=== PATIENT | female | born 1935 | race Caucasian/White ===

== ENCOUNTER 2020-05-24 19:16 | Emergency (ER) | payer MEDICARE, OTHER ==
[~2020-05-24] VITALS: Ht 160 cm; Wt 63.5 kg
--- OUTSIDE RECORDS SUMMARY | ~2020-05-24 | XMS | Encounter Summary ---
Demographics + + + | Address | [address] | | | [place] [address] | + + + | Home Phone | | + + + | Preferred Language | Unknown | + + + | Marital Status | | + + + | Mormonism Affiliation | 1041 | + + + | Race | White | + + + | Ethnic Group | Not or | + + + Author + + + | Author | [facility] | | | and [place] | + + + | Organization | [facility] | | | and [place] | + + + | Address | Unknown | + + + | Phone | Unavailable | + + + Support + + +---------+ + | Name | Relationship | Address | Phone | + + +---------+ + | Marisel Orellana | ECON | Unknown | | + + +---------+ + | Faviola Lara | ECON | Unknown | | + + +---------+ + Care Team Providers + +------+ + | Care Working Foreman Name | Role | Phone | + +------+ + | Terrence Aquino DO | PCP | | + +------+ + Encounter Details +--------+ + + + + | Date | Type | Department | Care Team | Description | +--------+ + + + + | 04/27/ | Orders Only | [facility] [place] | VishabsylvainMariyavish, | Aortic valve | | 2016 | | CARDIOLOGY [address] | [address] | stenosis, critical | | | | [place], | [place], | (Primary Dx); | | | | [place] [address] | [place] [address] | Nonrheumatic aortic | | | | [phone] | [phone] | valve stenosis; PAD | | | | | | (peripheral artery | | | | | | disease) (HCC); | | | | | | Coronary artery | | | | | | disease involving | | | | | | picayune coronary | | | | | | artery of picayune | | | | | | heart without angina | | | | | | pectoris; S/P TAVR | | | | | | (transcatheter | | | | | | aortic valve | | | | | | replacement); Post | | | | | | PTCA | +--------+ + + + + Social History + +-------+ +--------+------+ | Tobacco Use | Types | Packs/Day | Years | Date | | | | | Used | | + +-------+ +--------+------+ | Never Smoker | | | | | + +-------+ +--------+------+ + +---+---+---+ | Smokeless Tobacco: | | | | | Never Used | | | | + +---+---+---+ + + +---------+ + | Alcohol Use | Drinks/Week | oz/Week | Comments | + + +---------+ + | Yes | | | Rarely | + + +---------+ + + + + | Sex Assigned at | Date Recorded | | | | + + + | Not on file | | + + + documented as of this encounter Plan of Treatment +--------+ + + + + | Date | Type | Specialty | Care Team | Description | +--------+ + + + + | 06/18/ | Appointment | Cardiology | Rasheeda Patel, | | | 2019 | | | [place] [address] | | | | | | [place] | | | | | | [address] | | | | | | | | +--------+ + + + + | 06/18/ | Office | Cardiology | Sandra Lua | | | 2019 | Visit | | JOHNN[place] Bernal [address] | | | | | | [place] | | | | | | [place] [address] | | | | | | [phone] | | | | | | | | +--------+ + + + + documented as of this encounter Visit Diagnoses + + | Diagnosis | + + | Aortic valve stenosis, critical - Primary Aortic valve disorders | + + | Nonrheumatic aortic valve stenosis Aortic valve disorders | + + | PAD (peripheral artery disease) (HCC) Unspecified disorders of arteries and | | arterioles | + + | 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
--- OUTSIDE RECORDS SUMMARY | ~2020-05-24 | XMS | Encounter Summary ---
Demographics + + + | Address | [address] | | | [place] [address] | + + + | Home Phone | | + + + | Preferred Language | Unknown | + + + | Marital Status | | + + + | Methodist Affiliation | 1041 | + + + | Race | White | + + + | Ethnic Group | Not or | + + + Author + + + | Author | [facility] | | | and [place] | + + + | Organization | [facility] | | | and [...] Team Providers + +------+ + | Care Chin Strap Sewer Name | Role | Phone | + +------+ + | Terrence Aquino DO | PCP | | + +------+ + Encounter Details +--------+ + + + + | Date | Type | Department | Care Team | Description | +--------+ + + + + | 03/21/ | Hospital | [facility] | Martina Hoskins, | Palpitations | | 2017 | Encounter | MED CTR NUCLEAR | MD [address] | | | | | MEDICINE [address], | | | | | [place], | [place] [address] | | | | | [place] [address] | [phone] | | | | | [phone] | | | +--------+ + + + + Social [...] + + documented as of this encounter Medications at Time of Discharge + + + +---------+ + + | Medication | Sig | Dispensed | Refills | Start | End Date | | | | | | Date | | + + + +---------+ + + | acetaminophen | Take 500 mg by mouth | | 0 | | | | (TYLENOL) 500 mg | Daily. 3-4 tablets | | | | | | tablet | daily | | | | | + + + +---------+ + + | ascorbic acid | Take 500 mg by mouth | | 0 | | | | (VITAMIN C) 500 mg | Daily. | | | | | | tablet | | | | | | + + + +---------+ + + | B Complex Vitamins | Take 1 tablet by | | 0 | | | | (VITAMIN-B COMPLEX) | mouth Daily. | | | | | | TABS | | | | | | + + + +---------+ + + | irbesartan | Take 300 mg by mouth | | 0 | | | | (AVAPRO) 300 mg | Daily. | | | | | | tablet | | | | | | + + + +---------+ + + | Multiple | Take by mouth 2 | | 0 | | | | Vitamins-Minerals | times daily. | | | | | | (PRESERVISION AREDS | | | | | | | 2) CAPS | | | | | | + + + +---------+ + + | cholecalciferol | Take 1,000 Units by | | 0 | | | | (VITAMIN D-3) 1,000 | mouth Daily. | | | | 7 | | units capsule | | | | | | + + + +---------+ + + | | Take by mouth 2 | | 0 | | | | Glucosamine-Chondroi | times daily. | | | | 9 | | t-Vit C-Mn | | | | | | | (GLUCOSAMINE-CHONDRO | | | | | | | ITIN) TABS | | | | | | + + + +---------+ + + | metoprolol | Take 50 mg by mouth | | 0 | | | | succinate | Daily. | | | | 7 | | (TOPROL-XL) 50 mg 24 | | | | | | | hr tablet | | | | | | + + + +---------+ + + | potassium chloride | Take 20 mEq by mouth | | 0 | 12/19/19 | | | (K-DUR) 20 mEq ER | Daily. 1 capsule | | | 16 | 9 | | tablet | mon-mon-mon orally | | | | | | | once a day | | | | | + + + +---------+ + + | traMADol (ULTRAM) | take 1 tablet by | | 0 | 02/09/20 | | | 50 mg tablet | mouth once daily if | | | 16 | 7 | | | needed | | | | | + + + +---------+ + + documented as of this encounter Procedure Notes Martina Hoskins MD - 04/04/2017 12:53 PM PDTAssociated Order(s): EVENT MONITOR 2 WEEKEve nt monitor from 03/21 until 04/03/2017. Baseline EKG shows sinus rhythm with first-degree AV block. There were multiple patient activation without symptoms. EKG shows sinus rhythm with first degree AV block and a single PVCs. There is no other significant arrhythmias seen.Carlie kelly signed by Martina Hoskins MD at 04/04/2017 12:55 PM PDTdocumented in this encounter Plan of Treatment +--------+ + + + + | Date | Type | Specialty | Care Team | Description | +--------+ + + + + | 06/18/ | Appointment | Cardiology | Rasheeda Patel, | | | 2019 | | | [place] [address] | | | | | | [place] | | | | | | [address] | | | | | | | | +--------+ + + + + | 06/18/ | Office | Cardiology | Sandra Lua | | 2019 | Visit | | [address] | | | | | | [place] | | | | | | [place] [address] | | | | | | [phone] | | | | | | | | +--------+ + + + + documented as of this encounter Procedures + +--------+ + + + | Procedure Name | Priori | Date/Time | Associated Diagnosis | Comments | | | ty | | | | + +--------+ + + + | EVENT MONITOR 2 WEEK | Routin | 04/04/2017 | Palpitations | Results for this | | | e | 12:55 PM | | procedure are in the | | | | PDT | | results section. | + +--------+ + + + documented in this encounter Results Event monitor - 2 week (04/04/2017 12:55 PM PDT) + + + | Narrative | Performed At | + + + | Martina Hoskins MD 04/04/2017 12:55 Event monitor from 03/21 | [facility] | | until 04/03/2017. Baseline EKG shows sinus rhythm with first-degree AV | | | block. There were multiple patient activation without symptoms. | | | EKG shows sinus rhythm with first degree AV block and a single | | | PVCs. There is no other significant arrhythmias seen. | | + + + + +---------+ + + | Performing | Address | City/State/Zipcode | Phone Number | | Organization | | | | + +---------+ + + | [place] | | | | + +---------+ + + documented in this encounter Visit Diagnoses + + | Diagnosis | + + | Palpitations | + + documented in this encounter"
--- OUTSIDE RECORDS SUMMARY | ~2020-05-24 | XMS | Encounter Summary ---
Demographics + + + | Address | [address] | | | [place] [address] | + + + | Home Phone | | + + + | Preferred Language | Unknown | + + + | Marital Status | | + + + | Adventist Affiliation | 1041 | + + + | Race | White | + + + | Ethnic Group | Not or | + + + Author + + + | Author | [facility] | | | and [place] | + + + | Organization | [facility] | | | [...] Team Providers + +------+ + | Care Calibration Checker Name | Role | Phone | + +------+ + | Terrence Aquino DO | PCP | | + +------+ + Encounter Details +--------+ + + + + | Date | Type | Department | Care Team | Description | +--------+ + + + + | 03/18/ | Orders Only | [facility] | Provider, | | | 2018 | | SYSTEM GENERIC OP | [address] | | | | | [address]VERSION [address] | [address] | | | | | [address] [place], [place] | [place] [address] | | | | | [address] | | | | | | [phone] | | | +--------+ + + + [...] +---------+ + | Yes | | | Alcoholic | | | | | Drinks/day: day | + + +---------+ + + + [...] | | 2019 | | | [place] [address] | | | | | | [place] | | | | | | [id number] | | | | | | | | +--------+ + + + + | 06/18/ | Office | Cardiology | Sandra Lua | | | 2020 | Visit | | [place] Bernal [address] | | | | | | [place] [address] | | | | | | [place] [address] | | | | | | [phone] | | | | | | | | +--------+ + + + + documented as of this encounter Visit Diagnoses Not on filedocumented in this encounter"
--- OUTSIDE RECORDS SUMMARY | ~2020-05-24 | XMS | Encounter Summary ---
Demographics + + + | Address | [address] | | | [place] [address] | + + + | Home Phone | | + + + | Preferred Language | Unknown | + + + | Marital Status | | + + + | Uatsdin Affiliation | 1041 | + + + | Race | White | + + + | Ethnic Group | Not or | + + + Author + + + | Author | [facility] | | | and [place] | + + + | Organization | [facility] | | | and [...] Team Providers + +------+ + | Care Palliative Senior Np Name | Role | Phone | + +------+ + | Terrence Aquino DO | PCP | | + +------+ + Encounter Details +--------+ + + + + | Date | Type | Department | Care Team | Description | +--------+ + + + + | 02/16/ | Abstract | [facility] [place] | Martina Hoskins, | Essential | | 2016 | | CARDIOLOGY [address] | [address] | hypertension, | | | | [address] [place], | [place], | hypertension with | | | | [place] [address] | [place] [address] | unspecified goal | | | | [phone] | [phone] | (Primary Dx); | | | | | | Hypokalemia; Aortic | | | | | | valve stenosis, | | | | | | unspecified | | | | | | etiology; | | | | | | Hypertensive | | | | | | arteriosclerotic | | | | | | cardiovascular | | | | | | disease; | | | | | | Nonrheumatic aortic | | | | | | valve stenosis; | | | | | | Arthritis | +--------+ + + + + Social History + +-------+ +--------+------+ | Tobacco Use | Types | Packs/Day | Years | Date | | | | | Used | | + +-------+ +--------+------+ | Never Smoker | | | | | + +-------+ +--------+------+ + + +---------+ + | Alcohol Use | Drinks/Week | oz/Week | Comments | + + +---------+ + | Yes | 3 Glasses of wine | 3.0 | | + + +---------+ + + + [...] 2019 | | | [place] [address] | | | | | | [place] | | | | | | [address] | | | | | | | | +--------+ + + + + | 06/18/ | Office | Cardiology | LuaSandra raymond | | | 2019 | Visit | | [place]NN[place] Bernal [address] | | | | | | [address] | | | | | | [place] [address] | | | | | | [phone] | | | | | | | | +--------+ + + + + documented as of this encounter Visit Diagnoses + + | Diagnosis | + + | Essential hypertension, hypertension with unspecified goal - Primary | + + | Hypokalemia Hypopotassemia | + + | Aortic valve stenosis, unspecified etiology | + + | Hypertensive arteriosclerotic cardiovascular disease | + + | Nonrheumatic aortic valve stenosis Aortic valve disorders | + + | Arthritis Arthropathy, unspecified, site unspecified | + + documented in this encounter"
--- OUTSIDE RECORDS SUMMARY | ~2020-05-24 | XMS | Encounter Summary ---
Demographics + + + | Address | [address] | | | [place] [address] | + + + | Home Phone | | + + + | Preferred Language | Unknown | + + + | Marital Status | | + + + | Moravian Affiliation | 1041 | + + + | Race | White | + + + | Ethnic Group | Not or | + + + Author + + + | Author | [facility] | | | and [place] | + + + | Organization | [facility] | | | and [place] | + + + | Address | Unknown | + + + | Phone | Unavailable | + + + Support + + +---------+ + | Name | Relationship | Address | Phone | + + +---------+ + | Marisel Orellana | ECON | Unknown | | + + +---------+ + | Faviola aLra | ECON | Unknown | | + + +---------+ + Care Team Providers + +------+ + | Care Bottle Tester Name | Role | Phone | + +------+ + PCP | Unavailable | + +------+ + Encounter Details +--------+ + + + + | Date | Type | Department | Care Team | Description | +--------+ + + + + | 07/24/ | Hospital | [facility] | Conversion | | | 2011 | Encounter | [facility] | Transaction, | | | | | [address] | Provider Unknown | | | | | [place], [place] | | | | | | [address] | (Fax) | | | | | [phone] | | | +--------+ + + + + Social History + +-------+ +--------+------+ | Tobacco Use | Types | Packs/Day | Years | Date | | | | | Used | | + +-------+ +--------+------+ | Never Assessed | | | | | + +-------+ +--------+------+ + + + | Sex Assigned at [...] | | | | | [place] [address] | | | | | | [phone] | | | | | | | | +--------+ + + + + documented as of this encounter Visit Diagnoses Not on filedocumented in this encounter"
--- OUTSIDE RECORDS SUMMARY | ~2020-05-24 | XMS | Encounter Summary ---
Demographics + + + | Address | [address] | | | [place] [address] | + + + | Home Phone | | + + + | Preferred Language | Unknown | + + + | Marital Status | | + + + | Church Affiliation | 1041 | + + + | Race | White | + + + | Ethnic Group | Not or | + + + Author + + + | Author | [facility] | | | and [place] | + + + | Organization | [facility] | | | [...] Team Providers + +------+ + | Care Fuel Pilot Engineer Name | Role | Phone | + +------+ + PCP | Unavailable | + +------+ + Encounter Details +--------+ + + + + | Date | Type | Department | Care Team | Description | +--------+ + + + + | 05/23/ | Hospital | [facility] | Steve Moore MD | | | 2007 | Encounter | MED CTR GENERIC OP | [address], [address] | | | | | CONV DEPT [address] | [address] [place], [place] | | | | | [place], | [address] | | | | | [place] [address] | | | | | | [phone] | | | +--------+ + + + [...] [address] | | | | | | [place] [...] | | | | | [place] [address] | | | | | | [phone] | | | | | | | | +--------+ + + + + documented as of this encounter Visit Diagnoses Not on filedocumented in this encounter"
--- OUTSIDE RECORDS SUMMARY | ~2020-05-24 | XMS | Encounter Summary ---
Demographics + + + | Address | [address] | | | [place] [address] | + + + | Home Phone | | + + + | Preferred Language | Unknown | + + + | Marital Status | | + + + | Quaker Affiliation | 1041 | + + + | Race | White | + + + | Ethnic Group | Not or | + + + Author + + + | Author | [facility] | | | and [place] | + + + | Organization | [facility] | | | [...] Team Providers + +------+ + | Care Wax Cutter Name | Role | Phone | + +------+ + | Terrence Aquino DO | PCP | | + +------+ + Reason for Visit +--------+--------+ + | Reason | Onset | Comments | | | Date | | +--------+--------+ + | Other | 11/14/ | | | | 2018 | | +--------+--------+ + Encounter Details +--------+ + + + + | Date | Type | Department | Care Team | Description | +--------+ + + + + | 11/14/ | Telephone | [facility] | Rasheeda Patel, | [place] | | 2017 | | CARDIOLOGY [address] | UPPER AND BOTTOM LACER HAND [address] | | | | | [place], | [place], [place] | | | | | [place] [address] | [address] | | | | | [phone] | | | +--------+ + + + [...] + + documented as of this encounter Miscellaneous Notes Telephone Encounter - Bonny Gordon RN - 11/14/2017 3:18 PM PDTPatient called, she stopped pravastatin on 10/17/17, she is feeling much better with her arthritis. She would lik Chris GANT to know this information, she was told by Rasheeda that she would change he r dose and take every other day if her arthritis improved .................................. .........Bonny Gordon RN on 11/14/17 at 16:14 Per Rasheeda GANT, patient was notified to take 5 mg every other day, if pain returns to stop medication and call the office ...........................................Bonny Gordon RN on 11/14/17 at 16:17 documented in thi s encounter Plan of Treatment +--------+ + + + + | Date | Type | Specialty | Care Team | Description | +--------+ + + + + | 06/18/ | Appointment | Cardiology | Rasheeda Patel, | | | 2019 | | | [place] | | | | | | [place], [place] | | | | | | [address] | | | | | | | | +--------+ + + + + | 06/18/ | Office | Cardiology | Sandra Lua | | | 2020 | Visit | | JOHNN[place] Bernal [address] | | | | | | [place] [address] | | | | | | [place] [address] | | | | | | [phone] | | | | | | | | +--------+ + + + + documented as of this encounter Visit Diagnoses Not on filedocumented in this encounter"
--- OUTSIDE RECORDS SUMMARY | ~2020-05-24 | XMS | Encounter Summary ---
Demographics + + + | Address | [address] | | | [place] [address] | + + + | Home Phone | | + + + | Preferred Language | Unknown | + + + | Marital Status | | + + + | Presybeterian Affiliation | 1041 | + + + | Race | White | + + + | Ethnic Group | Not or | + + + Author + + + | Author | [facility] | | | and [place] | + + + | Organization | [facility] | | | and [place] | + + + | Address | Unknown | + + + | Phone | Unavailable | + + + Support + + +---------+ + | Name | Relationship | Address | Phone | + + +---------+ + | Mariselnicole Orellana | ECON | Unknown | | + + +---------+ + | Faviola Lara | ECON | Unknown | | + + +---------+ + Care Team Providers + +------+ + | Care Hub Cutter Name | Role | Phone | + +------+ + | Terrence Aquino DO | PCP | | + +------+ + Reason for Referral Diagnostic/Screening (Routine) +--------+--------+ + + + + | Status | Reason | Specialty | Diagnoses / | Referred By | Referred To | | | | | Procedures | Contact | Contact | +--------+--------+ + + + + | Closed | | Radiology | Diagnoses | [place], | [facility] | | | | | | Rasheeda, PORTABLE TRACK CREW CHIEF | [address] | | | | | Nonrheumatic | [address] | [place], | | | | | aortic | [place] | [place] | | | | | valve | [place] | [address] | | | | | stenosis | [address] | Phone: | | | | | Essential | Phone: | [phone] | | | | | hypertension | [phone] | Fax: | | | | | | Fax: | [phone] | | | | | Palpitations | [phone] | | | | | | S/P TAVR | | | | | | | (transcathet | | | | | | | er aortic | | | | | | | valve | | | | | | | replacement) | | | | | | | Coronary | | | | | | | artery | | | | | | | disease | | | | | | | involving | | | | | | | solomon | | | | | | | coronary | | | | | | | artery of | | | | | | | solomon heart | | | | | | | without | | | | | | | angina | | | | | | | pectoris | | | | | | | PAD | | | | | | | (peripheral | | | | | | | artery | | | | | | | disease) | | | | | | | (HCC) | | | | | | | Tachycardia | | | | | | | Procedures | | | | | | | ECHO | | | | | | | Complete MS | | | | | | | ECHO HEART | | | | | | | XTHORACIC,CO | | | | | | | MPLETE W | | | | | | | DOPPLER MS | | | | | | | ECHO HEART | | | | | | | XTHORACIC,CO | | | | | | | MPLETE, W/O | | | | | | | DOPPLER | | | +--------+--------+ + + + + Reason for Visit Diagnostic/Screening (Routine) +--------+--------+ + + + + | Status | Reason | Specialty | Diagnoses / | Referred By | Referred To | | | | | Procedures | Contact | Contact | +--------+--------+ + + + + | Closed | | Radiology | Diagnoses | [place], | [facility] | | | | | | ALFREDA Mccormack | [address] | | | | | Nonrheumatic | [address] | [place], | | | | | aortic | [place] | [place] | | | | | valve | [place], [place] | [address] | | | | | stenosis | [address] | Phone: | | | | | Essential | Phone: | [phone] | | | | | hypertension | [phone] | Fax: | | | | | | Fax: | [phone] | | | | | Palpitations | [phone] | | | | | | S/P TAVR | | | | | | | (transcathet | | | | | | | er aortic | | | | | | | valve | | | | | | | replacement) | | | | | | | Coronary | | | | | | | artery | | | | | | | disease | | | | | | | involving | | | | | | | solomon | | | | | | | coronary | | | | | | | artery of | | | | | | | solomon heart | | | | | | | without | | | | | | | angina | | | | | | | pectoris | | | | | | | PAD | | | | | | | (peripheral | | | | | | | artery | | | | | | | disease) | | | | | | | (HCC) | | | | | | | Tachycardia | | | | | | | Procedures | | | | | | | ECHO | | | | | | | Complete MS | | | | | | | ECHO HEART | | | | | | | XTHORACIC,CO | | | | | | | MPLETE W | | | | | | | DOPPLER MS | | | | | | | ECHO HEART | | | | | | | XTHORACIC,CO | | | | | | | MPLETE, W/O | | | | | | | DOPPLER | | | +--------+--------+ + + + + Encounter Details +--------+ + + + + | Date | Type | Department | Care Team | Description | +--------+ + + + + | 06/08/ | Hospital | [facility] | Rasheeda Patel, | Nonrheumatic aortic | | 2017 | Encounter | [facility] [address] | PORTABLE TRACK CREW CHIEF [address] | valve stenosis; | | | | [address] [place] | [place], [place] | Essential | | | | [place] [address] | [address] | hypertension; | | | | [phone] | | Palpitations; S/P | | | | | Lissy Clarke | TAVR (transcatheter | | | | | M, Technologist | aortic valve | | | | | | replacement); | | | | | | Coronary artery | | | | | | disease involving | | | | | | solomon coronary | | | | | | artery of solomon | | | | | | heart without angina | | | | | | pectoris; PAD | | | | | | (peripheral artery | | | | | | disease) ([facility]); | | | | | | Tachycardia | +--------+ + + + + Social [...] + + + +---------+ + + | clopidogrel | Take 1 tablet by | 30 | 5 | 04/27/20 | | | (PLAVIX) 75 mg | mouth Daily. | tablet | | 17 | 8 | | tablet | | | | [...] +---------+ + + | metoprolol | Take 1 tablet by | 90 | 3 | 04/27/20 | | | succinate | mouth Daily. | tablet | | 17 | 8 | | (TOPROL-XL) 50 mg 24 | | | | | | | hr tablet | | | | | | + + + +---------+ + + | potassium chloride | Take 20 mEq by mouth | | 0 | 12/19/19 | | | (K-DUR) 20 mEq ER | Daily. 1 capsule | | | 16 | 9 | | tablet | -mon orally | | | | | | [...] 2019 | | | ALFREDA [address] | | | | | | [place] | | | | | | [address] | | | | | | | | +--------+ + + + + | 06/18/ | Office | Cardiology | Sandra Lua | | | 2019 | Visit | | [place] Bernal [address] | | | | | | [address] [place] | | | | | | [place] [address] | | | | | | [phone] | | | | | | | | +--------+ + + + + documented as of this encounter Procedures + +--------+ + + + | Procedure Name | Priori | Date/Time | Associated Diagnosis | Comments | | | ty | | | | + +--------+ + + + | ECHO COMPLETE | Routin | 06/08/2017 | Nonrheumatic | Results for this | | | e | 12:00 PM | aortic valve | procedure are in the | | | | PDT | stenosis Essential | results section. | | | | | hypertension | | | | | | Palpitations S/P | | | | | | TAVR (transcatheter | | | | | | aortic valve | | | | | | replacement) | | | | | | Coronary artery | | | | | | disease involving | | | | | | solomon coronary | | | | | | artery of solomon | | | | | | heart without angina | | | | | | pectoris PAD | | | | | | (peripheral artery | | | | | | disease) (HCC) | | | | | | Tachycardia | | + +--------+ + + + documented in this encounter Results ECHO Complete (06/08/2017 12:00 PM PDT) + +-------+ + + + | Component | Value | Ref Range | Performed | Pathologist | | | | | At | Signature | + +-------+ + + + | LVEF-TTE | 74 | | [facility] | | | TRANSTHORAC | | | | | | IC ECHO | | | | | + +-------+ + + + + + | Specimen | + + | | + + + +------ ---------+ | Narrative | Perfo rmed At | + +------ ---------+ | Transthoracic | [facility] | | Echocardiography Report (TTE) Demographics Patient Name RENEE | | | MARYCHUY Room Number [place] Patient Number | | | [id number] Date of Study 06/08/2017 Visit | | | Number [id number] | | | Referring Physician ADELIA MCCORMACK Number Date of | | | 1935 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 | | | Procedure dateDate: 06/08/2017Start: 11:09 AM Technical Quality: | | | Adequate visualizationStudy Location: Echo LabIndications: Aortic | | | Stenosis 424.1/I35.0.Patient Status: RoutineHeight: 62 inchesWeight: | | | 143 poundsBSA: 1.66 m^2BMI: 26.16 kg/m^2Rhythm: Normal Sinus Rhythm | | | ConclusionsSummary1. Normal left ventricular size, wall thickness and | | | motion. Preserved leftventricular systolic function. LVEF is 70-75%.2. | | | Grade 1 left ventricular diastolic dysfunction.3. Evidence of a TAVR | | | #23mm Larios Sung with slight increase of thepressure gradient | | | across the valve. There is a mild transvalvular aorticvalve | | | insufficiency.4. Mildly thickened and calcified mitral valve with a | | | mild mitral valveregurgitant.5. Mild mitral annular calcification.6. | | | Normal right-sided pressure.7. Normal IVC with normal respiratory | | | collapse.8. When compared to echocardiography on 02/22/17, aortic valve | | | replacement gómez new finding. | | | Signature | | | | | | PM | | | -------- FindingsMitral ValveThickening and calcification of the | | | mitral valve leaflets.Mild mitral annular calcification is | | | present.Aortic ValveEvidence of a TAVR #23mm Larios Sung with | | | slight increase of the pressuregradient across the valve. There is a | | | mild transvalvular aortic valveinsufficiency.Tricuspid | | | ValveStructurally normal tricuspid valve with mild | | | regurgitation.Pulmonic ValveStructurally normal pulmonic valve without | | | significant stenosis orregurgitation.Left AtriumNormal size left | | | atrium.Left VentricleLeft ventricle is normal in size and function. | | | Ejection fraction isestimated at 70-75 %.Impaired relaxation | | | compatible with diastolic dysfunction (reversed E/Aratio).Right | | | AtriumNormal right atrial size.Right VentricleNormal right ventricular | | | size.Right ventricle global systolic function is normal.TAPSE = 2.2 | | | cm.Pericardial EffusionNo evidence of pericardial effusion. | | | MiscellaneousNormal aortic root.The IVC appears normal.IVC respiratory | | | change in dimension > 50%. Valves Mitral Valve Tissue Doppler | | | Septal e' Velocity: 0.09 m/s Aortic Valve Peak Velocity: 2.8 m/s | | | Peak Gradient: 31.36 mmHg Tricuspid Valve TR Velocity: 2.2 m/s LVOT | | | Peak Velocity: 2 m/s LVOT Diameter: 1.8 cm Structures Left Atrium | | | LA A/P Dimension: 3.3 cm LA | | | Volume: 37 ml LA Vol/BSA Index: 22 mL/m^2 | | | EF Zdydcefbo61% Left Ventricle Diastolic Dimension: 4 cm | | | Septum Diastolic: 0.8 cm PW Diastolic: 0.9 cm Miscellaneous Aorta | | | Aortic Root: 3.7 cm | | |Signature | | | | | | Electronically signed by JURGEN BARRAGAN MD(Interpreting physician) on | | | 06/08/2017 04:48 PM | | | | | | | | |Findings | | |Mitral Valve | | |Thickening and calcification of the mitral valve leaflets. | | |Mild mitral annular calcification is present. | | |Aortic Valve | | |Evidence of a TAVR #23mm Larios Sung with slight increase of the pressure | | |gradient across the valve. There is a mild transvalvular aortic valve | | |insufficiency. | | |Tricuspid Valve | | |Structurally normal tricuspid valve with mild regurgitation. | | |Pulmonic Valve | | |Structurally normal pulmonic valve without significant stenosis or | | |regurgitation. | | |Left Atrium | | |Normal size left atrium. | | |Left Ventricle | | |Left ventricle is normal in size and function. Ejection fraction is | | |estimated at 70-75 %. | | |Impaired relaxation compatible with diastolic dysfunction (reversed E/A | | |ratio). | | |Right Atrium | | |Normal right atrial size. | | |Right Ventricle | | |Normal right ventricular size. | | |Right ventricle global systolic function is normal. | | |TAPSE = 2.2 cm. | | |Pericardial Effusion | | |No evidence of pericardial effusion. | | | | | |Miscellaneous | | |Normal aortic root. | | |The IVC appears normal. | | |IVC respiratory change in dimension > 50%. | | | | | |Valves | | | | | | Mitral Valve | | | | | | Tissue Doppler | | | | | | Septal e' Velocity: 0.09 m/s | | | | | | Aortic Valve | | | | | | Peak Velocity: 2.8 m/s | | | Peak Gradient: 31.36 mmHg | | | | | | Tricuspid Valve | | | | | | TR Velocity: 2.2 m/s | | | | | | LVOT | | | | | | Peak Velocity: 2 m/s | | | LVOT Diameter: 1.8 cm | | | | | |Structures | | | | | | Left Atrium | | | | | | LA A/P Dimension: 3.3 cm LA Volume: 37 ml | | | LA Vol/BSA Index: 22 mL/m^2 EF Qtwunhhqd13% | | | | | | Left Ventricle | | | | | | Diastolic Dimension: 4 cm | | | Septum Diastolic: 0.8 cm | | | PW Diastolic: 0.9 cm | | | | | | Miscellaneous | | | | | | Aorta | | | | | | Aortic Root: 3.7 cm | | | | | + +------ ---------+ + + | Procedure Note | + + | Yamil Oliveros Results In - 06/08/2017 4:48 PM PDT Transthoracic Echocardiography Report | | (TTE) Demographics Patient Name RENEE LEACH Room Number [place] | | Patient Number [id number] Date of Study 06/08/2017 Visit Number | | [id number] Referring Physician ADELIA MCCORMACK Number | | Date of 1935 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 Normal left ventricular size, wall thickness and | | motion. Preserved leftventricular systolic function. LVEF is 70-75%.2. Grade 1 left | | ventricular diastolic dysfunction.3. Evidence of a TAVR #23mm Larios Sung with slight | | increase of thepressure gradient across the valve. There is a mild transvalvular | | aorticvalve insufficiency.4. Mildly thickened and calcified mitral valve with a mild | | mitral valveregurgitant.5. Mild mitral annular calcification.6. Normal right-sided | | pressure.7. Normal IVC with normal respiratory collapse.8. When compared to | | echocardiography on 02/22/17, aortic valve replacement gómez new | | finding.Signature | | ----- Electronically signed by JURGEN BARRAGAN MD(Interpreting physician) on | | 06/08/2017 04:48 | | PM FindingsMi | | tral ValveThickening and calcification of the mitral valve leaflets.Mild mitral annular | | calcification is present.Aortic ValveEvidence of a TAVR #23mm Larios Sung with slight | | increase of the pressuregradient across the valve. There is a mild transvalvular aortic | | valveinsufficiency.Tricuspid ValveStructurally normal tricuspid valve with mild | | regurgitation.Pulmonic ValveStructurally normal pulmonic valve without significant | | stenosis orregurgitation.Left AtriumNormal size left atrium.Left VentricleLeft ventricle | | is normal in size and function. Ejection fraction isestimated at 70-75 %.Impaired | | relaxation compatible with diastolic dysfunction (reversed E/Aratio).Right AtriumNormal | | right atrial size.Right VentricleNormal right ventricular size.Right ventricle global | | systolic function is normal.TAPSE = 2.2 cm.Pericardial EffusionNo evidence of | | pericardial effusion.MiscellaneousNormal aortic root.The IVC appears normal.IVC | | respiratory change in dimension > 50%.Valves Mitral Valve Tissue Doppler Septal e' | | Velocity: 0.09 m/s Aortic Valve Peak Velocity: 2.8 m/s Peak Gradient: 31.36 mmHg | | Tricuspid Valve TR Velocity: 2.2 m/s LVOT Peak Velocity: 2 m/s LVOT Diameter: 1.8 | | cmStructures Left Atrium LA A/P Dimension: 3.3 cm LA Volume: | | 37 ml LA Vol/BSA Index: 22 mL/m^2 EF Giakvcgdi36% Left Ventricle | | Diastolic Dimension: 4 cm Septum Diastolic: 0.8 cm PW Diastolic: 0.9 cm Miscellaneous | | Aorta Aortic Root: 3.7 cm | |ventricular systolic function. LVEF is 70-75%. | |2. Grade 1 left ventricular diastolic dysfunction. | |3. Evidence of a TAVR #23mm Larios Sung with slight increase of the | |pressure gradient across the valve. There is a mild transvalvular aortic | |valve insufficiency. | |4. Mildly thickened and calcified mitral valve with a mild mitral valve | |regurgitant. | |5. Mild mitral annular calcification. | |6. Normal right-sided pressure. | |7. Normal IVC with normal respiratory collapse. | |8. When compared to echocardiography on 02/22/17, aortic valve replacement is | |a new finding. | | | |Signature | | | | Electronically signed by JURGEN BARRAGAN MD(Interpreting physician) on | | 06/08/2017 04:48 PM | | | | | |Findings | |Mitral Valve | |Thickening and calcification of the mitral valve leaflets. | |Mild mitral annular calcification is present. | |Aortic Valve | |Evidence of a TAVR #23mm Larios Sung with slight increase of the pressure | |gradient across the valve. There is a mild transvalvular aortic valve | |insufficiency. | |Tricuspid Valve | |Structurally normal tricuspid valve with mild regurgitation. | |Pulmonic Valve | |Structurally normal pulmonic valve without significant stenosis or | |regurgitation. | |Left Atrium | |Normal size left atrium. | |Left Ventricle | |Left ventricle is normal in size and function. Ejection fraction is | |estimated at 70-75 %. | |Impaired relaxation compatible with diastolic dysfunction (reversed E/A | |ratio). | |Right Atrium | |Normal right atrial size. | |Right Ventricle | |Normal right ventricular size. | |Right ventricle global systolic function is normal. | |TAPSE = 2.2 cm. | |Pericardial Effusion | |No evidence of pericardial effusion. | | | |Miscellaneous | |Normal aortic root. | |The IVC appears normal. | |IVC respiratory change in dimension > 50%. | | | |Valves | | | | Mitral Valve | | | | Tissue Doppler | | | | Septal e' Velocity: 0.09 m/s | | | | Aortic Valve | | | | Peak Velocity: 2.8 m/s | | Peak Gradient: 31.36 mmHg | | | | Tricuspid Valve | | | | TR Velocity: 2.2 m/s | | | | LVOT | | | | Peak Velocity: 2 m/s | | LVOT Diameter: 1.8 cm | | | |Structures | | | | Left Atrium | | | | LA A/P Dimension: 3.3 cm LA Volume: 37 ml | | LA Vol/BSA Index: 22 mL/m^2 EF Uinriosxp28% | | | | Left Ventricle | | | | Diastolic Dimension: 4 cm | | Septum Diastolic: 0.8 cm | | PW Diastolic: 0.9 cm | | | | Miscellaneous | | | | Aorta | | | | Aortic Root: 3.7 cm | + + + +---------+ + + | Performing | Address | City/State/Zipcode | Phone Number | | Organization | | | | + +---------+ + + | [facility] | | | | + +---------+ + + documented in this encounter Visit Diagnoses + + | Diagnosis | + + | Nonrheumatic aortic valve stenosis Aortic valve disorders | + + | Essential hypertension Unspecified essential hypertension | + + | Palpitations | + + | S/P TAVR (transcatheter aortic valve replacement) | + + | 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
--- OUTSIDE RECORDS SUMMARY | ~2020-05-24 | XMS | Encounter Summary ---
Demographics + + + | Address | [address] | | | [place] [address] | + + + | Home Phone | | + + + | Preferred Language | Unknown | + + + | Marital Status | | + + + | Zoroastrianism Affiliation | [id number] | + + + | Race | White | + + + | Ethnic Group | Not or | + + + Author + + + | Author | [facility] | | | and [place] | + + + | Organization | [facility] | | | and [...] Team Providers + +------+ + | Care Almond Blancher Name | Role | Phone | + +------+ + | Terrence Aquino DO | PCP | | + +------+ + Encounter Details +--------+ + + + + | Date | Type | Department | Care Team | Description | +--------+ + + + + | 03/06/ | Hospital | [facility] | Martina Hoskins, | Aortic valve | | 2017 | Encounter | MED CTR CV IN[facility] OP | MD [address] | stenosis, | | | | [address] | [place], | unspecified etiology | | | | [place], [place] | [place] [address] | | | | | [address] | [phone] | | | | | [phone] | | | +--------+ + + + [...] + + documented as of this encounter Last Filed Vital Signs + + + + + | Vital Sign | Reading | Time Taken | Comments | + + + + + | Blood Pressure | 149/58 | 03/06/2017 11:15 AM | | | | | PDT | | + + + + + | Pulse | 51 | 03/06/2017 11:15 AM | | | | | PDT | | + + + + + | Temperature | 36.3 C (97.3 F) | 03/06/2017 7:44 AM | | | | | PDT | | + + + + + | Respiratory Rate | 20 | 03/06/2017 11:15 AM | | | | | PDT | | + + + + + | Oxygen Saturation | 97% | 03/06/2017 11:15 AM | | | | | PDT | | + + + + + | Inhaled Oxygen | - | - | | | Concentration | | | | + + + + + | Weight | 65.3 kg (144 lb) | 03/06/2017 7:44 AM | | | | | PDT | | + + + + + | Height | 157.5 cm (5' 2") | 03/06/2017 7:44 AM | | | | | PDT | | + + + + + | Body Mass Index | 26.34 | 03/06/2017 7:44 AM | | | | | PDT | | + + + + + documented in this encounter Discharge Instructions Jeana Sherwood RN - 03/06/2017Formatting of this note might be different f rom the original. Cardiac Catheterization You may have had angina, dizziness, or other symptoms of heart trouble. To help diagnose yo ur problem, your doctor may suggest having a cardiac catheterization. This common procedure is sometimes also used to treat a heart problem. The catheter may be placed in the arm or the groin. Before the procedure Tell your doctor what medicines you take and about any allergies you have. Don t eat or drink anything after midnight, the night before the procedure. You may be admitted to the hospital on the day of the procedure. Know that any hair on the skin where the catheter will be inserted may be removed. You m ay be given medication to relax before the procedure. During the procedure You will receive a local anesthetic to prevent pain at the insertion site. The doctor inserts an introducing sheath into a blood vessel in your groin or arm. Through the sheath, a long, thin tube called a catheter is placed inside the artery and guided toward your heart. To perform different tests or check other parts of the heart, the doctor inserts a new c atheter or moves the catheter or X-ray machine. For some tests, a contrast dye is injected through the catheter. After the procedure Your doctor or nurse will tell you how long to lie down and keep the insertion site stil l. If the insertion site was in your groin, you may need to lie down with your leg still fo r several hours. A nurse will check your blood pressure and the insertion site. You may be asked to drink fluid to help flush the contrast liquid out of your system. Have someone drive you home from the hospital. It s normal to find a small bruise or lump at the insertion site. These common side ef fects should disappear within a few weeks. When to call your healthcare provider Call your healthcare provider right away if you have any of the following: Angina (chest pain). Pain, swelling, redness, bleeding, or drainage at the insertion site. Severe pain, coldness, or a bluish color in the leg or arm that held the catheter. Blood in your urine, black or tarry stools, or any other kind of bleeding. Fever of 100.4F (38C) or higher, or as directed by your healthcare provider Date Last Reviewed: 10/16/201319999870-7418 [employer] [address] [place] [address], [place] [address]. All righ ts reserved. This information is not intended as a substitute for professional medical care. Always follow your healthcare professional's instructions. Procedural Sedation (Adult) You have been given medicine by vein to make you sleep during your surgery. This may have i ncluded both a pain medicine and sleeping medicine. Most of the effects have worn off. But y ou may still have some drowsiness for the next 6 to 8 hours. Home care Follow these guidelines when you get home: For the next 8 hours, you should be watched by a responsible adult. This person should m mouna sure your condition is not getting worse. Don't take any medicine by mouth for pain or for sleep during the next 4 hours. These mi ght react with the medicines you were given in the hospital. This could cause a much stronge r response than usual. Don't drink any alcoholfor the next [address], operate dangerous machinery, or make important business or personal decisio nsduring the next 24 hours. Follow-up care Follow up with your healthcare provider if you are not alert and back to your usual level o f activity within 12 hours. When to seek medical advice Call your healthcare provider right away if any of these occur: Drowsiness gets worse Weakness or dizziness gets worse Repeated vomiting You cannot be awakened Date Last Reviewed: 06/07/201619993195-8345 [employer] [address] [place] [address]. All righ ts reserved. This information is not intended as a substitute for professional medical care. Always follow your healthcare professional's instructions. documented in this encounter Medications at Time of Discharge [...] + + documented as of this encounter H&P Notes Martina Hoskins MD - 03/06/2017 8:51 AM RadhaMarily Leonardo's chart was reviewed in detail, a nd no changes have occurred since the recent note. Also, she was examined by me today and t here are no changes in the heart and lung exam. Ms. Patterson is still appropriate candidate f or left heart catheterization and we will proceed with that today. An explanation of the pr ocedure, including the risks, benifits and alternatives to the procedure were discussed with the patient and consent has been obtained. The risks, benefits and alternatives to moderate anesthesia were explained to the patient Mallampati 1 ASA 2 Typical airway Martina Méndez MD - 02/24/2017 10:30 AM PDT PATIENT NAME: Marychuy Patterson : 1935: AGE: 81 y.o. PRIMARY CARE: Terrence Aquino DO OUTPATIENT FOLLOW UP VISIT Date of Service: 02/24/2017 HISTORY OF PRESENT ILLNESS: Marychuy Patterson is a 81 y.o. female with a history of moderate to severe calcific aorti c valve stenosis, hypertension, arthritis and chronic back pain. She is being seen today fo r follow up aortic valve stenosis. She was last seen 02/24/2016 at which time patient was doing well from cardiac standpoint and was to continue with current medical regimen. Since that time, patient complains of shortne ss of breath going up the stairs. She also reports in the past few days some teeny episodes of dizziness. Patient is physically inactive due to back and hip pain. She enjoys Klooff[place] ng 60 to 70 hours a month. There is no chest pain or chest discomfort both at rest and on ex ertion. She denies any palpitations. There is no ankle or leg swelling. Patient can sleep on one pillow at night without difficulty breathing. MEDICAL, SURGICAL, AND PERSONAL HISTORY Past Medical, Surgical, Family, and Social History are reviewed in EPIC. CURRENT PROBLEMS Patient Active Problem List Diagnosis Essential hypertension Hypokalemia Aortic stenosis Hypertensive arteriosclerotic cardiovascular disease Nonrheumatic aortic valve stenosis Arthritis CURRENT MEDICATIONS Current Outpatient Prescriptions Medication Sig Dispense Refill acetaminophen (TYLENOL) 500 mg tablet Take 500 mg by mouth Daily. 3-4 tablets daily ascorbic acid (VITAMIN C) 500 mg tablet Take 500 mg by mouth Daily. B Complex Vitamins (VITAMIN-B COMPLEX) TABS Take 1 tablet by mouth Daily. cholecalciferol (VITAMIN D-3) 1,000 units capsule Take 1,000 Units by mouth Daily. Jdjwxwbgimn-Kndoemygh-Faj C-Mn (GLUCOSAMINE-CHONDROITIN) TABS Take by mouth 2 times da lewis. irbesartan (AVAPRO) 300 mg tablet Take 300 mg by mouth Daily. metoprolol succinate (TOPROL-XL) 50 mg 24 hr tablet Take 50 mg by mouth Daily. Multiple Vitamins-Minerals (PRESERVISION AREDS 2) CAPS Take by mouth 2 times daily. potassium chloride (K-DUR) 20 mEq ER tablet Take 20 mEq by mouth Daily. 1 capsule mon- ed-fri orally once a day 0 traMADol (ULTRAM) 50 mg tablet take 1 tablet by mouth once daily if needed 0 No current facility-administered medications for this visit. ALLERGIES Allergies Allergen Reactions Amoxicillin Diarrhea Atorvastatin Other (See Comments) Fatigue, arthralgia Ferrous Gluconate Other (See Comments) GI upset Sulfa Antibiotics Itching ROS Review of Systems Constitutional: Negative for chills, diaphoresis, fever, malaise/fatigue and weight loss. HENT: Negative for congestion, hearing loss, nosebleeds and tinnitus. Dental Problems = No Eyes: Negative for blurred vision and double vision. Respiratory: Negative for shortness of breath. Cardiovascular: Negative for chest pain, palpitations and leg swelling. Gastrointestinal: Positive for diarrhea. Negative for blood in stool, constipation, nausea and vomiting. Genitourinary: Negative for dysuria, frequency, hematuria and urgency. Musculoskeletal: Positive for back pain and joint pain. Negative for falls, myalgias and ne ck pain. Gait Problems = No Skin: Negative for itching and rash. Neurological: Negative for dizziness, tingling, tremors, speech change, seizures, loss of c onsciousness and weakness. Lightheaded = No Endo/Heme/Allergies: Does not bruise/bleed easily. Psychiatric/Behavioral: Negative for memory loss. The patient is not nervous/anxious and do es not have insomnia. OBJECTIVE: PHYSICAL EXAM BP 138/68 | Pulse 67 | Resp 16 | Ht 1.626 m (5' 4") | Wt 66.3 kg (146 lb 1.6 oz) | BMI 25.08 kg/m Physical Exam Constitutional: She appears well-developed and well-nourished. No distress. Elderly female individual arrives alone, without acute distress. Neck: Normal carotid pulses, no hepatojugular reflux and no JVD present. Carotid bruit is n ot present. Cardiovascular: Normal rate, regular rhythm, S1 normal, S2 normal, intact distal pulses and normal pulses. PMI is not displaced. Exam reveals no gallop, no S3, no S4 and no friction rub. Murmur (grade 3/6 systolic ejection murmur along left sternal border ) heard. Pulses: Carotid pulses are 2+ on the right side, and 2+ on the left side. Dorsalis pedis pulses are 2+ on the right side, and 2+ on the left side. Pulmonary/Chest: Effort normal and breath sounds normal. No accessory muscle usage. No resp iratory distress. She has no wheezes. She has no rhonchi. She has no rales. Abdominal: Normal appearance, normal aorta and bowel sounds are normal. She exhibits no abd ominal bruit. There is no hepatosplenomegaly. There is no tenderness. Musculoskeletal: She exhibits no edema. Neurological: She is alert. Gait normal. Skin: Skin is warm and dry. Psychiatric: She has a normal mood and affect. Her mood appears not anxious. She does not e xhibit a depressed mood. ECG: Sinus rhythm with 1st degree AV block. LAB RESULTS reviewed during visit today primarily from [facility]: LIPID No results found for: CHOL, TRIG, HDL, LDL, CHOLHDL, LDLEX, HDLEX, TRIGEX, CHOLEX CHEMISTRY Lab Results Component Value Date GLUEX 90 12/14/2016 NAEX 139 12/14/2016 KEX 3.8 12/14/2016 CLEX 102 12/14/2016 CO2EX 27 12/14/2016 ASTEX 18 12/14/2016 ALTEX 16 12/14/2016 EGFREX 98 12/14/2016 CREEX 0.59 (A) 12/14/2016 HEMATOLOGY Lab Results Component Value Date WBCEX 4.8 12/14/2016 HGBEX 12.7 12/14/2016 HCTEX 38.4 12/14/2016 PLTEX 179 12/14/2016 I reviewed records from Terrence Aquino DO for office visit on 12/20/2016. Above data and testing is reviewed this visit; testing below is historical data unless othe rwise specified. ASSESSMENT: 1. Moderate to severe calcific aortic valve stenosis A. Echocardiogram from 11/2011 shows moderate aortic valve stenosis. LVEF 60-65%. Mild ao rtic valve insufficiency. B. Echocardiogram from 08/12/15 shows normal left ventricular size, wall thickness and mot ion. LVEF 60%. Trileaflet aortic valve with thickening and calcification. Peak velocity a cross aortic valve is 3.6 m/s with the peak gradient of 51 mmHg. Aortic valvular area is 0. 6 cm. There is a trace aortic valve insufficiency. There is a mild mitral annular calcif ication. Mild mitral valve regurgitation. No change from previous prior echocardiogram. C. Echocardiogram 02/20/2017 shows normal left ventricular size, wall thickness and motion, preserved left ventricular systolic function. LVEF is 65%, grade 1 left ventricular diastoli c dysfunction, moderately thickened and calcified trileaflet aortic valve with severe to cri tical calcific aortic valve stenosis, peak velocity across aortic valve is 4.4 m/s, peak gra dient of 76 mmHg, aortic valvular area of 0.7 cm^2, there is also a mild aortic valve insuff iciency, mildly thickening calcified mitral valve with a mild mitral valve regurgitation, mi ld mitral annular calcification, normal right-sided pressure, normal IVC with normal respira tory collapse, no previous echocardiography for comparison. D. Today, patient presented with a change of her clinical status. She has been out of glenn ath more than usual especially when she climbs a hill. She also has been feeling dizzy and lightheaded. There is no signs and symptoms of overt congestive heart failure. She is in a class II of [place] [employer] functional class. There is no fluid retention on physical examina tion. Due to her age and comorbidities, patient is candidate for transcatheter aortic valve repl acement. 2. Hypertension A. Today's blood pressure is controlled. 3. Chronic back pain A. She is seeing a back specialist and planned to have a back surgery done as well. 4. Severe osteoarthritis 5. Iron deficiency anemia 6. Migraine 7. Peptic ulcer disease 8. History of Crohn disease A. Post right hip replacement in the past. B. She wants to have the left hip surgery done in the next 3-6 months. PLAN: 1. I spend time at length talking about natural course, treatment and prognosis of symptom atic critical calcific aortic valve stenosis. 2. Patient is candidate for left heart catheterization via right radial. The risks and dixon efits of the procedure including alternative treatment were discussed with the patient in [facility]. The patient decides to proceed with the procedure. 3. Refer patient to [facility] for TAVR. 4. I recommend a therapeutic lifestyle change including walking 30 minutes a day and choosi ng healthy choices of diet. 5. Follow-up in 6 weeks. I Cherie Gabriel am acting as a scribe on behalf of, and in the presence of Martina narayan MD. I have reviewed and edited this note. Cherie Gabriel, Manager [employer]ap 02/24/2017 I, Martina Hoskins MD, personally performed the services described in this documentation, as scribed in my presence and it is both accurate and complete. Cherie Gabriel, Med Ass t 02/24/2017 11:20 Electronically signed by: Martina Hoskins MD [facility] 02/24/2017 Portions of this chart may have been created with [employer] voice recognition software. Occasi onal wrong-word or sound-alike substitutions may have occurred due to the inherent shay itations of voice recognition software. Please read the chart carefully and recognize, using context, where these substitutions have occurred documented in this encounter Procedure Notes Martina Hoskins MD - 03/06/2017 9:42 AM PDTAssociated Order(s): CV CARDIAC PROCEDUREFor matting of this note might be different from the original. CARDIAC CATHETERIZATION and CORONARY ANGIOGRAPHY PATIENT NAME/: Marychuy aPtterson, (1935) DATE OF PROCEDURE: 03/06/2017 GAS BRAZER: Martina Hoskins MD PROCEDURES PERFORMED: Coronary Angiography Left Heart Catheterization Left Ventriculography Indications: Pre-valve surgery DESCRIPTION OF PROCEDURE: Informed consent was obtained from the patient, and a time-out was performed to verify the patient's identification and planned procedure. The patient's right wrist was then prepped and draped in the usual sterile fashion, and anesthetized with 1 mL of buffered 1% lidocaine . For arterial access modified Seldinger technique was used to place a 6 Fr. sheath in the right radial artery (a normal Mustapha's test was performed prior to the procedure). Right hea rt catheterization was not performed on this patient. Selective coronary angiogram was th en performed in several sagittal and oblique projections. Multipurpose diagnostic catheters were used for this procedure. The patient received a total of 3.5 mg of Versed and 100 mcg of fentanyl intravenously for conscious sedation during the procedure. A total of 80 mL Omn ipaque 350 contrast was utilized. During procedure a total of 400 mcg nitroglycerin, and 0 mcg nicardipine were given via the radial sheath, and 4000 units heparin was given intraveno usly. The procedure had no immediate complications. At the conclusion of the procedure, the sheath was removed and hemostasis obtained with a T R hemostatic band. FINDINGS: Hemodynamics: Ao - 146/60 mm Hg with a mean of 93 mm Hg Left ventriculography: Left ventriculography was not performed in this case. Left main artery: The left main artery is a large caliber vessel that bifurcates into the left anterior descending artery and left circumflex artery. Left main artery has mild diffu se disease. Left anterior descending artery: The left anterior descending artery is a medium caliber v essel that wraps around the apex and gives rise to 2 diagonal branches. The vessel has mild diffuse disease. It gives rise to 2 diagonal branches. Left circumflex artery: The left circumflex artery is a medium caliber vessel that is non dominant. The vessel has mild diffuse disease. It gives rise to 1 OM branches. Right coronary artery: The right coronary artery is a large caliber vessel that is dominan t. The vessel has 90% stenosis at the midportion of the vessel. It gives rise to a PDA an d Posterolateral branches. CONCLUSIONS: 1. Severe single-vessel coronary artery disease; 90% stenosis to the midportion of the RCA. 2. There is a right dominate circulation. 3. Normal LV systolic function with an EF of 65% by echocardiogram. 4. Systemic blood pressure is normal. 5. Severe calcific aortic valve stenosis. 6. There was successful hemostasis with a TR hemostatic band. PLAN: 1. Consider staged PCI of the mid RCA along with transcatheter aortic valve replacement.. 2. Case was discussed with Dr. Flynn, interventionalists at [place], [place]. ARY CARE PROVIDER: Terrence Aquino DO documented in this encounter Plan of Treatment +--------+ [...] 2019 | Visit | | JOHNNY Bernal | | | | | | [place] | | | | | | [place] [address] | | | | | | [phone] | | | | | | | | +--------+ + + + + documented as of this encounter Procedures + +--------+ + + + | Procedure Name | Priori | Date/Time | Associated Diagnosis | Comments | | | ty | | | | + +--------+ + + + | CV LHC | Routin | 03/06/2017 | | Results for this | | | e | 9:45 AM | | procedure are in the | | | | PDT | | results section. | + +--------+ + + + documented in this encounter Results CV CARDIAC PROCEDURE (03/06/2017 9:45 AM PDT) + + | Specimen | + + | | + + + + + | Narrative | Performed At | + + + | [facility] | | | MD [place] 03/06/2017 9:53 CARDIAC CATHETERIZATION and | | | CORONARY ANGIOGRAPHY PATIENT NAME/: Marychuy Patterson, | | | (1935) OF PROCEDURE: | | | 03/06/2017 GAS BRAZER: Martina Hoskins MD PROCEDURES | | | PERFORMED:Coronary AngiographyLeft Heart CatheterizationLeft | | | Ventriculography Indications: Pre-valve surgery DESCRIPTION OF | | | PROCEDURE: Informed consent was obtained from the patient, and a | | | time-out was performed to verify the patient's identification and | | | planned procedure. The patient's right wrist was then prepped and | | | draped in the usual sterile fashion, and anesthetized with 1 mL of | | | buffered 1% lidocaine. For arterial access modified Seldinger | | | technique was used to place a 6 Fr. sheath in the right radial artery | | | (a normal Mustapha's test was performed prior to the procedure). Right | | | heart catheterization was not performed on this patient. | | | Selective coronary angiogram was then performed in several sagittal | | | and oblique projections. Multipurpose diagnostic catheters were used | | | for this procedure. The patient received a total of 3.5 mg of Versed | | | and 100 mcg of fentanyl intravenously for conscious sedation during | | | the procedure. A total of 80 mL Omnipaque 350 contrast was utilized. | | | During procedure a total of 400 mcg nitroglycerin, and 0 mcg | | | nicardipine were given via the radial sheath, and 4000 units heparin | | | was given intravenously. The procedure had no immediate | | | complications. At the conclusion of the procedure, the sheath was | | | removed and hemostasis obtained with a TR hemostatic band. FINDINGS: | | | Hemodynamics: Ao - 146/60 mm Hg with a mean of 93 mm Hg Left | | | ventriculography: Left ventriculography was not performed in this | | | case. Left main artery: The left main artery is a large caliber | | | vessel that bifurcates into the left anterior descending artery and | | | left circumflex artery. Left main artery has mild diffuse disease. | | | Left anterior descending artery: The left anterior descending artery | | | is a medium caliber vessel that wraps around the apex and gives rise | | | to 2 diagonal branches. The vessel has mild diffuse disease. It | | | gives rise to 2 diagonal branches. Left circumflex artery: The left | | | circumflex artery is a medium caliber vessel that is non dominant. | | | The vessel has mild diffuse disease. It gives rise to 1 OM | | | branches. Right coronary artery: The right coronary artery is a | | | large caliber vessel that is dominant. The vessel has 90% stenosis | | | at the midportion of the vessel. It gives rise to a PDA and | | | Posterolateral branches. CONCLUSIONS:1. Severe single-vessel | | | coronary artery disease; 90% stenosis to the midportion of the RCA.2. | | | There is a right dominate circulation.3. Normal LV systolic function | | | with an EF of 65% by echocardiogram.4. Systemic blood pressure is | | | normal.5. Severe calcific aortic valve stenosis.6. There was | | | successful hemostasis with a TR hemostatic band. PLAN:1. Consider | | | staged PCI of the mid RCA along with transcatheter aortic valve | | | replacement..2. Case was discussed with Dr. Flnyn, | | | interventionalists at [place], [place]. | | | | | | PRIMARY CARE PROVIDER:Terrence Aquino DO | | | | | |FINDINGS: | | | | | |Hemodynamics: | | | | | |Ao - 146/60 mm Hg with a mean of 93 mm Hg | | | | | | | | |Left ventriculography: Left ventriculography was not performed | | |in this case. | | | | | |Left main artery: The left main artery is a large caliber vessel | | |that bifurcates into the left anterior descending artery and left | | |circumflex artery. Left main artery has mild diffuse disease. | | | | | |Left anterior descending artery: The left anterior descending | | |artery is a medium caliber vessel that wraps around the apex and | | |gives rise to 2 diagonal branches. The vessel has mild diffuse | | |disease. It gives rise to 2 diagonal branches. | | | | | |Left circumflex artery: The left circumflex artery is a medium | | |caliber vessel that is non dominant. The vessel has mild | | |diffuse disease. It gives rise to 1 OM branches. | | | | | | | | |Right coronary artery: The right coronary artery is a large | | |caliber vessel that is dominant. The vessel has 90% stenosis at | | |the midportion of the vessel. It gives rise to a PDA and | | |Posterolateral branches. | | | | | | | | | | | | | | |CONCLUSIONS: | | |1. Severe single-vessel coronary artery disease; 90% stenosis to | | |the midportion of the RCA. | | |2. There is a right dominate circulation. | | |3. Normal LV systolic function with an EF of 65% by | | |echocardiogram. | | |4. Systemic blood pressure is normal. | | |5. Severe calcific aortic valve stenosis. | | |6. There was successful hemostasis with a TR hemostatic band. | | | | | |PLAN: | | |1. Consider staged PCI of the mid RCA along with transcatheter | | |aortic valve replacement.. | | |2. Case was discussed with Dr. Flynn, interventionalists at | | |[place], [place]. | | | | | | | | | | | | | | | | | | | | | | | |PRIMARY CARE PROVIDER: | | |Terrence Aquino DO | | | | | + + + documented in this encounter Visit Diagnoses + + | Diagnosis | + + | Aortic valve stenosis, unspecified etiology | + + documented in this encounter Administered Medications + +--------+ +--------+------+------+ | Medication Order | MAR | Action | Dose | Rate | Site | | | Action | Date | | | | + +--------+ +--------+------+------+ | acetaminophen (TYLENOL) tablet | Given | 03/06/20 | 650 mg | | | | 650 mg 650 mg, Oral, EVERY 4 | | 17 10:40 | | | | | HOURS PRN, Pain, arthritis, | | AM PDT | | | | | Starting 03/06/17 at 0951 | | | | | | + +--------+ +--------+------+------+ + +---+ | | | + +---+ | lidocaine 1%-EPINEPHrine | | | 1:100,000 injection 5 mL 5 mL, | | | Infiltration, ONCE PRN, for | | | oozing at cardiac cath site, | | | Starting Mon03/06/17 at 1013, For | | | 1 dose, For continued oozing | | | after sheath removal despite | | | pressure dressing and manual | | | pressure. Inject to affected area | | | x 1 followed by 10 minutes of | | | manual compression., | | | Post-op/Phase II | | + +---+ | | | + +---+ | nitroglycerin (NITROSTAT) SL | | | tablet 0.4 mg 0.4 mg, | | | Sublingual, EVERY 5 MIN PRN, | | | Chest pain, Starting Mon03/06/17 | | | at 1013, May give up to 3 doses. | | | Notify physician after 2nd dose | | | given. Hold for SBP<100, | | | Post-op/Phase II | | + +---+ | | | + +---+ | ondansetron (ZOFRAN) injection | | | 4-8 mg 4-8 mg, Intravenous, | | | EVERY 6 HOURS PRN, Nausea, | | | Vomiting, Starting Mon03/06/17 at | | | 1013, Post-op/Phase II | | + +---+ | | | + +---+ | sodium chloride 0.9% (NS) | | | infusion at 125 mL/hr, | | | Intravenous, CONTINUOUS, Starting | | | Mon03/06/17 at 0815, For | | | procedure only, not to exceed 1 | | | liter., Pre-op | | + +---+ | | | + +---+ documented in this encounter
--- OUTSIDE RECORDS SUMMARY | ~2020-05-24 | XMS | Encounter Summary ---
Demographics + + + | Address | [address] | | | [place] [address] | + + + | Home Phone | | + + + | Preferred Language | Unknown | + + + | Marital Status | | + + + | Anabaptist Affiliation | 1041 | + + + | Race | White | + + + | Ethnic Group | Not or | + + + Author + + + | Author | [facility] | | | and [place] | + + + | Organization | [facility] | | [...] Team Providers + +------+ + | Care Steel Post Installer Name | Role | Phone | + +------+ + | Terrence Aquino DO | PCP | | + +------+ + Reason for Visit + +--------+ + | Reason | Onset | Comments | | | Date | | + +--------+ + | Blood Pressure Check | 05/23/ | | | (Screening) | 2016 | | + +--------+ + Encounter Details +--------+ + + + + | Date | Type | Department | Care Team | Description | +--------+ + + + + | 05/23/ | Telephone | [facility] | Rasheeda Patel, | Blood Pressure Check | | 2017 | | CARDIOLOGY [address] | PSYCHIATRIC SOCIAL WORKER [address] | (Screening) | | | | [place], | [place], [place] | | | | | [place] [address] | [address] | | | | | [phone] | | | +--------+ + + + [...] this encounter Miscellaneous Notes Telephone Encounter - Lyssa Arora RN - 05/24/2017 3:40 PM PDTPatient notified ... ........................................LYSSA ARORA RN on 05/24/17 at 15:40 elephone Encount er - Rasheeda Patel ARNP - 05/24/2017 2:03 PM PDTZunilda, can you call patient and let her know that her blood pressure log shows a couple higher readings, but overall looks good, an d to continue as is, no further changes needed at this time. Thanks! ....................... ....................ALFREDA Christianson on 05/24/17 at 14:03 elephone Encounter - Zunilda Chavez [facility] - 05/23/2017 9:29 AM PDT Next Visit: 06/16/17 [facility] Blood pressure log received from patient as follows: Medication Change: Restart Metoprolol Date BP AM Pulse AM BP PM Pulse PM 04/30/17 141/80 65 146/81 70 05/01/17 137/75 67 124/69 73 05/02/17 157/81 65 05/03/17 120/66 69 141/73 65 05/04/17 157/87 70 132/67 68 05/05/17 156/83 59 05/06/17 125/64 65 108/58 66 05/07/17 132/80 66 136/78 72 05/08/17 148/79 69 121/64 66 05/09/17 146/75 56 130/69 65 05/10/17 139/68 59 05/12/17 157/76 62 05/13/17 151/74 65 130/81 75 Additional Comments: 05/12/17 to 05/14/17 Extreme pain Have had to delay cardiac rehab due to exteme back/leg pain documented in this encounter Plan of Treatment [...] | | | | | [place] [address] | | | | | | [phone] | | | | | | | | +--------+ + + + + documented as of this encounter Visit Diagnoses Not on filedocumented in this encounter"
--- OUTSIDE RECORDS SUMMARY | ~2020-05-24 | XMS | Encounter Summary ---
Demographics + + + | Address | [address] | | | [place] [address] | + + + | Home Phone | | + + + | Preferred Language | Unknown | + + + | Marital Status | | + + + | Buddhism Affiliation | 1041 | + + + | Race | White | + + + | Ethnic Group | Not or | + + + Author + + + | Author | [facility] | | | and [place] | + + + | Organization | [facility] | | [...] Team Providers + +------+ + | Care Straightener Hand Name | Role | Phone | + +------+ + PCP | Unavailable | + +------+ + Encounter Details +--------+ + + + + | Date | Type | Department | Care Team | Description | +--------+ + + + + | 07/24/ | Hospital | [facility] | Conversion | | | 2011 | Encounter | [facility] | Transaction, | | | | | CLINIC [address] | Provider Unknown | | | | | [place], [place] | | | | | | [address] | (Fax) | | | | | [phone] | | | +--------+ + + + [...] documented as of this encounter Procedure Notes Conversion Transaction, Provider Unknown - 07/25/2012 5:26 PM PSTFormatting of this note m ight be different from the original. Pre-Procedure Instructions by Cristina Dean RN at 07/25/12 1726 Author: Cristina Dean RN Service: Anesthesiology Author Type: Registered Nurse Filed: 07/25/12 1732 Date of Service: 07/25/121725 Status: Signed Burn Nurse: Cristina Dean RN (Registered Nurse) Dr. Rai and Dr. Guevara discussed this case and have agreed to proceed with surgery. Pat ient has been and remains asymptomatic regarding aortic stenosis. onver judi Transaction, Provider Unknown - 07/25/2012 4:29 PM PST Pre-Procedure Instructions by Cristina Dean RN at 07/25/12 1629 Author: Cristina Dean RN Service: Anesthesiology Author Type: Registered Nurse Filed: 07/25/12 1631 Date of Service: 07/25/12 1629 Status: Signed Burn Nurse: Cristina Dean RN (Registered Nurse) Dr. Delarosa's office reports that Dr Delarosa will not clear the patient for surgery because she h as not been seen in the office. This was reported to Prasanth at Dr. Wray's office. onver judi Transaction, Provider Unknown - 07/24/2012 5:27 PM PST Pre-Procedure Instructions by Cristina Dean RN at 07/24/12 1727 Author: Cristina Dean RN Service: Anesthesiology Author Type: Registered Nurse Filed: 07/25/12 1646 Date of Service: 07/24/127 Status: Addendum Burn Nurse: Cristina Dean RN (Registered Nurse) Related Notes: Original Note by Cristina Dean RN (Registered Nurse) filed at 07/24/12 [address] Guevara requested that she get cardiac clearance from Dr. Delarosa. I requested this from Zaki at Dr Delarosa's office. Cardiac notes from 02/09/12 visit are on chart . Patient denies any CP/SOB, and she meets METS >4. Sohail fisher in this encounter Plan of Treatment +--------+ + + + + | Date | Type | Specialty | Care Team | Description | +--------+ + + + + | 06/18/ | Appointment | Cardiology | Rasheeda Patel, | | 2019 | | | [place] [address]la | | | | | | [place] | | | | | | [address] | | | | | | | | +--------+ + + + + | 06/18/ | Office | Cardiology | Sandra Lua | | 2019 | Visit | | [address] | | | | | | [address] [facility] | | | | | | [place] [address] | | | | | | [phone] | | | | | | | | +--------+ + + + + documented as of this encounter Procedures + +--------+ + + + | Procedure Name | Priori | Date/Time | Associated Diagnosis | Comments | | | ty | | | | + +--------+ + + + | XR CHEST 2 VIEWS | Routin | 07/24/2012 | | Results for this | | | e | 2:37 PM | | procedure are in the | | | | PST | | results section. | + +--------+ + + + | MRSA NAAT | Timed | 07/24/2012 | | Results for this | | | | 2:02 PM | | procedure are in the | | | | PST | | results section. | + +--------+ + + + documented in this encounter Results XR Chest 2 Vws (07/24/2012 2:37 PM PST) + + | Specimen | + + | | + + + + + | Narrative | Performed At | + + + | [facility] 1935 77 years Female XR CHEST 2 VIEW FRONTAL | | | AND LATERAL 07/24/2012 2:34 PM INDICATION: Preoperative | | | assessment COMPARISON: None. TECHNIQUE: Two view chest, PA and | | | lateral views FINDINGS: There is borderline cardiac enlargement. | | | The thoracic aorta is densely calcified. There is no widening of | | | the mediastinum or mediastinal shift present. There is no | | | pneumothorax. The pulmonary vasculature is normal in caliber. | | | There is mild degenerative disk disease of the thoracic spine. | | | IMPRESSION: 1. No acute cardiopulmonary process. | | | | | + + + + + | Procedure Note | + + | Yamil Oliveros Conversion - 04/13/2019 6:06 AM PDT [id number] [facility] | | FemaleXR CHEST 2 VIEW FRONTAL AND GOXQXFM32/4/2012 2:34 PM INDICATION: Preoperative | | assessment COMPARISON: None. TECHNIQUE: Two view chest, PA and lateral views FINDINGS: | | There is borderline cardiac enlargement. The thoracic aorta is densely calcified. | | There is no widening of the mediastinum or mediastinal shift present. There is no | | pneumothorax. The pulmonary vasculature is normal in caliber. There is mild | | degenerative disk disease of the thoracic spine. IMPRESSION:1. No acute cardiopulmonary | | process. | |COMPARISON: None. | | | |TECHNIQUE: Two view chest, PA and lateral views | | | |FINDINGS: There is borderline cardiac enlargement. The thoracic aorta is densely calcified . There is no widening of the mediastinum or mediastinal shift present. There is no pneumo thorax. The pulmonary vasculature is | |normal in caliber. There is mild | | degenerative disk disease of the thoracic spine. | | | |IMPRESSION: | |1. No acute cardiopulmonary process. | | | | | + + MRSA NAAT (07/24/2012 2:02 PM PST) + + | Specimen | + + | | + + + + + | Narrative | Performed At | + + + | [facility] | EXTERNAL LAB | | Testing performed at [address];[place] [address] MRSA PCR | | | NEGATIVE Testing performed at | | | [address];[place] [address] | | + + + + +---------+ + + | Performing | Address | City/State/Zipcode | Phone Number | | Organization | | | | + +---------+ + + | EXTERNAL LAB | | | | + +---------+ + + documented in this encounter Visit Diagnoses Not on filedocumented in this encounter"
--- OUTSIDE RECORDS SUMMARY | ~2020-05-24 | XMS | Encounter Summary ---
Demographics + + + | Address | [address] | | | [place] [address] | + + + | Home Phone | | + + + | Preferred Language | Unknown | + + + | Marital Status | | + + + | Orthodoxy Affiliation | 1041 | + + + | Race | White | + + + | Ethnic Group | Not or | + + + Author + + + | Author | [facility] | | | and [place] | + + + | Organization | [facility] | | | [...] Team Providers + +------+ + | Care Landfill Gas Technician Name | Role | Phone | + +------+ + | Terrence Aquino DO | PCP | | + +------+ + Reason for Visit +--------+--------+ + | Reason | Onset | Comments | | | Date | | +--------+--------+ + | Other | 01/04/ | | | | 2018 | | +--------+--------+ + Encounter Details +--------+ + + + + | Date | Type | Department | Care Team | Description | +--------+ + + + + | 01/04/ | Telephone | [facility] | Rasheeda Patel, | [place] | | 2017 | | CARDIOLOGY [address] | FOOT AND ANKLE SURGEON [address] | | | | | [place], | [place], [place] | | | | | [place] [address] | [address] | | | | | [phone] | | | +--------+ + + + [...] Telephone Encounter - Bonny Gordon RN - 01/05/2018 2:17 PM PDTPatient notified, pr escription ordered ...........................................Bonny Gordon RN on 12/19 04/07 at 14:25 elephone Encount er - Rasheeda Patel ARNP - 01/04/2018 2:19 PM PDTPlease let her know that, yes, she should take antibiotic before dental cleaning, and the macrobid unfortunately won't work for that. She is allergic to amoxicillin, which is the medication we normally use, so she should inst ead take cephalexin 2 gm by mouth once about 30 to 60 minutes prior to dental procedure/franco madrigal. You can send that in to her pharmacy for her. Thanks! ................................ ...........ALFREDA Christianson on 01/04/18 at 14:23 elephone Encounter - Bonny Gordon RN - 8 8:51 AM PDTPatient called, she is having a dental teeth cleaning on 01/09/18. Her urologis t has her taking Microbid 100 plus daily for 3 months. She had a aortic valve replacement in 03/2017. Does she need a pre-med for her dental cleaning? I informed her that I would consul t with Rasheeda GANT and return her call ...........................................Marcella Gordon RN on 01/04/18 at 8:54 documented in thi s encounter Plan of [...] | | | | | [place] [address] | | | | | | [phone] | | | | | | | | +--------+ + + + + documented as of this encounter Visit Diagnoses Not on filedocumented in this encounter"
--- OUTSIDE RECORDS SUMMARY | ~2020-05-24 | XMS ---
Demographics + + + | Address | [address] | | | [address] | | | [place] [address] | + + + | Preferred Language | Unknown | + + + | Marital Status | Unknown | + + + | Christianity Affiliation | Unknown | + + + | Race | Unknown | + + + | Ethnic Group | Unknown | + + + Author + + + | Author | [facility] | + + + | Organization | [facility] | + + + | Address | [address] | | | [place] [address] | + + + | Phone | | + + + Care Team Providers + + + + | Care Customer Training Specialist Name | Role | Phone | + + + + Unavailable | Unavailable | + + + + PROBLEMS +---------+ + + +--------+ + + | Type | Condition | ICD9-CM | XSN43-MT | Onset | Condition | SNOMED | | | | Code | Code | Dates | Status | Code | +---------+ + + +--------+ + + | Problem | Elevated | R03.0 | | | Active | [id number] | | | blood | | | | | | | | pressure | | | | | | | | reading | | | | | | +---------+ + + +--------+ + + | 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 | | | Active | [id number] | | | hageal | | | | | | | | reflux | | | | | | | | disease | | | | | | | | without | | | | | | | | esophagiti | | | | | | | | s | | | | | | +---------+ + + +--------+ + + | Problem | Aortic | I35.0 | | | Active | [id number] | | | stenosis | | | | | | +---------+ + + +--------+ + + | Problem | Hypertensi | I11.9 | | | Active | [id number] | | | ve | | | | | | | | arterioscl | | | | | | | | erotic | | | | | | | | cardiovasc | | | | | | | | ular | | | | | | | | disease | | | | | | +---------+ + + +--------+ + + | Problem | 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 | | Active | [id number] | | | a | | | | | | +---------+ + + +--------+ + + ALLERGIES + + + + +--------+ | Substance | Reaction | Event Type | Date | Status | + + + + +--------+ | Sulfa | itching | Drug Allergy | Apr, | Active | + + + + +--------+ | Ferrous | GI upset | Drug Allergy | Apr, | Active | | Gluconate | | | | | + + + + +--------+ | Atorvastatin | fatigue, | Drug Allergy | Apr, | Active | | Calcium | arthralgia | | | | + + + + +--------+ SOCIAL HISTORY Never Assessed PLAN OF CARE + +---------+ | Activity | Details | + +---------+ +---+ | | +---+ + + + | Follow Up | as scheduled with PCP Reason:null | + + + VITAL SIGNS + + + + | Height | 64 in | 2017-04-29 | + + + + | Weight | 145.3 lbs | 2017-04-29 | + + + + | BMI | 24.94 kg/m2 | 2017-04-29 | + + + + | Temperature | 98 degrees Fahrenheit | 2017-04-29 | + + + + | Heart Rate | 79 /min | 2017-04-29 | + + + + | Blood pressure systolic | 158 mm Hg | 2017-04-29 | + + + + | Blood pressure diastolic | 83 mm Hg | 2017-04-29 | + + + + MEDICATIONS + + + + + + + +--------+ | Medicati | Instruct | Dosage | Frequenc | Start | End Date | Duration | Status | | on | ions | | y | Date | | | | + + + + + + + +--------+ | Turmeric | | | | | | | Active | | | | | | | | | | | Curcumin | | | | | | | | + + + + + + + +--------+ | Probioti | Orally | | | | | | Active | | c | monday | | | | | | | | | | | | | | | | | | and | | | | | | | | | monday | | | | | | | + + + + + + + +--------+ | Vitamin | Orally | 1 tablet | 24h | | | 30 | Active | | C 500 MG | Once a | | | | | day(s) | | | | day | | | | | | | + + + + + + + +--------+ | Potassiu | Orally | 1 | 24h | | 2 December, | | Active | | m | once a | capsule | | | 2018 | | | | Chloride | day | - | | | | | | | CR 20 | | fri | | | | | | | MEQ | | | | | | | | + + + + + + + +--------+ | Acetamin | Orally | 3-4 | 24h | | | | Active | | ophen | Daily | tablets | | | | | | | 500 MG | | | | | | | | + + + + + + + +--------+ | Vitamin | Orally | 1 tablet | 24h | | | | Active | | B | Once a | | | | | | | | Complex | day | | | | | | | + + + + + + + +--------+ | Macrobid | Orally | 1 | 12h | 09 Sep, | 14 Sep, | 5 day(s) | Active | | 100 mg | every 12 | capsule | | 2016 | 2016 | | | | | hrs | with | | | | | | | | | food | | | | | | + + + + + + + +--------+ | Glucosam | | | | | | | Active | | ine | | | | | | | | + + + + + + + +--------+ | PreserVi | Orally | | 12h | | | | Active | | judi | Twice a | | | | | | | | AREDS 2 | day | | | | | | | + + + + + + + +--------+ | Metoprol | Orally | 1 tablet | 24h | 02 December, | | 90 days | Active | | ol | Once a | | | 2016 | | | | | Succinat | day | | | | | | | | e ER 50 | | | | | | | | | MG | | | | | | | | + + + + + + + +--------+ | Irbesart | Orally | 1 tablet | 24h | | | 90 days | Active | | an 300 | Once a | | | | | | | | MG | day | | | | | | | + + + + + + + +--------+ RESULTS No Results PROCEDURES No Known procedures IMMUNIZATIONS No Known Immunizations MEDICAL (GENERAL) HISTORY + + + + | Type | Description | Date | + + + + | Medical History | Hypertension | | + + + + | Medical History | Osteoarthritis | | + + + + | Medical History | Hyperlipidemia | | + + + + | Medical History | Hypothyroid | | + + + + | Medical History | ASHD s/p coronary stent | | | | 04/19/17 | | + + + + | Medical History | PVD s/p stent LE 04/19/17 | | + + + + | Medical History | Moderate Aortic | | | | Stenosis-echo 10/2010, | | | | Severe -echo 11/2011, | | | | moderate -echo 11/27/12. | | | | s/p AVR plus stent L LE and | | | | coronary artery 04/19/17 | | + + + + | Medical History | Crohn's dx 04/2012 - 2 | | | | months rx: pentasa & 6wks | | | | titrating coarse of | | | | prednisone starting with | | | | 40mg daily. | | + + + + | Medical History | hx/o Iron deficiency anemia | | + + + + | Medical History | hx/o Migraine | | + + + + | Medical History | hx/o C-diff colitis 2013 | | + + + + | Medical History | Myelodysplastic syndrome dx | | | | 01/2009 | | + + + + | Medical History | hx/o GI bleed 2003 | | + + + + | Medical History | ABIM Survey for patients | | | | with high blood pressure | | | | provided. 01/15/13 | | + + + + | Medical History | Estimated dietary calcium | | | | intake 1100mg/day 01/15/13 | | + + + + | Medical History | Patient education packet on | | | | fall prevention and home | | | | safety questionnaire | | | | provided. 01/15/13 | | + + + + | Medical History | FRAX calculation performed | | | | assessing 10 year | | | | probability of fracture. | | | | 14% risk of major | | | | osteporotic fx, 1.6% risk | | | | of hip fx. | | + + + + | Medical History | shorter Left Leg - has a | | | | shoe insert 05/2016 | | + + + + | Medical History | POLST filled out pt is DNR | | | | 12/23/14 | | + + + + | Surgical History | Rn Endocrinology Dr Mack | 02/24/16 | | | Kylah Hoskins | | + + + + | Surgical History | Coronary angiogram, normal | 1992 | + + + + | Surgical History | Colonoscopy | 2000 2006 | + + + + | Surgical History | EGD | 2003 2206 | + + + + | Surgical History | EGD, Colonoscopy, Dr Dean, | 03/29/12 | | | [place] | | + + + + | Surgical History | Appendectomy | 9yrs old | + + + + | Surgical History | Small Bowl Obstruction, | 08/2010 | | | thickened seg of small bowl | | | | suggestive of Crohn's | | + + + + | Surgical History | Mammogram | 08/29/16 | + + + + | Surgical History | papsmear | 10/2010 | + + + + | Surgical History | DEXA -Tscore: femoral | 2001, 2006 | | | -.6,lumbar 3.5,forearm -.7 | | + + + + | Surgical History | ECHO-nl LV EF 60-65% | 10/29/2010 | | | moderate Aortic Stenosis | | | | mild aortic insufficiency | | + + + + | Surgical History | repair of incarcerated | 2004 | | | umbilical hernia with | | | | implantation of prolene | | | | mesh | | + + + + | Surgical History | laproscopic evaluation of | 02/12/2009 | | | abdomen with lysis of | | | | adhesions | | + + + + | Surgical History | Cholecystectomy Dr Wynne | 11/29/11 | + + + + | Surgical History | 2D ECHO - severe aortic | 11/25/11 | | | stenosis | | + + + + | Surgical History | Cardiology consult, [facility] | 02/09/12 | | | cardiology Dr Delarosa: | | | | asymptomatic , no further | | | | work up for now. | | + + + + | Surgical History | Esophagus dilated, Dr Dean | 03/29/12 | + + + + | Surgical History | Orthopedic Consult Dr Grullon | 03/07/12 | | | ale PAEZ R THR | | + + + + | Surgical History | Venofer IV 200mg 04/05/12, | | | | 05/07/12, 05/21/12, 06/27/12, | | | | 07/11/12 | | + + + + | Surgical History | Capsule endoscopy - | 04/10/12 | | | retained capsule 09/03/12 | | + + + + | Surgical History | R THR Krishna Cox | 07/30/12 | | | [place] | | + + + + | Surgical History | 2D Echo - borderline L vent | 08/27/13 | | | hypertrophy, preserved L | | | | vent fxn, grade 1 diastolic | | | | dysfxn, moderate . no | | | | change since prior study | | | | 11/27/12 | | + + + + | Surgical History | Basal cell resected from | 08/2014 | | | Dr Kyrie holloway | | + + + + | Surgical History | AVR plus stent L LE and | 04/19/17 | | | coronary artery | | + + + + | Hospitalization History | Small Bowl Obstruction | 08/2010 | + + + + | Hospitalization History | [facility] | 11/13/12 | + + + + | Hospitalization History | planning basal cell | 07/04 | | | carcinoma surgery | | + + + + | Hospitalization History | De[facility] -[facility] | 02/2015 | + + + + | Hospitalization History | [facility] re: small bowel | 11/29-12/04/15 | | | obstruction | | + + + +"
--- OUTSIDE RECORDS SUMMARY | ~2020-05-24 | XMS | Encounter Summary ---
Demographics + + + | Address | [address] | | | [place] [address] | + + + | Home Phone | | + + + | Preferred Language | Unknown | + + + | Marital Status | | + + + | Jain Affiliation | 1041 | + + + | Race | White | + + + | Ethnic Group | Not or | + + + Author + + + | Author | [facility] | | | and [place] | + + + | Organization | [facility] | | | [...] Team Providers + +------+ + | Care Hearing Impaired Itinerant Teacher Name | Role | Phone | + +------+ + | Terrence Aquino DO | PCP | | + +------+ + Reason for Visit +--------+--------+ + | Reason | Onset | Comments | | | Date | | +--------+--------+ + | Other | | would like to speak with provider about protocol | | | 2016 | | +--------+--------+ + Encounter Details +--------+ + + + + | Date | Type | Department | Care Team | Description | +--------+ + + + + | Telephone | [facility] | Rasheeda Patel, | Other (would like to | | 2016 | | CARDIOLOGY [address] | TEXTILE SUPERVISOR [address] | speak with provider | | | | [place], | [place] | about protocol) | | | | [place] [address] | [id number] | | | | | [phone] | | | +--------+ + + + [...] this encounter Miscellaneous Notes Telephone Encounter - Tierney Rodriguez RN - 05/02/2017 1:27 PM PDTSpoke with Mae, she w ill have to run things through the team and then will email me with details once they have i t together. ...........................................Tierney Rodriguez RN on 05/02/17 at 13 :29 elephone Encounter - Tierney Rodriguez RN - 05/02/2017 10:40 AM PDTSpoke with Christiane, she will pass the messag e to Mae, she will talk with Mae and have her call me back. ............................ ...............Tierney Rodriguez RN on 05/02/17 at 10:43 elephone Encounter - Rasheeda Patel ARNP - 05/02/2017 7:24 AM PDTDiannallan, It would be better if they just fax ed us their protocols so we have something to refer to. [facility] does not require the patients to travel out of town for the follow up when it is difficu for them to travel like that, so we have assumed it was the same with [facility]'s. My schedule is booked, and I doubt they are open to talking when I am available, [facility] is between 0700 and 0730. We are not opposed to the patient's travelling for their follo w up, but in this patient's case she has to ask a neighbor to take time off of work and find s it very difficult to travel that far and asked why we couldn't just do the echocardiogram and follow up here, and since we normally do that for patient's who have difficulty [facility] for their TAVR follow up, I didn't see that it would be an issue. In fact, gisel is patient does not reach her 30 day briseida until the end of April, and they were not able to schedule her at [facility] until 06/20, so she hasn't actually missed her appointment. For future patients, if their TAVR follow up differs from other facilities and does not all ow for flexibility for elderly patients who can't drive, then we just need some information so that we can provide the rationale for this to these patients. And it would be best if gisel ey faxed it, since I am not the only provider who does this, and you and the other nurses ar e the ones who do the vast majority of the phone counseling and would need to reference this as well. Thanks! ...........................................ALFREDA Christianson on 05/02 at 7:31 Tierney Palumbo RN - 05/01/2017 1:52 PM Fracisco with [facility] in [place] called and they have some concerns about follow up on TAVR. She states that t hey have to have follow up with the patients in [place] at the 30 day and 1 year briseida. She would like to discuss details with ALFREDA Nur since the patient did not come back t o them at the 30 day briseida. She would like to educate out office on the protocols that they r equire. She is advised that Rasheeda is out today and that I would ask her to please try to chelsi l tomorrow. ...........................................Tierney Rodriguez RN on 05/01/17 at 1 3:55 documented in this encounter Plan of Treatment +--------+ + + + + | Date | Type | Specialty | Care Team | Description | +--------+ + + + + | 06/18/ | Appointment | Cardiology | Rasheeda Patel, | | | 2019 | | | ALFREDA [address] | | | | | | [place] | | | | | | [phone] | | | | | | | | +--------+ + + + + | 06/18/ | Office | Cardiology | Sandra Lua | | | 2019 | Visit | | JOHNNY Bernal [address] | | | | | | [address] | | | | | | [place] [address] | | | | | | [phone] | | | | | | | | +--------+ + + + + documented as of this encounter Visit Diagnoses Not on filedocumented in this encounter"
--- OUTSIDE RECORDS SUMMARY | ~2020-05-24 | XMS | Encounter Summary ---
Demographics + + + | Address | [address] | | | [place] [address] | + + + | Home Phone | | + + + | Preferred Language | Unknown | + + + | Marital Status | | + + + | Jew Affiliation | 1041 | + + + | Race | White | + + + | Ethnic Group | Not or | + + + Author + + + | Author | [facility] | | | and [place] | + + + | Organization | [facility] | | | [...] Team Providers + +------+ + | Care Gaming Associate Name | Role | Phone | + +------+ + PCP | Unavailable | + +------+ + Encounter Details +--------+ + + + + | Date | Type | Department | Care Team | Description | +--------+ + + + + | 04/04/ | Hospital | [facility] | Tanja Hodge MD | ABDOMINAL PAIN | | 2005 | Encounter | [address] | [address]IGASTRIC | | | | [address] | [place] [address] | | | | | [place], [place] | [phone] | | | | | [address] | | | | | | [phone] | | | +--------+ + + + [...] | | | | | [place] [address] | | | | | | [phone] | | | | | | | | +--------+ + + + + documented as of this encounter Visit Diagnoses + + | Diagnosis | + + | Abdominal pain, epigastric | + + documented in this encounter"
--- OUTSIDE RECORDS SUMMARY | ~2020-05-24 | XMS | Encounter Summary ---
Demographics + + + | Address | [address] | | | [place] [address] | + + + | Home Phone | | + + + | Preferred Language | Unknown | + + + | Marital Status | | + + + | Congregational Affiliation | 1041 | + + + | Race | White | + + + | Ethnic Group | Not or | + + + Author + + + | Author | [facility] | | | and [place] | + + + | Organization | [facility] | | | [...] Team Providers + +------+ + | Care Embossing Press Operator Molded Goods Name | Role | Phone | + +------+ + | Terrence Aquino DO | PCP | | + +------+ + Encounter Details +--------+ + + + + | Date | Type | Department | Care Team | Description | +--------+ + + + + | 04/27/ | Hospital | [facility] | Marisel Morataya PA | Aortic valve | | 2017 | Encounter | MED CTR XRAY [address] | stenosis, | | | | [place] | [address], | unspecified | | | | [place] [address] | [place] [address] | etiology; S/P TAVR | | | | [phone] | [phone] | (transcatheter | | | | | | aortic valve | | | | | | replacement) | +--------+ + + + + Social [...] 16 | 9 | | tablet | orally | | | | | | [...] 2019 | | | ALFREDA [address] | | | | | | [address] [place] | | | | | | [address] | | | | | | | | +--------+ + + + + | 06/18/ | Office | Cardiology | Sandra Lua | | | 2019 | Visit | | JOHNNY Bernal [address] | | | | | | [address] [place] | | | | | | [place] [address] | | | | | | [phone] | | | | | | | | +--------+ + + + + documented as of this encounter Procedures + +--------+ + + + | Procedure Name | Priori | Date/Time | Associated Diagnosis | Comments | | | ty | | | | + +--------+ + + + | XR CHEST PA AND | Routin | 04/27/2017 | Aortic valve | Results for this | | LATERAL | e | 9:58 AM | stenosis, | procedure are in the | | | | PDT | unspecified etiology | results section. | | | | | S/P TAVR | | | | | | (transcatheter | | | | | | aortic valve | | | | | | replacement) | | + +--------+ + + + documented in this encounter Results XR Chest PA and Lateral (04/27/2017 9:58 AM PDT) + + | Specimen | + + | | + + + + + | Narrative | Performed At | + + + | PA AND LATERAL CHEST 04/27/2017 9:58 AM CLINICAL HISTORY: aortic | [facility] | | valve stenosis, s/p TAVR COMPARISON: None available FINDINGS: | | | An endovascular graft is visible at the level of the aortic valve. | | | The cardiac silhouette is mildly enlarged and there is calcification | | | and tortuosity of the aorta. The mediastinum and pulmonary | | | vasculature are otherwise unremarkable. The lungs are clear without | | | pneumothorax or pleural effusion. There is multilevel spondylosis. | | | Cholecystectomy clips are suggested. IMPRESSION - 1. | | | AORTIC VALVE PROSTHESIS WITH MILD ENLARGEMENT OF THE CARDIAC | | | SILHOUETTE. Dictated and Signed by: Mg Vivar MD | | | Electronically signed: 04/27/2017 11:27 AM | | + + + + + | Procedure Note | + + | Domo, Rad Results In - 04/27/2017 11:30 AM PDT PA AND LATERAL CHEST 04/27/2017 9:58 AM | | | | CLINICAL HISTORY: aortic valve stenosis, s/p TAVR | | | | COMPARISON: None available | | | | FINDINGS: An endovascular graft is visible at the level of the aortic valve. | | The cardiac silhouette is mildly enlarged and there is calcification and | | tortuosity of the aorta. The mediastinum and pulmonary vasculature are | | otherwise unremarkable. The lungs are clear without pneumothorax or pleural | | effusion. There is multilevel spondylosis. Cholecystectomy clips are | | suggested. | | | | IMPRESSION - | | | | 1. AORTIC VALVE PROSTHESIS WITH MILD ENLARGEMENT OF THE CARDIAC SILHOUETTE. | | | | Dictated and Signed by: Mg Vivar MD | | Electronically signed: 04/27/2017 11:27 AM | + + + +---------+ + + | Performing | Address | City/State/Zipcode | Phone Number | | Organization | | | | + +---------+ + + | [facility] | | | | + +---------+ + + documented in this encounter Visit Diagnoses + + | Diagnosis | + + | Aortic valve stenosis, unspecified etiology | + + | S/P TAVR (transcatheter aortic valve replacement) | + + documented in this encounter"
--- OUTSIDE RECORDS SUMMARY | ~2020-05-24 | XMS | Encounter Summary ---
Demographics + + + | Address | [address] | | | [place] [address] | + + + | Home Phone | | + + + | Preferred Language | Unknown | + + + | Marital Status | | + + + | Catholic Affiliation | 1041 | + + + | Race | White | + + + | Ethnic Group | Not or | + + + Author + + + | Author | [facility] | | | and [place] | + + + | Organization | [facility] | | [...] Team Providers + +------+ + | Care Direct Casting Operator Name | Role | Phone | + +------+ + PCP | Unavailable | + +------+ + Encounter Details +--------+ + + + + | Date | Type | Department | Care Team | Description | +--------+ + + + + | 07/30/ | Hospital | [facility] | Sierra Rios, | Arthritis of hip | | 2011 - | Encounter | [facility] [address] | [address] | | | | | [address] | [place], [place] | | | 08/02/ | | [place], [place] | [address] | | | 2011 | | [address] | | | | | | [phone] | | | +--------+ + + + [...] + + documented as of this encounter Discharge Summaries Sierra Rios MD - 08/02/2012 11:53 AM PSTFormatting of this note might be different fr om the original. Discharge Summaries by Sierra Rios MD at 08/02/12 8003 Author: Sierra Rios MD Service: Orthopedic Surgery Author Type: Physician Filed: 08/03/12 1526 Date of Service: 08/02/12 1336 Status: Signed Ballistic Expert: Sierra Rios MD (Physician) Related Notes: Original Note by Sierra Rios MD (Physician) filed at 08/02/12 2409 DISCHARGE DIAGNOSIS Arthritis, right hip. PROCEDURE Right total hip replacement. REASON FOR ADMISSION Right hip replacement for severe arthritis. 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 It has not responded to conservative measures and she was admitted for a right total hip replacement. Prior to the replacement she underwent iron infusion therapy to correct her iron deficiency anemia. HOSPITAL COURSE On the day of admission the patient was taken to the operating room and under a general anesthetic a right total hip performed through a posterior approach. Postoperatively she was treated with prophylactic antibiotics for 24 hours. DVT prophylaxis with Coumadin, foot pumps, and LIA hose. She was quite nauseated the first postoperative day and the this resolved, and then she was comfortable on oral pain medicines. It was felt that she would benefit from extended stay as she lives alone. She had arranged with [facility] in [place] for post discharge plans. This was confirmed with the case preparer and liner. She made good progress and did not require a transfusion although her hemoglobin on the third postoperative day was 8.2 but she was tolerating this well. It was recommended that she continue with her iron therapy which most likely will need to be infusion therapy periodically to deal with her iron deficiency anemia. At the time of discharge her incision was clean and dry. Telfa and Tegaderm were applied so she can shower. DISCHARGE MEDICATIONS She will resume her previous medications and then for pain will have tramadol 50 mg 1 q.6h. p.r.n. pain. Surfak as a stool softener. Coumadin 2 mg daily. DISCHARGE INSTRUCTIONS I will monitor her pro time and INR with a weekly lab test that she will obtain in [place] and will be faxed to my office. She is to follow up with me in the office in 10 to 12 days and she has that appointment. documented in this encounter Progress Notes Conversion Transaction, Provider Unknown - 08/02/2012 10:58 AM PSTFormatting of this note m ight be different from the original. Progress Notes by Juana Acuna RN at 08/02/12 105 Author: Juana Acuna RN Service: (none) Author Type: Registered Nurse Filed: 08/02/121099 Date of Service: 08/02/121057 Status: Signed Ballistic Expert: Juana Acuna RN (Registered Nurse) Discharge teaching done, instructions given. Pt states understanding. Medications discussed , no questions or concerns. [facility] to administer all medications. Pt instructed to wear LIA hose until cleared by MD and follow instructions and diet for anti-coag therapy. Dr. Juan José garcia to follow for anticoagulation. Pt instructed to contact MD with any concerns or if sign s/symptoms re-occur that were associated with this hospitalization. JUANA ACUNA RN 08/02/2012 10:58 AM onver judi Transaction, Provider Unknown - 08/02/2012 9:51 AM PST Progress Notes by Mary Chapman RPH at 08/02/12 09 Author: Mary Chapman RPH Service: (none) Author Type: Pharmacist Filed: 08/02/12950 Date of Service: 08/02/12950 Status: Signed Ballistic Expert: Mary Chapman RPH (Pharmacist) No labs no renal adjustment changes CrCl 56.8 ml/min Mary Chapman RP onver judi Transaction, Provider Unknown - 08/02/2012 8:47 AM PST Progress Notes by NICOLA Mirza at 08/02/12 0847 Author: NICOLA Mirza Service: (none) Author Type: Shaft Sinker Filed: 08/02/1248 Date of Service: 08/02/12846 Status: Signed Ballistic Expert: NICOLA Mirza (Shaft Sinker) CM faxed MD's discharge orders to [facility] and arranged for family to transport pt in the ir car. CM notified pt & family of the discharge time. Pt had no other resource concerns. Odilon BANKS onver judi Transaction, Provider Unknown - 07/31/2012 5:17 PM PST Progress Notes by Erica Escalera LPN at 07/31/121716 Author: Erica Escalera LPN Service: (none) Author Type: Registered Nurse Filed: 07/31/121718 Date of Service: 07/31/121716 Status: Signed Ballistic Expert: Erica Escalera LPN (Registered Nurse) Visited with pt this afternoon regarding warfarin education and post hospital monitoring. P t states she will be transferred to [facility] in [place]. Noted that Dr. Rios will be monitoring warfarin therapy post hospital. Indications for warfarin reviewed. Medi cation interactions and warfarin compliance discussed. Vitamin K education completed. Warfar in education booklet given to pt at this time. Pt has no further questions at this time. onver judi Transaction, Provider Unknown - 07/31/2012 1:10 PM PST Progress Notes by NICOLA Mirza at 07/31/12 1310 Author: NICOLA Mirza Service: (none) Author Type: Shaft Sinker Filed: 07/31/121311 Date of Service: 07/31/121309 Status: Signed Ballistic Expert: NICOLA Mirza (Shaft Sinker) CM received a phone call from Uriel at [facility] stating they can accept pt when read y. CM notified pt & daughter and will arrange transportation upon discharge. Odilon Gonzalez DARREN NStSierra wakefield MD - 07/31/2012 12:36 PM PST Progress Notes by Sierra Rios MD at 07/31/12 1236 Author: Sierra Rios MD Service: Orthopedic Surgery Author Type: Physician Filed: 07/31/12 1237 Date of Service: 07/31/12 1236 Status: Signed Ballistic Expert: Sierra Rios MD (Physician) [facility] Service: Orthopedic Surgery Progress Note Hospital Day: LOS: 1 day Post-Op Day: 1 Day Post-Op SUBJECTIVE Patient Summary: Day 1 post-op total joint. Vitals stable Labs ok dressing intact ne uro intact Good progress with PT Pain controlled Events Overnight: nausea Scheduled Medications acetaminophen 1,000 mg Oral Q8H PHI ascorbic acid 500 mg Oral Daily atenolol 25 mg Oral Daily bupivacaine bupivacaine-EPINEPHrine PF calcium carbonate 500 mg Oral BID ceFAZolin 1 g Intravenous Q8H cholecalciferol 2,000 Units Oral Daily docusate sodium 100 mg Oral BID fentaNYL gabapentin 300 mg Oral BID heparin (porcine) hydrochlorothiazide 12.5 mg Oral Daily ketamine ketorolac midazolam morphine multivitamin with minerals 1 tablet Oral Daily olmesartan 40 mg Oral Daily omeprazole 20 mg Oral Daily oxyCODONE 10 mg Oral Q12H PHI potassium chloride 10 mEq Oral TID WC scopolamine 1 patch Transdermal Q72H vitamin B complex-C capsule 1 capsule Oral Daily warfarin 3 mg Oral Daily Continuous Infusions sodium chloride 75 mL/hr at 07/31/12 0447 PRN Medications acetaminophen, acetaminophen, diazepam, morphine, morphine, morphine, ondansetron, ondanset haseeb, polyethylene glycol, promethazine, tapentadol, zolpidem, DISCONTD: ondansetron, DISCONT D: ondansetron OBJECTIVE Vital Signs: BP 101/52 | Pulse 77 | Temp(Src) 99.2 F (37.3 C) (Oral) | Resp 16 | Ht 1.626 m (5' 4") | Wt 64.6 kg (142 lb 6.7 oz) | BMI 24.45 kg/m2 | SpO2 96% {EXTENDEDVITALS:79170 Physical Exam Ortho Exam DATA CBC: Lab Results Component Value Date WBC 7.7 07/31/2012 RBC 3.08* 07/31/2012 HGB 9.3* 07/31/2012 HCT 27.5* 07/31/2012 MCV 89.3 07/31/2012 MCH 30.2 07/31/2012 MCHC 33.9 07/31/2012 RDW 50.8 07/31/2012 PLT 160 07/31/2012 MPV 8.1 07/31/2012 DIFFTYPE AUTOMATED 07/31/2012 CMP: Lab Results Component Value Date NA 138 07/31/2012 K 3.5 07/31/2012 CL 103 07/31/2012 CO2 27 07/31/2012 ANIONGAP 11 07/31/2012 GLUF 145* 07/31/2012 BUN 20 07/31/2012 CREATININE 0.80 07/31/2012 BCR 25 07/31/2012 CA 7.7* 07/31/2012 PROT 7.2 07/24/2012 ALB 3.6 07/24/2012 GLOB 3.6 07/24/2012 BILITOT 0.4 07/24/2012 ALP 68 07/24/2012 AST 23 07/24/2012 ALT 32 07/24/2012 EGFR >60 07/31/2012 PT/INR: Lab Results Component Value Date INR 1.2 07/31/2012 PROBLEM LIST Principal Problem: *Arthritis of hip ASSESSMENT & PLAN Disposition: To [facility] in [place] Code Status: Full Code SIERRA RIOS MD 07/31/2012 onversion Transact ion, Provider Unknown - 07/31/2012 12:00 PM PSTFormatting of this note might be different fr om the original. Progress Notes by NICOLA Mirza at 07/31/12 1200 Author: NICOLA Mirza Service: (none) Author Type: Shaft Sinker Filed: 07/31/12 1201 Date of Service: 07/31/12 1200 Status: Signed Ballistic Expert: NICOLA Mirza (Shaft Sinker) CM met pt & daughter for discharge planning. CM educated her regarding SNF placement for re hab. Pt agreed to SNF placement and requested [facility] in [place]. CM faxed pt's info to [facility] and spoke with their review scheduling coordinator Uriel who will look over pt's info and call CM back. Odilon Gonzalez TRANSMITTER TESTER onver judi Transaction, Provider Unknown - 07/31/2012 10:58 AM PST Progress Notes by Mary Chapman RPH at 07/31/12 105 Author: Mary Chapman RPH Service: (none) Author Type: Pharmacist Filed: 07/31/121057 Date of Service: 07/31/121057 Status: Signed Ballistic Expert: Mary Chapman RPH (Pharmacist) ~CrCl 51.7 ml/min SCr 0.80 No renal adjustments needed Mary Davalos onver judi Transaction, Provider Unknown - 07/30/2012 12:04 PM PST Progress Notes by Johnny Helms RPH at 07/30/12 120 Author: Johnny Helms RPH Service: (none) Author Type: Pharmacist Filed: 07/30/121203 Date of Service: 07/30/121203 Status: Signed Ballistic Expert: Johnny Helms RPH (Pharmacist) Clinical Pharmacy Note: Renal Monitoring Oscar Duran 77 y.o. female Ht Readings from Last 1 Encounters: 07/30/12 1.626 m (5' 4") Wt Readings from Last 1 Encounters: 07/30/12 64.6 kg (142 lb 6.7 oz) CREATININE Date Value Range Status 07/24/2012 0.77 0.50 - 1.00 mg/dL Final Testing performed at [facility];[address] [place] [address];[place] [address] Creatinine clearance cannot be calculated - Pharmacy dosing for renal function per PAC Perala. Currently, there are no medications needing to be adjusted. Pharmacy will continue to monit or for changes in medication orders and in renal function and adjust accordingly. Johnny Helms RPh 07/30/2012 12:03 PM docume nted in this encounter H&P Notes Diane Benitez - 07/28/2012 9:23 AM PST H&P by Diane Benitez PA-C at 07/28/12922 Author: Diane Benitez PA-C Service: Orthopedic Surgery Author Type: Physician Christie whitehead - Certified Filed: 07/28/12 1323 Date of Service: 07/28/12922 Status: Signed Ballistic Expert: Diane Benitez PA-C (Physician Hand Worker - Certified) Related Notes: Cosigned by Sierra Rios MD (Physician) filed at 07/30/12 0742 [facility] Service: Orthopedic Surgery Admission History & Physical Date of Admission: (Not on file)07-30-12 Requesting Physician: Dr. Sierra Rios , Orthopedic Surgery Reason for Admission: Arthritis of hip, right, plan replacement History Obtained From: patient CHIEF COMPLAINT: right Hip Pain HISTORY OF PRESENT ILLNESS The patient is a 77 y.o. female with significant past medical history of right hip arthriti s who presents with increasing pain and discomfort. Dr. Rios and the patient have decide d to proceed with right hip replacement. The planned procedure, post op recovery, complicat ions, contraindications, and alternatives have been discussed, an informed consent was tato d. The patient has failed at least 3 months of conservative treatment for their condition, jimi t consisting of and not limited too: NSAID medication, Analgesic treatments, flexibility and muscle strengthening exercises, and physical therapy. Their ADL's have diminished due to th eir arthritic pain and decreased range of motion. They now require assistance for ambulation thus causing restrictions to their normal daily activities. A weight reduction program and education have been discussed along with smoking cessation as needed. There is radiographic and or MRI evidence of anyone of the following: subchondral cysts/scl erosis, periarticular osteophytes, joint subluxation, joint space narrowing, and possibly av ascular necrosis. REVIEW OF SYSTEMS The patient denies a history of hepatitis, bleeding problems or bleeding disorders. No curr ent bowel or bladder problems. Review of systems is negative except for that mentioned above . Past Medical History Diagnosis Date Hemorrhage of gastrointestinal tract, unspecified 2003 Crohn disease Other chronic pain back Hyperlipidemia Hypertension Joint pain Shingles 2002 Claustrophobia Small bowel obstruction Anemia Spinal stenosis Past Surgical History Procedure Date Appendectomy Cervical cone biopsy Cholecystectomy Hernia repair Colonoscopy Immunizations: Infleuenza: Up-to-date Pneumoccocal: Refused Allergies Allergen Reactions Sulfa Antibiotics Itching Prior to Admission medications Medication Sig Start Date End Date Taking? Authorizing Provider acetaminophen (TYLENOL) 500 MG tablet Take 750 mg by mouth every 6 (six) hours as needed. Historical Provider Ascorbic Acid (VITAMIN C) 500 MG tablet Take 500 mg by mouth daily. Historical Provide r atenolol (TENORMIN) 25 MG tablet Take 25 mg by mouth daily. Historical Provider b complex vitamins tablet Take 1 tablet by mouth daily. Historical Provider Calcium Carbonate-Vitamin D (CALCIUM + D PO) Take by mouth 2 (two) times daily. Histo rical Provider cholecalciferol (VITAMIN D-3) 1000 UNIT tablet Take 1,000 Units by mouth 2 (two) times elias y. Historical Provider hydrochlorothiazide (HYDRODIURIL) 25 MG tablet Take 12.5 mg by mouth daily. Historical Provider olmesartan (BENICAR) 40 MG tablet Take 40 mg by mouth daily. Historical Provider potassium chloride SA (K-DUR,KLOR-CON) 20 MEQ tablet Take 20 mEq by mouth 2 (two) times nani ly. Historical Provider No family history on file. History Smoking status Never Smoker Smokeless tobacco Not on file History Alcohol Use 0.6 oz/week 1 Glasses of wine per week day PHYSICAL EXAMINATION: 5'4" 140 bmi 24 150/80 68 afebrile HEENT: PERRL. NECK: Neck is supple. Nontender. No bruit. No lymphadenopathy. LUNGS: Clear to auscultation bilaterally. HEART: Regular rate and rhythm. No murmur. ABDOMEN: Soft and nontender. EXTREMITIES: Upper extremity examination is intact without abnormality. Lower extremity exa mination reveals decreased range of motion right hip, positive Stinchfield sign, antalgic ga it, pain at end range of motion. Neurovascular sensory testing is intact. Reflexes and perip heral pulses are present. Skin is clear bilaterally. NEUROLOGIC: Cranial nerve II through XII are grossly intact. DATA CBC: Lab Results Component Value Date WBC 5.8 07/24/2012 RBC 3.89 07/24/2012 HGB 11.6 07/24/2012 HCT 34.7 07/24/2012 MCV 89.0 07/24/2012 MCH 29.7 07/24/2012 MCHC 33.4 07/24/2012 RDW 56.0* 07/24/2012 PLT 218 07/24/2012 MPV 7.5 07/24/2012 DIFFTYPE AUTOMATED 07/24/2012 CMP: Lab Results Component Value Date NA 140 07/24/2012 K 3.6 07/24/2012 CL 101 07/24/2012 CO2 28 07/24/2012 ANIONGAP 14 07/24/2012 GLUF 122* 07/24/2012 BUN 31* 07/24/2012 CREATININE 0.77 07/24/2012 BCR 40 07/24/2012 CA 9.1 07/24/2012 PROT 7.2 07/24/2012 ALB 3.6 07/24/2012 GLOB 3.6 07/24/2012 BILITOT 0.4 07/24/2012 ALP 68 07/24/2012 AST 23 07/24/2012 ALT 32 07/24/2012 EGFR >60 07/24/2012 AP and lateral right hip shows degenerative osteoarthritis. PROBLEM LIST Principal Problem: *Arthritis of hip ASSESSMENT & PLAN Arthritis of hip, right, plan replacement Code Status: No Order Primary Care Physician: MD DIANE DA SILVA PA-C 07/28/2012 9:25 AM ierra Rios M D - 07/28/2012 9:23 AM PST H&P by Sierra Rios MD at 07/28/12 0923 Author: Sierra Rios MD Service: Orthopedic Surgery Author Type: Physician Filed: 07/30/12 0739 Date of Service: 07/28/12922 Status: Signed Ballistic Expert: Sierra Rios MD (Physician) Related Notes: Related Note by Diane Benitez PA-C (Physician Hand Worker - Certified) f iled at 07/28/12 1323 Reviewed and agree with above H&P SIERRA RIOS MD 07/30/2012 7:39 AM documented in this encounter Miscellaneous Notes Plan of Care - Conversion Transaction, Provider Unknown - 08/02/2012 9:21 AM PST Plan of Care by Juana Acuna RN at 08/02/12920 Author: Juana Acuna RN Service: (none) Author Type: Registered Nurse Filed: 08/02/12921 Date of Service: 08/02/12920 Status: Signed Ballistic Expert: Juana Acuna RN (Registered Nurse) Patient status report called to MIR Belcher at [facility] in [place], [place] . An ticipate discharge today to [facility] at 1030 via private vehicle. JUANA ACUNA RN 08/02/2012 9:22 AM p Not allan - Sierra Rios MD - 07/30/2012 9:31 AM PST Op Note signed by Sierra Rios MD at 07/30/121720 Author: Sierra Rios MD Service: (none) Author Type: Physician Filed: 07/30/121720 Date of Service: 07/30/12930 Status: Signed Ballistic Expert: Sierra Rios MD (Physician) OSCAR DURAN Date of : 1935 PREOPERATIVE DIAGNOSIS Arthritis, right hip. POSTOPERATIVE DIAGNOSIS Arthritis, right hip. PROCEDURE Right total hip replacement. IMPLANTS Huyen 50 PSL cup with neutral 36 liner, #3 Accolade stem 127-degree angle with a -2.5 Biolox head [id number]-zv-[id number] articulation. SURGEON Sierra Rios MD ADDICTION SPECIALIST Diane Benitez PA-C ANESTHESIOLOGIST Ovidio Parry MD ANESTHESIA Spinal. ESTIMATED BLOOD LOSS 100 mL. FLUIDS 2000 mL Plasma-Lyte. URINE OUTPUT 225 mL. DESCRIPTION OF PROCEDURE The patient was brought to the operating room. A spinal anesthetic was administered. A Collins catheter was placed. The patient was placed in the left lateral decubitus position and the right hip was prepped and draped in the usual fashion. A timeout was performed identifying the operative site and the surgical check list. We then approached the hip through a posterior incision. Dissection was carried sharply through the skin. We split the gluteus fibers in line with the incision and slightly distal to the trochanter into the fascia. The capsule and external rotators were identified. The piriformis had a fairly high insertion, and we released the capsule and external rotators beneath the piriformis keeping it intact and then released the capsule down to the upper border of the quadratus. This was tagged and retracted. Then we dislocated the hip posteriorly. There was eburnated bone and large anterior osteophytes. The femoral neck was somewhat retroverted. The neck was cut first at a provisional level and then at the templated level. We exposed the acetabulum. This was reamed sequentially beginning at 45 mm and reamed until 50 mm. The 49 mm and 50 mm reamers were tight. We impacted a 50 mm cup. This had good abduction and anteversion and had good fixation although I used 2 screws for additional fixation, one of 10 mm length and one of 30 mm length. The neutral liner was placed. At this point we injected the capsule and the soft tissues with 30 mL of 0.5% Marcaine that included 30 mg of Toradol, 30 mg of ketamine, and 10 mg of Duramorph. The femur was then exposed. We opened the canal and then this was broached for a 2.5. I did a trial reduction and selected the +0 head. When I removed the broach after the trial reduction, I felt that we could get a #3 stem in. This added 5 mm to the templated size, but we put the #3 in and had good security and improved our anteversion. This improved our stability where we has stability in flexion of 90 degrees and internal rotation of 75 degrees. I felt our leg length and soft tissue tension were excellent. It was stable in extension and external rotation. We then placed the real stem and again did a trial reduction with a -5 and a -2.5, and selected the -2.5. The real head was placed. We irrigated, reduced the hip, and closed the capsule with #2 Ti-Cron and #1 Vicryl reattaching the capsule and external rotators to the trochanter through drill holes. We placed 5 mL of FloSeal into the inferior capsule of the hip. The gluteus was closed with interrupted #1 Vicryl, the subcutaneous with 0 and 2-0 Vicryl, and michaelle on the skin. A sterile dressing was applied. The patient was taken to recovery room in stable condition. A/ P/pc/[id number] SIERRA RIOS MD p Note - Sierra Rios MD - 07/30/2012 9:28 AM PSTFormatting of this note might be different from the grace juli. Brief Op Note by Sierra Rios MD at 07/30/12927 Author: Sierra Rios MD Service: Orthopedic Surgery Author Type: Physician Filed: 07/30/12929 Date of Service: 07/30/12927 Status: Signed Ballistic Expert: Sierra Rios MD (Physician) [facility] Service: Orthopedic Surgery Brief Op Note Pre-operative Diagnosis: Arthritis r hip Post-operative Diagnosis: Same Procedure(s): r JIIM Surgeon: SIERRA RIOS MD Hand Worker(s): edinson chicas Anesthesia: Spinal anesthesia Estimated Blood Loss: 100 Other: IV Fluids: 2000 ml Urine Output: 225 ml Implants: Huyen 50 mm PSL cup 36 liner. # 3 127 -2.5 head Indications: See pre-operative history and physical. Findings: DJD Complications: Condition: Stable See dictated operative report for full details. SIERRA RIOS MD 07/30/2012 documented in this encounter Plan of Treatment +--------+ + + + + | Date | Type | Specialty | Care Team | Description | +--------+ + + + + | 06/18/ | Appointment | Cardiology | Rasheeda Patel, | | | 2019 | | | [facility] [address] | | | | | | [address] [place] | | | | | | [address] | | | | | | | | +--------+ + + + + | 06/18/ | Office | Cardiology | Sandra Lua | | | 2019 | Visit | | [address] | | | | | | [address] [place] | | | | | | [place] [address] | | | | | | [phone] | | | | | | | | +--------+ + + + + documented as of this encounter Procedures + +--------+ + + + | Procedure Name | Priori | Date/Time | Associated Diagnosis | Comments | | | ty | | | | + +--------+ + + + | XR HIP RIGHT 1 VW | Routin | 07/30/2012 | | Results for this | | | e | 9:48 AM | | procedure are in the | | | | PST | | results section. | + +--------+ + + + documented in this encounter Results XR Hip Right 1 Vw (07/30/2012 9:48 AM PST) + + | Specimen | + + | | + + + + + | Narrative | Performed At | + + + | HISTORY: 77-year-old female, post total hip arthroplasty | | | TECHNIQUE: 1. AP supine view of the right hip Prior study for | | | review : None similar FINDINGS: Post total hip arthroplasty | | | without evidence of adversity. Anatomic alignment without evidence of | | | shannon-hardware fracture on the image presented. Expected | | | postprocedural changes to include some gas in the operative bed and | | | superficial clips and some swelling Degenerative changes of the | | | pelvis, SI joint and artifact or metal density about the pelvic | | | midline IMPRESSION: 1. Post total hip arthroplasty without | | | evidence of malalignment or shannon-hardware fracture. There is | | | significant soft tissue swelling, but body habitus may be contributory | | | -- would correlate | | + + + + -------+ | Procedure Note | + -------+ | Domo, Rad Conversion - 04/13/2019 6:06 AM PDT HISTORY: 77-year-old female, post total | | hip arthroplasty TECHNIQUE: 1. AP supine view of the right hipPrior study for review : | | None similar FINDINGS: Post total hip arthroplasty without evidence of adversity. | | Anatomic alignment without evidence of shannon-hardware fracture on the image presented. | | Expected postprocedural changes to include some gas in the operative bed and superficial | | clips and some swelling Degenerative changes of the pelvis, SI joint and artifact or | | metal density about the pelvic midline IMPRESSION: 1. Post total hip arthroplasty | | without evidence of malalignment or shannon-hardware fracture. There is significant soft | | tissue swelling, but body habitus may be contributory -- would correlate | | | | | |Expected postprocedural changes to include some gas in the operative bed and superficial cl ips and some swelling | | | |Degenerative changes of the pelvis, SI joint and artifact or metal density about the pelvic midline | | | |IMPRESSION: | | | |1. Post total hip arthroplasty without evidence of malalignment or shannon-hardware fracture. There is significant soft tissue swelling, but body habitus may be contributory -- would cor relate | | | | | | | | | + -------+ documented in this encounter Visit Diagnoses + + | Diagnosis | + + | Arthritis of hip Unspecified arthropathy, pelvic region and thigh | + + documented in this encounter
--- OUTSIDE RECORDS SUMMARY | ~2020-05-24 | XMS | Encounter Summary ---
Demographics + + + | Address | [address] | | | [place] [address] | + + + | Home Phone | | + + + | Preferred Language | Unknown | + + + | Marital Status | | + + + | Temple Affiliation | 1041 | + + + [...] Team Providers + +------+ + | Care Back Shoe Cutter Name | Role | Phone | + +------+ + | Terrence Aquino DO | PCP | | + +------+ + Encounter Details +--------+---------+ + + + | Date | Type | Department | Care Team | Description | +--------+---------+ + + + | 03/06/ | Surgery | [facility] | Martina Hoskins, | CV LHC | | 2017 | | MED CTR CV INTRA OP | MD [address] | | | | | [address] | [address] [place], | | | | | [place] | [place] [address] | | | | | [address] | [phone] | | | | | [phone] | | | +--------+---------+ + + + Social History + +-------+ [...] + + + | Blood Pressure | 148/56 | 03/06/2017 10:30 AM | | | | | PDT | | + + + + + | Pulse | 51 | 03/06/2017 10:30 AM | | | | | PDT | | + + + + + | Temperature | 36.3 C (97.3 F) | 03/06/2017 7:44 AM | | | | | PDT | | + + + + + | Respiratory Rate | 20 | 03/06/2017 10:30 AM | | | | | PDT | | + + + + + | Oxygen Saturation | 96% | 03/06/2017 10:30 AM | | | | | PDT [...] + documented in this encounter Discharge Instructions Instructions Jeana Su RN - 03/06/2017Formatting of this note might [...] by your healthcare provider Date Last Reviewed: 10/16/201319991465-7497 [employer]. [address] [place] [address], [place] [address]. All righ ts reserved. This information is [...] You cannot be awakened Date Last Reviewed: 06/07/201619993046-7924 [employer]. [address] [place] [address]. All righ ts reserved. This information is [...] Martina Hoskins MD - 03/06/2017 8:51 AM PDTMs. Patterson's chart was reviewed in detail, a nd [...] : 1935: AGE: 81 y.o. PRIMARY CARE: Terrecne Aquino DO OUTPATIENT FOLLOW UP VISIT Date [...] to back and hip pain. She enjoys [employer] 60 to 70 hours a month. There [...] capsule Take 1,000 Units by mouth Daily. Pnumcqrcljc-Opxxkfcwr-Pch C-Mn (GLUCOSAMINE-CHONDROITIN) TABS Take by mouth 2 times da lewis. irbesartan (AVAPRO) 300 mg tablet Take 300 mg by mouth Daily. metoprolol succinate (TOPROL-XL) 50 mg 24 hr tablet Take 50 mg by mouth Daily. Multiple Vitamins-Minerals (PRESERVISION AREDS 2) CAPS Take by mouth 2 times daily. potassium chloride (K-DUR) 20 mEq ER tablet Take 20 mEq by mouth Daily. 1 capsule mon- ed-mon orally once a day 0 traMADol (ULTRAM) [...] RESULTS reviewed during visit today primarily from [facility]: LIPID No results found for: CHOL, TRIG, [...] She is in a class II of [place] [employer] functional class. There is no [...] treatment were discussed with the patient in [facility]. The patient decides to proceed with the procedure. 3. Refer patient to [facility] for TAVR. 4. I recommend a therapeutic lifestyle change including walking 30 minutes a day and choosi ng healthy choices of diet. 5. Follow-up in 6 weeks. I Cherie Gabriel am acting as a scribe on behalf of, and in the presence of Martina narayan MD. I have reviewed and edited this note. Cherie Gabriel, Operational Trainer 02/24/2017 I, Martina Hoskins MD, personally performed the services described in this documentation, as scribed in my presence and it is both accurate and complete. Cherie Gabriel, Med Ass t 02/24/2017 11:20 Electronically signed by: Martina Hoskins MD [facility] 02/24/2017 Portions of this chart may have been created with [employer] voice recognition software. Occasi onal wrong-word or [...] CATHETERIZATION and CORONARY ANGIOGRAPHY PATIENT NAME/: Marychuy Patterson, (1935) DATE OF PROCEDURE: 03/06/2017 SURGICAL GARMENT FITTER: Martina Hoskins MD PROCEDURES PERFORMED: Coronary Angiography [...] was discussed with Dr. Flynn, interventionalists at [place], [place]. ARY CARE PROVIDER: Terrence Aquino DO [...] | | | | | | [place] [address] | | | | | | [phone] | | | | | | | [...] At | + + + | Martina | | | MD [place]ato 03/06/2017 9:53 CARDIAC CATHETERIZATION and | | | CORONARY ANGIOGRAPHY PATIENT NAME/: Marychuy Patterson, | | | (1935) OF PROCEDURE: | | | 03/06/2017 SURGICAL GARMENT FITTER: Martina Hoskins MD PROCEDURES | | | [...] | replacement..2. Case was discussed with Dr. Flynn, | | | interventionalists at [place], [place]. | | | | | | [...] with Dr. Flynn, interventionalists at | | |[place], [place]. | | | | | | | | | | | | | | | | | | | | | | | |PRIMARY CARE PROVIDER: | | |Terrence Aquino DO | | | | | + + + documented in this encounter Visit Diagnoses Not on filedocumented in this encounter Administered Medications + +--------+ [...] PDT | | | | | Starting Mon03/06/17 at 0951 | | | | | | + +--------+ +--------+------+------+ +---+---+ | | | +---+---+ + +-------+ +--------+---+---+ | fentaNYL (PF) injection ONCE | Given | 03/06/20 | 25 mcg | | | | PRN, Starting Mon03/06/17 at | | 17 9:08 | | | | | 0853, Intra-op | | AM PDT | | | | + +-------+ +--------+---+---+ +-------+ +--------+---+---+ | Given | 03/06/20 | 25 mcg | | | | | 17 8:59 | | | | | | AM PDT | | | | +-------+ +--------+---+---+ | Given | 03/06/20 | 50 mcg | | | | | 17 8:53 | | | | | | AM PDT | | | | +-------+ +--------+---+---+ +---+---+ | | | +---+---+ + +-------+ +--------+---+---+ | heparin 1,000 units/mL | Given | 03/06/20 | 4,000 | | | | injection ONCE PRN, Starting Mon | | 17 9:20 | Units | | | | 03/06/17 at 0920, Intra-op | | AM PDT | | | | + +-------+ +--------+---+---+ +---+---+ | | | +---+---+ + +-------+ +--------+---+---+ | iohexol (OMNIPAQUE 350) 350 | Given | 03/06/20 | 80 mLs | | | | mg/mL injection ONCE PRN, | | 17 9:30 | | | | | Starting Mon03/06/17 at 0930, | | AM PDT | | | | | Intra-op | | | | | | + +-------+ +--------+---+---+ + +---+ | | | + +---+ [...] + +---+ | | | + +---+ + +-------+ +---------+---+---+ | lidocaine buffered 1% injection | Given | 03/06/20 | 1.5 mLs | | | | ONCE PRN, Starting 03/06/17 | | 17 9:15 | | | | | at 0915, Intra-op | | AM PDT | | | | + +-------+ +---------+---+---+ +---+---+ | | | +---+---+ + +-------+ +--------+---+---+ | midazolam (VERSED) 1 mg/mL | Given | 03/06/20 | 0.5 mg | | | | injection ONCE PRN, Starting Mon | | 9:20 | | | | | 03/06/17 at 0853, Intra-op | | AM PDT | | | | + +-------+ +--------+---+---+ +-------+ +--------+---+---+ | Given | 03/06/20 | 0.5 mg | | | | | 17 9:14 | | | | | | AM PDT | | | | +-------+ +--------+---+---+ | Given | 03/06/20 | 0.5 mg | | | | | 17 9:08 | | | | | | AM PDT | | | | +-------+ +--------+---+---+ + +---+ | | | + +---+ | nitroglycerin (NITROSTAT) SL | | | tablet 0.4 mg 0.4 mg, | | | Sublingual, EVERY 5 MIN PRN, | | | Chest pain, Starting 03/06/17 | | | at 1013, May give up to 3 doses. | | | Notify physician after 2nd dose | | | given. Hold for SBP<100, | | | Post-op/Phase II | | + +---+ | | | + +---+ + +-------+ +---------+---+---+ | nitroglycerin 100 mcg/mL | Given | 03/06/20 | 400 mcg | | | | syringe ONCE PRN, Starting Mon | | 17 9:16 | | | | | 03/06/17 at 0916, Intra-op | | AM PDT | | | | + +-------+ +---------+---+---+ + +---+ | | | + +---+ | ondansetron (ZOFRAN) injection | | | 4-8 mg 4-8 mg, Intravenous, | | | EVERY 6 HOURS PRN, Nausea, | | | Vomiting, Starting 03/06/17 at | | | 1013, Post-op/Phase II [...]
--- OUTSIDE RECORDS SUMMARY | ~2020-05-24 | XMS | Encounter Summary ---
Demographics + + + | Address | [address] | | | [place] [address] | + + + | Home Phone | | + + + | Preferred Language | Unknown | + + + | Marital Status | | + + + | Mandaeism Affiliation | 1041 | + + + | Race | White | + + + | Ethnic Group | Not or | + + + Author + + + | Author | [facility] | | | and [place] | + + + | Organization | [facility] | | | [...] Team Providers + +------+ + | Care Toll Gate Tender Name | Role | Phone | + +------+ + | Terrence Aquino DO | PCP | | + +------+ + Encounter Details +--------+ + + + + | Date | Type | Department | Care Team | Description | +--------+ + + + + | 12/16/ | Hospital | [facility] | Conversion | Pain | | 2018 | Encounter | CONVERSION [address] | Transaction, | | | | | [address] | Provider Unknown | | | | | [place], [place] | [phone] | | | | | [address] | | | | | | [phone] | | | +--------+ + + + [...] + + + +---------+ + + | aspirin 81 mg EC | Take 81 mg by mouth | | 0 | | | | tablet | Daily. | | | | 9 | + + + +---------+ + + | gabapentin | Take 1 capsule by | | 0 | 12/16/19 | | | (NEURONTIN) 300 mg | mouth 3 (three) | | | 18 | 9 | | capsule | times daily. | | | | | + + [...] + + + +---------+ + + | pravastatin | Take 0.5 tablets by | | 0 | 11/15/19 | | | (PRAVACHOL) 10 mg | mouth nightly. | | | 18 | 8 | | tablet | | [...] | 2019 | | | [facility] [address] | | | | | | [...] | | | | | [place] [address] | | | | | | [phone] | | | | | | | | +--------+ + + + + documented as of this encounter Procedures + +--------+ + + + | Procedure Name | Priori | Date/Time | Associated Diagnosis | Comments | | | ty | | | | + +--------+ + + + | CT LUMBAR SPINE WO | Routin | 11/29/2017 | | Results for this | | CONTRAST | e | 2:49 AM | | procedure are in the | | | | PDT | | results section. | + +--------+ + + + documented in this encounter Results CT Lumbar Spine wo Contrast (11/29/2017 2:49 AM PDT) + + | Specimen | + + | | + + + + + | Narrative | Performed At | + + + | This is a non-reportable procedure without a radiologist report and | | | is used for image storage only | | + + + + + | Procedure Note | + + | Yamil Oliveros - 04/03/2019 4:56 AM PDT This is a non-reportable procedure | | without a radiologist report and isused for image storage only | + + documented in this encounter Visit Diagnoses + + | Diagnosis | + + | Pain Generalized pain | + + documented in this encounter"
--- OUTSIDE RECORDS SUMMARY | ~2020-05-24 | XMS ---
Demographics + + + | Address | [address] | | | [address] | | | [place] [address] | + + + | Preferred Language | Unknown | + + + | Marital Status | Unknown | + + + | Worship Affiliation | Unknown | + + + | Race | Unknown | + + + | Ethnic Group | Unknown | + + + Author + + + | Author | [facility] | + + + | Organization | [facility] | + + + | Address | [address] | | | [place] [address] | + + + | Phone | | + + + Care Team Providers + + + + | Care Film Painter Name | Role | Phone | + + + + Unavailable | Unavailable | + + + + PROBLEMS +---------+ + + +--------+ + + | Type | Condition | ICD9-CM | GFK03-QC | Onset | Condition | SNOMED | | | | Code | Code | Dates | Status | Code | +---------+ + + +--------+ + + | Problem | Elevated | R03.0 | | | Active | [id number] | | | blood | | | | | | | | pressure | | | | | | | | reading | | | | | | +---------+ + + +--------+ + + | 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
--- OUTSIDE RECORDS SUMMARY | ~2020-05-24 | XMS | Encounter Summary ---
Demographics + + + | Address | [address] | | | [place] [address] | + + + | Home Phone | | + + + | Preferred Language | Unknown | + + + | Marital Status | | + + + | Taoism Affiliation | 1041 | + + + | Race | White | + + + | Ethnic Group | Not or | + + + Author + + + | Author | [facility] | | | and [place] | + + + | Organization | [facility] | | | and [...] Team Providers + +------+ + | Care Pure Pak Machine Operator Name | Role | Phone | + +------+ + | Terrence Aquino DO | PCP | | + +------+ + Reason for Visit + +--------+ + | Reason | Onset | Comments | | | Date | | + +--------+ + | Follow-up | 05/09/ | 05/09 running late | | | 2019 | | + +--------+ + Encounter Details +--------+ + + + + | Date | Type | Department | Care Team | Description | +--------+ + + + + | 05/09/ | Telephone | [facility] | Paramjit Gandhi, | Follow-up (05/09 | | 2019 | | [facility] | POWER CHECKER [address] | running late) | | | | [address] | | | | | [address] | [place] [address] | | | | | [place], [place] | [phone] | | | | | [address] | | | | | | [phone] | | | +--------+ + + + [...] this encounter Miscellaneous Notes Telephone Encounter - Sandra Murphy, Oil Burner Technician - 05/09/2019 11:55 AM PDTNoted. I informed provider. Electronically signed by Sandra Murphy Oil Burner Technician at 11:55 AM PDTTelephone Encounter - Aria Barrios - 05/09/2019 11:27 AM PDTKayella, is ca lling regarding Follow-up (05/09 running late) and would like a call back. Additional Call Details: Patient is running a little late, is aware of the 10 minute late policy. If this is a symptom based call, was patient offered triage? Not Applicable If this is a symptom based call and you were unable to immediately transfer the call to a p martín bottoming machine operator was caller made aware that if at any time she feels it is an emergency they sh ould call 911 or go to the nearest emergency room? not applicable documented in this encounter Plan of Treatment +--------+ + + + + | Date | Type | Specialty | Care Team | Description | +--------+ + + + + | 06/18/ | Appointment | Cardiology | [facility], | | | 2019 | | | [facility] [address] | | | | | | [address] [place] | | | | | | [phone] | | | | | | | | +--------+ + + + + | 06/18/ | Office | Cardiology | Sandra Lua | | 2019 | Visit | | [address] | | | | | | [address] | | | | | | [place] [address] | | | | | | [phone] | | | | | | | | +--------+ + + + + documented as of this encounter Visit Diagnoses Not on filedocumented in this encounter"
--- OUTSIDE RECORDS SUMMARY | ~2020-05-24 | XMS | Encounter Summary ---
Demographics + + + | Address | [address] | | | [place] [address] | + + + | Home Phone | | + + + | Preferred Language | Unknown | + + + | Marital Status | | + + + | Mormon Affiliation | 1041 | + + + | Race | White | + + + | Ethnic Group | Not or | + + + Author + + + | Author | [facility] | | | and [place] | + + + | Organization | [facility] | | | and [...] Team Providers + +------+ + | Care Crate Icer Name | Role | Phone | + +------+ + | Terrence Aquino DO | PCP | | + +------+ + Reason for Visit + + + | Reason | Comments | + + + | Aortic Stenosis | | + + + | Annual Visit | | + + + Encounter Details +--------+---------+ + + + | Date | Type | Department | Care Team | Description | +--------+---------+ + + + | 02/24/ | Office | [facility] | Jurgen Hoskins, | Aortic valve | | 2017 | Visit | CARDIOLOGY [address] [place] | stenosis, | | | | [place], | [place], | unspecified etiology | | | | [place] [address] | [place] [address] | (Primary Dx) | | | | [phone] | [phone] | | | | | | | | +--------+---------+ + + + [...] + + + | Blood Pressure | 138/68 | 02/24/2017 10:42 AM | | | | | PDT | | + + + + + | Pulse | 67 | 02/24/2017 10:42 AM | | | | | PDT | | + + + + + | Temperature | - | - | | + + + + + | Respiratory Rate | 16 | 02/24/2017 10:42 AM | | | | | PDT | | + + + + + | Oxygen Saturation | - | - | | + + + + + | Inhaled Oxygen | - | - | | | Concentration | | | | + + + + + | Weight | 66.3 kg (146 lb 1.6 | 02/24/2017 10:42 AM | | | | oz) | PDT | | + + + + + | Height | 162.6 cm (5' 4") | 02/24/2017 10:42 AM | | | | | PDT | | + + + + + | Body Mass Index | 25.08 | 02/24/2017 10:42 AM | | | | | PDT | | + + + + + documented in this encounter Patient Instructions Patient Instructions Rosa Dias RN - 02/24/2017 10:30 AM PDTINSTRUCTIONS Marychuy Patterson 1935 Procedure: Left heart catheterization Day: Date: Check-in time: 1. [facility] You may be asked to check in up to 4 hours prior to your procedure to get extra IV fluids to help protect your kidneys . 2. Do not eat or drink anything after midnight prior to the procedure. 3. Take all of your regular medications with a sip of water the morning of the procedure 4. The procedure lasts approximately one hour, and you will have conscious sedation for the procedure which will help decrease pain and will make you groggy. 5. After the procedure you will remain either in recovery or same day surgery center for at least 2 hours, part of this time you may have to lie flat depending on the procedure. 6. Make sure you have a industrial truck driver to take you home. Your industrial truck driver will also need to sign you ou t, to take responsibility for you, so it can not be a taxi or transportation system, unless there is a caregiver with transportation. 7. Please call us with any questions or concerns at . If you need to cancel the procedure at the last minute, such as due to illness, and you are calling after regular office hours, call the main hospital line at and ask for nursing supervisor decorating t o let them know you are cancelling . Follow up appointment in Cardiology: 6 weeks Provider: Jurgen Hoskins MD Date: Check-in time: documented in this encounter Progress Notes Jurgen Hoskins MD - 02/24/2017 10:30 AM PDTFormatting of this note might be different f rom the original. PATIENT NAME: Marychuy Patterson : 1935: AGE: [...] to back and hip pain. 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 [...] capsule Take 1,000 Units by mouth Daily. Fhashhvxnai-Typqciwye-Lln C-Mn (GLUCOSAMINE-CHONDROITIN) TABS Take by mouth 2 times da lewis. irbesartan (AVAPRO) 300 mg tablet Take 300 mg by mouth Daily. metoprolol succinate (TOPROL-XL) 50 mg 24 hr tablet Take 50 mg by mouth Daily. Multiple Vitamins-Minerals (PRESERVISION AREDS 2) CAPS Take by mouth 2 times daily. potassium chloride (K-DUR) 20 mEq ER tablet Take 20 mEq by mouth Daily. 1 capsule mon-w ed-fri orally once a day 0 traMADol [...] RESULTS reviewed during visit today primarily from [facility]: LIPID No results found for: CHOL, TRIG, [...] She is in a class II of [place] [employer] functional class. There is no [...] treatment were discussed with the patient in ballad health. The patient decides to proceed with the procedure. 3. Refer patient to [facility] for TAVR. 4. I recommend a therapeutic lifestyle change including walking 30 minutes a day and choosi ng healthy choices of diet. 5. Follow-up in 6 weeks. I Cherie Gabriel am acting as a scribe on behalf of, and in the presence of Jurgen narayan MD. I have reviewed and edited this note. Cherie Gabriel, Surveillance Manager 02/24/2017 I, Jurgen Hoskins MD, personally performed the services described in this documentation, as scribed in my presence and it is both accurate and complete. Cherie Gabriel, Med Ass t 02/24/2017 11:20 Electronically signed by: Jurgen Hoskins MD [facility] 02/24/2017 Portions of this chart may have been created with [employer] voice recognition software. Occasi onal wrong-word or sound-alike substitutions may have occurred due to the inherent shay itations of voice recognition software. Please read the chart carefully and recognize, using context, where these substitutions have occurred documented in this encounter Plan of Treatment +--------+ + + + + | Date | Type | Specialty | Care Team | Description | +--------+ + + + + | 06/18/ | Appointment | Cardiology | Rasheeda Patel, | | | 2019 | | | [facility]FRED[facility] [address] [place] | | | | | | [address] [place] | | | | | | [address] | | | | | | | | +--------+ + + + + | 06/18/ | Office | Cardiology | LuaSandra | | | 2019 | Visit | | JOHNNY Bernal [address] | | | | | | [place] | | | | | | [place] [address] | | | | | | [phone] | | | | | | | | +--------+ + + + + documented as of this encounter Procedures + +--------+ + + + | Procedure Name | Priori | Date/Time | Associated Diagnosis | Comments | | | ty | | | | + +--------+ + + + | ECG 12 LEAD | Routin | 02/24/2017 | Aortic valve | Results for this | | | e | 10:39 AM | stenosis, | procedure are in the | | | | PDT | unspecified etiology | results section. | + +--------+ + + + | LABS - EXTERNAL SCAN | | 12/14/2016 | | Results for this | | | | 12:00 AM | | procedure are in the | | | | PDT | | results section. | + +--------+ + + + documented in this encounter Results Basic Metabolic Panel (02/24/2017 11:54 AM PDT) + + + + + + | Component | Value | Ref Range | Performed | Pathologist | | | | | At | Signature | + + + + + + | Na | 138 | 136 - 149 | [facility] | | | | | mmol/L | [facility] | | | | | | [facility] | | | | | [facility] - | | | | | | LABORATORY | | + + + + + + | K | 3.6 | 3.5 - 5.1 | [facility] | | | | | mmol/L | [facility] | | | | | | [facility] | | | | | | [facility] - | | | | | | LABORATORY | | + + + + + + | Cl | 102 | 98 - 109 mmol/L | [facility] | | | | | | [facility] | | | | | | [facility] | | | | | | [facility] - | | | | | | LABORATORY | | + + + + + + | CO2 | 28 | 24 - 31 mmol/L | [facility] | | | | | | [facility] | | | | | | [facility] | | | | | | [facility] - | | | | | | LABORATORY | | + + + + + + | Anion Gap | 8 | 3 - 16 mmol/L | [facility] | | | | | | [facility] | | | | | | [facility] | | | | | | [facility] - | | | | | | LABORATORY | | + + + + + + | Glucose | 120 (H) | 70 - 109 mg/dL | [facility] | | | | | | [facility] | | | | | | [facility] | | | | | | [facility] - | | | | | | LABORATORY | | + + + + + + | BUN | 28 (H) | 7 - 18 mg/dL | [facility] | | | | | | [facility] | | | | | | [facility] | | | | | | [facility] - | | | | | | LABORATORY | | + + + + + + | Creatinine | 0.63 | 0.60 - 1.30 | [facility] | | | | | mg/dL | [facility] | | | | | | MEDICAL | | | | | | CENTER - | | | | | | LABORATORY | | + + + + + + | eGFR, | >60Comment: GLOMERULAR | >=60 | [facility] | | | non- | FILTRATION | mL/min/1.73m2 | [facility] | | | [place] | RATE,ESTIMATED | | MEDICAL | | | | mL/min/1.94j4Pysm than | | CENTER - | | | | 60 Chronic kidney | | LABORATORY | | | | disease,if found over a | | | | | | 3-month period.Less than | | | | | | 15 Kidney failureFor | | | | | | | | | | | | Americans,multiply the | | | | | | calculated GFR by 1.21. | | | | | | | | | | + + + + + + | Calcium | 8.7 | 8.3 - 10.5 | [facility] | | | | | mg/dL | [facility] | | | | | | MEDICAL | | | | | | CENTER - | | | | | | LABORATORY | | + + + + + + | BUN/Creatin | 44.4 | | [facility] | | | ine Ratio | | | [facility] | | | | | | MEDICAL | | | | | | CENTER - | | | | | | LABORATORY | | + + + + + + + + | Specimen | + + | Blood | + + + + + + + | Performing | Address | City/State/Zipcode | Phone Number | | Organization | | | | + + + + + | [facility] | [address] | [place] | [phone] | | [facility] | | [address] | | | - LABORATORY | | | | + + + + + ECG 12 lead (02/24/2017 10:39 AM PDT) + + + + + + | Component | Value | Ref Range | Performed | Pathologist | | | | | At | Signature | + + + + + + | VENTRICULAR | 67 | BPM | [facility] | | | RATE EKG | | | | | + + + + + + | ATRIAL RATE | 67 | BPM | [facility] | | + + + + + + | P-R | 216 | ms | [facility] | | | INTERVAL | | | | | + + + + + + | QRS | 90 | ms | [facility] | | | DURATION | | | | | + + + + + + | Q-T | 396 | ms | [facility] | | | INTERVAL | | | | | + + + + + + | Q-T | 418 | ms | [facility] | | | INTERVAL | | | | | | (CORRECTED) | | | | | + + + + + + | P WAVE AXIS | 46 | degrees | [facility] | | + + + + + + | QRS AXIS | 28 | degrees | [facility] | | + + + + + + | T AXIS | 57 | degrees | [facility] | | + + + + + + | INTERPRETAT | Sinus rhythm with 1st | | [facility] | | | ION TEXT | degree AV blockOtherwise | | | | | | normal ECGWhen compared | | | | | | with ECG of 24-FEB-2016 | | | | | | 11:15,No significant | | | | | | change was | | | | | | foundConfirmed by | | | | | | JURGEN HOSKINS MD | | | | | | ([id number]) on 02/27/2017 | | | | | | 6:09:29 AM | | | | + + + + + + + + | Specimen | + + | | + + + + + | Narrative | Performed At | + + + | | | + + + + +---------+ + + | Performing | Address | City/State/Zipcode | Phone Number | | Organization | | | | + +---------+ + + | [facility] | | | | + +---------+ + + LABS - EXTERNAL SCAN (12/14/2016 12:00 AM PDT) + + + | Narrative | Performed At | + + + | Ordered by an | | | unspecified provider. | | + + + documented in this encounter Visit Diagnoses + + | Diagnosis | + + | Aortic valve stenosis, unspecified etiology - Primary | + + documented in this encounter
--- OUTSIDE RECORDS SUMMARY | ~2020-05-24 | XMS | Encounter Summary ---
Demographics + + + | Address | [address] | | | [place] [address] | + + + | Home Phone | | + + + | Preferred Language | Unknown | + + + | Marital Status | | + + + | Episcopalian Affiliation | 1041 | + + + | Race | White | + + + | Ethnic Group | Not or | + + + Author + + + | Author | [facility] | | | and [place] | + + + | Organization | [facility] | | | and [place] | + + + | Address | Unknown | + + + | Phone | Unavailable | + + + Support + + +---------+ + | Name | Relationship | Address | Phone | + + +---------+ + | Marisel Orellana | ECON | Unknown | | + + +---------+ + | Favioal Lara | ECON | Unknown | | + + +---------+ + Care Team Providers + +------+ + | Care Control System Computer Scientist Name | Role | Phone | + +------+ + | Terrence Aquino DO | PCP | | + +------+ + Reason for Visit + + + | Reason | Comments | + + + | Follow-up | | + + + | Aortic Stenosis | | + + + | Coronary Artery | | | Disease | | + + + Encounter Details +--------+---------+ + + + | Date | Type | Department | Care Team | Description | +--------+---------+ + + + | 06/16/ | Office | [facility] | Rasheeda Patel, | Hyperlipidemia, | | 2017 | Visit | CARDIOLOGY [address] | [address] [facility]ER [address] | mixed (Primary Dx); | | | | [place], | [address] [place], [place] | Coronary artery | | | | [place] [address] | [address] | disease involving | | | | [phone] | | [place] coronary | | | | | | artery of [place] | | | | | | heart without angina | | | | | | pectoris | +--------+---------+ + + + Social History [...] + + + | Blood Pressure | 140/70 | 06/16/2017 10:39 AM | | | | | PDT | | + + + + + | Pulse | 72 | 06/16/2017 10:39 AM | regular | | | | PDT | | + + + + + | Temperature | - | - | | + + + + + | Respiratory Rate | 14 | 06/16/2017 10:39 AM | | | | | PDT | | + + + + + | Oxygen Saturation | - | - | | + + + + + | Inhaled Oxygen | - | - | | | Concentration | | | | + + + + + | Weight | 66.1 kg (145 lb 11.6 | 06/16/2017 10:39 AM | | | | oz) | PDT | | + + + + + | Height | 157.5 cm (5' 2") | 06/16/2017 10:39 AM | | | | | PDT | | + + + + + | Body Mass Index | 26.65 | 06/16/2017 10:39 AM | | | | | PDT | | + + + + + documented in this encounter Patient Instructions Patient Instructions Rasheeda Patel ARNP - 06/16/2017 10:30 AM PDT1. Start taking pravasta tin 10 mg nightly (you can take it with the metoprolol in the evening). 2. Otherwise keep up the good work, and maybe cut out one cookie a day. 3. Return in 4 months, or sooner with concerns. Repeat your fasting labs a few days before the appointment. documented in this encounter Progress Notes Rasheeda Patel ARNP - 06/16/2017 10:30 AM PDTFormatting of this note might be different fr om the original. PATIENT NAME: Marychuy Patterson : 1935: AGE: 81 y.o. PRIMARY CARE: Terrence Aquino DO CC: OUTPATIENT FOLLOW UP VISIT Date of Service: 06/16/2017 HISTORY OF PRESENT ILLNESS: Marychuy Patterson is a 81 y.o. 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 She is b eing seen today for follow up coronary artery disease, aortic valve. She was last seen 04/27/17 at which time she was restarted on her metoprolol succinate 50 m g daily. Since that time, she notes that she chronically has spinal stenosis that can contr ibute to back pain. She developed a sudden severe pain going down her left leg that affecte d her for about 3 weeks. She had to defer cardiac rehab until she has this evaluated. She is scheduled for consult that the spine clinic in [facility] in July. She has had a goo d energy level. She tries to stay active and continues to do all of her own housework and s hopping, etc. She enjoys volunteers at [employer] in her spare time. She has not had any ch est pain or discomfort at rest or with exertion. She has not noticed shortness of breath. She has not had any lightheadedness or dizziness. She has not noticed palpitations. She h as not had leg swelling. She sleeps on 1 pillow at night without any shortness of breath. MEDICAL, SURGICAL, AND PERSONAL HISTORY Past Medical, Surgical, Family, and Social History are reviewed in EPIC. CURRENT PROBLEMS Patient Active Problem List Diagnosis Essential hypertension Hypokalemia Aortic valve stenosis, critical Hypertensive arteriosclerotic cardiovascular disease Nonrheumatic aortic valve stenosis Arthritis Arthritis of hip Palpitations Coronary artery disease involving [place] coronary artery of [place] heart without angina pectoris PAD (peripheral artery disease) S/P TAVR (transcatheter aortic valve replacement) CURRENT MEDICATIONS Current Outpatient Prescriptions Medication Sig Dispense Refill acetaminophen (TYLENOL) 500 mg tablet Take 500 mg by mouth Daily. 3-4 tablets daily ascorbic acid (VITAMIN C) 500 mg tablet Take 500 mg by mouth Daily. B Complex Vitamins (VITAMIN-B COMPLEX) TABS Take 1 tablet by mouth Daily. clopidogrel (PLAVIX) 75 mg tablet Take 1 tablet by mouth Daily. 30 tablet 5 Fzejtukixmw-Uoccdging-Bxh C-Mn (GLUCOSAMINE-CHONDROITIN) TABS Take by mouth 2 times da lewis. irbesartan (AVAPRO) 300 mg tablet Take 300 mg by mouth Daily. metoprolol succinate (TOPROL-XL) 50 mg 24 hr tablet Take 1 tablet by mouth Daily. 90 ta blet 3 Multiple Vitamins-Minerals (PRESERVISION AREDS 2) CAPS Take by mouth 2 times daily. potassium chloride (K-DUR) 20 mEq ER tablet Take 20 mEq by mouth Daily. 1 capsule mon-w ed-fri orally once a day 0 No current facility-administered medications for this visit. ALLERGIES Allergies Allergen Reactions Diatrizoate Meglumine & Sodium Diarrhea Amoxicillin Diarrhea Atorvastatin Other (See Comments) Fatigue, arthralgia Ferrous Gluconate Other (See Comments) GI upset Sulfa Antibiotics Itching ROS Review of Systems Constitutional: Negative for malaise/fatigue. Respiratory: Negative for cough and shortness of breath. Cardiovascular: Negative for chest pain, palpitations and leg swelling. Musculoskeletal: Positive for joint pain and myalgias. Neurological: Negative for dizziness. OBJECTIVE: PHYSICAL EXAM BP 140/70 | Pulse 72 Comment: regular | Resp 14 | Ht 1.575 m (5' 2") | Wt 66.1 kg (145 l b 11.6 oz) | BMI 26.65 kg/m Physical Exam Constitutional: She is oriented to person, place, and time. She appears well-developed and well-nourished. Elderly female in no acute distress Neck: Normal carotid pulses and no JVD present. Carotid bruit is not present. Cardiovascular: Normal rate, regular rhythm, S1 normal, S2 normal and intact distal pulses. PMI is not displaced. Exam reveals no gallop and no friction rub. Murmur heard. Holosystolic murmur is present with a grade of 2/6 at the upper right sternal border Pulses: Carotid pulses are 2+ on the right side, and 2+ on the left side. Posterior tibial pulses are 2+ on the right side, and 2+ on the left side. Pulmonary/Chest: Effort normal and breath sounds normal. No accessory muscle usage. No resp iratory distress. She has no wheezes. She has no rhonchi. She has no rales. Abdominal: Soft. Normal appearance and normal aorta. She exhibits no abdominal bruit. There is no hepatosplenomegaly. There is no tenderness. Musculoskeletal: She exhibits no edema. Neurological: She is alert and oriented to person, place, and time. Gait normal. Skin: Skin is warm and dry. No cyanosis. Nails show no clubbing. Psychiatric: She has a normal mood and affect. Her mood appears not anxious. She does not e xhibit a depressed mood. ECG: I personally independently reviewed ECG tracing during this visit (interpreted and kirstin led by another provider): Results for orders placed or performed in visit on 04/27/17 ECG 12 lead Result Value Ref Range INTERPRETATION TEXT Sinus rhythm with 1st degree AV block Left axis deviation Left bundle branch block Left atrial enlargement Abnormal ECG When compared with ECG of 24-FEB-2017 10:39, Left bundle branch block is now present Confirmed by SIERRA FORBES MD ([id number]) on 04/28/2017 3:04:03 PM LAB RESULTS reviewed during visit today primarily from [facility] d[facility]: LIPID Lab Results Component Value Date LDLEX 118 (A) 06/14/2017 HDLEX 48.9 (A) 06/14/2017 TRIGEX 167 (A) 06/14/2017 CHOLEX 200 06/14/2017 CHEMISTRY Lab Results Component Value Date GLU 120 (H) 02/24/2017 GLUEX 83 06/14/2017 NA 138 02/24/2017 NAEX 140 (A) 06/14/2017 K 3.6 02/24/2017 KEX 3.8 12/14/2016 CL 102 02/24/2017 CLEX 104 06/14/2017 CO2 28 02/24/2017 CO2EX 25 06/14/2017 CALCIUM 8.7 02/24/2017 ASTEX 20 06/14/2017 ALTEX 15 06/14/2017 CREA 0.63 02/24/2017 BUN 28 (H) 02/24/2017 EGFREX 77 (A) 06/14/2017 CREEX 0.73 06/14/2017 HEMATOLOGY Lab Results Component Value Date WBCEX 4.8 12/14/2016 HGBEX 12.7 12/14/2016 HCTEX 38.4 12/14/2016 PLTEX 179 12/14/2016 IMAGING- I reviewed reports from [facility]: Echocardiogram 06/08/17 Normal left ventricular size, wall thickness and motion. Preserved left ventricular systolic function. LVEF is 70-75%. Grade 1 left ventricular diastolic dysfu nction. Evidence of a TAVR #23mm Larios Sung with slight increase of the pressure gradien t across the valve. There is a mild transvalvular aortic valve insufficiency. Mildly thicke rhys and calcified mitral valve with a mild mitral valve regurgitant, mild mitral annular chelsi cification, normal right-sided pressure, normal IVC with normal respiratory collapse. When c ompared to echocardiography on 02/22/17, aortic valve replacement is a new finding. Above data and testing is reviewed this visit; testing below is historical data unless othe rwise specified. ASSESSMENT: 1. Critical calcific aortic valve stenosis, status post TAVR 04/19/17: A. Echocardiogram from 11/2011 shows moderate aortic [...] collapse, no previous echocardiography for comparison. D. Status post Transcatheter aortic valve replacement per femoral route with a 23 mm Edw ards Sung [address] Sanchez on 04/19/17 without significant paravalvular leak or centr al AI, EF remains preserved. E. Echocardiogram 06/08/17 Normal left ventricular size, wall thickness and motion. Prese rved left ventricular systolic function. LVEF is 70-75%. Grade 1 left ventricular diastolic dysfunction. Evidence of a TAVR #23mm Larios Sung with slight increase of the pressure gr adient across the valve. There is a mild transvalvular aortic valve insufficiency. Mildly t hickened and calcified mitral valve with a mild mitral valve regurgitant, mild mitral annula r calcification, normal right-sided pressure, normal IVC with normal respiratory collapse. W hen compared to echocardiography on 02/22/17, aortic valve replacement is a new finding. F. Today, she is doing very well. There is no signs and symptoms of overt congestive hea rt failure. She is in a class II of [place] functional class. There is no fluid retention on physical examination. She is deferring cardiac rehab until she has improvement in her back and leg pain with her spinal stenosis. She continues to be active around the home. 2. Coronary artery disease: A. Cardiac cath per Dr. Sanchez on 04/19/17 with treatment of mid RCA stenosis with a 3.5 x 15 mm Xience Alpine FALGUNI. B. She is intended to stay on clopidogrel for 6 months post PCI. She otherwise denies an y chest pain. She was intolerant of atorvastatin due to myalgias many years ago, but she not es she doesn't think she tried any other statins. She is willing to try low dose pravastati n to see if she can tolerate this. 3. Peripheral arterial disease: A. LE angiography per Dr. Jacobs. 04/19/17. MANAGER CATEGORY and stenting of left common femoral artery into the SFA with a 6.5 Supera x 40 mm stent. B. Today, she denies any claudication. 4. Hypertension, essential: A. Today's blood pressure is controlled. 5. Hyperlipidemia, mixed: A. Today her labs are reviewed with her. She would benefit from better blood pressure lo wering. 6. Chronic back pain. Not otherwise addressed today. A. She is seeing a back specialist and planned to have a back surgery done as well. 7. Severe osteoarthritis: Not otherwise addressed today. A. Post right hip replacement in the past. 8. Iron deficiency anemia. Not otherwise addressed today. 9. Migraine. Not otherwise addressed today. 10. Peptic ulcer disease. Not otherwise addressed today. 11. History of Crohn disease. Not otherwise addressed today. PLAN: 1. She is started on pravastatin 10 mg nightly. 2. She will follow up in 4 months for office visit, or sooner with concerns. She will have fasting labs prior to visit for lipid profile and CMP. She is given lab slips in office to day to take to [facility] for that. May discontinue clopidogrel at that visit as it will hav e been 6 months post PCI and that was interventionalist recommendation. Portions of this chart may have been created with [employer] voice recognition software. Occasi onal wrong-word or sound-alike substitutions may have occurred due to the inherent shay itations of voice recognition software. Please read the chart carefully and recognize, using context, where these substitutions have occurred. documented in this encounter Plan of Treatment +--------+ + + + + | Date | Type | Specialty | Care Team | Description | +--------+ + + + + | 06/18/ | Appointment | Cardiology | Rasheeda Patel, | | | 2019 | | | ALFREDA Varela | | | | | | [place] | | | | | | [id number] | | | | | | | | +--------+ + + + + | 06/18/ | Office | Cardiology | Sandra Lua | | | 2019 | Visit | | [place] | | | | | | [address] | | | | | | [place] [address] | | | | | | [phone] | | | | | | | | +--------+ + + + + documented as of this encounter Visit Diagnoses + + | Diagnosis | + + | Hyperlipidemia, mixed - Primary Mixed hyperlipidemia | + + | Coronary artery disease involving [place] coronary artery of [place] heart without | | angina pectoris | + + documented in this encounter
--- OUTSIDE RECORDS SUMMARY | ~2020-05-24 | XMS | Encounter Summary ---
Demographics + + + | Address | [address] | | | [place] [address] | + + + | Home Phone | | + + + | Preferred Language | Unknown | + + + | Marital Status | | + + + | Lutheran Affiliation | 1041 | + + + [...] Team Providers + +------+ + | Care Hardware Trainer Name | Role | Phone | + +------+ + PCP | Unavailable | + +------+ + Encounter Details +--------+ + + + + | Date | Type | Department | Care Team | Description | +--------+ + + + + | 11/16/ | Hospital | [facility] | Brijesh, | | | 2006 | Encounter | MED CTR XRAY [address] | Wes White MD [address] | | | | | [place] | [address] | | | | | [place] [address] | [address], [place] | | | | | [phone] | [address] | | | | | | | [...] | | | | | [place] [address] | | | | | | [phone] | | | | | | | | +--------+ + + + + documented as of this encounter Visit Diagnoses Not on filedocumented in this encounter"
--- OUTSIDE RECORDS SUMMARY | ~2020-05-24 | XMS | Encounter Summary ---
Demographics + + + | Address | [address] | | | [place] [address] | + + + | Home Phone [...] + + + | Author | [facility] | | | and [place] | + + + | Organization | [facility] | | | [...] Team Providers + +------+ + | Care Jet Ski Mechanic Name | Role | Phone | + +------+ + PCP | Unavailable | + +------+ + Encounter Details +--------+ + + + + | Date | Type | Department | Care Team | Description | +--------+ + + + + | 04/21/ | Hospital | [facility] | tSeve Moore MD | | | 2007 | Encounter | MED CTR GENERIC OP | [address], [place] | | | | | CONV DEPT [address] | [address] [place], [place] | | | | | [place], | [address] | | | | | [place] [address] | | | | | | [phone] | | | +--------+ + + + [...] | | | | | [place] [address] | | | | | | [phone] | | | | | | | | +--------+ + + + + documented as of this encounter Visit Diagnoses Not on filedocumented in this encounter"
--- OUTSIDE RECORDS SUMMARY | ~2020-05-24 | XMS | Encounter Summary ---
Demographics + + + | Address | [address] | | | [place] [address] | + + + | Home Phone [...] + + + | Author | [facility] | | | and [place] | + + + | Organization | [facility] | | | [...] Team Providers + +------+ + | Care Men'S Designer Name | Role | Phone | + +------+ + PCP | Unavailable | + +------+ + Encounter Details +--------+ + + + + | Date | Type | Department | Care Team | Description | +--------+ + + + + | 06/25/ | Hospital | [facility] | Brijesh, | | | 2007 - | Encounter | MED CTR CANCER | Wes White MD [address] | | | | | [place] [address] | [address] | | | 02/17/ | | [place], [place] | [address], [place] | | | 2007 | | [address] | [address] | | | | | [phone] | | | +--------+ + + + [...] | | | | | [place] [address] | | | | | | [phone] | | | | | | | | +--------+ + + + + documented as of this encounter Visit Diagnoses Not on filedocumented in this encounter"
--- OUTSIDE RECORDS SUMMARY | ~2020-05-24 | XMS | Encounter Summary ---
Demographics + + + | Address | [address] | | | [place] [address] | + + + | Home Phone | | + + + | Preferred Language | Unknown | + + + | Marital Status | | + + + | Gnosticism Affiliation | 1041 | + + + | Race | White | + + + | Ethnic Group | Not or | + + + Author + + + | Author | [facility] | | | and [place] | + + + | Organization | [facility] | | | and [...] Team Providers + +------+ + | Care Boiler Control Technician Name | Role | Phone | + +------+ + | Terrence Aquino DO | PCP | | + +------+ + Reason for Visit + +--------+ + | Reason | Onset | Comments | | | Date | | + +--------+ + | Appointment | 02/08/ | | | | 2016 | | + +--------+ + Encounter Details +--------+ + + + + | Date | Type | Department | Care Team | Description | +--------+ + + + + | 02/08/ | Telephone | [facility] | Terrence Aquino DO | Appointment | | 2015 | | CARDIOLOGY [address] | [address] [facility] | | | | | [place], | [address] [place], | | | | | [place] [address] | [place] [address] | | | | | [phone] | [phone] | | | | | | | [...] this encounter Miscellaneous Notes Telephone Encounter - Ana Lilia Dudley - 02/09/2016 2:56 PM PDTPatient called back and zahra eduled an appointment with Dr. Dean on 02-24-16 at 11:30. elephone Encounter - Ana Lilia Dudley - 02/09/2016 12:50 PM P DTNew Patient cardiology appointment ready to be scheduled with Dr. Dean. Called patientphil eft M with request for patient to call back to schedule an appointment.Electronically sign ed by Ana Lilia Dudley at 02/09/2016 12:51 PM PDTdocumented in this encounter Plan of [...] [place] | | | | | | [address] | | | | | | | | +--------+ + + + + | 06/18/ | Office | Cardiology | Sandra Lua | | 2019 | Visit | | [place] [address] [address] | | | | | | [place] | | | | | | [place] [address] | | | | | | [phone] | | | | | | | | +--------+ + + + + documented as of this encounter Visit Diagnoses Not on filedocumented in this encounter"
--- OUTSIDE RECORDS SUMMARY | ~2020-05-24 | XMS | Encounter Summary ---
Demographics + + + | Address | [address] | | | [place] [address] | + + + | Home Phone | | + + + | Preferred Language | Unknown | + + + | Marital Status | | + + + | Religion Affiliation | 1041 | + + + | Race | White | + + + | Ethnic Group | Not or | + + + Author + + + | Author | [facility] | | | and [place] | + + + | Organization | [facility] | | | [...] Team Providers + +------+ + | Care Conductor Road Freight Name | Role | Phone | + +------+ + | Terrence Aquino DO | PCP | | + +------+ + Reason for Visit +--------+--------+ + | Reason | Onset | Comments | | | Date | | +--------+--------+ + | Other | 02/04/ | | | | 2020 | | +--------+--------+ + Encounter Details +--------+ + + + + | Date | Type | Department | Care Team | Description | +--------+ + + + + | 02/04/ | Telephone | [facility] | Rasheeda Patel, | Other | | 2020 | | CARDIOLOGY [address] | FORENSIC SOCIAL WORKER [address] | | | | | [place], | [place], [place] | | | | | [place] [address] | [address] | | | | | [phone] | | | +--------+ + + + [...] Telephone Encounter - Tierney Rodriguez RN - 02/06/2020 8:18 AM David is notified ... ........................................Tierney Rodriguez RN, on 02/06/20 at 8:19 AM PDT elephone Encounter - Irene Sanders RN - 02/05/2020 3:50 PM PDTMessage left for patient to call back. E lectronically signed by Irene Sanders RN at 02/05/2020 3:50 PM PDTTelephone Encounter - Rasheeda Patel ARNP - 02/05/2020 3:46 PM PDTYes, she should still take the cephalexin 5 00 mg 4 tablets 30 to 60 minutes before each of those 2 dental procedures. Sorry about yaa pascual to take it twice, but the medication is only effective up to 12 hours. Thanks! ........... ................................ALFREDA Christianson on 02/05/20 at 3:47 PM PDT Consuelo david signed by ALFREDA Nur at 02/05/2020 3:47 PM PDTTelephone Encounter - Bonny Gordon RN - 02/05/2020 10:51 AM PDTSpoke with patient, she is having 2 dental appointm ents for crown replacement, she needs a refill of the pre-med. She would like to know if she has an appointment two days in a row does she still need a pre-med each day or what is the time frame that she needs to take another pre-med? ......................................... .Bonny Gordon RN on 02/05/20 at 11:07 AM PDT elephone Encount er - Bonny Gordon RN - 02/05/2020 10:09 AM PDTReceived voicemail from patient regard ing dental appointment, left message on voicemail to return call ........................... ...............Bonny Gordon RN on 02/05/20 at 10:10 AM PDT documented in thi s encounter Plan of [...] | | | | | [place] [address] | | | | | | [phone] | | | | | | | | +--------+ + + + + documented as of this encounter Visit Diagnoses Not on filedocumented in this encounter"
--- OUTSIDE RECORDS SUMMARY | ~2020-05-24 | XMS | Encounter Summary ---
Demographics + + + | Address | [address] | | | [place] [address] | + + + | Home Phone | | + + + | Preferred Language | Unknown | + + + | Marital Status | | + + + | Orthodoxy Affiliation | 1041 | + + + | Race | White | + + + | Ethnic Group | Not or | + + + Author + + + | Author | [facility] | | | and [place] | + + + | Organization | [facility] | | | and [...] Team Providers + +------+ + | Care Tissue Coordinator Name | Role | Phone | + +------+ + | Terrence Aquino DO | PCP | | + +------+ + Encounter Details +--------+ + + + + | Date | Type | Department | Care Team | Description | +--------+ + + + + | 02/24/ | Abstract | [facility] | Martina Hoskins, | | | 2016 | | CARDIOLOGY [address] | MD [address] [place] | | | | | [place], | [place], | | | | | [place] [address] | [place] [id number] | | | | | [phone] | [phone] | | | | | | | [...] | 06/18/ | Appointment | Cardiology | Hellberg, Rasheeda, | | | 2019 | | | KNOCK OUT HAND [address] | | | | | | [place] | | | | | | [address] | | | | | | | | +--------+ + + + + | 06/18/ | Office | Cardiology | Stoney Sandra | | | 2019 | Visit | | JOHNNY Bernal [address] | | | | | | [address] [place] | | | | | | [place] [address] | | | | | | [phone] | | | | | | | | +--------+ + + + + documented as of this encounter Procedures + +--------+ + + + | Procedure Name | Priori | Date/Time | Associated Diagnosis | Comments | | | ty | | | | + +--------+ + + + | EXTERNAL LAB: BUN | Routin | 12/14/2016 | | Results for this | | | e | | | procedure are in the | | | | | | results section. | + +--------+ + + + | EXTERNAL LAB: | Routin | 12/14/2016 | | Results for this | | GLUCOSE | e | | | procedure are in the | | | | | | results section. | + +--------+ + + + | EXTERNAL LAB: TONYA | Routin | 12/14/2016 | | Results for this | | | e | | | procedure are in the | | | | | | results section. | + +--------+ + + + | EXTERNAL LAB: PEPPER | Routin | 12/14/2016 | | Results for this | | | e | | | procedure are in the | | | | | | results section. | + +--------+ + + + | EXTERNAL LAB: | Routin | 12/14/2016 | | Results for this | | ALKALINE PHOSPHATASE | e | | | procedure are in the | | | | | | results section. | + +--------+ + + + | EXTERNAL LAB: | Routin | 12/14/2016 | | Results for this | | BILIRUBIN, TOTAL | e | | | procedure are in the | | | | | | results section. | + +--------+ + + + | EXTERNAL LAB: | Routin | 12/14/2016 | | Results for this | | ALBUMIN | e | | | procedure are in the | | | | | | results section. | + +--------+ + + + | EXTERNAL LAB: | Routin | 12/14/2016 | | Results for this | | PROTEIN, TOTAL | e | | | procedure are in the | | | | | | results section. | + +--------+ + + + | EXTERNAL LAB: | Routin | 12/14/2016 | | Results for this | | CALCIUM | e | | | procedure are in the | | | | | | results section. | + +--------+ + + + | EXTERNAL LAB: CARBON | Routin | 12/14/2016 | | Results for this | | DIOXIDE | e | | | procedure are in the | | | | | | results section. | + +--------+ + + + | EXTERNAL LAB: | Routin | 12/14/2016 | | Results for this | | CHLORIDE | e | | | procedure are in the | | | | | | results section. | + +--------+ + + + | EXTERNAL LAB: | Routin | 12/14/2016 | | Results for this | | POTASSIUM | e | | | procedure are in the | | | | | | results section. | + +--------+ + + + | EXTERNAL LAB: SODIUM | Routin | 12/14/2016 | | Results for this | | | e | | | procedure are in the | | | | | | results section. | + +--------+ + + + | EXTERNAL LAB: CBC | Routin | 12/14/2016 | | Results for this | | | e | | | procedure are in the | | | | | | results section. | + +--------+ + + + | EXTERNAL LAB: EGFR | Routin | 12/14/2016 | | Results for this | | | e | | | procedure are in the | | | | | | results section. | + +--------+ + + + | EXTERNAL LAB: | Routin | 12/14/2016 | | Results for this | | CREATININE | e | | | procedure are in the | | | | | | results section. | + +--------+ + + + | CBC WITH | Routin | 12/14/2016 | | Results for this | | DIFFERENTIAL | e | | | procedure are in the | | | | | | results section. | + +--------+ + + + | COMPREHENSIVE | Routin | 12/14/2016 | | Results for this | | METABOLIC PANEL | e | | | procedure are in the | | | | | | results section. | + +--------+ + + + documented in this encounter Results CBC with Differential (12/14/2016) + +-------+ + + + | Component | Value | Ref Range | Performed | Pathologist | | | | | At | Signature | + +-------+ + + + | MCH | 30.0 | 26.0 - 33.0 pg | | | + +-------+ + + + | MCHC | 33.0 | 30.0 - 36.0 % | | | + +-------+ + + + | % Basophils | 0.7 | 1.0 % | | | + +-------+ + + + + + | Specimen | + + | Blood | + + Comprehensive Metabolic Panel (12/14/2016) + + + + + + | Component | Value | Ref Range | Performed | Pathologist | | | | | At | Signature | + + + + + + | Anion Gap | 14 | 7 - 21 mmol/L | | | + + + + + + | Bun/Creatin | 45.8 (A) | 6 - 28.6 | | | | ine | | | | | + + + + + + | Globulin | 2.7 | 1.8 - 3.5 | | | + + + + + + + + | Specimen | + + | Blood | + + External Lab: BUN (12/14/2016) + +--------+ + + + | Component | Value | Ref Range | Performed | Pathologist | | | | | At | Signature | + +--------+ + + + | BUN, | 27 (A) | 6 - 23 | EXTERNAL | | | External | | | LAB | | + +--------+ + + + + + | Resulting Agency Comment | + + | [facility] | + + + +---------+ + + | Performing | Address | City/State/Zipcode | Phone Number | | Organization | | | | + +---------+ + + | EXTERNAL LAB | | | | + +---------+ + + External Lab: Glucose (12/14/2016) + +-------+ + + + | Component | Value | Ref Range | Performed | Pathologist | | | | | At | Signature | + +-------+ + + + | Glucose, | 90 | 70 - 100 | EXTERNAL | | | External | | | LAB | | + +-------+ + + + + + | Resulting Agency Comment | + + | [facility] | + + + +---------+ + + | Performing | Address | City/State/Zipcode | Phone Number | | Organization | | | | + +---------+ + + | EXTERNAL LAB | | | | + +---------+ + + External Lab: ALT (12/14/2016) + +-------+ + + + | Component | Value | Ref Range | Performed | Pathologist | | | | | At | Signature | + +-------+ + + + | ALT, | 16 | 7 - 52 | EXTERNAL | | | External | | | LAB | | + +-------+ + + + + + | Resulting Agency Comment | + + | [facility] | + + + +---------+ + + | Performing | Address | City/State/Zipcode | Phone Number | | Organization | | | | + +---------+ + + | EXTERNAL LAB | | | | + +---------+ + + External Lab: AST (12/14/2016) + +-------+ + + + | Component | Value | Ref Range | Performed | Pathologist | | | | | At | Signature | + +-------+ + + + | AST, | 18 | 13 - 39 | EXTERNAL | | | External | | | LAB | | + +-------+ + + + + + | Resulting Agency Comment | + + | [facility] | + + + +---------+ + + | Performing | Address | City/State/Zipcode | Phone Number | | Organization | | | | + +---------+ + + | EXTERNAL LAB | | | | + +---------+ + + External Lab: Alkaline Phosphatase (12/14/2016) + +-------+ + + + | Component | Value | Ref Range | Performed | Pathologist | | | | | At | Signature | + +-------+ + + + | ALP, | 69 | 31 - 130 | EXTERNAL | | | External | | | LAB | | + +-------+ + + + + + | Resulting Agency Comment | + + | [facility] | + + + +---------+ + + | Performing | Address | City/State/Zipcode | Phone Number | | Organization | | | | + +---------+ + + | EXTERNAL LAB | | | | + +---------+ + + External Lab: Bilirubin, Total (12/14/2016) + +-------+ + + + | Component | Value | Ref Range | Performed | Pathologist | | | | | At | Signature | + +-------+ + + + | Bilirubin, | 0.7 | 0 - 1.2 | EXTERNAL | | | Total, | | | LAB | | | External | | | | | + +-------+ + + + + + | Resulting Agency Comment | + + | [facility] | + + + +---------+ + + | Performing | Address | City/State/Zipcode | Phone Number | | Organization | | | | + +---------+ + + | EXTERNAL LAB | | | | + +---------+ + + External Lab: Albumin (12/14/2016) + +-------+ + + + | Component | Value | Ref Range | Performed | Pathologist | | | | | At | Signature | + +-------+ + + + | Albumin, | 3.8 | 3.5 - 5 | EXTERNAL | | | External | | | LAB | | + +-------+ + + + + + | Resulting Agency Comment | + + | [facility] | + + + +---------+ + + | Performing | Address | City/State/Zipcode | Phone Number | | Organization | | | | + +---------+ + + | EXTERNAL LAB | | | | + +---------+ + + External Lab: Protein, Total (12/14/2016) + +-------+ + + + | Component | Value | Ref Range | Performed | Pathologist | | | | | At | Signature | + +-------+ + + + | Protein, | 6.5 | 6 - 8 | EXTERNAL | | | Total, | | | LAB | | | External | | | | | + +-------+ + + + + + | Resulting Agency Comment | + + | [facility] | + + + +---------+ + + | Performing | Address | City/State/Zipcode | Phone Number | | Organization | | | | + +---------+ + + | EXTERNAL LAB | | | | + +---------+ + + External Lab: Calcium (12/14/2016) + +-------+ + + + | Component | Value | Ref Range | Performed | Pathologist | | | | | At | Signature | + +-------+ + + + | Calcium, | 9.3 | 8.4 - 10.2 | EXTERNAL | | | External | | | LAB | | + +-------+ + + + + + | Resulting Agency Comment | + + | [facility] | + + + +---------+ + + | Performing | Address | City/State/Zipcode | Phone Number | | Organization | | | | + +---------+ + + | EXTERNAL LAB | | | | + +---------+ + + External Lab: Carbon Dioxide (12/14/2016) + +-------+ + + + | Component | Value | Ref Range | Performed | Pathologist | | | | | At | Signature | + +-------+ + + + | Carbon | 27 | 19 - 31 | EXTERNAL | | | Dioxide, | | | LAB | | | External | | | | | + +-------+ + + + + + | Resulting Agency Comment | + + | [facility] | + + + +---------+ + + | Performing | Address | City/State/Zipcode | Phone Number | | Organization | | | | + +---------+ + + | EXTERNAL LAB | | | | + +---------+ + + External Lab: Chloride (12/14/2016) + +-------+ + + + | Component | Value | Ref Range | Performed | Pathologist | | | | | At | Signature | + +-------+ + + + | Chloride, | 102 | 95 - 112 | EXTERNAL | | | External | | | LAB | | + +-------+ + + + + + | Resulting Agency Comment | + + | [facility] | + + + +---------+ + + | Performing | Address | City/State/Zipcode | Phone Number | | Organization | | | | + +---------+ + + | EXTERNAL LAB | | | | + +---------+ + + External Lab: Potassium (12/14/2016) + +-------+ + + + | Component | Value | Ref Range | Performed | Pathologist | | | | | At | Signature | + +-------+ + + + | Potassium, | 3.8 | 3.6 - 5.1 | EXTERNAL | | | External | | | LAB | | + +-------+ + + + + + | Resulting Agency Comment | + + | [facility] | + + + +---------+ + + | Performing | Address | City/State/Zipcode | Phone Number | | Organization | | | | + +---------+ + + | EXTERNAL LAB | | | | + +---------+ + + External Lab: Sodium (12/14/2016) + +-------+ + + + | Component | Value | Ref Range | Performed | Pathologist | | | | | At | Signature | + +-------+ + + + | Sodium, | 139 | 132 - 143 | EXTERNAL | | | External | | | LAB | | + +-------+ + + + + + | Resulting Agency Comment | + + | [facility] | + + + +---------+ + + | Performing | Address | City/State/Zipcode | Phone Number | | Organization | | | | + +---------+ + + | EXTERNAL LAB | | | | + +---------+ + + External Lab: CBC (12/14/2016) + +-------+ + + + | Component | Value | Ref Range | Performed | Pathologist | | | | | At | Signature | + +-------+ + + + | WBC, | 4.8 | 4.5 - 11 | EXTERNAL | | | External | | | LAB | | + +-------+ + + + | HGB, | 12.7 | 12 - 16 | EXTERNAL | | | External | | | LAB | | + +-------+ + + + | HCT, | 38.4 | 35 - 45 | EXTERNAL | | | External | | | LAB | | + +-------+ + + + | PLT, | 179 | 140 - 440 | EXTERNAL | | | External | | | LAB | | + +-------+ + + + | Neutrophils | 52.9 | 39 - 80 | EXTERNAL | | | %, | | | LAB | | | External | | | | | + +-------+ + + + | Lymphocytes | 29.2 | 24 - 44 | EXTERNAL | | | %, | | | LAB | | | External | | | | | + +-------+ + + + | Monocytes | 11.3 | 0 - 12 | EXTERNAL | | | %, External | | | LAB | | + +-------+ + + + | Eosinophils | 5.9 | 0 - 6 | EXTERNAL | | | %, | | | LAB | | | External | | | | | + +-------+ + + + | RBC, | 4.28 | 3.8 - 5.1 | EXTERNAL | | | External | | | LAB | | + +-------+ + + + | MCV, | 90 | 81 - 99 | EXTERNAL | | | External | | | LAB | | + +-------+ + + + | RDW, | 14.1 | 10 - 15 | EXTERNAL | | | External | | | LAB | | + +-------+ + + + + + | Resulting Agency Comment | + + | [facility] | + + + +---------+ + + | Performing | Address | City/State/Zipcode | Phone Number | | Organization | | | | + +---------+ + + | EXTERNAL LAB | | | | + +---------+ + + External Lab: eGFR (12/14/2016) + +-------+ + + + | Component | Value | Ref Range | Performed | Pathologist | | | | | At | Signature | + +-------+ + + + | eGFR, | 98 | | EXTERNAL | | | External | | | LAB | | + +-------+ + + + + + | Specimen | + + | Blood | + + + + | Resulting Agency Comment | + + | [facility] | + + + +---------+ + + | Performing | Address | City/State/Zipcode | Phone Number | | Organization | | | | + +---------+ + + | EXTERNAL LAB | | | | + +---------+ + + External Lab: Creatinine (12/14/2016) + + + + + + | Component | Value | Ref Range | Performed | Pathologist | | | | | At | Signature | + + + + + + | Creatinine, | 0.59 (A) | 0.7 - 1.11 | EXTERNAL | | | External | | | LAB | | + + + + + + + + | Specimen | + + | Blood | + + + + | Resulting Agency Comment | + + | [facility] | + + + +---------+ + + | Performing | Address | City/State/Zipcode | Phone Number | | Organization | | | | + +---------+ + + | EXTERNAL LAB | | | | + +---------+ + + documented in this encounter Visit Diagnoses Not on filedocumented in this encounter"
--- OUTSIDE RECORDS SUMMARY | ~2020-05-24 | XMS | Encounter Summary ---
Demographics + + + | Address | [address] | | | [place] [address] | + + + | Home Phone [...] Team Providers + +------+ + | Care Cashier Clerk Name | Role | Phone | + +------+ + | Terrence Aquino DO | PCP | | + +------+ + Encounter Details +--------+ + + + + | Date | Type | Department | Care Team | Description | +--------+ + + + + | 10/16/ | Abstract | [facility] | Rasheeda Patel, | | | 2017 | | CARDIOLOGY [address] | ACOUSTIC ENGINEER [address] | | | | | [place], | [place], [place] | | | | | [place] [address] | [address] | | | | | [phone] | | | +--------+ + + + [...] Cardiology | Rasheeda Patel, | | | 2020 | | | ACOUSTIC ENGINEER [address] | | | | | | St [place] | | | | | | [address] | | | | | | | | +--------+ + + + + | 06/18/ | Office | Cardiology | Sandra Lua | | | 2020 | Visit | | JOHNNY Bernal [address] | | | | | | [address] [place] | | | | | | [place] [address] | | | | | | [phone] | | | | | | | | +--------+ + + + + documented as of this encounter Procedures + +--------+ + + + | Procedure Name | Priori | Date/Time | Associated Diagnosis | Comments | | | ty | | | | + +--------+ + + + | EXTERNAL LAB: SHAYLEE | Routin | 10/12/2017 | | Results for this | | | e | | | procedure are in the | | | | | | results section. | + +--------+ + + + | EXTERNAL LAB: | Routin | 10/12/2017 | | Results for this | | GLUCOSE | e | | | procedure are in the | | | | | | results section. | + +--------+ + + + | EXTERNAL LAB: ALT | Routin | 10/12/2017 | | Results for this | | | e | | | procedure are in the | | | | | | results section. | + +--------+ + + + | EXTERNAL LAB: AST | Routin | 10/12/2017 | | Results for this | | | e | | | procedure are in the | | | | | | results section. | + +--------+ + + + | EXTERNAL LAB: | Routin | 10/12/2017 | | Results for this | | ALKALINE PHOSPHATASE | e | | | procedure are in the | | | | | | results section. | + +--------+ + + + | EXTERNAL LAB: | Routin | 10/12/2017 | | Results for this | | BILIRUBIN, TOTAL | e | | | procedure are in the | | | | | | results section. | + +--------+ + + + | EXTERNAL LAB: | Routin | 10/12/2017 | | Results for this | | ALBUMIN | e | | | procedure are in the | | | | | | results section. | + +--------+ + + + | EXTERNAL LAB: | Routin | 10/12/2017 | | Results for this | | PROTEIN, TOTAL | e | | | procedure are in the | | | | | | results section. | + +--------+ + + + | EXTERNAL LAB: | Routin | 10/12/2017 | | Results for this | | CALCIUM | e | | | procedure are in the | | | | | | results section. | + +--------+ + + + | EXTERNAL LAB: CARBON | Routin | 10/12/2017 | | Results for this | | DIOXIDE | e | | | procedure are in the | | | | | | results section. | + +--------+ + + + | EXTERNAL LAB: | Routin | 10/12/2017 | | Results for this | | CHLORIDE | e | | | procedure are in the | | | | | | results section. | + +--------+ + + + | EXTERNAL LAB: | Routin | 10/12/2017 | | Results for this | | POTASSIUM | e | | | procedure are in the | | | | | | results section. | + +--------+ + + + | EXTERNAL LAB: SODIUM | Routin | 10/12/2017 | | Results for this | | | e | | | procedure are in the | | | | | | results section. | + +--------+ + + + | EXTERNAL LAB: | Routin | 10/12/2017 | | Results for this | | TRIGLYCERIDES | e | | | procedure are in the | | | | | | results section. | + +--------+ + + + | EXTERNAL LAB: | Routin | 10/12/2017 | | Results for this | | CHOLESTEROL, HDL | e | | | procedure are in the | | | | | | results section. | + +--------+ + + + | EXTERNAL LAB: | Routin | 10/12/2017 | | Results for this | | CHOLESTEROL, TOTAL | e | | | procedure are in the | | | | | | results section. | + +--------+ + + + | EXTERNAL LAB: | Routin | 10/12/2017 | | Results for this | | CHOLESTEROL, LDL | e | | | procedure are in the | | | | | | results section. | + +--------+ + + + | EXTERNAL LAB: EGFR | Routin | 10/12/2017 | | Results for this | | | e | | | procedure are in the | | | | | | results section. | + +--------+ + + + | EXTERNAL LAB: | Routin | 10/12/2017 | | Results for this | | CREATININE | e | | | procedure are in the | | | | | | results section. | + +--------+ + + + | BASIC METABOLIC | Routin | 10/12/2017 | | Results for this | | PANEL | e | | | procedure are in the | | | | | | results section. | + +--------+ + + + documented in this encounter Results Basic Metabolic Panel (10/12/2017) + +-------+ + + + | Component | Value | Ref Range | Performed | Pathologist | | | | | At | Signature | + +-------+ + + + | VLDL | 19 | | | | | Cholesterol | | | | | | Atif | | | | | + +-------+ + + + | Chol/HDL | 3.5 | | | | | Ratio | | | | | + +-------+ + + + | Anion Gap | 16 | mmol/L | | | + +-------+ + + + | Bun/Creatin | 46.7 | | | | | ine | | | | | + +-------+ + + + | Globulin | 2.3 | | | | + +-------+ + + + | Albumin/Emilee | 1.6 | | | | | bulin Ratio | | | | | + +-------+ + + + + + | Specimen | + + | Blood | + + External Lab: BUN (10/12/2017) + +-------+ + + + | Component | Value | Ref Range | Performed | Pathologist | | | | | At | Signature | + +-------+ + + + | BUN, | 28 | | | | | External | | | | | + +-------+ + + + External Lab: Glucose (10/12/2017) + +-------+ + + + | Component | Value | Ref Range | Performed | Pathologist | | | | | At | Signature | + +-------+ + + + | Glucose, | 88 | | | | | External | | | | | + +-------+ + + + External Lab: ALT (10/12/2017) + +-------+ + + + | Component | Value | Ref Range | Performed | Pathologist | | | | | At | Signature | + +-------+ + + + | ALT, | 17 | | | | | External | | | | | + +-------+ + + + External Lab: AST (10/12/2017) + +-------+ + + + | Component | Value | Ref Range | Performed | Pathologist | | | | | At | Signature | + +-------+ + + + | AST, | 19 | | | | | External | | | | | + +-------+ + + + External Lab: Alkaline Phosphatase (10/12/2017) + +-------+ + + + | Component | Value | Ref Range | Performed | Pathologist | | | | | At | Signature | + +-------+ + + + | ALP, | 77 | | | | | External | | | | | + +-------+ + + + External Lab: Bilirubin, Total (10/12/2017) + +-------+ + + + | Component | Value | Ref Range | Performed | Pathologist | | | | | At | Signature | + +-------+ + + + | Bilirubin, | 0.6 | | | | | Total, | | | | | | External | | | | | + +-------+ + + + External Lab: Albumin (10/12/2017) + +-------+ + + + | Component | Value | Ref Range | Performed | Pathologist | | | | | At | Signature | + +-------+ + + + | Albumin, | 3.6 | | | | | External | | | | | + +-------+ + + + External Lab: Protein, Total (10/12/2017) + +-------+ + + + | Component | Value | Ref Range | Performed | Pathologist | | | | | At | Signature | + +-------+ + + + | Protein, | 5.9 | | | | | Total, | | | | | | External | | | | | + +-------+ + + + External Lab: Calcium (10/12/2017) + +-------+ + + + | Component | Value | Ref Range | Performed | Pathologist | | | | | At | Signature | + +-------+ + + + | Calcium, | 8.6 | | | | | External | | | | | + +-------+ + + + External Lab: Carbon Dioxide (10/12/2017) + +-------+ + + + | Component | Value | Ref Range | Performed | Pathologist | | | | | At | Signature | + +-------+ + + + | Carbon | 25 | | | | | Dioxide, | | | | | | External | | | | | + +-------+ + + + External Lab: Chloride (10/12/2017) + +-------+ + + + | Component | Value | Ref Range | Performed | Pathologist | | | | | At | Signature | + +-------+ + + + | Chloride, | 104 | | | | | External | | | | | + +-------+ + + + External Lab: Potassium (10/12/2017) + +-------+ + + + | Component | Value | Ref Range | Performed | Pathologist | | | | | At | Signature | + +-------+ + + + | Potassium, | 4.2 | | | | | External | | | | | + +-------+ + + + External Lab: Sodium (10/12/2017) + +-------+ + + + | Component | Value | Ref Range | Performed | Pathologist | | | | | At | Signature | + +-------+ + + + | Sodium, | 141 | | | | | External | | | | | + +-------+ + + + External Lab: Triglycerides (10/12/2017) + +-------+ + + + | Component | Value | Ref Range | Performed | Pathologist | | | | | At | Signature | + +-------+ + + + | Triglycerid | 96 | | | | | es, | | | | | | External | | | | | + +-------+ + + + + + | Specimen | + + | Blood | + + External Lab: Cholesterol, HDL (10/12/2017) + +-------+ + + + | Component | Value | Ref Range | Performed | Pathologist | | | | | At | Signature | + +-------+ + + + | HDL | 50.5 | mg/dl | | | | Cholesterol | | | | | | , External | | | | | + +-------+ + + + + + | Specimen | + + | Blood | + + External Lab: Cholesterol, Total (10/12/2017) + +-------+ + + + | Component | Value | Ref Range | Performed | Pathologist | | | | | At | Signature | + +-------+ + + + | Cholesterol | 175 | mg/dl | | | | , Total, | | | | | | External | | | | | + +-------+ + + + + + | Specimen | + + | Blood | + + External Lab: Cholesterol, LDL (10/12/2017) + +-------+ + + + | Component | Value | Ref Range | Performed | Pathologist | | | | | At | Signature | + +-------+ + + + | LDL | 105 | | | | | Cholesterol | | | | | | , Direct, | | | | | | External | | | | | + +-------+ + + + + + | Specimen | + + | Blood | + + External Lab: eGFR (10/12/2017) + +-------+ + + + | Component | Value | Ref Range | Performed | Pathologist | | | | | At | Signature | + +-------+ + + + | eGFR, | 96 | | | | | External | | | | | + +-------+ + + + + + | Specimen | + + | Blood | + + External Lab: Creatinine (10/12/2017) + +-------+ + + + | Component | Value | Ref Range | Performed | Pathologist | | | | | At | Signature | + +-------+ + + + | Creatinine, | 0.60 | | | | | External | | | | | + +-------+ + + + + + | Specimen | + + | Blood | + + documented in this encounter Visit Diagnoses Not on filedocumented in this encounter"
--- OUTSIDE RECORDS SUMMARY | ~2020-05-24 | XMS | Encounter Summary ---
Demographics + + + | Address | [address] | | | [place] [address] | + + + | Home Phone | | + + + | Preferred Language | Unknown | + + + | Marital Status | | + + + | Church Affiliation | 1041 | + + + | Race | White | + + + | Ethnic Group | Not or | + + + Author + + + | Author | [facility] | | | and [place] | + + + | Organization | [facility] | | [...] Team Providers + +------+ + | Care Machine Plug Shaper Name | Role | Phone | + +------+ + | Terrence Aquino DO | PCP | | + +------+ + Encounter Details +--------+ + + + + | Date | Type | Department | Care Team | Description | +--------+ + + + + | // | Orders Only | [facility] | Martina Hoskins, | Aortic valve | | 2017 | | CARDIOLOGY [address] | MD [address] | stenosis, | | | | [place], | [place], | unspecified etiology | | | | [place] [address] | [place] [address] | | | | | [phone] | [phone] | | | | | | | [...] 2019 | | | ALFREDA [address] | | | | | | [place] | | | | | | [address] | | | | | | | | +--------+ + + + + | 06/18/ | Office | Cardiology | [address] | | | 2019 | Visit | | [address] | | | | | | [address] [place] | | | | | | [place] [address] | | | | | | [phone] | | | | | | | | +--------+ + + + + documented as of this encounter Procedures + +--------+ + + + | Procedure Name | Priori | Date/Time | Associated Diagnosis | Comments | | | ty | | | | + +--------+ + + + | BASIC METABOLIC | Routin | 02/24/2017 | Aortic valve | Results for this | | PANEL | e | 11:54 AM | stenosis, | procedure are in [...] | | | | | mg/dL | [facility] | | | | | | [facility] | | | | | | [facility] - | | | | | | LABORATORY | | + + + + + + | eGFR, | >60Comment: GLOMERULAR | >=60 | [facility] | | | non- | FILTRATION | mL/min/1.73m2 | [facility] | | | [place] | RATE,ESTIMATED | | MEDICAL | | | | mL/min/1.52p4Zkij than | | CENTER - | | [...] | | | | | mg/dL | [facility] | | | | | | MEDICAL | | | | | | CENTER - | | | | | | LABORATORY | | + + + + + + | BUN/Creatin | 44.4 | | [facility] | | | ine Ratio | | | [facility] | | | | | | MEDICAL [...] + + + + + | KRISTA CANTU. | [address] | [place] | [phone] | | [facility] | | [address] | | | - LABORATORY | | | | + + + + + documented in this encounter Visit Diagnoses + + | Diagnosis | + + | Aortic valve stenosis, unspecified etiology | + + documented in this encounter"
--- OUTSIDE RECORDS SUMMARY | ~2020-05-24 | XMS | Encounter Summary ---
Demographics + + + | Address | [address] | | | [place] [address] | + + + | Home Phone | | + + + | Preferred Language | Unknown | + + + | Marital Status | | + + + | Evangelical Affiliation | 1041 | + + + [...] Team Providers + +------+ + | Care Painting Instructor Name | Role | Phone | + +------+ + | Terrence Aquino DO | PCP | | + +------+ + Reason for Visit +--------+--------+ + | Reason | Onset | Comments | | | Date | | +--------+--------+ + | Other | 03/20/ | episode on Monday | | | 2016 | | +--------+--------+ + Encounter Details +--------+ + + + + | Date | Type | Department | Care Team | Description | +--------+ + + + + | 03/20/ | Telephone | [facility] | Martina Hoskins, | Other (episode on | | 2016 | | CARDIOLOGY [address] | [address] [place] | Monday) | | | | [place], | [place], | | | | | [place] [address] | [place] [address] | | | | | [phone] | [phone] | | | | | | | [...] Telephone Encounter - Tierney Rodriguez RN - 03/21/2017 10:00 AM David notified , she would like to keep her appointment on 04/05/17. We will have to just have Dr Dean look at wh at ever she has sent in from her monitor at that time if the final report is not complete ye t. She will schedule to have the monitor put on this week................................... .........Tierney Rodriguez RN on 03/21/17 at 10:00 elephone Encounter - Martina Hoskins MD - 03/20/2017 2:15 PM PDTSchedule for 2 weeks event monitor.Electro nically signed by Martina Hoskins MD at 03/20/2017 2:15 PM PDTTelephone Encounter - Tierney Aguilar RN - 03/20/2017 2:03 PM David called to report that she had an episode on Monday, she tried to report to [facility] but they advised her to call us. She states that on Monday she got in the shower and then started having a closed up feeling just below her throat behind her collar bone with a rapid heart beat. It lasted about 30-40 seconds, she got out of the shower as quickly as she could. She states that she has had thi s before but not as pronounced and not as long. She usually has just like a lump in her thr oat or a tightness. Yesterday was more severe. She has had some mild dizziness off and on several times per day. She is not sure what this means and what she should do. She said th gail would need Dr Dean to request if she should be seen sooner. She is currently scheduled or April 05. I will consult Dr Dean and then let her know. ............................. ..............Tierney Rodriguez RN on 03/20/17 at 14:06 documented in this encounter Plan of Treatment [...] | | | | | [place] [address] | | | | | | [phone] | | | | | | | | +--------+ + + + + documented as of this encounter Results Event monitor - 2 [...] | Diagnosis | + + | Palpitations - Primary | + + documented in this encounter"
--- OUTSIDE RECORDS SUMMARY | ~2020-05-24 | XMS | Encounter Summary ---
Demographics + + + | Address | [address] | | | [place] [address] | + + + | Home Phone | | + + + | Preferred Language | Unknown | + + + | Marital Status | | + + + | Pentecostalism Affiliation | 1041 | + + + | Race | White | + + + | Ethnic Group | Not or | + + + Author + + + | Author | [facility] | | | and [place] | + + + | Organization | [facility] | | | [...] Team Providers + +------+ + | Care Paint [place] Name | Role | Phone | + +------+ + | Terrence Aquino DO | PCP | | + +------+ + Encounter Details +--------+ + + + + | Date | Type | Department | Care Team | Description | +--------+ + + + + | 06/15/ | Abstract | [facility] [place] | Zunilda Chavez | | | 2016 | | CARDIOLOGY [address] | [address] | | | | | [place], | | | | | | [place] [address] | | | | | | [phone] | | | +--------+ + + + [...] | | | 2019 | | | 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 [address] | | | | | | [place] | | | | | | [phone] | | | | | | | | +--------+ + + + + | 06/18/ | Office | Cardiology | Sandra Lua | | | 2019 | Visit | | [address] Bernal [address] | | | | | | [place] | | | | | | [place] [address] | | | | | | [phone] | | | | | | | | +--------+ + + + + documented as of this encounter Procedures + +--------+ + + + | Procedure Name | Priori | Date/Time | Associated Diagnosis | Comments | | | ty | | | | + +--------+ + + + | EXTERNAL LAB: SHAYLEE | Routin | 06/14/2017 | | Results for this | | | e | | | procedure are in the | | | | | | results section. | + +--------+ + + + | EXTERNAL LAB: | Routin | 06/14/2017 | | Results for this | | GLUCOSE | e | | | procedure are in the | | | | | | results section. | + +--------+ + + + | EXTERNAL LAB: ALT | Routin | 06/14/2017 | | Results for this | | | e | | | procedure are in the | | | | | | results section. | + +--------+ + + + | EXTERNAL LAB: AST | Routin | 06/14/2017 | | Results for this | | | e | | | procedure are in the | | | | | | results section. | + +--------+ + + + | EXTERNAL LAB: | Routin | 06/14/2017 | | Results for this | | ALKALINE PHOSPHATASE | e | | | procedure are in the | | | | | | results section. | + +--------+ + + + | EXTERNAL LAB: | Routin | 06/14/2017 | | Results for this | | BILIRUBIN, TOTAL | e | | | procedure are in the | | | | | | results section. | + +--------+ + + + | EXTERNAL LAB: | Routin | 06/14/2017 | | Results for this | | ALBUMIN | e | | | procedure are in the | | | | | | results section. | + +--------+ + + + | EXTERNAL LAB: | Routin | 06/14/2017 | | Results for this | | PROTEIN, TOTAL | e | | | procedure are in the | | | | | | results section. | + +--------+ + + + | EXTERNAL LAB: | Routin | 06/14/2017 | | Results for this | | CALCIUM | e | | | procedure are in the | | | | | | results section. | + +--------+ + + + | EXTERNAL LAB: CARBON | Routin | 06/14/2017 | | Results for this | | DIOXIDE | e | | | procedure are in the | | | | | | results section. | + +--------+ + + + | EXTERNAL LAB: | Routin | 06/14/2017 | | Results for this | | CHLORIDE | e | | | procedure are in the | | | | | | results section. | + +--------+ + + + | EXTERNAL LAB: SODIUM | Routin | 06/14/2017 | | Results for this | | | e | | | procedure are in the | | | | | | results section. | + +--------+ + + + | EXTERNAL LAB: | Routin | 06/14/2017 | | Results for this | | TRIGLYCERIDES | e | | | procedure are in the | | | | | | results section. | + +--------+ + + + | EXTERNAL LAB: | Routin | 06/14/2017 | | Results for this | | CHOLESTEROL, HDL | e | | | procedure are in the | | | | | | results section. | + +--------+ + + + | EXTERNAL LAB: | Routin | 06/14/2017 | | Results for this | | CHOLESTEROL, TOTAL | e | | | procedure are in the | | | | | | results section. | + +--------+ + + + | EXTERNAL LAB: | Routin | 06/14/2017 | | Results for this | | CHOLESTEROL, LDL | e | | | procedure are in the | | | | | | results section. | + +--------+ + + + | EXTERNAL LAB: EGFR | Routin | 06/14/2017 | | Results for this | | | e | | | procedure are in the | | | | | | results section. | + +--------+ + + + | EXTERNAL LAB: | Routin | 06/14/2017 | | Results for this | | CREATININE | e | | | procedure are in the | | | | | | results section. | + +--------+ + + + | LIPID PANEL | Routin | 06/14/2017 | | Results for this | | | e | | | procedure are in the | | | | | | results section. | + +--------+ + + + | COMPREHENSIVE | Routin | 06/14/2017 | | Results for this | | METABOLIC PANEL | e | | | procedure are in the | | | | | | results section. | + +--------+ + + + documented in this encounter Results Comprehensive Metabolic Panel (06/14/2017) + + + + + + | Component | Value | Ref Range | Performed | Pathologist | | | | | At | Signature | + + + + + + | Bun/Creatin | 42.5 (A) | 6.0 - 28.8 | | | | ine | | | | | + + + + + + | Albumin/Emilee | 1.6 | 1.1 - 2.4 | | | | bulin Ratio | | | | | + + + + + + + + | Specimen | + + | Blood | + + Lipid Panel (06/14/2017) + +---------+ + + + | Component | Value | Ref Range | Performed | Pathologist | | | | | At | Signature | + +---------+ + + + | VLDL | 33 | 4 - 40 | | | | Cholesterol | | | | | | Atif | | | | | + +---------+ + + + | Non HDL | 151 (A) | 130 | | | | Chol. | | | | | | (LDL+VLDL) | | | | | + +---------+ + + + + + | Specimen | + + | Blood | + + External Lab: BUN (06/14/2017) + +--------+ + + + | Component | Value | Ref Range | Performed | Pathologist | | | | | At | Signature | + +--------+ + + + | BUN, | 31 (A) | 6 - 23 | EXTERNAL | | | External | | | LAB | | + +--------+ + + + + +---------+ + + | Performing | Address | City/State/Zipcode | Phone Number | | Organization | | | | + +---------+ + + | EXTERNAL LAB | | | | + +---------+ + + External Lab: Glucose (06/14/2017) + +-------+ + + + | Component | Value | Ref Range | Performed | Pathologist | | | | | At | Signature | + +-------+ + + + | Glucose, | 83 | 70 - 100 | EXTERNAL | | | External | | | LAB | | + +-------+ + + + + +---------+ + + | Performing | Address | City/State/Zipcode | Phone Number | | Organization | | | | + +---------+ + + | EXTERNAL LAB | | | | + +---------+ + + External Lab: ALT (06/14/2017) + +-------+ + + + | Component | Value | Ref Range | Performed | Pathologist | | | | | At | Signature | + +-------+ + + + | ALT, | 15 | 7 - 52 | EXTERNAL | | | External | | | LAB | | + +-------+ + + + + +---------+ + + | Performing | Address | City/State/Zipcode | Phone Number | | Organization | | | | + +---------+ + + | EXTERNAL LAB | | | | + +---------+ + + External Lab: AST (06/14/2017) + +-------+ + + + | Component | Value | Ref Range | Performed | Pathologist | | | | | At | Signature | + +-------+ + + + | AST, | 20 | 13 - 39 | EXTERNAL | | | External | | | LAB | | + +-------+ + + + + +---------+ + + | Performing | Address | City/State/Zipcode | Phone Number | | Organization | | | | + +---------+ + + | EXTERNAL LAB | | | | + +---------+ + + External Lab: Alkaline Phosphatase (06/14/2017) + +-------+ + + + | Component | Value | Ref Range | Performed | Pathologist | | | | | At | Signature | + +-------+ + + + | ALP, | 77 | 31 - 130 | EXTERNAL | | | External | | | LAB | | + +-------+ + + + + +---------+ + + | Performing | Address | City/State/Zipcode | Phone Number | | Organization | | | | + +---------+ + + | EXTERNAL LAB | | | | + +---------+ + + External Lab: Bilirubin, Total (06/14/2017) + +-------+ + + + | Component | Value | Ref Range | Performed | Pathologist | | | | | At | Signature | + +-------+ + + + | Bilirubin, | 0.6 | 0 - 1.2 | EXTERNAL | | | Total, | | | LAB | | | External | | | | | + +-------+ + + + + +---------+ + + | Performing | Address | City/State/Zipcode | Phone Number | | Organization | | | | + +---------+ + + | EXTERNAL LAB | | | | + +---------+ + + External Lab: Albumin (06/14/2017) + +-------+ + + + | Component | Value | Ref Range | Performed | Pathologist | | | | | At | Signature | + +-------+ + + + | Albumin, | 3.9 | 3.5 - 5 | EXTERNAL | | | External | | | LAB | | + +-------+ + + + + +---------+ + + | Performing | Address | City/State/Zipcode | Phone Number | | Organization | | | | + +---------+ + + | EXTERNAL LAB | | | | + +---------+ + + External Lab: Protein, Total (06/14/2017) + +-------+ + + + | Component | Value | Ref Range | Performed | Pathologist | | | | | At | Signature | + +-------+ + + + | Protein, | 6.3 | 6 - 8 | EXTERNAL | | | Total, | | | LAB | | | External | | | | | + +-------+ + + + + +---------+ + + | Performing | Address | City/State/Zipcode | Phone Number | | Organization | | | | + +---------+ + + | EXTERNAL LAB | | | | + +---------+ + + External Lab: Calcium (06/14/2017) + +-------+ + + + | Component | Value | Ref Range | Performed | Pathologist | | | | | At | Signature | + +-------+ + + + | Calcium, | 8.9 | 8.4 - 10.2 | EXTERNAL | | | External | | | LAB | | + +-------+ + + + + +---------+ + + | Performing | Address | City/State/Zipcode | Phone Number | | Organization | | | | + +---------+ + + | EXTERNAL LAB | | | | + +---------+ + + External Lab: Carbon Dioxide (06/14/2017) + +-------+ + + + | Component | Value | Ref Range | Performed | Pathologist | | | | | At | Signature | + +-------+ + + + | Carbon | 25 | 19 - 31 | EXTERNAL | | | Dioxide, | | | LAB | | | External | | | | | + +-------+ + + + + +---------+ + + | Performing | Address | City/State/Zipcode | Phone Number | | Organization | | | | + +---------+ + + | EXTERNAL LAB | | | | + +---------+ + + External Lab: Chloride (06/14/2017) + +-------+ + + + | Component | Value | Ref Range | Performed | Pathologist | | | | | At | Signature | + +-------+ + + + | Chloride, | 104 | 95 - 112 | EXTERNAL | | | External | | | LAB | | + +-------+ + + + + +---------+ + + | Performing | Address | City/State/Zipcode | Phone Number | | Organization | | | | + +---------+ + + | EXTERNAL LAB | | | | + +---------+ + + External Lab: Sodium (06/14/2017) + +---------+ + + + | Component | Value | Ref Range | Performed | Pathologist | | | | | At | Signature | + +---------+ + + + | Sodium, | 140 (A) | 3.6 - 5.1 | EXTERNAL | | | External | | | LAB | | + +---------+ + + + + +---------+ + + | Performing | Address | City/State/Zipcode | Phone Number | | Organization | | | | + +---------+ + + | EXTERNAL LAB | | | | + +---------+ + + External Lab: Triglycerides (06/14/2017) + +---------+ + + + | Component | Value | Ref Range | Performed | Pathologist | | | | | At | Signature | + +---------+ + + + | Triglycerid | 167 (A) | 30 - 150 | EXTERNAL | | | es, | | | LAB | | | External | | | | | + +---------+ + + + + + | Specimen | + + | Blood | + + + +---------+ + + | Performing | Address | City/State/Zipcode | Phone Number | | Organization | | | | + +---------+ + + | EXTERNAL LAB | | | | + +---------+ + + External Lab: Cholesterol, HDL (06/14/2017) + + + + + + | Component | Value | Ref Range | Performed | Pathologist | | | | | At | Signature | + + + + + + | HDL | 48.9 (A) | 40 mg/dl | EXTERNAL | | | Cholesterol | | | LAB | | | , External | | | | | + + + + + + + + | Specimen | + + | Blood | + + + +---------+ + + | Performing | Address | City/State/Zipcode | Phone Number | | Organization | | | | + +---------+ + + | EXTERNAL LAB | | | | + +---------+ + + External Lab: Cholesterol, Total (06/14/2017) + +-------+ + + + | Component | Value | Ref Range | Performed | Pathologist | | | | | At | Signature | + +-------+ + + + | Cholesterol | 200 | 200 mg/dl | EXTERNAL | | | , Total, | | | LAB | | | External | | | | | + +-------+ + + + + + | Specimen | + + | Blood | + + + +---------+ + + | Performing | Address | City/State/Zipcode | Phone Number | | Organization | | | | + +---------+ + + | EXTERNAL LAB | | | | + +---------+ + + External Lab: Cholesterol, LDL (06/14/2017) + +---------+ + + + | Component | Value | Ref Range | Performed | Pathologist | | | | | At | Signature | + +---------+ + + + | LDL | 118 (A) | 100 | EXTERNAL | | | Cholesterol | | | LAB | | | , Direct, | | | | | | External | | | | | + +---------+ + + + + + | Specimen | + + | Blood | + + + +---------+ + + | Performing | Address | City/State/Zipcode | Phone Number | | Organization | | | | + +---------+ + + | EXTERNAL LAB | | | | + +---------+ + + External Lab: eGFR (06/14/2017) + +--------+ + + + | Component | Value | Ref Range | Performed | Pathologist | | | | | At | Signature | + +--------+ + + + | eGFR, | 77 (A) | 60 | EXTERNAL | | | External | | | LAB | | + +--------+ + + + + + | Specimen | + + | Blood | + + + +---------+ + + | Performing | Address | City/State/Zipcode | Phone Number | | Organization | | | | + +---------+ + + | EXTERNAL LAB | | | | + +---------+ + + External Lab: Creatinine (06/14/2017) + +-------+ + + + | Component | Value | Ref Range | Performed | Pathologist | | | | | At | Signature | + +-------+ + + + | Creatinine, | 0.73 | 0.7 - 1.11 | EXTERNAL | | | External | | | LAB | | + +-------+ + + + + + | Specimen | + + | Blood | + + + +---------+ + + | Performing | Address | City/State/Zipcode | Phone Number | | Organization | | | | + +---------+ + + | EXTERNAL LAB | | | | + +---------+ + + documented in this encounter Visit Diagnoses Not on filedocumented in this encounter"
--- OUTSIDE RECORDS SUMMARY | ~2020-05-24 | XMS | Encounter Summary ---
Demographics + + + | Address | [address] | | | [place] [address] | + + + | Home Phone | | + + + | Preferred Language | Unknown | + + + | Marital Status | | + + + | Confucianism Affiliation | 1041 | + + + | Race | White | + + + | Ethnic Group | Not or | + + + Author + + + | Author | [facility] | | | and [place] | + + + | Organization | [facility] | | | [...] Team Providers + +------+ + | Care Fireman Helper Name | Role | Phone | + +------+ + | Terrence Aquino DO | PCP | | + +------+ + Reason for Visit Auth/Cert +--------+--------+ + + + + | Status | Reason | Specialty | Diagnoses / | Referred By | Referred To | | | | | Procedures | Contact | Contact | +--------+--------+ + + + + | | | | | | | +--------+--------+ + + + + Encounter Details +--------+ + + + + | Date | Type | Department | Care Team | Description | +--------+ + + + + | 05/16/ | Hospital | [facility] | Rasheeda Patel, | Aortic valve | | 2018 | Encounter | MED [facility] | 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 | | | | 8 | | (PRESERVISION AREDS | | | | | | | 2) CAPS | | | | | | + + + +---------+ + + | nitrofurantoin | Take 100 mg by | | 0 | | | | (MACRODANTIN) 100 MG | mouth. Indications: | | | | 8 | | capsuleIndications: | Simple Infection of | | | | | | Uncomplicated | the Urinary Tract | | | | | | Urinary Tract | | | | | | | Infection | | | | | | + [...] +---------+ + + | traMADol (ULTRAM) | Takes very seldom | | 0 | | | | 50 mg tablet | | | | | 8 | + + + +---------+ + + documented as of this encounter Procedure Notes Martina Hoskins MD - 07/16/2018 4:14 PM PSTAssociated Order(s): MOBILE CARDIAC TELEMETR Y (MCT)Mobile cardiac telemetry from 05/16 until 06/15/2018. Baseline EKG shows sinus rhythm with heart rate ranging from 45-119 beats minute. PACs, atrial couplet was noted PVCs was also noted. Tdocumented in this encounter Plan of Treatment +--------+ + + + + | Date | Type | Specialty | Care Team | Description | +--------+ + + + + | 06/18/ | Appointment | Cardiology | Rasheeda Patel, | | | 2019 | | | ALFRED[place] [address] | | | | | | [place] | | | | | | [address] | | | | | | | | +--------+ + + + + | 06/18/ | Office | Cardiology | Sandra Lua | | | 2019 | Visit | | [address] | | | | | | [address] [place] | | | | | | [place] [address] | | | | | | [phone] | | | | | | | | +--------+ + + + + documented as of this encounter Procedures + +--------+ + + + | Procedure Name | Priori | Date/Time | Associated Diagnosis | Comments | | | ty | | | | + +--------+ + + + | MOBILE CARDIAC | Routin | 07/16/2018 | Aortic valve | Results for this | | TELEMETRY ([facility]) | e | 4:14 PM | stenosis, critical | procedure are in the | | | | PST | Coronary artery | results section. | | | | | disease involving | | | | | | cheesh-na coronary | | | | | | artery of cheesh-na | | | | | | heart without angina | | | | | | pectoris Essential | | | | | | hypertension S/P | | | | | | TAVR (transcatheter | | | | | | aortic valve | | | | | | replacement) Near | | | | | | syncope | | + +--------+ + + + documented in this encounter Results Mobile Cardiac Telemetry (07/16/2018 4:14 PM PST) + + + | Narrative | Performed At | + + + | Martina Hoskins MD 07/16/2018 16:15 Mobile cardiac | [facility] | | telemetry from 05/16 until 06/15/2018. Baseline EKG shows sinus rhythm | | | with heart rate ranging from 45-119 beats minute. PACs, atrial | | | couplet was noted PVCs was also noted. 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
--- OUTSIDE RECORDS SUMMARY | ~2020-05-24 | XMS ---
Demographics + + + | Address | [address] | | | [address] | | | [place] [address] | + + + | Preferred Language | Unknown | + + + | Marital Status | Unknown | + + + | Restorationism Affiliation | Unknown | + + + | Race | Unknown | + + + | Ethnic Group | Unknown | + + + Author + + + | Author | [facility] | + + + | Organization | [facility] | + + + | Address | [address] | | | [place] [address] | + + + | Phone | | + + + Care Team Providers + + + + | Care Cover Maker Name | Role | Phone | + + + + Unavailable | Unavailable | + + + + PROBLEMS +---------+ + + +--------+ + + | Type | Condition | ICD9-CM | [id number] | Onset | Condition | SNOMED | | | | Code | Code | Dates | Status | Code | +---------+ + + +--------+ + + | Problem | Elevated | R03.0 | | | Active | [id number] | | | blood | | | | | | | | pressure | | | | | | | | reading | | | | | | +---------+ + + +--------+ + + | 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 | | | Active | [id number] | | | hageal | | | [...] | I35.0 | | | Active | [id number] | | | stenosis | | | | | | +---------+ + + +--------+ + + | Problem | Hypertensi | I11.9 | | | Active | [id number] | | | ve | | | [...] | | E87.6 | | Active | [id number] | | | a | | | [...] + + + | Follow Up | 1 Week Reason:null | + + + VITAL SIGNS + + + + | Height | 64 in | 2017-05-16 | + + + + | Weight | 141.9 lbs | 2017-05-16 | + + + + | BMI | 24.35 kg/m2 | 2017-05-16 | + + + + | Heart Rate | 75 /min | 2017-05-16 | + + + + | Blood pressure systolic | 166 mm Hg | 2017-05-16 | + + + + | Blood pressure diastolic | 65 mm Hg | 2017-05-16 | + + + + MEDICATIONS + + + + + + + +--------+ | Medicati | Instruct | Dosage | Frequenc | Start | End Date | Duration | Status | | on | ions | | y | Date | | | | + + + + + + + +--------+ | Aspir-81 | Orally | 1 tablet | 24h | | | | Active | | 81 MG | Once a | | | | | | | | | day | | | | | | | + + + + + + + +--------+ | Nitrofur | Orally | 1 | 24h | | | | Active | | antoin | Once a | capsule | | | | | | | Macrocry | day | with | | | | | | | stal 100 | | food or | | | | | | | MG | | milk | | | | | | + + + + + + + +--------+ | Clopidog | Orally | 1 tablet | 24h | | | | Active | | rel | Once a | | | | | | | | Bisulfat | day | | | | | | | | e 75 MG | | | | | | [...] + + + + + +--------+ | Cranberr | Orally | 2 tab | 24h | | | | Active | | y | daily | | | | | | | | Extract | | | | | | | | | 500 mg | | | | | | | [...] + + + + + +--------+ | Tylenol | Orally | 3-6 | 6h | | | | Active | | Extra | every 6 | tablets | | | | | | | Strength | hrs | as | | | | | | | 500 mg | | needed | | | | | | + + + + + + + +--------+ | Glucosam | | | | | | | Active | | ine | | | | | | | | + + + + + + + +--------+ | Metoprol | Orally | 1 tablet | 24h | 20 December, | | 90 days | Active | | ol | Once a | | | 2016 | | | | | Succinat | day | | | | | | | | e ER 50 | | | | | | | | | MG | | | | | | | | + + + + + + + +--------+ | Medrol | Orally | Take 6 | 24h | Sep, | 2 Oct, | 6 days | Active | | (Tyler) 4 | Daily | po | | 2017 | 2017 | | | | MG | | qstat, | | | | | | | | | then | | | | | | | | | reduce | | | | | | | | | by 1 | | | | | | | | | tablet | | | | | | | | | daily | | | | | | | | | until | | | | | | | | | stop | | | | | | + [...] + + +--------+ RESULTS No Results PROCEDURES + + +--------+ + | Procedure | Date Ordered | Result | Body Site | + + +--------+ + | INJ KETOROLAC | May 16, 2017 | | | | TROMETHAMINE 15 MG | | | | + + +--------+ + | INJECTION | May 16, 2017 | | | | ADMINISTRATION | | | | + + +--------+ + IMMUNIZATIONS + + + + + | Vaccine | Route | Administration Date | Status | + + + + + | Ketorolac 60mg/2ml | IM Intramuscular | May 16, 2017 | Administered | + + + + + MEDICAL (GENERAL) HISTORY + + + + [...] + + + | Surgical History | Enrollment Manager Dr Mack | 02/24/16 | | | Gato yKlah Montero | | + + + + | Surgical History | Coronary angiogram, normal | 1992 | + + + + | Surgical History | Colonoscopy | 2000 2006 | + + + + | Surgical History | EGD | 2003 2206 | + + + + | Surgical History | EGD, Colonoscopy, Dr Dean, | 03/29/12 | | | Kylah Montero | | + + + + | [...] + | Surgical History | Cardiology consult, [place] | 02/09/12 | | | cardiology Dr Delarosa: | | | | asymptomatic , no further | | | | work up for now. | | + + + + | Surgical History | Esophagus dilated, Dr Dean | 03/29/12 | + + + + | Surgical History | Orthopedic Consult Dr Grullon | 03/07/12 | | | ale PAEZ | | + + + + | [...] resected from | 08/2014 | | | her Dr Kyrie paulnio | | + + + + | [...]
--- OUTSIDE RECORDS SUMMARY | ~2020-05-24 | XMS | Encounter Summary ---
Demographics + + + | Address | [address] | | | [place] [address] | + + + | Home Phone | | + + + | Preferred Language | Unknown | + + + | Marital Status | | + + + | Worship Affiliation | [id number] | + + + | Race | White | + + + | Ethnic Group | Not or | + + + Author + + + | Author | [facility] | | | and [place] | + + + | Organization | [facility] | | | [...] Team Providers + +------+ + | Care Crew Attendant Name | Role | Phone | + +------+ + | Terrence Aquino DO | PCP | | + +------+ + Encounter Details +--------+ + + + + | Date | Type | Department | Care Team | Description | +--------+ + + + + | 06/05/ | Orders Only | [facility] | Tierney Rodriguez, | | | 2018 | | CARDIOLOGY [address] | RN | | | | | [place], | | | | | | [place] [address] | | | | | | [phone] | | | +--------+ + + + [...] | | | 2020 | | | BOARD OF EDUCATION SECRETARYCyn Dumas [address] | | | | | | [place] | | | | | | [address] | | | | | | | | +--------+ + + + + | 06/18/ | Office | Cardiology | Sandra Lua | | | 2020 | Visit | | JOHNNY Bernal [address] | | | | | | [place] | | | | | | [place] [address] | | | | | | [phone] | | | | | | | | +--------+ + + + + documented as of this encounter Visit Diagnoses Not on filedocumented in this encounter"
--- OUTSIDE RECORDS SUMMARY | ~2020-05-24 | XMS ---
Demographics + + + | Address | [address] | | | [address] | | | [place] [address] | + + + | Preferred Language | Unknown | + + + | Marital Status | Unknown | + + + | Hindu Affiliation | Unknown | + + + | Race | Unknown | + + + | Ethnic Group | Unknown | + + + Author + + + | Author | [facility] | + + + | Organization | [facility] | + + + | Address | [address] | | | [place] [address] | + + + | Phone | | + + + Care Team Providers + + + + | Care Railcar Mechanic Name | Role | Phone | + + + + Unavailable | Unavailable | + + + + PROBLEMS + + + + + + + + | Type | Condition | ICD9-CM | [id number] | Onset | Condition | SNOMED | | | | Code | Code | Dates | Status | Code | + + + + + + + + | Assessment | Acquired | E03.9 | | 20 December, | Active | [id number] | | | hypothyroi | | | 2017 | | | | | dism | | | | | | + + + + + + + + | Assessment | Recurrent | | N39.0 | 20 December, | Active | [id number] | | | UTI | | | 2016 | | | + + + + + + + + | Problem | Elevated | R03.0 | | | Active | [id number] | | | blood | | | | | | | | pressure | | | | | | | | reading | | | | | | + + + + + + + + | 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 | | | Active | [id number] | | | hageal | | | | | | | | reflux | | | | | | | | disease | | | | | | | | without | | | | | | | | esophagiti | | | | | | | | s | | | | | | + + + + + + + + | Problem | Aortic | I35.0 | | | Active | [id number] | | | stenosis | | | | | | + + + + + + + + | Assessment | Hypertensi | I11.9 | | 20 December, | Active | [id number] | | | ve | | | 2016 | | | | | arterioscl | | | | | | | | erotic | | | | | | | | cardiovasc | | | | | | | | ular | | | | | | | | disease | | | | | | + + + + + + + + | Problem | Hypertensi | I11.9 | | | Active | [id number] | | | ve | | | | | | | | arterioscl | | | | | | | | erotic | | | | | | | | cardiovasc | | | | | | | | ular | | | | | | | | disease | | | | | | + + + + + + + + | Problem | 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 | | Active | [id number] | | | a | | | | | | + + + + + + + + ALLERGIES + + + + +--------+ | Substance | Reaction | Event Type | Date | Status | + + + + +--------+ | Sulfa | itching | Drug Allergy | December, | Active | + + + + +--------+ | Ferrous | GI upset | Drug Allergy | December, | Active | | Gluconate | | | | | + + + + +--------+ | Atorvastatin | fatigue, | Drug Allergy | December, | Active | | Calcium | arthralgia | | | | + + + + +--------+ SOCIAL HISTORY No smoking Hx information available PLAN OF CARE VITAL SIGNS + + + + | Height | 64 in | 2016-12-20 | + + + + | Weight | 145.3 lbs | 2016-12-20 | + + + + | BMI | 24.94 kg/m2 | 2016-12-20 | + + + + | Heart Rate | 63 /min | 2016-12-20 | + + + + | Blood pressure systolic | 162 mm Hg | 2016-12-20 | + + + + | Blood pressure diastolic | 66 mm Hg | 2016-12-20 | + + + + MEDICATIONS + + + + + + + +--------+ | Medicati | Instruct | Dosage | Frequenc | Start | End Date | Duration | Status | | on | ions | | y | Date | | | | + + + + + + + +--------+ | Vitamin | Orally | 1 | 24h | | | 30 | Active | | D 1000 | Once a | capsule | | | | day(s) | | | UNIT | day | | | | | [...] + + + + + +--------+ | Tramadol | Orally | 1 tablet | 24h | Sep, | 12 Mar, | 30 days | Active | | HCl 50 | daily | as | | 2016 | 2016 | | | | MG | | needed | | | | [...] Orally | 1 | 24h | | 20 December, | | Active | | m | once a | capsule | | | 2017 | | | | Chloride | day | - | | | | | | | CR 20 | | fri | | | | | | | MEQ | | | | | | | | + + + + + + + +--------+ RESULTS No Results PROCEDURES + + + + + | Procedure | Date Ordered | Related Diagnosis | Body Site | + + + + + | Office Visit, Est | December 20, 2016 | | | | Pt., Level 3 | | | | + + + + + IMMUNIZATIONS No Known Immunizations"
--- OUTSIDE RECORDS SUMMARY | ~2020-05-24 | XMS | Encounter Summary ---
Demographics + + + | Address | [address] | | | [place] [address] | + + + | Home Phone | | + + + | Preferred Language | Unknown | + + + | Marital Status | | + + + | Buddhism Affiliation | 1041 | + + + | Race | White | + + + | Ethnic Group | Not or | + + + Author + + + | Author | [facility] | | | and [place] | + + + | Organization | [facility] | | | and [...] Team Providers + +------+ + | Care Christmas Tree Farm Manager Name | Role | Phone | + +------+ + | Terrence Aquino DO | PCP | | + +------+ + Encounter Details +--------+ + + + + | Date | Type | Department | Care Team | Description | +--------+ + + + + | 02/23/ | Orders Only | [facility] [place] | Jurgen Hoskins, | Nonrheumatic aortic | | 2016 | | CARDIOLOGY [address] | [place] [address] | valve stenosis | | | | [place], | [place], | | | | | [place] [address] | [place] [address] | | | | | [phone] | [phone] | | | | | | | [...] 2019 | | | ALFREDA [address] | | | | | | [place] | | | | | | [address] | | | | | | | | +--------+ + + + + | 06/18/ | Office | Cardiology | LuaSandra raymond | | | 2019 | Visit | | [address] | | | | | | [address] [place] | | | | | | [place] [address] | | | | | | [phone] | | | | | | | | +--------+ + + + + documented as of this encounter Procedures + +--------+ + + + | Procedure Name | Priori | Date/Time | Associated Diagnosis | Comments | | | ty | | | | + +--------+ + + + | ECHO COMPLETE | Routin | 02/20/2017 | Nonrheumatic | Results for this | | | e | 11:34 AM | aortic valve | procedure are in the | | | | PDT | stenosis | results section. | + +--------+ + + + documented in this encounter Results ECHO Complete (02/20/2017 11:34 AM PDT) + +-------+ + + + | Component | Value | Ref Range | Performed | Pathologist | | | | | At | Signature | + +-------+ + + + | LVEF-TTE | 66 | | [facility] | | | TRANSTHORAC | | | [facility] | | | [facility] | | | | | | [facility] - | | | | | | IMAGING | | + +-------+ + + + + + | Specimen | + + | | + + + +-- + | Narrative | P erformed At | + +-- + | Transthoracic | [facility] | | Echocardiography Report (TTE) Demographics Patient Name RENEE | Gloria FRANK | | [facility] Room Number [place] Patient Number | [facility] | | [id number] Date of Study 02/20/2017 Visit | - IMAGING | | Number [id number] | | | Referring Physician LAUREL SEAMAN Number Date of | | | 1935 Dye Machine Tender JAKE COLES | | | | | | RDIRENA Age 81 year(s) | | | Interpreting LAUREL SEAMAN | | | Pigment Presser JURGEN HOSKINS, | | | | | | Gender Female Nurse | | | Stress Seafood Service Team Member | | | Procedure Type of Study TTE procedure: ECHO Complete. Procedure | | | dateDate: 02/20/2017Start: 11:03 AM Technical Quality: Good | | | visualizationStudy Location: Echo LabIndications: Aortic Stenosis | | | 424.1/I35.0.Patient Status: RoutineHeight: 64 inchesWeight: 145.69 | | | poundsBSA: 1.71 m^2BMI: 25.01 kg/m^2Rhythm: Normal Sinus Rhythm | | | ConclusionsSummary1. Normal left ventricular size, wall thickness and | | | motion. Preserved leftventricular systolic function. LVEF is 65%.2. | | | Grade 1 left ventricular diastolic dysfunction.3. Moderately thickened | | | and calcified trileaflet aortic valve with severe tocritical calcific | | | aortic valve stenosis. Peak velocity across aortic valveis 4.4 m/s, | | | peak gradient of 76 mmHg, aortic valvular area of 0.7 cm^2.There is | | | also a mild aortic valve insufficiency.4. Mildly thickening calcified | | | mitral valve with a mild mitral valveregurgitation.5. Mild mitral | | | annular calcification.6. Normal right-sided pressure.7. Normal IVC | | | with normal respiratory collapse.8. No previous echocardiography for | | | comparison. | | | Signature | | | | | | PM | | | -------- FindingsMitral ValveThickening and calcification of the | | | mitral valve leaflets.Mild mitral regurgitation.Mild mitral annular | | | calcification is present.Aortic ValveAortic valve appears | | | trileaflet.Diffuse thickening of the aortic valve cusps with reduced | | | excursion.Mild aortic regurgitation is noted.Tricuspid | | | ValveStructurally normal tricuspid valve with trace | | | regurgitation.Pulmonic ValveStructurally normal pulmonic valve with | | | trace regurgitation.Left AtriumNormal left atrium.Left VentricleLeft | | | ventricle is normal in size and function. Ejection fraction | | | isestimated at 65 %.Impaired relaxation compatible with diastolic | | | dysfunction (reversed E/Aratio).Right AtriumNormal right atrium.Right | | | VentricleNormal right ventricular size.Right ventricle global systolic | | | function is normal.TAPSE = 2.5 cm.Pericardial EffusionNo evidence of | | | pericardial effusion. MiscellaneousNormal aortic root.The IVC appears | | | normal.IVC respiratory change in dimension > 50%. Valves Mitral Valve | | | Peak E-Wave: 0.69 m/s Peak A-Wave: 1.05 m/s Tissue Doppler Septal | | | e' Velocity: 0.05 m/s Septal E/e' Ratio:14.08 Aortic Valve Peak | | | Velocity: 4.37 m/s Area (continuity): 0.71 cm^2 Peak | | | Gradient: 76.39 mmHg Mean Gradient: 51.56 mmHg LVOT | | | Peak Velocity: 1.12 m/s LVOT Diameter: 1.88 cm Structures Left Atrium | | | LA A/P Dimension: 3.07 cm LA Area: | | | 13.88 cm^2 LA Vol/BSA Index: 20 mL/m^2 LA | | | Volume: 34.41 ml | | | EF Ybobjahkw40% Left Ventricle Diastolic | | | Dimension: 5.03 cm Systolic Dimension: 3.13 cm Septum | | | Diastolic: 0.9 cm PW Diastolic: 0.87 cm EF Calculated: 65% | | | Miscellaneous Aorta Aortic Root: 3.83 cm Ascending Aorta: 3.7 cm | | | | | |Findings | | |Mitral Valve | | |Thickening and calcification of the mitral valve leaflets. | | |Mild mitral regurgitation. | | |Mild mitral annular calcification is present. | | |Aortic Valve | | |Aortic valve appears trileaflet. | | |Diffuse thickening of the aortic valve cusps with reduced excursion. | | |Mild aortic regurgitation is noted. | | |Tricuspid Valve | | |Structurally normal tricuspid valve with trace regurgitation. | | |Pulmonic Valve | | |Structurally normal pulmonic valve with trace regurgitation. | | |Left Atrium | | |Normal left atrium. | | |Left Ventricle | | |Left ventricle is normal in size and function. Ejection fraction is | | |estimated at 65 %. | | |Impaired relaxation compatible with diastolic dysfunction (reversed E/A | | |ratio). | | |Right Atrium | | |Normal right atrium. | | |Right Ventricle | | |Normal right ventricular size. | | |Right ventricle global systolic function is normal. | | |TAPSE = 2.5 cm. | | |Pericardial Effusion | | |No evidence of pericardial effusion. | | | | | |Miscellaneous | | |Normal aortic root. | | |The IVC appears normal. | | |IVC respiratory change in dimension > 50%. | | | | | |Valves | | | | | | Mitral Valve | | | | | | Peak E-Wave: 0.69 m/s | | | Peak A-Wave: 1.05 m/s | | | | | | Tissue Doppler | | | | | | Septal e' Velocity: 0.05 m/s | | | Septal E/e' Ratio:14.08 | | | | | | Aortic Valve | | | | | | Peak Velocity: 4.37 m/s Area (continuity): 0.71 cm^2 | | | Peak Gradient: 76.39 mmHg Mean Gradient: 51.56 mmHg | | | | | | LVOT | | | | | | Peak Velocity: 1.12 m/s | | | LVOT Diameter: 1.88 cm | | | | | |Structures | | | | | | Left Atrium | | | | | | LA A/P Dimension: 3.07 cm LA Area: 13.88 cm^2 | | | LA Vol/BSA Index: 20 mL/m^2 LA Volume: 34.41 ml | | | EF Cbimescgw53% | | | | | | Left Ventricle | | | | | | Diastolic Dimension: 5.03 cm Systolic Dimension: 3.13 cm | | | Septum Diastolic: 0.9 cm | | | PW Diastolic: 0.87 cm | | | EF Calculated: 65% | | | | | | Miscellaneous | | | | | | Aorta | | | | | | Aortic Root: 3.83 cm | | | Ascending Aorta: 3.7 cm | | | | | + +-- + + + | Procedure Note | + + | Domo, Rad Results In - 02/22/2017 8:15 PM PDT Transthoracic Echocardiography Report | | (TTE) Demographics Patient Name RENEE LEACH Room Number [place] | | Patient Number [id number] Date of Study 02/20/2017 Visit Number | | [id number] Referring Physician LAUREL SEAMAN | | Number Date of 1935 Dye Machine Tender JAKE COLES | | [facility] Age 81 year(s) | | Interpreting LAUREL SEAMAN Pigment Presser | | JURGEN HOSKINS MD Gender | | Female Nurse Stress | | TechnicianProcedureType of Study TTE procedure: ECHO Complete.Procedure dateDate: | | 02/20/2017Start: 11:03 AMTechnical Quality: Good visualizationStudy Location: Echo | | LabIndications: Aortic Stenosis 424.1/I35.0.Patient Status: RoutineHeight: 64 | | inchesWeight: 145.69 poundsBSA: 1.71 m^2BMI: 25.01 kg/m^2Rhythm: Normal Sinus | | RhythmConclusionsSummary1. Normal left ventricular size, wall thickness and motion. | | Preserved leftventricular systolic function. LVEF is 65%.2. Grade 1 left ventricular | | diastolic dysfunction.3. Moderately thickened and calcified trileaflet aortic valve with | | severe tocritical calcific aortic valve stenosis. Peak velocity across aortic valveis | | 4.4 m/s, peak gradient of 76 mmHg, aortic valvular area of 0.7 cm^2.There is also a mild | | aortic valve insufficiency.4. Mildly thickening calcified mitral valve with a mild | | mitral valveregurgitation.5. Mild mitral annular calcification.6. Normal right-sided | | pressure.7. Normal IVC with normal respiratory collapse.8. No previous echocardiography | | for | | comparison.Signature | | -------- Electronically signed by JURGEN HOSKINS MD(Interpreting physician) on | | 02/22/2017 08:14 | | PM FindingsMi | | tral ValveThickening and calcification of the mitral valve leaflets.Mild mitral | | regurgitation.Mild mitral annular calcification is present.Aortic ValveAortic valve | | appears trileaflet.Diffuse thickening of the aortic valve cusps with reduced | | excursion.Mild aortic regurgitation is noted.Tricuspid ValveStructurally normal | | tricuspid valve with trace regurgitation.Pulmonic ValveStructurally normal pulmonic | | valve with trace regurgitation.Left AtriumNormal left atrium.Left VentricleLeft | | ventricle is normal in size and function. Ejection fraction isestimated at 65 %.Impaired | | relaxation compatible with diastolic dysfunction (reversed E/Aratio).Right AtriumNormal | | right atrium.Right VentricleNormal right ventricular size.Right ventricle global | | systolic function is normal.TAPSE = 2.5 cm.Pericardial EffusionNo evidence of | | pericardial effusion.MiscellaneousNormal aortic root.The IVC appears normal.IVC | | respiratory change in dimension > 50%.Valves Mitral Valve Peak E-Wave: 0.69 m/s Peak | | A-Wave: 1.05 m/s Tissue Doppler Septal e' Velocity: 0.05 m/s Septal E/e' Ratio:14.08 | | Aortic Valve Peak Velocity: 4.37 m/s Area (continuity): 0.71 cm^2 Peak | | Gradient: 76.39 mmHg Mean Gradient: 51.56 mmHg LVOT Peak Velocity: 1.12 m/s | | LVOT Diameter: 1.88 cmStructures Left Atrium LA A/P Dimension: 3.07 cm | | LA Area: 13.88 cm^2 LA Vol/BSA Index: 20 mL/m^2 LA Volume: 34.41 | | ml EF Uscaxycxr71% Left Ventricle | | Diastolic Dimension: 5.03 cm Systolic Dimension: 3.13 cm Septum Diastolic: 0.9 | | cm PW Diastolic: 0.87 cm EF Calculated: 65% Miscellaneous Aorta Aortic Root: 3.83 cm | | Ascending Aorta: 3.7 cm | |is 4.4 m/s, peak gradient of 76 mmHg, aortic valvular area of 0.7 cm^2. | |There is also a mild aortic valve insufficiency. | |4. Mildly thickening calcified mitral valve with a mild mitral valve | |regurgitation. | |5. Mild mitral annular calcification. | |6. Normal right-sided pressure. | |7. Normal IVC with normal respiratory collapse. | |8. No previous echocardiography for comparison. | | | |Signature | | | | Electronically signed by JURGEN HOSKINS MD(Interpreting physician) on | | 02/22/2017 08:14 PM | | | | | |Findings | |Mitral Valve | |Thickening and calcification of the mitral valve leaflets. | |Mild mitral regurgitation. | |Mild mitral annular calcification is present. | |Aortic Valve | |Aortic valve appears trileaflet. | |Diffuse thickening of the aortic valve cusps with reduced excursion. | |Mild aortic regurgitation is noted. | |Tricuspid Valve | |Structurally normal tricuspid valve with trace regurgitation. | |Pulmonic Valve | |Structurally normal pulmonic valve with trace regurgitation. | |Left Atrium | |Normal left atrium. | |Left Ventricle | |Left ventricle is normal in size and function. Ejection fraction is | |estimated at 65 %. | |Impaired relaxation compatible with diastolic dysfunction (reversed E/A | |ratio). | |Right Atrium | |Normal right atrium. | |Right Ventricle | |Normal right ventricular size. | |Right ventricle global systolic function is normal. | |TAPSE = 2.5 cm. | |Pericardial Effusion | |No evidence of pericardial effusion. | | | |Miscellaneous | |Normal aortic root. | |The IVC appears normal. | |IVC respiratory change in dimension > 50%. | | | |Valves | | | | Mitral Valve | | | | Peak E-Wave: 0.69 m/s | | Peak A-Wave: 1.05 m/s | | | | Tissue Doppler | | | | Septal e' Velocity: 0.05 m/s | | Septal E/e' Ratio:14.08 | | | | Aortic Valve | | | | Peak Velocity: 4.37 m/s Area (continuity): 0.71 cm^2 | | Peak Gradient: 76.39 mmHg Mean Gradient: 51.56 mmHg | | | | LVOT | | | | Peak Velocity: 1.12 m/s | | LVOT Diameter: 1.88 cm | | | |Structures | | | | Left Atrium | | | | LA A/P Dimension: 3.07 cm LA Area: 13.88 cm^2 | | LA Vol/BSA Index: 20 mL/m^2 LA Volume: 34.41 ml | | EF Mlklwjjzv20% | | | | Left Ventricle | | | | Diastolic Dimension: 5.03 cm Systolic Dimension: 3.13 cm | | Septum Diastolic: 0.9 cm | | PW Diastolic: 0.87 cm | | EF Calculated: 65% | | | | Miscellaneous | | | | Aorta | | | | Aortic Root: 3.83 cm | | Ascending Aorta: 3.7 cm | + + + + + + + | Performing | Address | City/State/Zipcode | Phone Number | | Organization | | | | + + + + + | [facility] | [address] | [place] | [phone] | | [facility] | | [phone] | | | - IMAGING | | | | + + + + + documented in this encounter Visit Diagnoses + + | Diagnosis | + + | Nonrheumatic aortic valve stenosis Aortic valve disorders | + + documented in this encounter"
--- OUTSIDE RECORDS SUMMARY | ~2020-05-24 | XMS | Encounter Summary ---
Demographics + + + | Address | [address] | | | [place] [address] | + + + | Home Phone | | + + + | Preferred Language | Unknown | + + + | Marital Status | | + + + | Anglican Affiliation | 1041 | + + + [...] Team Providers + +------+ + | Care Sales Service Executive Name | Role | Phone | + +------+ + | Terrence Aquino DO | PCP | | + +------+ + Encounter Details +--------+ + + + + | Date | Type | Department | Care Team | Description | +--------+ + + + + | 05/24/ | Hospital | [facility] | Conversion | Degeneration of | | 2016 | Encounter | [facility] X[facility] | Transaction, | cervicothoracic | | | | [address] | Provider Unknown | intervertebral disc | | | | [address] [place], [place] | | | | | | [address] | | | | | | [phone] | | | +--------+ + + + [...] + + + +---------+ + + | atenolol | Take 25 mg by mouth | | 0 | | | | (TENORMIN) 25 mg | 2 times daily. | | | | 7 | | tablet | | | | | | + + + +---------+ + + | cholecalciferol | Take 1,000 Units by | | 0 | | | | (VITAMIN D-3) 1,000 | mouth Daily. | | | | 7 | | units capsule | | | | | | + + + +---------+ + + | Misc Natural | Take by mouth. | | 0 | | | | Products (TURMERIC | | | | | 7 | | CURCUMIN) CAPS | | | | | | + + + +---------+ + + | omeprazole | Take 20 mg by mouth | | 0 | | | | (PRILOSEC) 20 mg | every morning | | | | 7 | | capsule | (before breakfast). | | | | | + + [...] + + + +---------+ + + | Probiotic CAPS | Take by mouth. | | 0 | | | | | Orally Monday, | | | | 7 | | | and Monday | | | | | + + [...] | | | | | [place] | | | | | | [address] | | | | | | | | +--------+ + + + + | 06/18/ | Office | Cardiology | Sandra Lua | | | 2019 | Visit | | JOHNNY Bernal [address] | | | | | | [address] | | | | | | [place] [address] | | | | | | [phone] | | | | | | | | +--------+ + + + + documented as of this encounter Procedures + +--------+ + + + | Procedure Name | Priori | Date/Time | Associated Diagnosis | Comments | | | ty | | | | + +--------+ + + + | XR THORACIC SPINE 3 | Routin | 05/24/2016 | | Results for this | | VW | e | 4:29 PM | | procedure are in the | | | | PDT | | results section. | + +--------+ + + + documented in this encounter Results XR Thoracic Spine 3 Vw (05/24/2016 4:29 PM PDT) + + | Specimen | + + | | + + + + + | Impressions | Performed At | + + + | 1. Multilevel degenerative changes but no evidence of fracture or | | | subluxation. 2. Question of narrowing of the foramen at the T12/L1 | | | level. | | | 5:50 PM | | + + + + + + | Narrative | Performed At | + + + | [facility] XR THORACIC SPINE 3 VIEW 05/24/2016 4:29 PM | | | HISTORY: 80 years. Female. Degeneration of the cervicothoracic | | | junction. TECHNIQUE: Three views of the thoracic spine are change | | | including AP, lateral and swimmer's views. COMPARISON: None. | | | FINDINGS: The vertebral body height and alignment is preserved. | | | There is alignment at the cervicothoracic junction. There is no | | | compression fractures or subluxation. No lytic or blastic lesions. | | | There are marginal osteophytes at several levels. The thoracic | | | foramen appear patent. A posterior osteophyte at the inferior T12 | | | level may narrow the T12/S1 foramen. Correlate with neurologic | | | symptoms. | | + + + + + | Procedure Note | + + | Yamil Oliveros - 04/04/2019 12:16 PM PDT [facility] THORACIC SPINE 3 | | VIEW05/24/2016 4:29 PM HISTORY:80 years. Female. Degeneration of the cervicothoracic | | junction. TECHNIQUE:Three views of the thoracic spine are change including AP, lateral | | and swimmer's views. COMPARISON:None. FINDINGS:The vertebral body height and alignment | | is preserved. There is alignment at the cervicothoracic junction. There is no | | compression fractures or subluxation. No lytic or blastic lesions. There are marginal | | osteophytes at several levels. The thoracic foramen appear patent. A posterior | | osteophyte at the inferior T12 level may narrow the T12/S1 foramen. Correlate with | | neurologic symptoms. IMPRESSION: 1. Multilevel degenerative changes but no evidence of | | fracture or subluxation.2. Question of narrowing of the foramen at the T12/L1 level. | | | |None. | | | |FINDINGS: | |The vertebral body height and alignment is preserved. There is alignment at the cervicothor acic junction. There is no compression fractures or subluxation. No lytic or blastic lesions . There are marginal osteophytes at several levels. The thoracic | |foramen appear patent. A posterior osteophyte at the inferior T12 level may narrow the T12/ S1 foramen. Correlate with neurologic symptoms. | | | |IMPRESSION: | |1. Multilevel degenerative changes but no evidence of fracture or subluxation. | |2. Question of narrowing of the foramen at the T12/L1 level. 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
--- OUTSIDE RECORDS SUMMARY | ~2020-05-24 | XMS | Encounter Summary ---
Demographics + + + | Address | [address] | | | [place] [address] | + + + | Home Phone | | + + + | Preferred Language | Unknown | + + + | Marital Status | | + + + | Roman Catholic Affiliation | 1041 | + + + | Race | White | + + + | Ethnic Group | Not or | + + + Author + + + | Author | [facility] | | | and [place] | + + + | Organization | [facility] | | | [...] Team Providers + +------+ + | Care Intake Manager Name | Role | Phone | + +------+ + | Terrence Aquino DO | PCP | | + +------+ + Reason for Visit + + + | Reason | Comments | + + + | Back Pain | | + + + Encounter Details +--------+---------+ + + + | Date | Type | Department | Care Team | Description | +--------+---------+ + + + | 05/09/ | Office | [facility] | Paramjit Gandhi, | Lumbar radiculitis | | 2019 | Visit | [facility] | TASSEL MA[employer]ER [address] | (Primary Dx); DDD | | | | [address] | (degenerative disc | | | | [address] | [place] [address] | disease), lumbar; | | | | [place], [place] | [phone] | Spinal stenosis of | | | | [address] | | lumbar region with | | | | [phone] | | neurogenic | | | | | | claudication | +--------+---------+ + + + Social History [...] + + + | Blood Pressure | - | - | | + + + + + | Pulse | - | - | | + + + + + | Temperature | - | - | | + + + + + | Respiratory Rate | - | - | | + + + + + | Oxygen Saturation | - | - | | + + + + + | Inhaled Oxygen | - | - | | | Concentration | | | | + + + + + | Weight | 65.8 kg (145 lb) | 05/09/2019 11:57 AM | | | | | PDT | | + + + + + | Height | 157.5 cm (5' 2") | 05/09/2019 11:57 AM | | | | | PDT | | + + + + + | Body Mass Index | 26.52 | 05/09/2019 11:57 AM | | | | | PDT | | + + + + + documented in this encounter Patient Instructions Patient Instructions Paramjit Gandhi ARNP - 05/09/2019 11:45 AM PDT- If your symptoms wor sen in the next few weeks call our office at [phone] and we will hold a procedure spot for you. documented in this encounter Progress Notes Paramjit Gandhi ARNP - 05/09/2019 11:45 AM PDT She rates her pain at its worst a 6/10, at its least a 2/10, on average a 4/10 and is cur rently a 4/10. Subjective: Chief Complaint: Back Pain Patient ID: Marychuy Patterson is a 83 y.o. female HPI Marychuy Patterson is a 83 y.o. female who presents today with back pain that radiates to bilateral lower extremities generally following the L5 and S1 dermatomal distributions. He also reports weakness in both legs. She is well-known to the clinic and has undergone multi ple injections with Dr. Garcia. Her most recent was a caudal epidural on 11/23/2018 for whic h she reports good relief of her symptoms. While she is currently having pain, she is not r moshe to undergo another steroid injection. She is here to discuss her treatment plan. She cannot take NSAIDs due to a history of GI bleeding. She gets some relief with Tylenol. She completed 8 visits of physical therapy with minimal relief of symptoms. Review of Systems Constitutional: Negative for fever. HENT: Negative for trouble swallowing. Eyes: Negative for visual disturbance. Respiratory: Negative for shortness of breath. Cardiovascular: Negative for chest pain. Gastrointestinal: Negative for abdominal pain. Genitourinary: Negative for difficulty urinating. Musculoskeletal: Positive for back pain. Negative for joint swelling. Skin: Negative for rash. Neurological: Positive for weakness. Negative for dizziness. Hematological: Does not bruise/bleed easily. Psychiatric/Behavioral: Negative for sleep disturbance. All other systems reviewed and are negative. Objective: Ht 1.575 m (5' 2") | Wt 65.8 kg (145 lb) | BMI 26.52 kg/m Physical Exam Constitutional: She is oriented to person, place, and time. She appears well-developed and well-nourished. No distress. HENT: Head: Normocephalic and atraumatic. Eyes: Conjunctivae are normal. Right eye exhibits no discharge. Left eye exhibits no discha rge. Neck: Normal range of motion. No tracheal deviation present. No thyromegaly present. Cardiovascular: Normal rate and regular rhythm. Exam reveals no friction rub. No murmur heard. Pulmonary/Chest: Effort normal and breath sounds normal. No respiratory distress. Abdominal: Soft. Bowel sounds are normal. There is no tenderness. Neurological: She is alert and oriented to person, place, and time. No cranial nerve defici t. Skin: Skin is warm and dry. No rash noted. She is not diaphoretic. Psychiatric: She has a normal mood and affect. Lumbar: Axial mechanical lumbar pain upon exam. Motor: 5-/5 right DF, 5/5 throughout remaining sensory: Normal to light touch throughout Assessment and Plan: 1. Lumbar radiculitis 2. DDD (degenerative disc disease), lumbar 3. Spinal stenosis of lumbar region with neurogenic claudication No orders of the defined types were placed in this encounter. No orders of the defined types were placed in this encounter. Marychuy Patterson is a 83 y.o. female who presents today with back pain that radiates to bilateral lower extremities generally following the L5 and S1 dermatomal distributions. He also reports weakness in both legs. She is well-known to the clinic and has undergone multi ple injections with Dr. Garcia. Her most recent was a caudal epidural on 11/23/2018 for whic h she reports good relief of her symptoms. While she is currently having pain, she is not r moshe to undergo another steroid injection. She is here to discuss her treatment plan. Lumbar CT shows the level degenerative disc disease with spinal stenosis at L3-L4, L4-L5, a nd L5-S1 a spondylolisthesis of L4 on L5 and L5 on S1 which is consistent with her symptoms. If we were to Move forward with the procedure today would schedule the patient for a caudal with catheter epidural steroid injection targeting bilateral L5 and S1 nerve roots under fluoroscopy. In anticipation of a possible procedure we again discussed the risks the plan, alternatives , risks and potential benefits of the procedure were explained to the patient in great detai l. The patient understands that there is no guarantee they will get pain relief with this p rocedure. They also understand that if they do get pain relief that there is no way to know how long it will last. They also understand there is a risk to the procedure itself which includes but are not limited to infection, abscess, hematoma, nerve damage, paraplegia or qu adriplegia, increased pain, spinal headache, stroke, and side effects from the medications t hemselves. The patient wishes to proceed. I encouraged her to call our office if her symptoms worsen over the next several weeks and we can hold a procedure spot for her. Depending on the timing she may or may not have to re turn to the clinic prior to the procedure. She is having symptoms at this time, just not se randal enough that she feels that she needs an injection. The patient was encouraged to use proper body mechanics to avoid increased pain, continue h eat/cold therapy, home exercises, and medications as prescribed. The patient is in agreemen t with the plan. The following portions of the patient's histories were reviewed and updated as appropriate and is available elsewhere in the chart: Allergies, current medications, past family history , past medical history, past surgical history, past surgical history and problem list. ALFREDA Ontiveros has created this entry using [employer] and [employer] macros. The entry has been reviewed and there may still exist sound alike word errors. P DTdocumented in this encounter Plan of Treatment +--------+ + + + + | Date | Type | Specialty | Care Team | Description | +--------+ + + + + | 06/18/ | Appointment | Cardiology | Rasheeda Patel, | | | 2019 | | | ALFREDA [address] | | | | | | [place], [place] | | | | | | [address] | | | | | | | | +--------+ + + + + | 06/18/ | Office | Cardiology | Sandra Lua | | | 2020 | Visit | | JOHNNY Bernal [address] | | | | | | [address] [facility] | | | | | | [place] [address] | | | | | | [phone] | | | | | | | | +--------+ + + + + documented as of this encounter Visit Diagnoses + + | Diagnosis | + + | Lumbar radiculitis - Primary Thoracic or lumbosacral neuritis or radiculitis, | | unspecified | + + | DDD (degenerative disc disease), lumbar Degeneration of lumbar or lumbosacral | | intervertebral disc | + + | Spinal stenosis of lumbar region with neurogenic claudication Spinal stenosis, lumbar | | region, with neurogenic claudication | + + documented in this encounter
--- OUTSIDE RECORDS SUMMARY | ~2020-05-24 | XMS | Encounter Summary ---
Demographics + + + | Address | [address] | | | [place] [address] | + + + | Home Phone | | + + + | Preferred Language | Unknown | + + + | Marital Status | | + + + | Islam Affiliation | 1041 | + + + | Race | White | + + + | Ethnic Group | Not or | + + + Author + + + | Author | [facility] | | | and [place] | + + + | Organization | [facility] | [...] Team Providers + +------+ + | Care Rn Lpn Lvn Name | Role | Phone | + +------+ + | Terrence Aquino DO | PCP | | + +------+ + Reason for Visit Diagnostic/Screening (Routine) +--------+--------+ + + + + | Status | Reason | Specialty | Diagnoses / | Referred By | Referred To | | | | | Procedures | Contact | Contact | +--------+--------+ + + + + | Closed | | Radiology | Diagnoses | Gato, | [facility] | | | | | | MD Jurgen | [address] | | | | | Nonrheumatic | [address] | [place], | | | | | aortic | [address] | [place] | | | | | valve | [place], | [address] | | | | | stenosis | [place] [address] | Phone: | | | | | Procedures | Phone: | [phone] | | | | | ECHO | [phone] | Fax: | | | | | Complete [place] | Fax: | [phone] | | | | | ECHO HEART | [phone] | | | | | | XTHORACIC,[place] | | | | | | | [address] | | | | | | | [place] | | | | | | | [...] | +--------+ + + + + | 02/20/ | Hospital | [facility] | Jurgen Hoskins, | | | 2017 | Encounter | [facility] [address] | MD [address] | | | | | [address] [place] | [address] [place], | | | | | [place] [address] | [place] [address] | | | | | [phone] | [phone] | | | | | | | | | | | | Jake, Ross Cifuentes, | | | | | | Technologist | | +--------+ + + + + [...] by mouth. 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 [address] | | | | | | St [facility] [place] | | | | | | [address] | | | | | | | | +--------+ + + + + | 06/18/ | Office | Cardiology | Sandra Lua | | | 2019 | Visit | | JOHNNY Bernal [address] | | | | | | [place] | | | | | | [place] [address] | | | | | | [phone] | | | | | | | [...] Name RENEE | Gloria FRANK | | MARYCHUY Room Number [place] Patient Number | [facility] | | [id number] Date of Study 02/20/2017 Visit | - IMAGING | | Number [id number] | | | Referring Physician GATO SEAMAN Number Date of | | | 1935 Social Service Coordinator JAKE COLES | | | | | | [facility] Age 81 year(s) | | | Interpreting GATO SEAMAN | | | Aluminum Boats 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 JURGEN HOSKINS, | | | | | | Gender Female 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 | | | Procedure Type of Study [...] Volume: 34.41 ml | | | EF Gdtuvmrfp69% Left Ventricle Diastolic | | | Dimension: [...] Volume: 34.41 ml | | | EF Mntnfbhdu41% | | | | | | Left [...] + | Yamil Oliveros Results In - 02/22/2017 8:15 PM PDT Transthoracic Echocardiography Report | | (TTE) Demographics Patient Name RENEE LEACH Room Number [place] | | Patient Number [id number] Date of Study 02/20/2017 Visit Number | | [id number] Referring Physician GATO SEAMAN | | Number Date of 1935 Social Service Coordinator JAKE ROSS | | [facility] Age 81 year(s) | | Interpreting GATO SEAMAN Aluminum Boats Assembler | | JURGEN HOSKINS MD Gender | [...] LA Volume: 34.41 | | ml EF Rdnylcjpf27% Left Ventricle | | Diastolic Dimension: 5.03 [...] LA Volume: 34.41 ml | | EF Tgdxgbwkt09% | | | | Left Ventricle | [...] [address] | [place] | [phone] | | [facility] | | [id number] | | | - IMAGING | | | | + + + + + documented in this encounter Visit Diagnoses Not on filedocumented in this encounter"
--- OUTSIDE RECORDS SUMMARY | ~2020-05-24 | XMS | Encounter Summary ---
Demographics + + + | Address | [address] | | | [place] [address] | + + + | Home Phone | | + + + | Preferred Language | Unknown | + + + | Marital Status | | + + + | Synagogue Affiliation | 1041 | + + + | Race | White | + + + | Ethnic Group | Not or | + + + Author + + + | Author | [facility] | | | and [place] | + + + | Organization | [facility] | | [...] Team Providers + +------+ + | Care Rubber Extrusion Machine Operator Name | Role | Phone | + +------+ + | Terrence Aquino DO | PCP | | + +------+ + Encounter Details +--------+ + + + + | Date | Type | Department | Care Team | Description | +--------+ + + + + | 04/17/ | Abstract | [facility] | Provider, | | | 2018 | | CARDIOLOGY [address] | | | | | [place], | [address] | | | | | [place] [address] | [place] [address] | | | | | [phone] | | | +--------+ + + + [...] | | | 2019 | | | CUSTOMER ADVISOR [address] | | | | | | [address] [place] | | | | | | [address] | | | | | | | | +--------+ + + + + | 06/18/ | Office | Cardiology | Sandra Lua | | | 2019 | Visit | | [place] Bernal [address] | | | | | | [address] [place] | | | | | | [place] [address] | | | | | | [phone] | | | | | | | | +--------+ + + + + documented as of this encounter Procedures + +--------+ + + + | Procedure Name | Priori | Date/Time | Associated Diagnosis | Comments | | | ty | | | | + +--------+ + + + | EXTERNAL LAB: SHAYLEE | Routin | 04/11/2018 | | Results for this | | | e | | | procedure are in the | | | | | | results section. | + +--------+ + + + | EXTERNAL LAB: ALT | Routin | 04/11/2018 | | Results for this | | | e | | | procedure are in the | | | | | | results section. | + +--------+ + + + | EXTERNAL LAB: AST | Routin | 04/11/2018 | | Results for this | | | e | | | procedure are in the | | | | | | results section. | + +--------+ + + + | EXTERNAL LAB: | Routin | 04/11/2018 | | Results for this | | ALKALINE PHOSPHATASE | e | | | procedure are in the | | | | | | results section. | + +--------+ + + + | EXTERNAL LAB: | Routin | 04/11/2018 | | Results for this | | BILIRUBIN, TOTAL | e | | | procedure are in the | | | | | | results section. | + +--------+ + + + | EXTERNAL LAB: | Routin | 04/11/2018 | | Results for this | | ALBUMIN | e | | | procedure are in the | | | | | | results section. | + +--------+ + + + | EXTERNAL LAB: | Routin | 04/11/2018 | | Results for this | | PROTEIN, TOTAL | e | | | procedure are in the | | | | | | results section. | + +--------+ + + + | EXTERNAL LAB: | Routin | 04/11/2018 | | Results for this | | CALCIUM | e | | | procedure are in the | | | | | | results section. | + +--------+ + + + | EXTERNAL LAB: CARBON | Routin | 04/11/2018 | | Results for this | | DIOXIDE | e | | | procedure are in the | | | | | | results section. | + +--------+ + + + | EXTERNAL LAB: | Routin | 04/11/2018 | | Results for this | | CHLORIDE | e | | | procedure are in the | | | | | | results section. | + +--------+ + + + | EXTERNAL LAB: | Routin | 04/11/2018 | | Results for this | | POTASSIUM | e | | | procedure are in the | | | | | | results section. | + +--------+ + + + | EXTERNAL LAB: SODIUM | Routin | 04/11/2018 | | Results for this | | | e | | | procedure are in the | | | | | | results section. | + +--------+ + + + | EXTERNAL LAB: CBC | Routin | 04/11/2018 | | Results for this | | | e | | | procedure are in the | | | | | | results section. | + +--------+ + + + | EXTERNAL LAB: | Routin | 04/11/2018 | | Results for this | | TRIGLYCERIDES | e | | | procedure are in the | | | | | | results section. | + +--------+ + + + | EXTERNAL LAB: | Routin | 04/11/2018 | | Results for this | | CHOLESTEROL, HDL | e | | | procedure are in the | | | | | | results section. | + +--------+ + + + | EXTERNAL LAB: | Routin | 04/11/2018 | | Results for this | | CHOLESTEROL, TOTAL | e | | | procedure are in the | | | | | | results section. | + +--------+ + + + | EXTERNAL LAB: | Routin | 04/11/2018 | | Results for this | | CHOLESTEROL, LDL | e | | | procedure are in the | | | | | | results section. | + +--------+ + + + | EXTERNAL LAB: EGFR | Routin | 04/11/2018 | | Results for this | | | e | | | procedure are in the | | | | | | results section. | + +--------+ + + + | EXTERNAL LAB: | Routin | 04/11/2018 | | Results for this | | CREATININE | e | | | procedure are in the | | | | | | results section. | + +--------+ + + + | LIPID PANEL | Routin | 04/11/2018 | | Results for this | | | e | | | procedure are in the | | | | | | results section. | + +--------+ + + + | CBC W/AUTO | Routin | 04/11/2018 | | Results for this | | DIFFERENTIAL | e | | | procedure are in the | | | | | | results section. | + +--------+ + + + | COMPREHENSIVE | Routin | 04/11/2018 | | Results for this | | METABOLIC PANEL | e | | | procedure are in the | | | | | | results section. | + +--------+ + + + documented in this encounter Results CBC w/ Auto Differential (04/11/2018) + +-------+ + + + | Component | Value | Ref Range | Performed | Pathologist | | | | | At | Signature | + +-------+ + + + | MCH | 30.0 | 27.0 - 33.0 pg | | | + +-------+ + + + | MCHC | 33.0 | 30.0 - 36.0 % | | | + +-------+ + + + | % Basophils | 1.1 | 0.0 - 2.0 % | | | + +-------+ + + + + + | Specimen | + + | Blood | + + Comprehensive Metabolic Panel (04/11/2018) + + + + + + | Component | Value | Ref Range | Performed | Pathologist | | | | | At | Signature | + + + + + + | Anion Gap | 17 | 7 - 21 mmol/L | | | + + + + + + | Bun/Creatin | 56.7 (A) | 6.0 - 28.6 | | | | ine | | | | | + + + + + + | Globulin | 2.6 | 1.8 - 3.5 | | | + + + + + + | Albumin/Emilee | 1.5 | 1.1 - 2.4 | | | | bulin Ratio | | | | | + + + + + + + + | Specimen | + + | Blood | + + Lipid Panel (04/11/2018) + +-------+ + + + | Component | Value | Ref Range | Performed | Pathologist | | | | | At | Signature | + +-------+ + + + | VLDL | 34 | 4 - 40 | | | | Cholesterol | | | | | | Atif | | | | | + +-------+ + + + | CHOL/HDL | 4.0 | 4.44 | | | | RISK | | | | | + +-------+ + + + + + | Specimen | + + | Blood | + + External Lab: SHAYLEE (04/11/2018) + +--------+ + + + | Component | Value | Ref Range | Performed | Pathologist | | | | | At | Signature | + +--------+ + + + | BUN, | 34 (A) | 5 - 23 | EXTERNAL | | | External | | | LAB | | + +--------+ + + + + + | Resulting Agency Comment | + + | [facility] | + + + +---------+ + + | Performing | Address | City/State/Zipcode | Phone Number | | Organization | | | | + +---------+ + + | EXTERNAL LAB | | | | + +---------+ + + External Lab: ALT (04/11/2018) + +-------+ + + + | Component | Value | Ref Range | Performed | Pathologist | | | | | At | Signature | + +-------+ + + + | ALT, | 13 | 7 - 52 | EXTERNAL | | | External | | | LAB | | + +-------+ + + + + + | Resulting Agency Comment | + + | [facility] | + + + +---------+ + + | Performing | Address | City/State/Zipcode | Phone Number | | Organization | | | | + +---------+ + + | EXTERNAL LAB | | | | + +---------+ + + External Lab: AST (04/11/2018) + +-------+ + + + | Component | Value | Ref Range | Performed | Pathologist | | | | | At | Signature | + +-------+ + + + | AST, | 17 | 13 - 39 | EXTERNAL | | | External | | | LAB | | + +-------+ + + + + + | Resulting Agency Comment | + + | [facility] | + + + +---------+ + + | Performing | Address | City/State/Zipcode | Phone Number | | Organization | | | | + +---------+ + + | EXTERNAL LAB | | | | + +---------+ + + External Lab: Alkaline Phosphatase (04/11/2018) + +-------+ + + + | Component | Value | Ref Range | Performed | Pathologist | | | | | At | Signature | + +-------+ + + + | ALP, | 79 | 31 - 130 | EXTERNAL | | | External | | | LAB | | + +-------+ + + + + + | Resulting Agency Comment | + + | [facility] | + + + +---------+ + + | Performing | Address | City/State/Zipcode | Phone Number | | Organization | | | | + +---------+ + + | EXTERNAL LAB | | | | + +---------+ + + External Lab: Bilirubin, Total (04/11/2018) + +-------+ + + + | Component [...] Agency Comment | + + | [facility] | + + + +---------+ + + | Performing | Address | City/State/Zipcode | Phone Number | | Organization | | | | + +---------+ + + | EXTERNAL LAB | | | | + +---------+ + + External Lab: Albumin (04/11/2018) + +-------+ + + + | Component [...] Agency Comment | + + | [facility] | + + + +---------+ + + | Performing | Address | City/State/Zipcode | Phone Number | | Organization | | | | + +---------+ + + | EXTERNAL LAB | | | | + +---------+ + + External Lab: Protein, Total (04/11/2018) + +-------+ + + + | Component | Value | Ref Range | Performed | Pathologist | | | | | At | Signature | + +-------+ + + + | Protein, | 6.4 | 6 - 8.3 | EXTERNAL | | | Total, | | | LAB | | | External | | | | | + +-------+ + + + + + | Resulting Agency Comment | + + | [facility] | + + + +---------+ + + | Performing | Address | City/State/Zipcode | Phone Number | | Organization | | | | + +---------+ + + | EXTERNAL LAB | | | | + +---------+ + + External Lab: Calcium (04/11/2018) + +-------+ + + + | Component | Value | Ref Range | Performed | Pathologist | | | | | At | Signature | + +-------+ + + + | Calcium, | 9.1 | 8.5 - 10.3 | EXTERNAL | | | External | | | LAB | | + +-------+ + + + + + | Resulting Agency Comment | + + | [facility] | + + + +---------+ + + | Performing | Address | City/State/Zipcode | Phone Number | | Organization | | | | + +---------+ + + | EXTERNAL LAB | | | | + +---------+ + + External Lab: Carbon Dioxide (04/11/2018) + +-------+ + + + | Component [...] Agency Comment | + + | [facility] | + + + +---------+ + + | Performing | Address | City/State/Zipcode | Phone Number | | Organization | | | | + +---------+ + + | EXTERNAL LAB | | | | + +---------+ + + External Lab: Chloride (04/11/2018) + +-------+ + + + | Component | Value | Ref Range | Performed | Pathologist | | | | | At | Signature | + +-------+ + + + | Chloride, | 101 | 95 - 112 | EXTERNAL | | | External | | | LAB | | + +-------+ + + + + + | Resulting Agency Comment | + + | [facility] | + + + +---------+ + + | Performing | Address | City/State/Zipcode | Phone Number | | Organization | | | | + +---------+ + + | EXTERNAL LAB | | | | + +---------+ + + External Lab: Potassium (04/11/2018) + +-------+ + + + | Component | Value | Ref Range | Performed | Pathologist | | | | | At | Signature | + +-------+ + + + | Potassium, | 4.1 | 3.6 - 5.1 | EXTERNAL | | | External | | | LAB | | + +-------+ + + + + + | Resulting Agency Comment | + + | [facility] | + + + +---------+ + + | Performing | Address | City/State/Zipcode | Phone Number | | Organization | | | | + +---------+ + + | EXTERNAL LAB | | | | + +---------+ + + External Lab: Sodium (04/11/2018) + +-------+ + + + | Component [...] Agency Comment | + + | [facility] | + + + +---------+ + + | Performing | Address | City/State/Zipcode | Phone Number | | Organization | | | | + +---------+ + + | EXTERNAL LAB | | | | + +---------+ + + External Lab: CBC (04/11/2018) + + + + + + | Component | Value | Ref Range | Performed | Pathologist | | | | | At | Signature | + + + + + + | WBC, | 4.3 (A) | 4.5 - 11 | EXTERNAL | | | External | | | LAB | | + + + + + + | HGB, | 12.7 | 12 - 16 | EXTERNAL | | | External | | | LAB | | + + + + + + | HCT, | 38.6 | 35 - 45 | EXTERNAL | | | External | | | LAB | | + + + + + + | PLT, | 143 | 140 - 440 | EXTERNAL | | | External | | | LAB | | + + + + + + | Neutrophils | 61.7 | 39 - 80 | EXTERNAL | | | %, | | | LAB | | | External | | | | | + + + + + + | Lymphocytes | 20.8 (A) | 24 - 44 | EXTERNAL | | | %, | | | LAB | | | External | | | | | + + + + + + | Monocytes | 10.6 | 0 - 12 | EXTERNAL | | | %, External | | | LAB | | + + + + + + | Eosinophils | 5.8 | 0 - 6 | EXTERNAL | | | %, | | | LAB | | | External | | | | | + + + + + + | RBC, | 4.18 | 3.8 - 5.1 | EXTERNAL | | | External | | | LAB | | + + + + + + | MCV, | 92 | 81 - 99 | EXTERNAL | | | External | | | LAB | | + + + + + + | RDW, | 13.6 | 10.5 - 15 | EXTERNAL | | | External | | | LAB | | + + + + + + + + | Resulting Agency Comment | + + | [facility] | + + + +---------+ + + | Performing | Address | City/State/Zipcode | Phone Number | | Organization | | | | + +---------+ + + | EXTERNAL LAB | | | | + +---------+ + + External Lab: Triglycerides (04/11/2018) + +---------+ + + + | Component | Value | Ref Range | Performed | Pathologist | | | | | At | Signature | + +---------+ + + + | Triglycerid | 168 (A) | 30 - 150 | EXTERNAL | | | es, | | | LAB | | | External | | | | | + +---------+ + + + + + | Specimen | + + | Blood | + + + + | Resulting Agency Comment | + + | [facility] | + + + +---------+ + + | Performing | Address | City/State/Zipcode | Phone Number | | Organization | | | | + +---------+ + + | EXTERNAL LAB | | | | + +---------+ + + External Lab: Cholesterol, HDL (04/11/2018) + +-------+ + + + | Component | Value | Ref Range | Performed | Pathologist | | | | | At | Signature | + +-------+ + + + | HDL | 49.9 | 40 mg/dl | EXTERNAL | | | Cholesterol | | | LAB | | | , External | | | | | + +-------+ + + + + + | Specimen | + + | Blood | + + + + | Resulting Agency Comment | + + | [facility] | + + + +---------+ + + | Performing | Address | City/State/Zipcode | Phone Number | | Organization | | | | + +---------+ + + | EXTERNAL LAB | | | | + +---------+ + + External Lab: Cholesterol, Total (04/11/2018) + +---------+ + + + | Component | Value | Ref Range | Performed | Pathologist | | | | | At | Signature | + +---------+ + + + | Cholesterol | 201 (A) | 200 mg/dl | EXTERNAL | | | , Total, | | | LAB | | | External | | | | | + +---------+ + + + + + | Specimen | + + | Blood | + + + + | Resulting Agency Comment | + + | [facility] | + + + +---------+ + + | Performing | Address | City/State/Zipcode | Phone Number | | Organization | | | | + +---------+ + + | EXTERNAL LAB | | | | + +---------+ + + External Lab: Cholesterol, LDL (04/11/2018) + +---------+ + + + | Component [...] Agency Comment | + + | [facility] | + + + +---------+ + + | Performing | Address | City/State/Zipcode | Phone Number | | Organization | | | | + +---------+ + + | EXTERNAL LAB | | | | + +---------+ + + External Lab: eGFR (04/11/2018) + +-------+ + + + | Component | Value | Ref Range | Performed | Pathologist | | | | | At | Signature | + +-------+ + + + | eGFR, | 96 | | EXTERNAL | | | External | | | LAB | | + +-------+ + + + + + | Specimen | + + | Blood | + + + + | Resulting Agency Comment | + + | [facility] | + + + +---------+ + + | Performing | Address | City/State/Zipcode | Phone Number | | Organization | | | | + +---------+ + + | EXTERNAL LAB | | | | + +---------+ + + External Lab: Creatinine (04/11/2018) + + + + + + | Component | Value | Ref Range | Performed | Pathologist | | | | | At | Signature | + + + + + + | Creatinine, | 0.60 (A) | 0.7 - 1.11 | EXTERNAL | | | External | | | LAB | | + + + + + + + + | Specimen | + + | Blood | + + + + | Resulting Agency Comment | + + | [facility] | + + + +---------+ + + | Performing | Address | City/State/Zipcode | Phone Number | | Organization | | | | + +---------+ + + | EXTERNAL LAB | | | | + +---------+ + + documented in this encounter Visit Diagnoses Not on filedocumented in this encounter"
--- OUTSIDE RECORDS SUMMARY | ~2020-05-24 | XMS | Encounter Summary ---
Demographics + + + | Address | [address] | | | [place] [address] | + + + | Home Phone | | + + + | Preferred Language | Unknown | + + + | Marital Status | | + + + | Hindu Affiliation | 1041 | + + + | Race | White | + + + | Ethnic Group | Not or | + + + Author + + + | Author | [facility] | | | and [place] | + + + | Organization | [facility] | | | [...] Team Providers + +------+ + | Care Center Medical Director Name | Role | Phone | + +------+ + | Terrence Aquino DO | PCP | | + +------+ + Encounter Details +--------+ + + + + | Date | Type | Department | Care Team | Description | +--------+ + + + + | 04/20/ | Transcribed | [facility] | Marisel Morataya PA | Aortic valve | | 2017 | Orders | CARDIOLOGY [address] | stenosis, | | | | [place], | [place] [place], | unspecified etiology | | | | [place] [address] | [place] [address] | (Primary Dx); S/P | | | | [phone] | [phone] | TAVR (transcatheter | | | | [...] | | | 2019 | | | [facility] [address] | | | | | | St [place] | | | | | | [phone] | | | | | | | | +--------+ + + + + | 06/18/ | Office | Cardiology | Sandra Lua | | | 2019 | Visit | | [facility] Bernal [address] | | | | | | [address] [place] | | | | | | [place] [address] | | | | | | [phone] | | | | | | | | +--------+ + + + + documented as of this encounter Results XR Chest PA and [...] + | Yamil Oliveros Results In - 04/27/2017 11:30 AM PDT [...] unspecified etiology - Primary | + + | S/P TAVR (transcatheter aortic valve replacement) | + + documented in this encounter"
--- OUTSIDE RECORDS SUMMARY | ~2020-05-24 | XMS | Encounter Summary ---
Demographics + + + | Address | [address] | | | [place] [address] | + + + | Home Phone | | + + + | Preferred Language | Unknown | + + + | Marital Status | | + + + | Worship Affiliation | [id number] | + + + | Race | White | + + + | Ethnic Group | Not or | + + + Author + + + | Author | [facility] | | | and [place] | + + + | Organization | [facility] | | | [...] Team Providers + +------+ + | Care Directory Carrier Name | Role | Phone | + [...] [facility] | | | | | Coronary | Rasheeda, JAVA PERFORMANCE ENGINEER | [address] | | | | | artery | [address] | [place], | | | | | disease | [place] | [place] | | | | | involving | [place] | [address] | | | | | [place] | [address] | Phone: | | | | | coronary | Phone: | [phone] | | | | | artery of | [phone] | Fax: | | | | | [place] heart | Fax: | [phone] | | | | | without | [phone] | | | | | | angina | | | | | | | pectoris | | | | | | | S/P TAVR | | | | | | | (transcathet | | | | | | | er aortic | | | | | | | valve | | | | | | | replacement) | | | | | | | Essential | | | | | | | hypertension | | | | | | | Procedures | | | | | | | ECHO | | | | | | | Complete | | | +--------+--------+ + + + + Reason for Visit + + + | Reason | Comments | + + + | Follow-up | | + + + | Hypertension | | + + + | Coronary Artery | | | Disease | | + + + | Palpitations | | + + + Encounter Details +--------+---------+ + + + | Date | Type | Department | Care Team | Description | +--------+---------+ + + + | 06/26/ | Office | [facility] | Rasheeda Patel, | Coronary artery | | 2018 | Visit | CARDIOLOGY [address] | JAVA PERFORMANCE ENGINEER [address] | disease involving | | | | [address] [place], | [place] | [place] coronary | | | | [place] [address] | [address] | artery of [place] | | | | [phone] | | heart without angina | | | | | | pectoris (Primary | | | | | | Dx); S/P TAVR | | | | | | (transcatheter | | | | | | aortic valve | | | | | | replacement); | | | | | | Essential | | | | | | hypertension | +--------+---------+ + + + Social History [...] + + + | Blood Pressure | 148/60 | 06/26/2018 3:36 PM | | | | | PST | | + + + + + | Pulse | 66 | 06/26/2018 3:36 PM | regular | | | | PST | | + + + + + | Temperature | - | - | | + + + + + | Respiratory Rate | 14 | 06/26/2018 3:36 PM | | | | | PST | | + + + + + | Oxygen Saturation | - | - | | + + + + + | Inhaled Oxygen | - | - | | | Concentration | | | | + + + + + | Weight | 66.4 kg (146 lb 6.2 | 06/26/2018 3:36 PM | | | | oz) | PST | | + + + + + | Height | 157.5 cm (5' 2") | 06/26/2018 3:36 PM | | | | | PST | | + + + + + | Body Mass Index | 26.77 | 06/26/2018 3:36 PM | | | | | PST | | + + + + + documented in this encounter Patient Instructions Patient Instructions Rasheeda Patel ARNP - 06/26/2018 3:45 PM PST 1. You can take cephalexin 2000 mg (4 of the 500 mg capsules) about 30 to 60 minutes prior to dental or GI procedures. 2. Return in 9 months, or sooner with concerns. We will check your echocardiogram (ultrasou nd of your heart) prior to your visit.Electronically signed by ALFREDA Nur at 2017 4:17 PM PST documented in this encounter Progress Notes Rasheeda Patel ARNP - 06/26/2018 3:45 PM PSTFormatting of this note might be different fr om the original. PATIENT NAME: Marychuy Patterson : 1935: AGE: 82 y.o. PRIMARY CARE: Terrence Aquino DO CC: OUTPATIENT FOLLOW UP VISIT Date of Service: 06/26/2018 HISTORY OF PRESENT ILLNESS: Marychuy Patterson is a 82 y.o. female with a history of critical calcific aortic valve st enosis, status post TAVR 04/19/17, coronary artery diseasestatus post stent RCA 04/19/2017, PAD status post SFA stent 04/19/2017, hypertension, arthritis and chronic back pain. She is b eivera seen today for follow up . She was last seen 04/17/2018 at which time She would wear a 30 day mobile cardiac telemetry to evaluate her near syncope. She wants to wait until [facility] [employer] and her next spine injection are completed before wearing this, so it would start at the end of April. She would otherwise continue with her current medical regimen. In the 2 weeks leading up to her follow-up appointment she would check her blood pressure and pulse twice daily and bring e readings with her to her appointment. She will follow up in about a week after the monitor is completed for office visit, or sooner with concerns. Depending on the results, her medic ations would likely be changed to treat her blood pressure as well. Since that time, she had an injection in her back on 05/09/18, and by 10 days she felt substantially better. She did wear her monitor, but had no lightheadedness or near syncope during the monitor. She has had a good energy level. She tries to stay active. She is still doing all of her no rmal activity and volunteering, but now she is able to do them without the back pain that nell allan was having before. She enjoys reading in her spare time. She has not had any chest pain or discomfort at rest or with exertion. She has not noticed shortness of breath. She has not h ad any lightheadedness or dizziness. She has not noticed palpitations. She has not had leg s welling. She sleeps on 2 pillows at night, which is her norm, and does not wake up at night feeling short of breath. She sleeps at least 7 hours at night. MEDICAL, SURGICAL, AND PERSONAL HISTORY Past Medical, Surgical, Family, and Social History are reviewed in EPIC. CURRENT PROBLEMS Patient Active Problem List Diagnosis Essential hypertension Hypokalemia Aortic valve stenosis, critical Hypertensive arteriosclerotic cardiovascular disease Nonrheumatic aortic valve stenosis Arthritis Arthritis of hip Palpitations Coronary artery disease involving [place] coronary artery of [place] heart without angina pectoris PAD (peripheral artery disease) S/P TAVR (transcatheter aortic valve replacement) CURRENT MEDICATIONS Current Outpatient Prescriptions Medication Sig Dispense Refill acetaminophen (TYLENOL) 500 mg tablet Take 500 mg by mouth Daily. 3-4 tablets daily ascorbic acid (VITAMIN C) 500 mg tablet Take 500 mg by mouth Daily. aspirin 81 mg EC tablet Take 81 mg by mouth Daily. B Complex Vitamins (VITAMIN-B COMPLEX) TABS Take 1 tablet by mouth Daily. Ctfhlpcdukt-Vbyfytesv-Eav C-Mn (GLUCOSAMINE-CHONDROITIN) TABS Take by mouth 2 times da lewis. irbesartan (AVAPRO) 300 mg tablet Take 300 mg by mouth Daily. metoprolol succinate (TOPROL-XL) 50 mg 24 hr tablet take 1 tablet by mouth once daily 9 0 tablet 3 Multiple Vitamins-Minerals (PRESERVISION AREDS 2) CAPS Take by mouth 2 times daily. potassium chloride (K-DUR) 20 mEq ER tablet Take 20 mEq by mouth Daily. 1 capsule mon- ed-fri orally once a day 0 No current facility-administered medications for this visit. ALLERGIES Allergies Allergen Reactions Diatrizoate Meglumine & Sodium Diarrhea Amoxicillin Diarrhea Atorvastatin Other (See Comments) Fatigue, arthralgia Ferrous Gluconate Other (See Comments) GI upset Sulfa Antibiotics Itching ROS Review of Systems Constitutional: Negative for malaise/fatigue. Respiratory: Negative for shortness of breath. Cardiovascular: Negative for chest pain, palpitations and leg swelling. Neurological: Negative for dizziness and weakness. Negative / Positive for lightheadedness Endo/Heme/Allergies: Does not bruise/bleed easily. OBJECTIVE: PHYSICAL EXAM BP 148/60 | Pulse 66 Comment: regular | Resp 14 | Ht 1.575 m (5' 2") | Wt 66.4 kg (146 l b 6.2 oz) | BMI 26.77 kg/m Physical Exam Constitutional: She is oriented to person, place, and time. She appears well-developed and well-nourished. Elderly female in no acute distress, arrived alone Neck: Normal carotid pulses and no JVD [...] orders placed or performed in visit on 04/17/18 ECG 12 lead Result Value Ref Range INTERPRETATION TEXT Sinus bradycardia with 1st degree AV block Possible Left atrial enlargement Left ventricular hypertrophy Abnormal ECG When compared with ECG of 27-APR-2017 10:45, Left bundle branch block is no longer present Confirmed by JURGEN BARRAGAN MD ([id number]) on 04/17/2018 4:16:07 PM LAB RESULTS reviewed during visit today primarily from [facility]: LIPID Lab Results Component Value Date CHOLHDL 3.5 10/12/2017 LDLEX 118 (A) 04/11/2018 HDLEX 49.9 04/11/2018 TRIGEX 168 (A) 04/11/2018 CHOLEX 201 (A) 04/11/2018 CHEMISTRY Lab Results Component Value Date GLU 120 (H) 02/24/2017 GLUEX 88 10/12/2017 NA 138 02/24/2017 NAEX 139 04/11/2018 K 3.6 02/24/2017 KEX 4.1 04/11/2018 CL 102 02/24/2017 CLEX 101 04/11/2018 CO2 28 02/24/2017 CO2EX 25 04/11/2018 CALCIUM 8.7 02/24/2017 ASTEX 17 04/11/2018 ALTEX 13 04/11/2018 CREA 0.63 02/24/2017 BUN 28 (H) 02/24/2017 EGFREX 96 04/11/2018 CREEX 0.60 (A) 04/11/2018 HEMATOLOGY Lab Results Component Value Date WBCEX 4.3 (A) 04/11/2018 HGBEX 12.7 04/11/2018 HCTEX 38.6 04/11/2018 PLTEX 143 04/11/2018 No results found for: TSH, TSHEX, BNP, BNPEX, NTPROBNP I reviewed records from PCP for office visit on 06/11/18 regarding multiple medical problem s including Hypertension at which time She was advised to monitor her blood pressure. I reviewed strips and report of 30 day mobile cardiac telemetry from 05/16/18 through from [facility]. Above data and testing is reviewed this visit; testing below is historical data unless othe rwise specified. ASSESSMENT: 1. Near syncope: A. She describes 2 episodes of near syncope in the last few months. She felt the first one while she was sitting at the computer and suddenly felt very lightheaded like she might pas s out, and she tried to make it to her bed to lay down, but didn't quite get there so she sl id to the ground and she believes she did black out. This was around January 2018. 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 She had warning with both of them with feeling lightheaded, but had no other symptoms, no warmth or flushing, no palpitations. B. 30 day mobile cardiac telemetry from 05/16/18 through 06/15/18 shows sinus rhythm with r ates ranging from 45 beats per minute to 119 beats per minute, PACs and atrial couplet was n oted, PVCs infrequently noted. Bradycardia occurred while patient was sleeping. No signific ant tachycardia or bradycardia arrhythmias. C. Today, 06/26/2018, she denies any recurrent lightheadedness or near syncope. 2. Critical calcific aortic valve stenosis, status post TAVR 04/19/17: A. Echocardiogram from 11/2011 shows moderate aortic valve stenosis. LVEF 60-65%. Mild aortic valve insufficiency. B. Echocardiogram from 08/12/15 shows normal left ventricular size, wall thickness and motion. LVEF 60%. Trileaflet aortic valve with thickening and calcif ication. Peak velocity across aortic valve is 3.6 m/s with the peak gradient of 51 mmHg. Aortic valvular area is 0.6 cm. There is a trace aortic valve insufficiency. There is a mild mitral annular calcification. Mild mitral valve regurgitation. No change from pr evious prior echocardiogram. C. Echocardiogram 02/20/2017 shows normal left ventricular size, wall thickness and motion, preserved left ventricular systolic function. LVEF is 65%, grade 1 le ft ventricular diastolic dysfunction, moderately thickened and calcified trileaflet aortic v alve with severe to critical calcific aortic valve stenosis, peak velocity across aortic deepthi ve is 4.4 m/s, peak gradient of 76 mmHg, aortic valvular area of 0.7 cm^2, there is also a m ild aortic valve insufficiency, mildly thickening calcified mitral valve with a mild mitral valve regurgitation, mild mitral annular calcification, normal right-sided pressure, normal IVC with normal respiratory collapse, no previous echocardiography for comparison. D. Status post Transcatheter aortic valve replacement per femor al route with a 23 mm Larios Sung [address] Sanchez on 04/19/17 without significant p aravalvular leak or central AI, EF remains preserved. E. Echocardiogram 06/08/17 Normal left ventricular size, wall thi ckness and motion. Preserved left ventricular systolic function. LVEF is 70-75%. Grade 1 lef t ventricular diastolic dysfunction. Evidence of a TAVR #23 mm Larios Sung with slight in crease of the pressure gradient across the valve. There is a mild transvalvular aortic valve insufficiency. Mildly thickened and calcified mitral valve with a mild mitral valve regur gitant, mild mitral annular calcification, normal right-sided pressure, normal IVC with norm al respiratory collapse. When compared to echocardiography on 02/22/17, aortic valve replaceme nt is a new finding. F. Today, 06/26/2018, she is asymptomatic. There are no signs or s ymptoms of overt congestive heart failure, and her physical exam shows no significant fluid retention. She is in class I of the [place] [employer] functional class. Will reche ck her echocardiogram prior to her follow up appointment. 3. Coronary artery disease: A. Cardiac cath per Dr. Sanchez on 04/19/17 with treatment of mid RC A stenosis with a 3.5 x 15 mm Xience Alpine FALGUNI. B. She was intolerant to atorvastatin due to myalgias. She also stopped pravastatin due to this. Today, 06/26/2018, she denies any chest pain. She remains on aspirin, beta-mariluz and ARB. 4. Peripheral arterial disease: Not otherwise addressed today 06/26/2018. A. LE angiography per Dr. Jacobs. 04/19/17. NEON MOLDER and stenting of le ft common femoral artery into the SFA with a 6.5 Supera x 40 mm stent. 5. Hypertension, essential: A. Today, 06/26/2018, her blood pressure is elevated, but she brings in her home blood pressure log, and most of her systolic blood pressure readings are in 120 s, overall well controlled. 6. Hyperlipidemia, mixed: A.She notes she was also intolerant to even very low dose pravastatin as well as the ata rvastatin she initially tried. At this point she is not willing to retry any statin therapy. B. Today, 06/26/2018, she remains on lifestyle control. 7. Chronic back pain. Not otherwise addressed today 06/26/2018. A. She will have her next injection on 05/09/18. 8. Severe osteoarthritis: Not otherwise addressed today 06/26/2018. A. Post right hip replacement in the past. 9. Iron deficiency anemia. Not otherwise addressed today 06/26/2018. . 10. Migraine. Not otherwise addressed today 06/26/2018. 11. Peptic ulcer disease. Not otherwise addressed today 06/26/2018. 12. History of Crohn disease. Not otherwise addressed today 06/26/2018. PLAN: 1. She will continue with her current medical regimen. 2. She will follow up in 9 months for office visit, or sooner with concerns. She will have an ECG at her follow up visit, She will have echocardiogram done prior to visit to follow u p her TAVR. and She will have fasting labs prior to visit for lipid profile, CMP and CBC, if not done prior by another provider. Kateryna Mcgarry MA-C, am acting as a scribe on behalf of, and in the presence of ALFREDA Mccollum. - MELISSA Salazar 06/26/2018 15:45 Rasheeda Mcgarry ARNP, personally performed the services described in this documentation, as scribed in my presence and it is both accurate and complete. ALFREDA Christianson 2017 16:36 Portions of this chart may have been created with [employer] voice recognition software. Occasi onal wrong-word or sound-alike substitutions may have occurred due to the inherent shay itations of voice recognition software. Please read the chart carefully and recognize, using context, where these substitutions have occurred. documented in this e ncounter Plan of Treatment +--------+ + + + + | Date | Type | Specialty | Care Team | Description | +--------+ + + + + | 06/18/ | Appointment | Cardiology | Rasheeda Patel, | | 2019 | | | ALFREDA [address] | | | | | | [place] | | | | | | [phone] | | | | | | | | +--------+ + + + + | 06/18/ | Office | Cardiology | Sandra Lua | | 2019 | Visit | | [address]NN[address] | | | | | | [facility] | | | | | | [place] [address] | | | | | | [phone] | | | | | | | | +--------+ + + + + documented as of this encounter Results ECHO Complete (05/28/2019 11:59 AM PDT) + +---------+ + + + | Component | Value | Ref Range | Performed | Pathologist | | | | | At | Signature | + +---------+ + + + | Patient | 145 lbs | | [facility] | | | Weight | | | | | | (lbs) | | | | | + +---------+ + + + | Patient | 5'2 | | [facility] | | | Height | | | | | + +---------+ + + + | LVIDd | 3.17 | cm | [facility] | | + +---------+ + + + | FS | 34 | % | [facility] | | + +---------+ + + + | LA volume | 51.78 | mL | [facility] | | + +---------+ + + + | Ascending | 3.48 | cm | [facility] | | | aorta | | | | | + +---------+ + + + | Aortic arch | 2.47 | cm | [facility] | | + +---------+ + + + | AV | 437.6 | msec | [facility] | | | regurgitati | | | | | | on pressure | | | | | | 1/2 time | | | | | + +---------+ + + + | AV mean | 15.4 | mmHg | [facility] | | | gradient | | | | | + +---------+ + + + | IVRT | 162.63 | msec | [facility] | | + +---------+ + + + | LVOT peak | 139.56 | cm/s | [facility] | | | rosalinda | | | | | + +---------+ + + + | LVOT peak | 31.78 | cm | [facility] | | | VTI | | | | | + +---------+ + + + | AV peak rosalinda | 304.08 | cm/s | [facility] | | + +---------+ + + + | AV VTI | 61.91 | cm | [facility] | | + +---------+ + + + | AV peak | 36.99 | mmHg | [facility] | | | gradient | | | | | + +---------+ + + + | LA Volume | 31 | mL/m2 | [facility] | | | Index | | | | | + +---------+ + + + | AV LVOT | 7.79 | mmHg | [facility] | | | Peak | | | | | | Gradient | | | | | + +---------+ + + + | AV LVOT | 3.6 | mmHg | [facility] | | | Mean | | | | | | Gradient | | | | | + +---------+ + + + | TR Peak | 27 | mmHg | [facility] | | | Gradient | | | | | + +---------+ + + + | TR Velocity | 259.88 | cm | [facility] | | + +---------+ + + + | LV | 8.32 | cm | [facility] | | | Diastolic | | | | | | Length 4C | | | | | + +---------+ + + + | LV | 68 | % | [facility] | | | Ruffin's | | | | | | Biplane EF | | | | | + +---------+ + + + | LV ED | 59.06 | ml | [facility] | | | Volume | | | | | | (Ruffin's) | | | | | + +---------+ + + + | LV ED | 35 | ml/m2 | [facility] | | | Volume | | | | | | Index | | | | | + +---------+ + + + | LV ES | 18.78 | ml | [facility] | | | Volume | | | | | + +---------+ + + + | LVOT Mean | 88.3 | cm/s | [facility] | | | Velocity | | | | | + +---------+ + + + | MV E' | 3 | cm/s | [facility] | | | Septal | | | | | | Velocity | | | | | + +---------+ + + + | MV | 201.41 | cm/s2 | [facility] | | | Deceleratio | | | | | | n [place] | | | | | + +---------+ + + + | MV | 359.26 | msec | [facility] | | | Deceleratio | | | | | | n Time | | | | | + +---------+ + + + | MV E/A | 0.72 | | [facility] | | | Ratio | | | | | + +---------+ + + + | MV Peak | 100.94 | cm/s | [facility] | | | A-Wave | | | | | + +---------+ + + + | MV Peak | 72.36 | cm/s | [facility] | | | E-Wave | | | | | + +---------+ + + + | AV | 274.51 | cm/s2 | [facility] | | | Deceleratio | | | | | | n [place] | | | | | + +---------+ + + + | AV | 1,509.1 | msec | [facility] | | | Deceleratio | | | | | | n Time | | | | | + +---------+ + + + | AV Mean | 178.91 | cm/s | [facility] | | | Velocity | | | | | + +---------+ + + + | LA/Aorta | 1.29 | | [facility] | | | Ratio | | | | | + +---------+ + + + | LA Area | 17.98 | cm2 | [facility] | | + +---------+ + + + | MV E/E | 24.12 | | [facility] | | | SEPTAL | | | | | + +---------+ + + + | LA Major | 0.6191 | cm | [facility] | | + +---------+ + + + | LV ES | 11 | ml/m2 | [facility] | | | Volume | | | | | | Index | | | | | + +---------+ + + + | Aortic Root | 2.71 | cm | [facility] | | | Diameter | | | | | + +---------+ + + + | IVS | 1.13 | cm | [facility] | | | Diastolic | | | | | | Thickness | | | | | | MM | | | | | + +---------+ + + + | LVPW | 1.1 | cm | [facility] | | | Diastolic | | | | | | Thickness | | | | | | MM | | | | | + +---------+ + + + | IVS | 1.24 | cm | [facility] | | | Systolic | | | | | | Thickness | | | | | | MM | | | | | + +---------+ + + + | LV Systolic | 2.1 | cm | [facility] | | | Diameter | | | | | | MM | | | | | + +---------+ + + + | LVPW | 1.17 | cm | [facility] | | | Systolic | | | | | | Thickness | | | | | | MM | | | | | + +---------+ + + + | LA Systolic | 3.5 | cm | [facility] | | | Diameter | | | | | | MM | | | | | + +---------+ + + + | TAPSE | 1.8 | cm | [facility] | | + +---------+ + + + | LVEF-TTE | 65 | % | [facility] | | | TRANSTHORAC | | | | | | IC ECHO | | | | | + +---------+ + + + | RA PRESSURE | 3 | mmHg | [facility] | | + +---------+ + + + | RVSP | 30 | mmHg | [facility] | | | Estimated | | | | | + +---------+ + + + + + | Specimen | + + | | + + + + + | Narrative | Performed At | + + + | 1. Normal | [facility] | | left ventricular size, wall thickness and motion. Preserved left | | | ventricular systolic function. LVEF is 65%.2. Grade 1 left | | | ventricular diastolic dysfunction.3. Evidence of # 23 mm Larios | | | sapient TAVR. There is a slight increased velocity across aortic | | | valve of 3 m/s, peak gradient of 37 mmHg. There is also a mild to | | | moderate transvalvular aortic valve insufficiency.4. Mildly | | | thickened and calcified mitral valve suggesting myxomatous change. | | | There is a mild central mitral valve regurgitation.5. Mild mitral | | | annular calcification.6. Mild tricuspid valve regurgitation.7. | | | Normal right-sided pressure.8. Normal IVC with a normal | | | respiratory collapse.9. When compared to echocardiography on | | | 02/20/2017, no significant changes. | | + + + + +---------+ + + | Performing | Address | City/State/Zipcode | Phone Number | | Organization | | | | + +---------+ + + | [facility] | | | | + +---------+ + + documented in this encounter Visit Diagnoses + + | Diagnosis | + + | Coronary artery disease involving [place] coronary artery of [place] heart without | | angina pectoris - Primary | + + | S/P TAVR (transcatheter aortic valve replacement) | + + | Essential hypertension Unspecified essential hypertension | + + documented in this encounter
--- OUTSIDE RECORDS SUMMARY | ~2020-05-24 | XMS | Encounter Summary ---
Demographics + + + | Address | [address] | | | [place] [address] | + + + | Home Phone | | + + + | Preferred Language | Unknown | + + + | Marital Status | | + + + | Holiness Affiliation | 1041 | + + + | Race | White | + + + | Ethnic Group | Not or | + + + Author + + + | Author | [facility] | | | and [place] | + + + | Organization | [facility] | | | [...] Team Providers + +------+ + | Care Band Reamer Machine Operator Name | Role | Phone [...] | | MD Jurgen | [address] | | | | | Nonrheumatic | [address] | [place], | | | | | aortic | [address] | [place] | | | | | valve | [place], | [address] | | | | | stenosis | [place] [address] | Phone: | | | | | Procedures | Phone: | [phone] | | | | | ECHO | [phone] | Fax: | | | | | Complete [place] | Fax: | [phone] | | | | | ECHO HEART | [phone] | | | | | | XTHORACIC,CO | | | | | | | MPLETE W | | | | | | | DOPPLER [place] | | | | | | | ECHO HEART | | | | | | | XTHORACIC,[place] | | | | | | | MPLETE, W/O | | | | | | | DOPPLER | | | +--------+--------+ + + + + Reason for Visit + + + | Reason | Comments | + + + | New Patient | | + + + | Aortic Disease | Aortic Valve Stenosis | + + + Evaluate & Treat (Routine) +--------+--------+ + + + + | Status | Reason | Specialty | Diagnoses / | Referred By | Referred To | | | | | Procedures | Contact | Contact | +--------+--------+ + + + + | Closed | | Cardiology | Diagnoses | Kenia, | Gato, | | | | | | DO Terrence | MD Jurgen | | | | | Nonrheumatic | [address] | [address] | | | | | aortic | [address] | [address] | | | | | (valve) | [address] | [place], | | | | | stenosis | [place], | [place] [address] | | | | | Procedures | [place] | Phone: | | | | | SOLUTION STRATEGIST | [address] | [phone] | | | | | | Phone: | Fax: | | | | | | [phone] | [phone] | | | | | | Fax: | | | | | | | [phone] | | +--------+--------+ + + + + Encounter Details +--------+---------+ + + + | Date | Type | Department | Care Team | Description | +--------+---------+ + + + | 02/23/ | Office | [facility] | Jurgen Hoskins, | Nonrheumatic aortic | | 2016 | Visit | CARDIOLOGY [address] | [address] [facility] | valve stenosis | | | | [address] [place], | [address] [place], | (Primary Dx) | | | | [place] [address] | [place] [address] | | | | | [phone] | [phone] | | | | | | | [...] + + + | Blood Pressure | 136/60 | 02/24/2016 11:14 AM | left arm | | | | PDT | | + + + + + | Pulse | 62 | 02/24/2016 11:14 AM | regular | | | | PDT | | + + + + + | Temperature | - | - | | + + + + + | Respiratory Rate | 16 | 02/24/2016 11:11 AM | | | | | PDT | | + + + + + | Oxygen Saturation | - | - | | + + + + + | Inhaled Oxygen | - | - | | | Concentration | | | | + + + + + | Weight | 65.8 kg (145 lb) | 02/24/2016 11:11 AM | | | | | PDT | | + + + + + | Height | 162.6 cm (5' 4") | 02/24/2016 11:11 AM | | | | | PDT | | + + + + + | Body Mass Index | 24.89 | 02/24/2016 11:11 AM | | | | | PDT | | + + + + + documented in this encounter Progress Notes Jurgen Hoskins MD - 02/24/2016 11:23 AM PDTFormatting of this note might be different f rom the original. PATIENT NAME: Marychuy Patterson : 1935: AGE: 80 y.o. REFERRED BY: Terrence Aquino PRIMARY CARE: Terrence Aquino DO NEW PATIENT OFFICE VISIT Date of Service: 02/24/16 HISTORY OF PRESENT ILLNESS: Marychuy Patterson is a 80 y.o. female with a history of moderate to severe calcific aorti c valve stenosis, hypertension, arthritis and chronic back pain. She is being seen today fo r preop clearance prior to left hip surgery. Patient is in the process to be seen by an orthopedic surgeon to have left hip surgery done . Despite a pains on the left hip and back, she is living independently. [facility] [place], [place]. She does her own housework. There was no yardwork for her to do. She cannot walk far due to the hip pain but is able to climb 12 step stairs multiple times a day without any cardiac symptoms. There is no chest pain or chest discomfor t both at rest and on exertion. Patient denies breathlessness. There is no palpitation diz ziness or lightheadedness. There is no ankle or leg swelling. Patient can sleep on one pil low at night without difficulty breathing. CURRENT PROBLEMS Patient Active Problem List Diagnosis Essential hypertension Hypokalemia Aortic stenosis Hypertensive arteriosclerotic cardiovascular disease Nonrheumatic aortic valve stenosis Arthritis MEDICAL, SURGICAL, AND PERSONAL HISTORY Past Surgical History Procedure Laterality Date Cardiac catherization 1992 normal Colonoscopy 2000, 2006 Egd and colonoscopy 03/29/12 Dr. Dean Upper gastrointestinal endoscopy 2003, 2006 Appendectomy 9 years old Small bowl obstruction 08/2010 Umbilical hernia repair 2005 Cholecystectomy 11/29/11 Esophageal dilatation 03/29/12 Dr. Dean Basal cell resected 08/2014 lora, Dr. Mittal Total hip arthroplasty Right 07/30/12 Dr. Daley [facility] Laparoscopy 02/12/2009 evaluation og abdomen with lysis Family History Problem Relation Age of Onset Coronary artery disease Father Coronary artery disease Mother Family Status Relation Status Age Father 76 CAD Mother 79 CAD History Social History Marital Status: Spouse Name: N/A Number of Children: 2 Years of Education: N/A Social History Main Topics Smoking status: Never Smoker Smokeless tobacco: Never Used Alcohol Use: 1.8 oz/week 3 Glasses of wine per week Drug Use: No Sexual Activity: Not on file Other Topics Concern None Social History Narrative Exercise:None Caffeine: 2 cups of coffee daily Living situation:alone CURRENT MEDICATIONS Current Outpatient Prescriptions Medication Sig Dispense Refill acetaminophen (TYLENOL) 500 mg tablet Take 500 mg by mouth Daily. 3-4 tablets daily ascorbic acid (VITAMIN C) 500 mg tablet Take 500 mg by mouth Daily. atenolol (TENORMIN) 25 mg tablet Take 25 mg by mouth 2 times daily. B Complex Vitamins (VITAMIN-B COMPLEX) TABS Take 1 tablet by mouth Daily. cholecalciferol (VITAMIN D-3) 1,000 units capsule Take 1,000 Units by mouth Daily. irbesartan (AVAPRO) 300 mg tablet Take 300 mg by mouth Daily. Misc Natural Products (TURMERIC CURCUMIN) CAPS Take by mouth. Multiple Vitamins-Minerals (PRESERVISION AREDS 2) CAPS Take by mouth 2 times daily. omeprazole (PRILOSEC) 20 mg capsule Take 20 mg by mouth every morning (before breakfast ). potassium chloride (K-DUR) 20 mEq ER tablet Take 20 mEq by mouth Daily. 1 capsule mon--mon orally once a day 0 Probiotic CAPS Take by mouth. Orally Monday, and Monday traMADol (ULTRAM) 50 mg tablet take 1 tablet by mouth once daily if needed 0 No current facility-administered medications for this visit. ALLERGIES Allergies Allergen Reactions Amoxicillin Diarrhea Atorvastatin Other (See Comments) Fatigue, arthralgia Ferrous Gluconate Other (See Comments) GI upset Sulfa Antibiotics Itching ROS Review of Systems Constitutional: Negative for fever, chills, weight loss, malaise/fatigue and diaphoresis. HENT: Negative for congestion, hearing loss, nosebleeds, sore throat and tinnitus. Eyes: Negative for blurred vision and double vision. Respiratory: Negative for cough, shortness of breath and wheezing. Cardiovascular: Positive for orthopnea. Negative for chest pain, palpitations, claudication , leg swelling and PND. Gastrointestinal: Positive for abdominal pain and constipation. Negative for heartburn, jayde sea, vomiting, diarrhea, blood in stool and melena. Genitourinary: Positive for frequency. Negative for dysuria, urgency, hematuria and flank p ain. Musculoskeletal: Positive for myalgias, back pain, joint pain and neck pain. Negative for f alls. Skin: Negative for itching and rash. Neurological: Negative for dizziness, tingling, tremors, seizures, loss of consciousness, w eakness and headaches. Endo/Heme/Allergies: Negative for environmental allergies and polydipsia. Does not bruise/b leed easily. Psychiatric/Behavioral: Negative for memory loss. The patient has insomnia. The patient is not nervous/anxious. OBJECTIVE: PHYSICAL EXAM BP 136/60 mmHg | Pulse 62 | Resp 16 | Ht 1.626 m (5' 4") | Wt 65.772 kg (145 lb) | BMI 24.8 8 kg/m2 Physical Exam Constitutional: She appears well-developed and well-nourished. No distress. Elderly female individual without acute distress. Neck: Normal carotid pulses, no hepatojugular reflux and no JVD present. Carotid bruit is n ot present. Cardiovascular: Normal rate, regular rhythm, S1 normal, S2 normal, intact distal pulses and normal pulses. PMI is not displaced. Exam reveals no gallop, no S3, no S4 and no friction rub. Murmur (grade 3/6 systolic ejection murmur along left sternal border, radiating to the neck .) heard. Pulses: Carotid pulses are 2+ on [...] e xhibit a depressed mood. ECG: Sinus rhythm, first-degree AV block, left ventricular hypertrophy by voltage. LAB RESULTS: LIPID No results found for: CHOL, TRIG, HDL, LDL, CHOLHDL, LDLEX, HDLEX, TRIGEX, CHOLEX CHEMISTRY No results found for: GLU, GLUEX, NA, NAEX, K, KEX, CL, CLEX, CO2, CO2EX, CALCIUM, ALKPHOS, AST, ASTEX, ALT, ALTEX, BILITOT, CREA, BUN, EGFR, EGFREX, CREEX HEMATOLOGY No results found for: WBC, WBCEX, HGB, HGBEX, HCT, HCTEX, PLT, PLTEX I reviewed records from Terrence Aquino M.D. for office visit on 02/09/16. Referral to cardio logy for preop clearance prior to left hip surgery. ASSESSMENT: 1. Moderate to severe calcific aortic valve stenosis; pre-op clearance prior to the left h ip and back surgery A. Echocardiogram from 11/2011 shows moderate aortic [...] No change from previous prior echocardiogram. C. Today, patient is doing well from cardiac standpoint. He is asymptomatic but physicall y inactive due to severe back and left hip pain. There is no signs and symptoms of overt co ngestive heart failure. She is in a class I of [place] [employer] functional class. There is no fluid retention on physical examination. She is undergoing an elective, non-emergent surgery and would benefit from a cardiac risk assessment. Her Revised Cardiac Risk Index (RCRI) is calculated showing his risks include None, high risk surgery, coronary artery disease, congestive heart failure, cerebrovascular disease, diabetes on insulin and serum creatinine >2mg/dL, which is 0 risks equating to Clas s I, estimated 0.4% risk of MACE. This is considered a low risk. Her Friedman Activity Status Index (DASI) score is calculated and shows she has a functional capacity of 6 METS and does not require any further testing. She is on a beta mariluz, and is not on HMG CoA reductas e inhibitor (statin). She does not require medication adjustment. Prior to proceeding with surgery, the risk and benefit of the procedure need to be discussed between patient and mary milton. 2. Hypertension A. good blood pressure on atenolol and irbesartan. 3. Chronic back pain A. she is seeing a back specialist and planned to have a back surgery done as well. 4. Severe osteoarthritis 5. Iron deficiency anemia 6. Migraine 7. Peptic ulcer disease 8. History of Crohn disease A. post right hip replacement in the past. B. she wants to have the left hip surgery done in the next 3-6 months. PLAN: 1. Today, patient is doing well from cardiac standpoint. I will continue with current medi chelsi regimen. 2. Patient may proceed with either back or left hip surgery without any further cardiac wo rkup. 3. Follow-up in one year with the plan to repeat echocardiogram prior to return. Electronically signed by: Jurgen Hoskins MD [facility] 02/24/2016 Portions of this chart may have been created with [employer] voice recognition software. Occasi onal wrong-word or [...] | +--------+ + + + + | 10/29/ | Appointment | Cardiology | Rasheeda Patel, | | | 2019 | | | PLASTIC PRODUCTION MACHINE SETTER [address] | | | | | | St [place] | | | | | | [address] | | | | | | | | +--------+ + + + + | 06/18/ | Office | Cardiology | Sandra Lua | | | 2019 | Visit | | JOHNNY Bernal [address] | | | | | | [address] [place] | | | | | | [place] [address] | | | | | | [phone] | | | | | | | | +--------+ + + + + documented as of this encounter Procedures + +--------+ + + + | Procedure Name | Priori | Date/Time | Associated Diagnosis | Comments | | | ty | | | | + +--------+ + + + | ECG 12 LEAD | Routin | 02/24/2016 | Nonrheumatic | Results for this | | | e | 11:15 AM | aortic valve | procedure are [...] MARYCHUY Room Number [place] Patient Number | [facility] | | [id number] Date of Study 02/20/2017 Visit | - IMAGING | | Number [id number] | | | Referring Physician GATO SEAMAN Number Date of | | | 1935 Direct Care Professional JAKE COLES | | | | | | RDCS Age 81 year(s) | | | Interpreting GATO SEAMAN | | | Junk Dealer JURGEN HOSKINS, | | | | | | MD Gender Female Nurse | | | Stress Proof Load Mechanic | | | Procedure Type of Study [...] Volume: 34.41 ml | | | EF Ooexivvhj43% Left Ventricle Diastolic | | | Dimension: [...] Volume: 34.41 ml | | | EF Ptdzfmoou30% | | | | | | Left [...] Room Number [place] | | Patient Number [id number] Date of Study 02/20/2017 Visit Number | | [id number] Referring Physician GATO SEAMAN | | Number Date of 1935 Direct Care Professional JAKE SHARYN | | [facility] Age 81 year(s) | | Interpreting GATO SEAMAN Junk Dealer | | JURGEN HOSKINS MD Gender | [...] LA Volume: 34.41 | | ml EF Bwtmluqcu54% Left Ventricle | | Diastolic Dimension: 5.03 [...] LA Volume: 34.41 ml | | EF Geavnwnxg47% | | | | Left Ventricle | [...] | + + + + + | [facility] | [address] | [place] | [phone] | | [facility] | | [address] | | | - IMAGING | | | | + + + + + ECG 12 lead (02/24/2016 11:15 AM PDT) + + + + + + | Component | Value | Ref Range | Performed | Pathologist | | | | | At | Signature | + + + + + + | VENTRICULAR | 60 | BPM | [facility] | | | RATE EKG | | | | | + + + + + + | ATRIAL RATE | 60 | BPM | [facility] | | + + + + + + | P-R | 228 | ms | [facility] | | | INTERVAL | | | | | + + + + + + | QRS | 92 | ms | [facility] | | [...] + + | P WAVE AXIS | 50 | degrees | [facility] | | + + + + + + | QRS AXIS | 54 | degrees | [facility] | | + + + + + + | T AXIS | 63 | degrees | [facility] | | + + + + + + | INTERPRETAT | Sinus rhythm with 1st | | [facility] | | | ION TEXT | degree AV blockPossible | | | | | | Left atrial | | | | | | enlargementLeft | | | | | | ventricular | | | | | | hypertrophyAbnormal | | | | | | ECGNo previous ECGs | | | | | | availableConfirmed by | | | | | | JURGEN HOSKINS MD | | | | | | ([id number]) on 02/26/2016 | | | | | | 10:00:45 AM | | | | + + [...] + + | Nonrheumatic aortic valve stenosis - Primary Aortic valve disorders | + + documented in this encounter
--- OUTSIDE RECORDS SUMMARY | ~2020-05-24 | XMS | Encounter Summary ---
Demographics + + + | Address | [address] | | | [place] [address] | + + + | Home Phone [...] Team Providers + +------+ + | Care Clinical Rehabilitation Liaison Name | Role | Phone | + [...] | | | | Coronary | Rasheeda, CAPACITY ANALYST | [address] | | | | | artery | [address] | [place], | | | | | disease | St [place] | [place] | | | | | involving | [place], [place] | [address] | | | | | [place] | [address] | Phone: | | | | | coronary | Phone: | [phone] | | | | | artery of | [phone] | Fax: | | | | | [place] heart | Fax: | [phone] | | | | | without | [phone] | | | | | | angina [...] | | | | Coronary | Rasheeda, CAPACITY ANALYST | [address] | | | | | artery | [address] | [place], | | | | | disease | St [place] | [place] | | | | | involving | [place], [place] | [address] | | | | | [place] | [address] | Phone: | | | | | coronary | Phone: | [phone] | | | | | artery of | [phone] | Fax: | | | | | [place] heart | Fax: | [phone] | | | | | without | [phone] | | | | | | angina [...] | +--------+ + + + + | 05/28/ | Hospital | [facility] | Rasheeda Patel, | Coronary artery | | 2019 | Encounter | [facility] E[facility] [address] | CAPACITY ANALYST [address] | disease involving | | | | [address] [place] | [address] [place] | [place] coronary | | | | [place] [address] | [address] | artery of [place] | | | | [phone] | | heart without angina | | | | | | pectoris; S/P TAVR | | | | | | (transcatheter | | | | | | aortic valve | | | | | | replacement); | | | | | | Essential | | | | | | hypertension | +--------+ + + + + Social [...] + + + +---------+ + + | alendronate | Take 70 mg by mouth | | 0 | | | | (FOSAMAX) 70 mg | every 7 days. | | | | | | tablet [...] + + + +---------+ + + | Calcium 500-125 | Take by mouth. | | 0 | | | | MG-UNIT TABS | | | | | | + + + +---------+ + + | cholecalciferol | Take 1,000 Units by | | 0 | | | | (CHOLECALCIFEROL) | mouth Daily. | | | | | | 1000 units TABS | | | | | | [...] | nitrofurantoin | Take 100 mg by mouth | | 0 | | | | (MACROBID) 100 mg | 2 times daily. | | | | | | capsuleIndications: | Indications: Simple | | | | | | Uncomplicated | Infection of the | | | | | | Urinary Tract | Urinary Tract | | | | | | Infection | | | | | | + + + +---------+ + + | potassium chloride | Take 20 mEq by mouth | | 0 | | | | 20 mEq CR tablet | Daily. | | | | | + + + +---------+ + + | TURMERIC PO | Take by mouth. | | 0 | | | + + + +---------+ + + | metoprolol | Take 1 tablet by | 90 | 3 | 05/28/20 | | | succinate | mouth Daily. | tablet | | 19 | 0 | | (TOPROL-XL) 50 mg 24 | [...] | | | 2019 | | | CAPACITY ANALYST [address] | | | | | | [place] | | | | | | [address] | | | | | | | | +--------+ + + + + | 06/18/ | Office | Cardiology | LuaSandra | | | 2019 | Visit | | JOHNNY Bernal [address] | | | | | | [address] [place] | | | | | | [place] [address] | | | | | | [phone] | | | | | | | | +--------+ + + + + documented as of this encounter Procedures + +--------+ + + + | Procedure Name | Priori | Date/Time | Associated Diagnosis | Comments | | | ty | | | | + +--------+ + + + | ECHO COMPLETE | Routin | 05/28/2019 | Coronary artery | Results for this | | | e | 11:59 AM | disease involving | procedure are in the | | | | PDT | [place] coronary | results section. | | | | | artery of [place] | | | | | | heart without angina | | | | | | pectoris S/P TAVR | | | | | | (transcatheter | | | | | | aortic valve | | | | | | replacement) | | | | | | Essential | | | | | | hypertension | | + +--------+ + + + documented in this encounter Results ECHO Complete (05/28/2019 11:59 [...] | | | | | | n [place] | | | | | + +---------+ [...] | | | | | | n [place] | | | | | + +---------+ [...] + + | Coronary artery disease involving [place] coronary artery of [place] heart without | | angina pectoris | + + | S/P TAVR (transcatheter aortic valve replacement) | + + | Essential hypertension Unspecified essential hypertension | + + documented in this encounter"
--- OUTSIDE RECORDS SUMMARY | ~2020-05-24 | XMS | Encounter Summary ---
Demographics + + + | Address | [address] | | | [place] [address] | + + + | Home Phone | | + + + | Preferred Language | Unknown | + + + | Marital Status | | + + + | Spiritism Affiliation | 1041 | + + + | Race | White | + + + | Ethnic Group | Not or | + + + Author + + + | Author | [facility] | | | and [place] | + + + | Organization | [facility] | | | [...] Team Providers + +------+ + | Care Lottery Manager Name | Role | Phone | + +------+ + | Terrence Aquino DO | PCP | | + +------+ + Reason for Visit + +--------+ + | Reason | Onset | Comments | | | Date | | + +--------+ + | Medication Related | 01/21/ | | | | 2019 | | + +--------+ + Encounter Details +--------+ + + + + | Date | Type | Department | Care Team | Description | +--------+ + + + + | 01/21/ | Telephone | [facility] [place] | Rasheeda Patel, | Medication Related | | 2019 | | CARDIOLOGY [address] | CAN LINE EXAMINER [address] | | | | | [place], | [address] [place], [place] | | | | | [place] [address] | [address] | | | | | [phone] | | | +--------+ + + + [...] encounter Miscellaneous Notes Telephone Encounter - Bonny Jacques RN - 01/21/2019 5:24 PM PDTReceived aidan ferrer from patient concerning bleeding retina, would like to stop aspirin 81 mg. Spoke with patient after consulting with Gege GANT in Rasheeda Patel's absence. Notified t o stop the aspirin, will discuss it further at next appointment in March with Rasheeda ........ ..................................Bonny Jacques RN on 01/21/19 at 17:28 documented in thi s encounter Plan of Treatment +--------+ + + + + | Date | Type | Specialty | Care Team | Description | +--------+ + + + + | 06/18/ | Appointment | Cardiology | Rasheeda Patel, | | | 2019 | | | [place] [address] | | | | | | [place], [place] | | | | | | [address] | | | | | | | | +--------+ + + + + | 06/18/ | Office | Cardiology | Sandra Lua | | | 2019 | Visit | | JOHNNY Bernal [address] | | | | | | [address] | | | | | | [place] [address] | | | | | | [phone] | | | | | | | | +--------+ + + + + documented as of this encounter Visit Diagnoses Not on filedocumented in this encounter"
--- OUTSIDE RECORDS SUMMARY | ~2020-05-24 | XMS | Encounter Summary ---
Demographics + + + | Address | [address] | | | [place] [address] | + + + | Home Phone [...] Team Providers + +------+ + | Care Adult Basic Education Manager Name | Role | Phone | + +------+ + | Terrence Aquino DO | PCP | | + +------+ + Reason for Visit + + + | Reason | Comments | + + + | Medication Refill | | + + + Encounter Details +--------+--------+ + + + | Date | Type | Department | Care Team | Description | +--------+--------+ + + + | 05/09/ | Refill | [facility] [place] | Rasheeda Patel, | Medication Refill | | 2020 | | CARDIOLOGY [address] | AGRICULTURE INSTRUCTOR [address] | | | | | [place], | [facility] [place] | | | | | [place] [address] | [address] | | | | | [phone] | | | +--------+--------+ + + + Social History + +-------+ [...] | | | | | [place] [address] | | | | | | [phone] | | | | | | | | +--------+ + + + + documented as of this encounter Visit Diagnoses Not on filedocumented in this encounter"
--- OUTSIDE RECORDS SUMMARY | ~2020-05-24 | XMS | Encounter Summary ---
Demographics + + + | Address | [address] | | | [place] [address] | + + + | Home Phone | | + + + | Preferred Language | Unknown | + + + | Marital Status | | + + + | Synagogue Affiliation | [id number] | + + + | Race | White | + + + | Ethnic Group | Not or | + + + Author + + + | Author | [facility] | | | and [place] | + + + | Organization | [facility] | | [...] Team Providers + +------+ + | Care Folder Inspector Name | Role | Phone | + +------+ + | Terrence Aquino DO | PCP | | + +------+ + Reason for Referral Diagnostic/Screening (Routine) + +--------+ + + + + | Status | Reason | Specialty | Diagnoses / | Referred By | Referred To | | | | | Procedures | Contact | Contact | + +--------+ + + + + | Authorized | | Cardiology | Diagnoses | [place], | [facility] | | | | | Coronary | Rasheeda, LIBRARY HISTORIAN | [address] | | | | | artery | [address] | [place], | | | | | disease | [place] | [place] | | | | | involving | [place] | [address] | | | | | [place] | [address] | Phone: | | | | | coronary | Phone: | [phone] | | | | | artery of | [phone] | Fax: | | | | | [place] heart | Fax: | [phone] | | | | | without | [phone] | | | | | | angina | | | | | | | pectoris | | | | | | | Essential | | | | | | | hypertension | | | | | | | | | | | | | | Palpitations | | | | | | | Aortic | | | | | | | valve | | | | | | | stenosis, | | | | | | | etiology of | | | | | | | cardiac | | | | | | | valve | | | | | | | disease | | | | | | | unspecified | | | | | | | Procedures | | | | | | | ECHO | | | | | | | Complete | | | + +--------+ + + + + Reason for Visit + + + | Reason | Comments | + + + | Follow-up | | + + + | Coronary Artery | | | Disease | | + + + | Hypertension | | + + + Encounter Details +--------+---------+ + + + | Date | Type | Department | Care Team | Description | +--------+---------+ + + + | 05/28/ | Office | [facility] | Rasheeda Patel, | Coronary artery | | 2019 | Visit | CARDIOLOGY [address] | LIBRARY HISTORIAN [address] | disease involving | | | | [address] [place], | [place] | [place] coronary | | | | [place] [address] | [address] | artery of [place] | | | | [phone] | | heart without angina | | | | | | pectoris (Primary | | | | | | Dx); Essential | | | | | | hypertension; | | | | | | Palpitations; Aortic | | | | | | valve stenosis, | | | | | | etiology of cardiac | | | | | | valve disease | | | | | | unspecified | +--------+---------+ + + + Social History [...] + + + | Blood Pressure | 140/64 | 05/28/2019 1:16 PM | | | | | PDT | | + + + + + | Pulse | 72 | 05/28/2019 1:16 PM | reg | | | | PDT | | + + + + + | Temperature | - | - | | + + + + + | Respiratory Rate | 18 | 05/28/2019 1:16 PM | | | | | PDT | | + + + + + | Oxygen Saturation | - | - | | + + + + + | Inhaled Oxygen | - | - | | | Concentration | | | | + + + + + | Weight | 65.5 kg (144 lb 6.4 | 05/28/2019 1:16 PM | | | | oz) | PDT | | + + + + + | Height | 157.5 cm (5' 2") | 05/28/2019 1:16 PM | | | | | PDT | | + + + + + | Body Mass Index | 26.41 | 05/28/2019 1:16 PM | | | | | PDT | | + + + + + documented in this encounter Patient Instructions Patient Instructions Kateryna Young Medical Assistant - 05/28/2019 1:30 PM PDT 1. You will have an echocardiogram done before her next office visit for aortic valve steno sis in a year. 2. You will restart taking the aspirin 81 mg for heart attack and stroke risk. 3. You will consider taking a low dose of pravastatin for coronary artery disease. 4. You will follow up in 1 year for office visit, or sooner with concerns. You will have an ECG at your follow up visit and you will have fasting labs prior to visit for lipid profil e, CMP and CBC, if not done prior by another provider. documented in this encounter Progress Notes Rasheeda Patel ARNP - 05/28/2019 1:30 PM PDTFormatting of this note might be different fr om the original. PATIENT NAME: Marychuy Patterson : 1935: AGE: 83 y.o. PRIMARY CARE: Terrence Aquino DO CC: OUTPATIENT FOLLOW UP VISIT Date of Service: 05/28/2019 HISTORY OF PRESENT ILLNESS: Marychuy Patterson is a 83 y.o. 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 She is be ing seen today for follow up coronary artery disease. She was last seen 06/26/18 at which time, she would continue with her current medical regime n. She would follow up in 9 months for office visit, or sooner with concerns. She would have an ECG at her follow up visit, she would have echocardiogram done prior to visit to follow up her TAVR. and she would have fasting labs prior to visit for lipid profile, CMP and CBC, if not done prior by another provider. Since that time, she had a couple of steroids injecti on in her back, she stop the aspirin due to bleeding retina and called the office to let us know she stop the aspirin. She saw her PCP on 03/07/19 for an office visit for DEXA results. She is here for related ed osteoporosis with current pathological fracture. She would continue with Vitamin D, and s tart Alendronate sodium 7- mg, Calcium 500 mg with meals, and the DEXA femoral T score 1.8, 10 year probability of fracture major osteoporotic fracture 26.1%, Hip fracture 8.6%, Risk f actor history of fracture as an adult. Left forearm T score -.38%, spine lumbar region T sco re 2.1. She would follow up in May 2019. She has had a good energy level. She tries to stay active. 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 She enjoys reading, and watch the voice in her spare time. She has not had any chest pain or discomfort at rest or with exertion. She has not noticed short ness of breath. She has not had any lightheadedness or dizziness. She has not noticed palpi tations. She has not had leg swelling. She sleeps on 2 pillows at night, which is her norm, and does not wake up at night feeling short of breath. She was referred to ophthalmologists in [facility] for her bleeding retina. She reported she had a tingle on her left check and she did some self evaluation. MEDICAL, SURGICAL, AND PERSONAL HISTORY Past Medical, Surgical, Family, and Social History are reviewed in EPIC. CURRENT PROBLEMS Patient Active Problem List Diagnosis Essential hypertension Hypokalemia Aortic valve stenosis, critical Hypertensive arteriosclerotic cardiovascular disease Nonrheumatic aortic valve stenosis Arthritis Arthritis of hip Palpitations Coronary artery disease involving [place] coronary artery of [place] heart without angina pectoris PAD (peripheral artery disease) S/P TAVR (transcatheter aortic valve replacement) Lumbar radiculitis DDD (degenerative disc disease), lumbar Spinal stenosis of lumbar region with neurogenic claudication CURRENT MEDICATIONS Current Outpatient Medications Medication Sig Dispense Refill acetaminophen (TYLENOL) 500 mg tablet Take 500 mg by mouth Daily. 3-4 tablets daily alendronate (FOSAMAX) 70 mg tablet Take 70 mg by mouth every 7 days. ascorbic acid (VITAMIN C) 500 mg tablet Take 500 mg by mouth Daily. B Complex Vitamins (VITAMIN-B COMPLEX) TABS Take 1 tablet by mouth Daily. Calcium 500-125 MG-UNIT TABS Take by mouth. cholecalciferol (CHOLECALCIFEROL) 1000 units TABS Take 1,000 Units by mouth Daily. irbesartan (AVAPRO) 300 mg tablet Take 300 mg by mouth Daily. metoprolol succinate (TOPROL-XL) 50 mg 24 hr tablet take 1 tablet by mouth once daily 9 0 tablet 3 Multiple Vitamins-Minerals (PRESERVISION AREDS 2) CAPS Take by mouth 2 times daily. nitrofurantoin (MACROBID) 100 mg capsule Take 100 mg by mouth 2 times daily. Indication s: Simple Infection of the Urinary Tract potassium chloride 20 mEq CR tablet Take 20 mEq by mouth Daily. TURMERIC PO Take by mouth. No current facility-administered medications for this visit. ALLERGIES Allergies Allergen Reactions Gastrografin [Diatrizoate Meglumine & Sodium] Diarrhea Amoxicillin Diarrhea Atorvastatin Other (See Comments) Fatigue, arthralgia Ferrous Gluconate Other (See Comments) GI upset ROS Review of Systems Constitutional: Positive for malaise/fatigue. Negative for chills and fever. HENT: Negative for hearing loss, nosebleeds and tinnitus. Eyes: Negative for blurred vision and double vision. Respiratory: Negative for shortness of breath. Cardiovascular: Negative for chest pain, palpitations and leg swelling. Gastrointestinal: Negative for abdominal pain, blood in stool, constipation, diarrhea, hear tburn, nausea and vomiting. Genitourinary: Positive for frequency and urgency. Negative for hematuria. Musculoskeletal: Positive for back pain, joint pain, myalgias and neck pain. Negative for f alls. Skin: Negative for itching and rash. Neurological: Negative for dizziness, tingling, tremors, seizures, loss of consciousness an d weakness. Lightheadedness -- No Endo/Heme/Allergies: Does not bruise/bleed easily. Psychiatric/Behavioral: Negative for memory loss. The patient is not nervous/anxious and do es not have insomnia. OBJECTIVE: PHYSICAL EXAM BP 140/64 | Pulse 72 Comment: reg | Resp 18 | Ht 1.575 m (5' 2") | Wt 65.5 kg (144 lb 6. 4 oz) | BMI 26.41 kg/m Physical Exam Constitutional: She is oriented [...] of 2/6 at the upper right sternal border. Pulses: Carotid pulses are 2+ on the [...] does not e xhibit a depressed mood. Vitals reviewed. ECG: I personally independently reviewed ECG tracing [...] is no longer present Confirmed by JURGEN HOSKINS MD ([id number]) on 04/17/2018 4:16:07 PM Which is compared to today's ECG 05/28/2019: Sinus rhythm, possible left atrial enlargemen t, left ventricular hypertrophy, rate of 68 beats per minute. LAB RESULTS reviewed during visit today primarily from [facility]: LIPID Lab Results Component Value Date CHOLHDL [...] records from PCP for office visit on 03/07/19 which is summarized in the HPI. RESULTS- I reviewed reports from [facility]: Mobile cardiac telemetry from 05/16 until 06/15/2018. Baseline EKG shows sinus rhythm with h eart rate ranging from 45-119 beats minute. PACs, atrial couplet was noted. PVCs was also no mikayla. Echocardiogram on 05/28/19 shows, normal left ventricular size, wall thickness and motion, p reserved left ventricular systolic function, LVEF is 65%, grade 1 left ventricular diastolic dysfunction, evidence of # 23 mm Larios sapient TAVR, there is a slight increased velocity across aortic valve of 3 m/s, peak gradient of 37 mmHg, there is also a mild to moderate tr ansvalvular aortic valve insufficiency, mildly thickened and calcified mitral valve suggesti ng myxomatous change, there is a mild central mitral valve regurgitation, mild mitral annula r calcification, mild tricuspid valve regurgitation, normal right-sided pressure, normal IVC with a normal respiratory collapse, when compared to echocardiography on 02/20/2017, no signi ficant changes, Jurgen Hoskins MD. Above data and testing is reviewed this visit; testing below is historical data unless othe rwise specified. ASSESSMENT: 1. Critical calcific aortic valve stenosis, status post TAVR 04/19/17: A. Echocardiogram from 11/2011 shows moderate aortic valve stenosis. LVEF 60-65 %. Mild aortic valve insufficiency. B. Echocardiogram from 08/12/15 shows normal left ventricular size, wall thickn ess and motion. LVEF 60%. Trileaflet aortic valve with thickening and calcification. Peak velocity across aortic valve is 3.6 m/s with the peak gradient of 51 mmHg. Aortic valvular area is 0.6 cm. There is a trace aortic valve insufficiency. There is a mild mitral manuel ular calcification. Mild mitral valve regurgitation. No change from previous prior echocar diogram. C. Echocardiogram 02/20/2017 shows normal left ventricular size, wall thickness a nd motion, preserved left ventricular systolic function. LVEF is 65%, grade 1 left ventricul ar diastolic dysfunction, moderately thickened and calcified trileaflet aortic valve with se randal to critical calcific aortic valve stenosis, peak velocity across aortic valve is 4.4 m/ s, peak gradient of 76 mmHg, aortic valvular area of 0.7 cm^2, there is also a mild aortic v alve insufficiency, mildly thickening calcified mitral valve with a mild mitral valve regurg itation, mild mitral annular calcification, normal right-sided pressure, normal IVC with nor mal respiratory collapse, no previous echocardiography for comparison. D. Status post Transcatheter aortic valve replacement per femoral route with a 23 mm Larios Sung [address] Sanchez on 04/19/17 without significant paravalvular le ak or central AI, EF remains preserved. E. Echocardiogram 06/08/17 Normal left ventricular size, wall thickness and mo tion. Preserved left ventricular systolic function. LVEF is 70-75%. Grade 1 left ventricular diastolic dysfunction. Evidence of a TAVR #23 mm Larios Sung with slight increase of the pressure gradient across the valve. There is a mild transvalvular aortic valve insufficienc y. Mildly thickened and calcified mitral valve with a mild mitral valve regurgitant, mild m itral annular calcification, normal right-sided pressure, normal IVC with normal respiratory collapse. When compared to echocardiography on 02/22/17, aortic valve replacement is a new fi nding. F. Echocardiogram on 05/28/19 shows, normal left ventricular size, wall thickne ss and motion, preserved left ventricular systolic function, LVEF is 65%, grade 1 left ventr icular diastolic dysfunction, evidence of # 23 mm Larios sapient TAVR, there is a slight in creased velocity across aortic valve of 3 m/s, peak gradient of 37 mmHg, there is also a mil d to moderate transvalvular aortic valve insufficiency, mildly thickened and calcified anant l valve suggesting myxomatous change, there is a mild central mitral valve regurgitation, mi ld mitral annular calcification, mild tricuspid valve regurgitation, normal right-sided pres sure, normal IVC with a normal respiratory collapse, when compared to echocardiography on 02/20/2017, no significant changes, MD. Helder Peña. Today, 05/28/2019, discussed the echocardiogram results. Her next echocardiogram will in a year to reevaluate. She remains asymptomatic. 2. Coronary artery disease: A. Cardiac cath per Dr. Sanchez on 04/19/17 with treatment of mid RCA stenosis wi th a 3.5 x 15 mm Xience Alpine FALGUNI. B. Today, 05/28/2019, she is asymptomatic, no chest discomfort. She is on a med ical regimen with ARB and beta-mariluz. She will be restarted on her aspirin. There are no signs or symptoms of overt congestive heart failure, and her physical exam sh ows no significant fluid retention. She is in class I- No symptoms; no limitations of activ ities of the [employer] functional class. Heart failure stage A-pre-heart fa ilure. Her ECG looks good. 3. Hypertension, essential: A. Today, 05/28/2019, her blood pressure is borderline elevated. She does monit or her blood pressure at home and ranges usually less than 135/64 mmHg. 4. Hyperlipidemia, mixed: A. She notes she was also intolerant to even very low dose pravastatin as well as the atorvastatin she initially tried. B. Today, 05/28/2019, she is working on lifestyle control. She notes that due to her general body aches and pain she was not entirely sure if she had a reaction to the pr avastatin or not and she has thought about whether or not she would benefit from retrying th e pravastatin. I do think this would be very reasonable as she does benefit from being on a statin therapy for her multiple history of vascular disease. She plans to have her labs re checked with PCP next month and depending on those lab results she will consider retrying th e pravastatin, or other hydrophilic statin such as rosuvastatin. 5. Near syncope: A. She describes 2 episodes of near syncope in the last few months. She felt th e first one while she was sitting at the computer and suddenly felt very lightheaded like sh e might pass out, and she tried to make it to her bed to lay down, but didn't quite get ther e so she slid to the ground and she believes she did black out. This was around January 2018. 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 She had warning with both o f them with feeling lightheaded, but had no other symptoms, no warmth or flushing, no palpit ations. B. 30 day mobile cardiac telemetry from 05/16/18 through 06/15/18 shows sinus rh ythm with rates ranging from 45 beats per minute to 119 beats per minute, PACs and atrial co uplet was noted, PVCs infrequently noted. Bradycardia occurred while patient was sleeping. No significant tachycardia or bradycardia arrhythmias. C. Today, 05/28/2019, she denies syncope episodes. She reports some numbness on her left check and did an evaluation to make sure she was not having a stroke. Went over F. A.S.T. If she has another episodes. Discussed the mobile cardiac telemetry results. 6. Peripheral arterial disease: Not otherwise addressed today 05/28/2019. A. LE angiography per Dr. Jacobs. 04/19/17. 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 7. Chronic back pain. Not otherwise addressed today 05/28/2019. A. She will have her next injection on 05/09/18. 8. Severe osteoarthritis: Not otherwise addressed today 05/28/2019. A. Post right hip replacement in the past. 9. Iron deficiency anemia. Not otherwise addressed today 05/28/2019. 10. Migraine. Not otherwise addressed today 05/28/2019. 11. Peptic ulcer disease. Not otherwise addressed today 05/28/2019. 12. History of Crohn disease. Not otherwise addressed today 05/28/2019. PLAN: 1. She will have an echocardiogram done before her next office visit for aortic valve steno sis in a year. 2. She will restart taking the aspirin 81 mg for her CAD and PAD. 3. She will consider taking a low dose of pravastatin for coronary artery disease. She vladimir l have labs done next month with PCP and will consider it after those labs are resulted. Ro suvastatin would also be reasonable option as, similar to pravastatin, it is more hydrophili c and has a lower side effect profile than some of the other statins. 4. She will follow up in 1 year for office visit, or sooner with concerns. She will have an ECG at her follow up visit and She will have fasting labs prior to visit for lipid profile, CMP and CBC, if not done prior by another provider. Kateryna Mcgarry Medical Assistant am acting as a scribe on behalf of, and in the pres ence of ALFREDA Nur. - Gilberto Dent 05/28/2019 13:26 Rasheeda Mcgarry ARNP, personally performed the services described in this documentation, as scribed in my presence and it is both accurate and complete. ALFREDA Nur 9 Portions of this chart may have been created with [employer] voice recognition software. Occasi onal wrong-word or [...] Esparza | | | | | | [phone] | | | | | | | | +--------+ + + + + | 06/18/ | Office | Cardiology | Sandra Lua | | 2019 | Visit | | JOHNNY Bernal | | | | | | [address] | | | | | | [place] [id number] | | | | | | [phone] | | | | | | | | +--------+ + + + + + + +--------+ + + | Name | Type | Priori | Associated Diagnoses | Order Schedule | | | | ty | | | + + +--------+ + + | ECHO Complete | Echocardiog | Routin | Coronary artery | Expected: 05/28/2020 | | | luly | e | disease involving | (Approximate), | | | | | [place] coronary | Expires: 05/27/2021 | | | | | artery of [place] | | | | | | heart without angina | | | | | | pectoris Essential | | | | | | hypertension | | | | | | Palpitations Aortic | | | | | | valve stenosis, | | | | | | etiology of cardiac | | | | | | valve disease | | | | | | unspecified | | + + +--------+ + + documented as of this encounter Procedures + +--------+ + + + | Procedure Name | Priori | Date/Time | Associated Diagnosis | Comments | | | ty | | | | + +--------+ + + + | ECG 12 LEAD | Routin | 05/28/2019 | Essential | Results for this | | | e | 1:28 PM | hypertension | procedure are in the | | | | PDT | | results section. | + +--------+ + + + documented in this encounter Results ECG 12 lead (05/28/2019 1:28 PM PDT) + + + + + + | Component | Value | Ref Range | Performed | Pathologist | | | | | At | Signature | + + + + + + | VENTRICULAR | 68 | BPM | [facility] | | | RATE EKG | | | | | + + + + + + | ATRIAL RATE | 68 | BPM | [facility] | | + + + + + + | P-R | 236 | ms | [facility] | | | INTERVAL | | | | | + + + + + + | QRS | 92 | ms | [facility] | | | DURATION | | | | | + + + + + + | Q-T | 406 | ms | [facility] | | | INTERVAL | | | | | + + + + + + | Q-T | 431 | ms | [facility] | | | INTERVAL | | | | | | (CORRECTED) | | | | | + + + + + + | P WAVE AXIS | 55 | degrees | [facility] | | + + + + + + | QRS AXIS | 43 | degrees | [facility] | | + + + + + + | T AXIS | 59 | degrees | [facility] | | [...] hypertrophyAbnormal | | | | | | ECGWhen compared with | | | | | | ECG of 17-APR-2018 | | | | | | 13:02,No significant | | | | | | change was | | | | | | foundConfirmed by | | | | | | JURGEN HOSKINS MD | | | | | | ([id number]) on 05/29/2019 | | | | | | 1:30:22 PM | | | | + + + [...] + + | Coronary artery disease involving [place] coronary artery of [place] heart without | | angina pectoris - Primary | + + | Essential hypertension Unspecified essential hypertension | + + | Palpitations | + + | Aortic valve stenosis, etiology of cardiac valve disease unspecified | + + documented in this encounter
--- OUTSIDE RECORDS SUMMARY | ~2020-05-24 | XMS | Encounter Summary ---
Demographics + + + | Address | [address] | | | [place] [address] | + + + | Home Phone | | + + + | Preferred Language | Unknown | + + + | Marital Status | | + + + | Congregation Affiliation | 1041 | + + + | Race | White | + + + | Ethnic Group | Not or | + + + Author + + + | Author | [facility] | | | and [place] | + + + | Organization | [facility] | | | and [...] Team Providers + +------+ + | Care Billing And Accounting Staff Assistant Name | Role | Phone | + +------+ + | Terrence Aquino DO | PCP | | + +------+ + Reason for Visit + + + | Reason | Comments | + + + | Follow-up | | + + + | Hypertension | | + + + | Palpitations | | + + + Encounter Details +--------+---------+ + + + | Date | Type | Department | Care Team | Description | +--------+---------+ + + + | 10/17/ | Office | [facility] | Rasheeda Patel, | Coronary artery | | 2018 | Visit | CARDIOLOGY [address] | DIAGNOSTICS TECH [address] | disease involving | | | | [place], | [address] [place], [place] | lone pine coronary | | | | [place] [address] | [id number] | artery of lone pine | | | | [phone] | | heart without angina | | | | | | pectoris (Primary | | | | | | Dx); Aortic valve | | | | | | stenosis, critical; | | | | | | S/P [...] + + + | Blood Pressure | 124/70 | 10/17/2017 12:29 PM | | | | | PST | | + + + + + | Pulse | 68 | 10/17/2017 12:29 PM | | | | | PST | | + + + + + | Temperature | - | - | | + + + + + | Respiratory Rate | 16 | 10/17/2017 12:29 PM | | | | | PST | | + + + + + | Oxygen Saturation | - | - | | + + + + + | Inhaled Oxygen | - | - | | | Concentration | | | | + + + + + | Weight | 66.4 kg (146 lb 6.2 | 10/17/2017 12:29 PM | | | | oz) | PST | | + + + + + | Height | 157.5 cm (5' 2") | 10/17/2017 12:29 PM | | | | | PST | | + + + + + | Body Mass Index | 26.77 | 10/17/2017 12:29 PM | | | | | PST | | + + + + + documented in this encounter Patient Instructions Patient Instructions Rasheeda Patel ARNP - 10/17/2017 12:45 PM PST 1. Stop taking the pravastatin for 2 weeks. Call us at the end of the 2 weeks to let us kno w how you feel, so we can decide what to do next. A. If the pain is back to your baseline, then it was the pravastatin causing it, and we wi ll usually retry it but at a lower dose, such as 5 mg every other day. B. If the pain is not improved, then it is not the pravastatin and we will have you restar t it at your normal dose. C. If you think there is improvement, but are not sure, we usually have you stay off of it for another couple weeks to see if you can tell one way or another. 2. You can stop the clopidogrel, since it has been 6 months since your stent, and that is h ow long the interventionalist recommended you take it. You will stay on the baby aspirin 81 mg daily. 3. Return in 6 months, or sooner with concerns. documented in this encounter Progress Notes Rasheeda Patel ARNP - 10/17/2017 12:45 PM PSTFormatting of this note might be different fr om the original. PATIENT NAME: Marychuy Patterson : 1935: AGE: 82 y.o. PRIMARY CARE: Terrence Aquino DO CC: OUTPATIENT FOLLOW UP VISIT Date of Service: 10/17/2017 HISTORY OF PRESENT ILLNESS: Marychuy Patterson is a 82 y.o. 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 She is b alex seen today for follow up coronary artery disease, aortic valve. She was last seen 06/16/2017 at which time she was started on pravastatin 10 mg daily. Sin ce that time, she feels like her arthritis is worse. She feels pain in her joints and muscle s, and notes that she has this all of the time, but it is worse than it used to be. She is n ot sure if it's related to the statin or not. She has had a good energy level. She has not been very active due to her arthritis. She does have to go back and forth to her rental abou t a block away up a hill, and that really bothers her hips. She still lives independently an d does her housekeeping and grocery shopping, etc. She is able to do walking for shorter dis tances "back and forth" and she does a lot of that. She enjoys volunteering in her [email or web address]. 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 She has not had any chest pain or discomfort at rest or with exertion. She has not noticed shortness of breath. She has not had any lightheadedness or dizziness. She has not noticed palpitati ons. She has not had leg swelling. She is able to sleep laying down at night without any s ymptoms of shortness of breath. She does prop her head up on pillows due to her kyphotic sp ine, but that is unchanged. MEDICAL, SURGICAL, AND PERSONAL HISTORY Past Medical, Surgical, Family, and Social History are reviewed in EPIC. CURRENT PROBLEMS Patient Active Problem List Diagnosis Essential hypertension Hypokalemia Aortic valve stenosis, critical Hypertensive arteriosclerotic cardiovascular disease Nonrheumatic aortic valve stenosis Arthritis Arthritis of hip Palpitations Coronary artery disease involving lone pine coronary artery of lone pine heart without angina pectoris PAD (peripheral artery [...] tablet by mouth Daily. 30 tablet 5 Toompomrwtx-Jvwkhsysk-Oad C-Mn (GLUCOSAMINE-CHONDROITIN) TABS Take by mouth 2 [...] mon- ed-mon orally once a day 0 pravastatin (PRAVACHOL) 10 mg tablet Take 1 tablet by mouth nightly. 90 tablet 3 No current facility-administered medications for this visit. ALLERGIES Allergies Allergen Reactions Diatrizoate Meglumine & Sodium Diarrhea Amoxicillin Diarrhea Atorvastatin Other (See Comments) Fatigue, arthralgia Ferrous Gluconate Other (See Comments) GI upset Sulfa Antibiotics Itching ROS Review of Systems Constitutional: Negative for malaise/fatigue. Eyes: Negative for blurred vision and double vision. Respiratory: Negative for shortness of breath. Cardiovascular: Negative for chest pain, palpitations and leg swelling. Neurological: Negative for dizziness, weakness and headaches. OBJECTIVE: PHYSICAL EXAM BP 124/70 | Pulse 68 | Resp 16 | Ht 1.575 m (5' 2") | Wt 66.4 kg (146 lb 6.2 oz) | BMI 26.77 kg/m Physical [...] now present Confirmed by SIERRA FORBES MD ([id number]) on 04/28/2017 3:04:03 PM LAB RESULTS reviewed during visit today primarily from [facility]: LIPID Lab Results Component Value Date CHOLHDL 3.5 10/12/2017 LDLEX 105 10/12/2017 HDLEX 50.5 10/12/2017 TRIGEX 96 10/12/2017 CHOLEX 175 10/12/2017 CHEMISTRY Lab Results Component Value Date GLU 120 (H) 02/24/2017 GLUEX 88 10/12/2017 NA 138 02/24/2017 NAEX 141 10/12/2017 K 3.6 02/24/2017 KEX 4.2 10/12/2017 CL 102 02/24/2017 CLEX 104 10/12/2017 CO2 28 02/24/2017 CO2EX 25 10/12/2017 CALCIUM 8.7 02/24/2017 ASTEX 19 10/12/2017 ALTEX 17 10/12/2017 CREA 0.63 02/24/2017 BUN 28 (H) 02/24/2017 EGFREX 96 10/12/2017 CREEX 0.60 10/12/2017 HEMATOLOGY Lab Results Component Value Date WBCEX 4.8 12/14/2016 HGBEX 12.7 12/14/2016 HCTEX 38.4 12/14/2016 PLTEX 179 12/14/2016 No results found for: TSH, TSHEX, BNP, BNPEX I will obtain record from PCPs office. Above data and testing is reviewed this [...] Sung with slight increase of the pressure g radient across the valve. There is a mild transvalvular aortic valve insufficiency. Mildly thickened and calcified mitral valve with a mild mitral valve regurgitant, mild mitral annul ar calcification, normal right-sided pressure, normal IVC with normal respiratory collapse. When compared to echocardiography on 02/22/17, aortic valve replacement is a new finding. F. Today, she is doing very well. There is no signs and symptoms of overt congestive hea rt failure. She is in a class II of [place] [employer] functional class. There is no fluid retention on physical examination. 2. Coronary artery disease: A. Cardiac cath per Dr. Sanchez on 04/19/17 with treatment of mid RCA stenosis with a 3.5 x 15 mm Xience Alpine FALGUNI. B. She is intended to stay on clopidogrel for 6 months post PCI per recommendation of int rivasventionalisdavid, and now she can discontinued it. That will be helpful for her as she is look ing at having spinal injection in near future for her spinal stenosis and radiculopathy. She otherwise denies any chest pain. She was intolerant of atorvastatin due to myalgias. S he is not sure if pravastatin is causing her worsening pain recently, so will do trial off o f it for 2 weeks. 3. Peripheral arterial disease: A. LE angiography per Dr. Jacobs. 04/19/17. 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 B. Today, she denies any claudication. 4. Hypertension, essential: A. Today's blood pressure is controlled. 5. Hyperlipidemia, mixed: A. Today her labs are reviewed with her. She has had improvement in her LDL on pravastati n. 6. Chronic back pain. Not otherwise addressed [...] disease. Not otherwise addressed today. PLAN: 1. Her clopidogrel is discontinued as she has reached the interventionalist recommended 6 m onth briseida post PCI and she is planning to have spinal injection in the near future. 2. She will do a trial off pravastatin for 2 weeks to see if there is improvement in her ch ronic pain that has recently worsened. 3. She will call us after 2 weeks to let us know if her pain is back to baseline or not. If her pain is not back to baseline, we will have her restart her pravastatin at her current d ose. If her pain is back at baseline, will have her retry pravastatin at 5 mg every OTHER da y. If she is not sure, will have her stay off of pravastatin for another couple weeks and ca ll again. 4. She will follow up in 6 months for office visit, or sooner with concerns. She will have an ECG at her follow up visit and She will have fasting labs prior to visit for lipid profi le, CMP and CBC, if not done prior by another provider. She is given printed lab order today in the office so that she can have lab done at [facility]. Portions of this chart may have been created with Roambi voice recognition software. Occasi onal wrong-word or [...] 2019 | | | ALFREDA [address] | | | | | | [place], [place] | | | | | | [address] | | | | | | | | +--------+ + + + + | 06/18/ | Office | Cardiology | Sandra Lua | | | 2020 | Visit | | JOHNNY Bernal [address] | | | | | | [address] [facility] | | | | | | [place] [address] | | | | | | [phone] | | | | | | | | +--------+ + + + + + +------+--------+ + + | Name | Type | Priori | Associated Diagnoses | Order Schedule | | | | ty | | | + +------+--------+ + + | Comprehensive | Lab | Routin | Coronary artery | Expected: 10/17/2017 | | Metabolic Panel | | e | disease involving | (Approximate), | | | | | lone [place] coronary | Expires: 10/17/2018 | | | | | artery of lone pine | | | | | | heart without angina | | | | | | pectoris Aortic | | | | | | valve stenosis, | | | | | | critical S/P TAVR | | | | | | (transcatheter | | | | | | aortic valve | | | | | | replacement) | | | | | | Essential | | | | | | hypertension | | + +------+--------+ + + | Lipid Panel | Lab | Routin | Coronary artery | Expected: 10/17/2017 | | | | e | disease involving | (Approximate), | | | | | lone [place] coronary | Expires: 10/17/2018 | | | | | artery of [place] | | | | | | heart without angina | | | | | | pectoris Aortic | | | | | | valve stenosis, | | | | | | critical S/P TAVR | | | | | | (transcatheter | | | | | | aortic valve | | | | | | replacement) | | | | | | Essential | | | | | | hypertension | | + +------+--------+ + + | CBC no Differential | Lab | Routin | Coronary artery | Expected: 10/17/2017 | | | | e | disease involving | (Approximate), | | | | | lone [place] coronary | Expires: 10/17/2018 | | | | | artery of lone pine | | | | | | heart without angina | | | | | | pectoris Aortic | | | | | | valve stenosis, | | | | | | critical S/P TAVR | | | | | | (transcatheter | | | | | | aortic valve | | | | | | replacement) | | | | | | Essential | | | | | | hypertension | | + +------+--------+ + + documented as of this encounter Visit Diagnoses + + | Diagnosis | + + | Coronary artery disease involving lone [place] coronary artery of lone [place] heart without | | angina pectoris - Primary | + + | Aortic valve stenosis, critical Aortic valve disorders | + + | S/P TAVR (transcatheter aortic valve replacement) | + + | Essential hypertension Unspecified essential hypertension | + + documented in this encounter
--- OUTSIDE RECORDS SUMMARY | ~2020-05-24 | XMS | Encounter Summary ---
Demographics + + + | Address | [address] | | | [place] [address] | + + + | Home Phone | | + + + | Preferred Language | Unknown | + + + | Marital Status | | + + + | Restoration Affiliation | 1041 | + + + [...] Team Providers + +------+ + | Care Internet Project Manager Name | Role | Phone | + +------+ + | Terrence Aquino DO | PCP | | + +------+ + Encounter Details +--------+ + + + + | Date | Type | Department | Care Team | Description | +--------+ + + + + | 05/24/ | Hospital | [facility] | Conversion | Degeneration of | | 2016 | Encounter | [facility] | Transaction, | cervicothoracic | | | | [address] | Provider Unknown | intervertebral disc | | | | [address] [place], [place] | | | | | | [address] | | | | | | [phone] | | | +--------+ + + + [...] [place] | | | | | | [address] | | | | | | | | +--------+ + + + + | 06/18/ | Office | Cardiology | Sandra Lua | | | 2019 | Visit | | JOHNNY Bernal [address] | | | | | | [address] | | | | | | [place] [address] | | | | | | [phone] | | | | | | | | +--------+ + + + + documented as of this encounter Procedures + +--------+ + + + | Procedure Name | Priori | Date/Time | Associated Diagnosis | Comments | | | ty | | | | + +--------+ + + + | XR CERVICAL SPINE 4 | Routin | 05/24/2016 | | Results for this | | OR 5 VWS | e | 4:28 PM | | procedure are in the | | | | PDT | | results section. | + +--------+ + + + documented in this encounter Results XR Cervical Spine 4 or 5 Vws (05/24/2016 4:28 PM PDT) + + | Specimen | + + | | + + + + + | Impressions | Performed At | + + + | 1. Severe multilevel degenerative changes of the cervical spine | | | but no evidence of acute fracture 2. Limited mobility of the | | | cervical spine with little interval change between images labeled | | | flexion and extension 3. 2 mm anterolisthesis at C5-C6 level is | | | unchanged between flexion and extension maneuvers. | | | | | + + + + + + | Narrative | Performed At | + + + | [facility] XR CERVICAL SPINE MIN 4 VIEWS 05/24/2016 4:28 PM | | | HISTORY: 80 years. Female. Cervical thoracic degenerative disc | | | disease. TECHNIQUE: XR CERVICAL SPINE MIN 4 VIEWS. Frontal and | | | lateral view of the cervical spine in neutral, flexion, extension. | | | Total of 4 images presented for interpretation. COMPARISON: | | | None. FINDINGS: There is severe multilevel degenerative changes | | | of the cervical spine is diffuse osteopenia. Marked facet arthropathy | | | at multiple levels. Subtle 2 mm of anterolisthesis at C5-C6 appears | | | stable between images labeled flexion and extension. However there | | | is minimal change in curvature between flexion and extension | | | maneuvers. | | + + + + + | Procedure Note | + + | Domo, Rad Conversion - 04/04/2019 12:16 PM PDT [facility] C[facility] SPINE MIN 4 | | VIEWS05/24/2016 4:28 PM HISTORY:80 years. Female. Cervical thoracic degenerative disc | | disease. TECHNIQUE:XR CERVICAL SPINE MIN 4 VIEWS. Frontal and lateral view of the | | cervical spine in neutral, flexion, extension. Total of 4 images presented for | | interpretation. COMPARISON:None. FINDINGS:There is severe multilevel degenerative | | changes of the cervical spine is diffuse osteopenia. Marked facet arthropathy at | | multiple levels. Subtle 2 mm of anterolisthesis at C5-C6 appears stable between images | | labeled flexion and extension. However there is minimal change in curvature between | | flexion and extension maneuvers.IMPRESSION: 1. Severe multilevel degenerative changes | | of the cervical spine but no evidence of acute fracture2. Limited mobility of the | | cervical spine with little interval change between images labeled flexion and | | extension3. 2 mm anterolisthesis at C5-C6 level is unchanged between flexion and | | extension maneuvers. | | PM | |There is severe multilevel degenerative changes of the cervical spine is diffuse osteopenia . Marked facet arthropathy at multiple levels. Subtle 2 mm of anterolisthesis at C5-C6 appea rs stable between images labeled | |flexion and extension. However there | |is minimal change in curvature between flexion and extension maneuvers. | |IMPRESSION: | |1. Severe multilevel degenerative changes of the cervical spine but no evidence of acute f racture | |2. Limited mobility of the cervical spine with little interval change between images label ed flexion and extension | |3. 2 mm anterolisthesis at C5-C6 level is unchanged between flexion and extension maneuver s. | | | | | | | | | + + documented in this encounter Visit Diagnoses + + | Diagnosis | + + | Degeneration of cervicothoracic intervertebral disc Degeneration of cervical | | intervertebral disc | + + documented in this encounter"
--- OUTSIDE RECORDS SUMMARY | ~2020-05-24 | XMS ---
Demographics + + + | Address | [address] | | | [address] | | | [place] [address] | + + + | Preferred Language | Unknown | + + + | Marital Status | Unknown | + + + | Druze Affiliation | Unknown | + + + | Race | Unknown | + + + | Ethnic Group | Unknown | + + + Author + + + | Author | [facility] | + + + | Organization | [facility] | + + + | Address | [address] | | | [place] [address] | + + + | Phone | | + + + Care Team Providers + + + + | Care Seat Scooper Machine Name | Role | Phone | + + + + Unavailable | Unavailable | + + + + PROBLEMS +---------+ + + +--------+ + + | Type | Condition | ICD9-CM | UFC59-DA | Onset | Condition | SNOMED | | | | Code | Code | Dates | Status | Code | +---------+ + + +--------+ + + | Problem | Elevated | R03.0 | | | Active | [id number] | | | blood | | | | | | | | pressure | | | | | | | | reading | | | | | | +---------+ + + +--------+ + + | 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 | | | Active | [id number] | | | hageal | | | [...] | I35.0 | | | Active | [id number] | | | stenosis | | | | | | +---------+ + + +--------+ + + | Problem | Hypertensi | I11.9 | | | Active | [id number] | | | ve | | | [...] | | E87.6 | | Active | [id number] | | | a | | | | | | +---------+ + + +--------+ + + ALLERGIES + + + + +--------+ | Substance | Reaction | Event Type | Date | Status | + + + + +--------+ | Sulfa | itching | Drug Allergy | May, | Active | + + + + +--------+ | Ferrous | GI upset | Drug Allergy | May, | Active | | Gluconate | | | | | + + + + +--------+ | Atorvastatin | fatigue, | Drug Allergy | May, | Active | | Calcium | arthralgia | | | | + + + + +--------+ SOCIAL HISTORY Never Assessed PLAN OF CARE + +---------+ | Activity | Details | + +---------+ +---+ | | +---+ + + + | Follow Up | prn Reason:null | + + + | Pending Test | X ray : Spine Lumbar Complete AP/L/O | + + + VITAL SIGNS + + + + | Height | 64 in | 2017-05-23 | + + + + | Weight | 142.1 lbs | 2017-05-23 | + + + + | BMI | 24.39 kg/m2 | 2017-05-23 | + + + + | Heart Rate | 71 /min | 2017-05-23 | + + + + | Blood pressure systolic | 145 mm Hg | 2017-05-23 | + + + + | Blood pressure diastolic | 64 mm Hg | 2017-05-23 | + + + + MEDICATIONS + [...] Tramadol | Orally | 1 tablet | 6h | 03 Oct, | 8 Oct, | 5 days | Active | | HCl 50 | every 6 | as | | 2017 | 2017 | | | | MG | hrs | needed | | | | | [...] + + + | Surgical History | Wood Model Builder Dr Mack | 02/24/16 | | | Gato Kylah Montero | | + + + [...] + | Surgical History | Cardiology consult, [place] | 02/09/12 | | | cardiology Dr [...] 08/2014 | | | her Dr Kyrie paulino | | + + + + | [...]
--- OUTSIDE RECORDS SUMMARY | ~2020-05-24 | XMS | Encounter Summary ---
Demographics + + + | Address | [address] | | | [place] [address] | + + + | Home Phone | | + + + | Preferred Language | Unknown | + + + | Marital Status | | + + + | Jew Affiliation | [phone] | + + + | Race | White | + + + | Ethnic Group | Not or | + + + Author + + + | Author | [facility] | | | and [place] | + + + | Organization | [facility] | | | [...] Team Providers + +------+ + | Care Ink Grinder Name | Role | Phone | + [...] Description | +--------+---------+ + + + | 04/17/ | Office | [facility] | Rasheeda Patel, | Coronary artery | | 2018 | Visit | CARDIOLOGY [address] [address] | disease involving | | | | [address], | [address] [place], [place] | [place] coronary | | | | [place] [address] | [phone] | artery of q[place] | | | | [phone] | | heart without angina | | | | | | pectoris (Primary | | | | | | Dx); Aortic valve | | | | | | stenosis, critical; | | | | | | Essential | | | | | | hypertension; S/P | | | | | | TAVR (transcatheter | | | | | | aortic valve | | | | | | replacement); Near | | | | | | syncope | +--------+---------+ + + + Social History [...] + + + | Blood Pressure | 164/64 | 04/17/2018 12:46 PM | | | | | PDT | | + + + + + | Pulse | 60 | 04/17/2018 12:46 PM | regular | | | | PDT | | + + + + + | Temperature | - | - | | + + + + + | Respiratory Rate | 15 | 04/17/2018 12:46 PM | | | | | PDT | | + + + + + | Oxygen Saturation | - | - | | + + + + + | Inhaled Oxygen | - | - | | | Concentration | | | | + + + + + | Weight | 67.6 kg (149 lb 0.5 | 04/17/2018 12:46 PM | | | | oz) | PDT | | + + + + + | Height | 157.5 cm (5' 2") | 04/17/2018 12:46 PM | | | | | PDT | | + + + + + | Body Mass Index | 27.26 | 04/17/2018 12:46 PM | | | | | PDT | | + + + + + documented in this encounter Patient Instructions Patient Instructions Rasheeda Patel ARNP - 04/17/2018 12:45 PM PDT 1. Start wearing the heart monitor (mobile cardiac telemetry) for 30 days, starting the of April. 2. Return to discuss results the first week of June. Check your blood pressure twice da lewis for the week or two leading up to your June appointment. documented in this encounter Progress Notes Rasheeda Patel ARNP - 04/17/2018 12:45 PM PDTFormatting of this note might be different fr om the original. PATIENT NAME: Maryhcuy Patterson : 1935: AGE: 82 y.o. PRIMARY CARE: Terrence Aquino DO CC: OUTPATIENT FOLLOW UP VISIT Date of Service: 04/17/2018 HISTORY OF PRESENT ILLNESS: Marychuy Patterson is a 82 y.o. 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 She is being seen today for follow up coronary artery disease. She was last seen 10/17/17 at which time her Clopidogrel was discontinued as she had reache d the interventionalist recommended 6 month briseida post PCI and she is planning to have spina l injection in the near future. 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 She was asked to call us after 2 weeks to let us know if her pain is back to baseline or not. If her pain is not back to baseline, we will have he r restart her pravastatin at her current dose. If her pain is back at baseline, we would blanco ve her retry pravastatin at 5 mg every OTHER day. If she is not sure, will have her stay off of pravastatin for another couple weeks and call again. Since that time, she noted her shea n was much better off the pravastatin, and so she has remained off of it. She has had a poor energy level, due to chronic pain She has not been very active due to a rthritis, and she is going to have another injection 05/09/18 in her spine. She thinks that a fter she has that injection she might try to restart doing low impact water exercises. She enjoys doing volunteer work, watching football in her spare time. She has not had any chest pain or discomfort at rest or with exertion. She has not noticed shortness of breath. Maki lemus has dizziness with no real reason that she is aware of . She had two spells of "extreme di zziness". She felt the first one while she was sitting at the computer and suddenly felt cinthia y lightheaded like she might pass out, and she tried to make it to her bed to lay down, but didn't quite get there so she slid to the ground and she believes she did black out. This wa s about 2.5 months ago. 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 She has not noticed palpitations. She has not had leg swelling. She sleeps on 1 pillow at [facility] without any shortness of breath. MEDICAL, SURGICAL, AND PERSONAL HISTORY Past Medical, Surgical, Family, and Social History are reviewed in EPIC. CURRENT PROBLEMS Patient Active Problem List Diagnosis Essential hypertension Hypokalemia Aortic valve stenosis, critical Hypertensive arteriosclerotic cardiovascular disease Nonrheumatic aortic valve stenosis Arthritis Arthritis of hip Palpitations Coronary artery disease involving qagan tay[place]ungin coronary artery of [place] heart without angina pectoris PAD (peripheral artery [...] TABS Take 1 tablet by mouth Daily. Yuzitoijreq-Tbumpnxxr-Njk C-Mn (GLUCOSAMINE-CHONDROITIN) TABS Take by mouth 2 times da lewis. irbesartan (AVAPRO) 300 mg tablet Take 300 mg by mouth Daily. metoprolol succinate (TOPROL-XL) 50 mg 24 hr tablet Take 1 tablet by mouth Daily. 90 ta blet 3 Multiple Vitamins-Minerals (PRESERVISION AREDS 2) CAPS Take 1 capsule by mouth Daily. Multiple Vitamins-Minerals (PRESERVISION AREDS 2) CAPS Take by mouth 2 times daily. nitrofurantoin (MACRODANTIN) 100 MG capsule Take 100 mg by mouth. Indications: Simple I nfection of the Urinary Tract potassium chloride (K-DUR) 20 mEq ER tablet Take 20 mEq by mouth Daily. 1 capsule mon- ed-fri orally once a day 0 pravastatin (PRAVACHOL) 10 mg tablet Take 0.5 tablets by mouth nightly. 0 traMADol (ULTRAM) 50 mg tablet Takes very seldom No current facility-administered medications for this visit. ALLERGIES Allergies Allergen Reactions Diatrizoate Meglumine & Sodium Diarrhea Amoxicillin Diarrhea Atorvastatin Other (See Comments) Fatigue, arthralgia Ferrous Gluconate Other (See Comments) GI upset Sulfa Antibiotics Itching ROS Review of Systems Constitutional: Positive for malaise/fatigue (caused by the pain she has). Negative for chi lls, diaphoresis, fever and weight loss. HENT: Positive for hearing loss. Negative for nosebleeds and tinnitus. Eyes: Negative for blurred vision and double vision. Respiratory: Negative for cough and shortness of breath. Cardiovascular: Negative for chest pain, palpitations, orthopnea, claudication and leg swel ling. Gastrointestinal: Negative for abdominal pain, blood in stool, constipation, diarrhea, hear tburn, melena, nausea and vomiting. Genitourinary: Positive for frequency. Negative for hematuria and urgency. Musculoskeletal: Positive for back pain, joint pain, myalgias and neck pain. Negative for f alls. Skin: Negative for rash. Neurological: Positive for dizziness and tingling (numbness in lower extremities (not new)) . Negative for tremors, seizures, loss of consciousness (about 3 months ago, she thinks she may have briefly had syncope), weakness and headaches. Negative for lightheaded Negative for dental problems Positive for gait problems, however does not use a walking aid Psychiatric/Behavioral: Negative for memory loss. The patient is not nervous/anxious and do es not have insomnia. OBJECTIVE: PHYSICAL EXAM BP 164/64 | Pulse 60 Comment: regular | Resp 15 | Ht 1.575 m (5' 2") | Wt 67.6 kg (149 l b 0.5 oz) | BMI 27.26 kg/m Physical Exam Constitutional: She is oriented [...] now present Confirmed by SIERRA FORBES MD ([id number]) on 04/28/2017 3:04:03 PM Which is compared to today's ECG 04/17/2018: Sinus bradycardia with rate of 58 beats per m inute, possible left atrial enlargement, left ventricular hypertrophy, first-degree AV block ,. LAB RESULTS reviewed during visit today primarily from [facility]: LIPID Lab Results Component Value Date CHOLHDL [...] found for: TSH, TSHEX, BNP, BNPEX I reviewed records from PCP for office visit on 12/11/17 regarding multiple medical problems including Hypertension at which time Future labs were ordered for CMP, TSH and CBC due in O ctober, and patient was asked to monitor blood pressure. Above data and testing is reviewed this visit; testing below is historical data unless othe rwise specified. ASSESSMENT: 1. Near syncope: A. Today, 04/17/2018, she describes 2 episodes of near syncope in the last few months. She felt the first one while she was sitting at the computer and suddenly felt very lightheaded like she might pass out, and she tried to make it to her bed to lay down, but didn't quite g et there so she slid to the ground and she believes she did black out. This was about 2.5 mo nths ago. 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 She had warning with both of them with feeling lightheaded, but had no other symptoms, no warmth or flushing , no palpitations. They are suspicious for arrhythmia so evaluation with alarm security or surveillance monitor is warranted. She would like to wait until after she has her next spinal injection in the mid dle of April, also she volunteers a lot for the [employer] and wants to wait unti l after that is completed before wearing a monitor as well. 2. Critical calcific aortic valve stenosis, status post TAVR 04/19/17: A. Echocardiogram from 11/2011 shows moderate aortic valve stenosis. LVEF 60-6 5%. Mild aortic valve insufficiency. B. Echocardiogram from 08/12/15 shows normal left ventricular size, wall thickn ess and motion. LVEF 60%. Trileaflet aortic valve with thickening and calcification. P eak velocity across aortic valve is 3.6 m/s with the peak gradient of 51 mmHg. Aortic valv ular area is 0.6 cm. There is a trace aortic valve insufficiency. There is a mild mitr al annular calcification. Mild mitral valve regurgitation. No [...] replacement is a new fi nding. F. Today, 04/17/2018, she is doing well from this standpoint. There are no signs or symptoms of overt congestive heart failure, and her physical exam sh ows no significant fluid retention. 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 3. Coronary artery disease: A. Cardiac cath per Dr. Sanchez on 04/19/17 with treatment of mid RCA stenosis wi th a 3.5 x 15 mm Xience Alpine FALGUNI. B. Today, 04/17/2018, she denies any chest pain. She remains on aspirin and bet a-mariluz. She was intolerant to atorvastatin due to myalgias. She also stopped pravastatin due to th is. 4. Peripheral arterial disease: A. LE angiography per Dr. Jacobs. 04/19/17. RADIATION ONCOLOGY NURSE and stenting of left common fem oral artery into the SFA with a 6.5 Supera x 40 mm stent. B. Today, 04/17/2018, she denies claudication. 5. Hypertension, essential: A. Today, 04/17/2018, her blood pressure is elevated. She notes her blood pressu re fluctuates due to her pain, and she notes her blood pressure will go up when she is in pa in. However her blood pressure does appear to run a little on the high side all the time. Discussed with her that she would benefit from medication dose adjustment, however at this t pennie given her near-syncope a would be good to evaluate heart rhythm first, considering if sh allan has bradycardia arrhythmia we would want to back off on her metoprolol if she has tachycar abdirahman arrhythmia we would want to increase her metoprolol and this would affect the treatment for her hypertension. 6. Hyperlipidemia, mixed: A. Today, 04/17/2018, she notes she was also intolerant to even very low dose p ravastatin as well as the atorvastatin she initially tried. At this point she is not willing to retry any statin therapy. 7. Chronic back pain. Not otherwise addressed today 04/17/2018. A. She will have her next injection on 05/09/18. 8. Severe osteoarthritis: Not otherwise addressed today 04/17/2018. A. Post right hip replacement in the past. 9. Iron deficiency anemia. Not otherwise addressed today 04/17/2018. 10. Migraine. Not otherwise addressed today 04/17/2018. 11. Peptic ulcer disease. Not otherwise addressed today 04/17/2018. 12. History of Crohn disease. Not otherwise addressed today 04/17/2018. PLAN: 1. She will wear a 30 day mobile cardiac telemetry to evaluate her near syncope. She wants to wait until [facility] and her next spine injection are completed before wearing t his, so it will start at the end of April. 2. She will otherwise continue with her current medical regimen. 3. In the 2 weeks leading up to her follow-up appointment she will check her blood pressure and pulse twice daily and bring the readings with her to her appointment. 4. She will follow up in about a week after the monitor is completed for office visit, or s ooner with concerns. Depending on the results, her medications will likely be changed to tr eat her blood pressure as well. Electronically signed by: ALFREDA Nur Barbara Rennaker, MA-R, am acting as a scribe on behalf of, and in the presence of ALFREDA Nur. - DMITRIY Pastor 04/17/2018 12:49 I, ALFREDA Nur, personally performed the services described in this documentation, as scribed in my presence and it is both accurate and complete. ALFREDA Nur 201 [id number] Portions of this chart may have been created with [employer] voice recognition software. Occasi onal wrong-word or [...] | | | | St [place] | | | | | | [id number] | | | | | | | | +--------+ + + + + | 06/18/ | Office | Cardiology | Sandra Lua | | 2019 | Visit | | [address]NN[address] | | | | | | [facility] | | | | | | [place] [id number] | | | | | | [phone] | | | | | | | | +--------+ + + + + documented as of this encounter Procedures + +--------+ + + + | Procedure Name | Priori | Date/Time | Associated Diagnosis | Comments | | | ty | | | | + +--------+ + + + | ECG 12 LEAD | Routin | 04/17/2018 | Aortic valve | Results for this | | | e | 1:02 PM | stenosis, critical | procedure are in the | | | | PDT | | results section. | + +--------+ + + + documented in this encounter Results Mobile Cardiac Telemetry (07/16/2018 4:14 PM PST) + + + | Narrative | Performed At | + + + | Jurgen Hoskins MD 07/16/2018 16:15 Mobile cardiac | [facility] | | telemetry from 05/16 until [...] | | | + +---------+ + + ECG 12 lead (04/17/2018 1:02 PM PDT) + + + + + + | Component | Value | Ref Range | Performed | Pathologist | | | | | At | Signature | + + + + + + | VENTRICULAR | 58 | BPM | [facility] | | | RATE EKG | | | | | + + + + + + | ATRIAL RATE | 58 | BPM | [facility] | | + + + + + + | P-R | 242 | ms | [facility] | | | INTERVAL | | | | | + + + + + + | QRS | 92 | ms | [facility] | | | DURATION | | | | | + + + + + + | Q-T | 432 | ms | [facility] | | | INTERVAL | | | | | + + + + + + | Q-T | 424 | ms | [facility] | | | INTERVAL | | | | | | (CORRECTED) | | | | | + + + + + + | P WAVE AXIS | 48 | degrees | [facility] | | + + + + + + | QRS AXIS | 25 | degrees | [facility] | | + + + + + + | T AXIS | 54 | degrees | [facility] | | + + + + + + | INTERPRETAT | Sinus bradycardia with | | [facility] | | | ION TEXT | 1st degree AV | | | | | | blockPossible Left | | | | | | atrial enlargementLeft | | | | | | ventricular | | | | | | hypertrophyAbnormal | | | | | | ECGWhen compared with | | | | | | ECG of 27-APR-2017 | | | | | | 10:45,Left bundle branch | | | | | | block is no longer | | | | | | presentConfirmed by | | | | | | JURGEN HOSKINS MD | | | | | | ([id number]) on 04/17/2018 | | | | | | 4:16:07 PM | | | | + + [...] + + | Coronary artery disease involving qagan tayagungin coronary artery of qagan tayagungin heart without | | angina pectoris - Primary | + + | Aortic valve stenosis, critical Aortic valve disorders | + + | Essential hypertension Unspecified essential hypertension | + + | S/P TAVR (transcatheter aortic valve replacement) | + + | Near syncope Syncope and collapse | + + documented in this encounter
--- OUTSIDE RECORDS SUMMARY | ~2020-05-24 | XMS | Clinical Summary ---
Demographics + + + | Address | [address] | | | [place] [address] | + + + | Home Phone | | + + + | Preferred Language | Unknown | + + + | Marital Status | | + + + | Muslim Affiliation | 1041 | + + + | Race | White | + + + | Ethnic Group | Not or | + + + Author + + + | Author | [facility] | | | and [place] | + + + | Organization | [facility] | | | and [...] Team Providers + +------+ + | Care Cdl Service Technician Name | Role | Phone | + +------+ + | Terrence Aquino DO | PCP | | + +------+ + Allergies + + + + + + | Active Allergy | Reactions | Severity | Noted | Comments | | | | | Date | | + + + + + + | Amoxicillin | Diarrhea | Low | 02/24/20 | | | | | | 16 | | + + + + + + | Atorvastatin | Other (See Comments) | Low | 02/17/20 | Fatigue, | | | | | 16 | arthralgia | + + + + + + | Ferrous Gluconate | Other (See Comments) | Low | 02/17/20 | GI upset | | | | | 16 | | + + + + + + | Diatrizoate | Diarrhea | Medium | 04/27/20 | | | Meglumine & Sodium | | | 17 | | + + + + + + Medications + + + +---------+------+------+-------+ | Medication | Sig | Dispensed | Refills | Star | End | Statu | | | | | | t | Date | s | | | | | | Date | | | + + + +---------+------+------+-------+ | Multiple | Take by mouth 2 | | 0 | | | Activ | | Vitamins-Minerals | times daily. | | | | | e | | (PRESERVISION AREDS | | | | | | | | 2) CAPS | | | | | | | + + + +---------+------+------+-------+ | acetaminophen | Take 500 mg by mouth | | 0 | | | Activ | | (TYLENOL) 500 mg | Daily. 3-4 tablets | | | | | e | | tablet | daily | | | | | | + + + +---------+------+------+-------+ | ascorbic acid | Take 500 mg by mouth | | 0 | | | Activ | | (VITAMIN C) 500 mg | Daily. | | | | | e | | tablet | | | | | | | + + + +---------+------+------+-------+ | B Complex Vitamins | Take 1 tablet by | | 0 | | | Activ | | (VITAMIN-B COMPLEX) | mouth Daily. | | | | | e | | TABS | | | | | | | + + + +---------+------+------+-------+ | irbesartan | Take 300 mg by mouth | | 0 | | | Activ | | (AVAPRO) 300 mg | Daily. | | | | | e | | tablet | | | | | | | + + + +---------+------+------+-------+ | cholecalciferol | Take 1,000 Units by | | 0 | | | Activ | | (CHOLECALCIFEROL) | mouth Daily. | | | | | e | | 1000 units TABS | | | | | | | + + + +---------+------+------+-------+ | Calcium 500-125 | Take by mouth. | | 0 | | | Activ | | MG-UNIT TABS | | | | | | e | + + + +---------+------+------+-------+ | potassium chloride | Take 20 mEq by mouth | | 0 | | | Activ | | 20 mEq CR tablet | Daily. | | | | | e | + + + +---------+------+------+-------+ | nitrofurantoin | Take 100 mg by mouth | | 0 | | | Activ | | (MACROBID) 100 mg | 2 times daily. | | | | | e | | capsuleIndications: | Indications: Simple | | | | | | | Uncomplicated | Infection of the | | | | | | | Urinary Tract | Urinary Tract | | | | | | | Infection | | | | | | | + + + +---------+------+------+-------+ | TURMERIC PO | Take by mouth. | | 0 | | | Activ | | | | | | | | e | + + + +---------+------+------+-------+ | alendronate | Take 70 mg by mouth | | 0 | | | Activ | | (FOSAMAX) 70 mg | every 7 days. | | | | | e | | tablet | | | | | | | + + + +---------+------+------+-------+ | cephalexin | Take 4 capsules by | 12 | 3 | 06/ | | Activ | | (KEFLEX) 500 mg | mouth 30-60 minutes | capsule | | 8/20 | | e | | capsule | prior to dental | | | 20 | | | | | procedures due to | | | | | | | | Aortic Valve | | | | | | | | replacement | | | | | | + + + +---------+------+------+-------+ | metoprolol | take 1 tablet by | 90 | 3 | 09/2 | | Activ | | succinate | mouth once daily | tablet | | 1/20 | | e | | (TOPROL-XL) 50 mg 24 | | | | 20 | | | | hr tablet | | | | | | | + + + +---------+------+------+-------+ | metoprolol | Take 1 tablet by | 90 | 3 | 10/0 | 04/22 | Disco | | succinate | mouth Daily. | tablet | | / | 09/09 | ntinu | | (TOPROL-XL) 50 mg 24 | | | | 19 | 20 | ed | | hr tablet | | | | | | | + + + +---------+------+------+-------+ Active Problems + + + | Problem | Noted Date | + + + | Lumbar radiculitis | 05/09/2019 | + + + | DDD (degenerative disc disease), lumbar | 05/09/2019 | + + + | Spinal stenosis of lumbar region with neurogenic claudication | 05/09/2019 | + + + | Palpitations | 04/27/2017 | + + + | Coronary artery disease involving [place] coronary artery of | 04/27/2017 | | [place] heart without angina pectoris | | + + + + + | Overview: Mobile cardiac telemetry from 05/16 until | | 06/15/2018. Baseline EKG shows sinus rhythm with heart rate | | ranging from 45-119 beats minute. PACs, atrial couplet was noted. | | PVCs was also noted. | + + + + + | PAD (peripheral artery disease) | 04/27/2017 | + + + | S/P TAVR (transcatheter aortic valve replacement) | 04/27/2017 | + + + | Arthritis of hip | 07/28/2012 | + + + | Essential hypertension | | + + + | Hypokalemia | | + + + | Aortic valve stenosis, critical | | + + + + + | Overview: Mobile cardiac telemetry from 05/16 until | | 06/15/2018, baseline EKG shows sinus rhythm with heart rate | | ranging from 45-119 beats minute, PACs, atrial couplet was noted | | PVCs was also noted, by Martina Hoskins MD. Echocardiogram | | 06/08/17 Normal left ventricular size, wall thickness and motion. | | Preserved left ventricular systolic function. LVEF is 70-75%. | | Grade 1 left ventricular diastolic dysfunction. Evidence of a | | TAVR #23mm Larios Sung with slight increase of the pressure | | gradient across the valve. There is a mild transvalvular aortic | | valve insufficiency. Mildly thickened and calcified mitral valve | | with a mild mitral valve regurgitant, mild mitral annular | | calcification, normal right-sided pressure, normal IVC with | | normal respiratory collapse. When compared to echocardiography on | | 02/22/17, aortic valve replacement is a new finding.TAVR Event | | Monitor 04/04/17 Event monitor from 03/21 until 04/03/2017. Baseline | | EKG shows sinus rhythm with first-degree AV block. There were | | multiple patient activation without symptoms. EKG shows sinus | | rhythm with first degree AV block and a single PVCs. There is no | | other significant arrhythmias seen.Cardiac Cath Severe | | single-vessel coronary artery disease; 90% stenosis to the | | midportion of the RCA. There is a right dominate circulation. | | Normal LV systolic function with an EF of 65% by echocardiogram. | | Systemic blood pressure is normal. Severe calcific aortic valve | | stenosis. There was successful hemostasis with a TR hemostatic | | band.Echocardiogram 02/20/2017 shows normal left ventricular size, | | wall thickness and motion, preserved left ventricular systolic | | function. LVEF is 65%, grade 1 left ventricular diastolic | | dysfunction, moderately thickened and calcified trileaflet aortic | | valve with severe to critical calcific aortic valve stenosis, | | peak velocity across aortic valve is 4.4 m/s, peak gradient of 76 | | mmHg, aortic valvular area of 0.7 cm^2, there is also a mild | | aortic valve insufficiency, mildly thickening calcified mitral | | valve with a mild mitral valve regurgitation, mild mitral annular | | calcification, normal right-sided pressure, normal IVC with | | normal respiratory collapse, no previous echocardiography for | | comparison. | + + + +---+ | Hypertensive arteriosclerotic cardiovascular disease | | + +---+ | Nonrheumatic aortic valve stenosis | | + +---+ | Arthritis | | + +---+ Encounters +--------+--------+ + + + | Date | Type | Specialty | Care Team | Description | +--------+--------+ + + + | 05/09/ | Refill | Cardiology | Rasheeda Patel, | Medication Refill | | 2020 | | | FACER OPERATOR | | +--------+--------+ + + + from Last 3 Months Immunizations + + + + | Name | Administration Dates | Next Due | + + + + | INFLUENZA, | 05/25/2015, 05/27/2014, 05/23/2013, | | | UNSPECIFIED | 07/27/2012 | | | FORMULATION | | | + + + + | PNEUMOCOCCAL | 05/25/2015 | | | CONJUGATE 13-VALENT | | | | (PCV13) | | | + + + + | PNEUMOCOCCAL | 08/03/2012 | | | POLYSACCHARIDE | | | | 23-VALENT (PPSV23) | | | + + + + | TDAP, (ADOL/ADULT) | 09/03/2012 | | + + + + | ZOSTER, 1 DOSE | 09/02/2013 | | | (ZOSTAVAX) | | | + + + + Family History + + +------+ + | Medical History | Relation | Name | Comments | + + +------+ + | Cancer | Brother | | Melanoma | + + +------+ + | Coronary artery | Father | | | | disease | | | | + + +------+ + | Coronary artery | Mother | | | | disease | | | | + + +------+ + + +------+ + + | Relation | Name | Status | Comments | + +------+ + + | Brother | | | | + +------+ + + | Father | | | CAD | | | | (Age | | | | | 76) | | + +------+ + + | Mother | | | CAD | | | | (Age | | | | | 79) | | + +------+ + + Social History + +-------+ +--------+------+ [...] on file | | + + + Last Filed Vital Signs + + + [...] + + + + | Temperature | 36.8 C (98.3 F) | 11/23/2018 4:10 PM | | | | | PDT [...] | | + + + + + Plan of Treatment +--------+ + + + + | Date | Type | Specialty | Care Team | Description | +--------+ + + + + | 06/18/ | Appointment | Cardiology | Rasheeda Patel, | | | 2019 | | | [address] | | | | | | [facility] | | | | | | [phone] | | | | | | | | +--------+ + + + + | 06/18/ | Office | Cardiology | Sandra Lua | | | 2019 | Visit | | JOHNNY Bernal [address] | | | | | | [place] | | | | | | [place] [address] | | | | | | [phone] | | | | | | | | +--------+ + + + + + + + + + | Health Maintenance | Due Date | Last | Comments | | | | Done | | + + + + + | Med Mgmt: Vit D | | | | | | 6 | | | + + + + + | Medication | | | | | Management | 6 | | | + + + + + | Vaccine: Zoster (2 | | 09/02/19 | | | of 3) | 4 | 14 | | + + + + + | Adult Annual | | | | | Wellness Visit | 5 | | | + + + + + | Med Mgmt: Cr | | 04/11/20 | | | | 9 | 18, | | | | | 04/11/20 | | | | | 18, | | | | | 10/12/19 | | | | | 18, | | | | | Addition | | | | | al | | | | | history | | | | | exists | | + + + + + | Med Mgmt: K | | 04/11/20 | | | | 9 | 18, | | | | | 04/11/20 | | | | | 18, | | | | | 10/12/19 | | | | | 18, | | | | | Addition | | | | | al | | | | | history | | | | | exists | | + + + + + | Med Mgmt: eGFR | | 04/11/20 | | | | 9 | 18, | | | | | 04/11/20 | | | | | 18, | | | | | 10/12/19 | | | | | 18, | | | | | Addition | | | | | al | | | | | history | | | | | exists | | + + + + + | Vaccine: Influenza | | 05/25/20 | | | (#1) | 0 | 15, | | | | | 05/27/20 | | | | | 14, | | | | | 05/23/20 | | | | | 13, | | | | | Addition | | | | | al | | | | | history | | | | | exists | | + + + + + | Vaccine: | | 09/03/19 | | | Dtap/Tdap/Td (2 - | 3 | 13 | | | Td) | | | | + + + + + | Vaccine: | Completed | 05/25/20 | | | Pneumococcal 65+ | | 15, | | | | | 08/03/20 | | | | | 12 | | + + + + + Implants + +------+--------+ +--------+--------+--------+ | Implanted | Type | Area | Manufacture | Device | Shelf | Model | | | | | r | | Expira | / | | | | | | Identi | tion | Serial | | | | | | fier | Date | / Lot | + +------+--------+ +--------+--------+--------+ | Acet Shell Cluster Flores Coated | | Right: | [employer]STE[employer]ICS - | | 05/20/ | 542-11 | | Trident Psl Size E 50mm - | | Hip | PART OF | | 2016 | -50E | | [id number]: Qty: 1 on | | | AILYN - | | | /[id number] | | 07/30/2012 by Angel Guevara | | | OSTE | | | 50E | | MD Doug | | | | | | /[id number] | | | | | | | | M | + +------+--------+ +--------+--------+--------+ | Screw Total Hip Canc 6.5x20mm | | Right: | NA UNKNOWN | | 07/20/ | 2029-6 | | - [id number]: Qty: | | Hip | | | 2015 | 520-1 | | 1 on 07/30/2012 by Paola, | | | | | | / | | Angel Camacho MD | | | | | | 5200 | | | | | | | | /[id number] | | | | | | | | 6 | + +------+--------+ +--------+--------+--------+ | Screw Total Hip Canc 6.5x30mm | | Right: | NA UNKNOWN | | 05/20/ | 2029-6 | | - [id number]: Qty: | | Hip | | | 2016 | 530-1 | | 1 on 07/30/2012 by Paola, | | | | | | / | | Angel Camacho MD | | | | | | 1 | | | | | | | | /[id number] | | | | | | | | V | + +------+--------+ +--------+--------+--------+ | Acet Insert Trident X3 0 | | Right: | OSTE[employer]ICS - | | 07/20/ | 623-00 | | Degree Size E 36mm - | | Hip | PART OF | | 2016 | -36E | | [id number]: Qty: 1 on | | | AILYN - | | | /[id number] | | 07/30/2012 by Angel Guevara | | | OSTE | | | 36E | | MD Doug | | | | | | /[id number] | | | | | | | | N | + +------+--------+ +--------+--------+--------+ | Stem Femoral Cementless | | Right: | AILYN | | 04/19/ | 6021-0 | | Accolade Plus Size 3 - | | Hip | MEDICAL - | | 2016 | 335 | | [id number]: Qty: 1 on | | | STRY | | | /[id number] | | 07/30/2012 by Angel Guevara | | | | | | 335 | | MD Doug | | | | | | /[id number] | | | | | | | | 903 | + +------+--------+ +--------+--------+--------+ | Head Femoral Ceramic V40 | | Right: | [employer]ICS - | | 06/20/ | 6570-0 | | Biolox 36mm -2.5 - | | Hip | PART OF | | 2017 | -436 | | [id number]: Qty: 1 on | | | AILYN - | | | /[id number] | | 07/30/2012 by Angel Guevara | | | OSTE | | | 436 | | MD Doug | | | | | | /[id number] | | | | | | | | 603 | + +------+--------+ +--------+--------+--------+ Results Not on filefrom Last 3 Months Insurance + +--------+ +--------+ +---------+--------+ | Payer | Benefi | Subscriber | Effect | Phone | Address | Type | | | t Plan | ID | shan | | | | | | / | | Dates | | | | | | Group | | | | | | + +--------+ +--------+ +---------+--------+ | MEDICARE | MEDICA | [id number] | | [phone] | | Medica | | | RE | | 001-Pr | 5 | | re | | | PART A | | esent | | | | | | AND B | | | | | | + +--------+ +--------+ +---------+--------+ | MEDICARE | MEDICA | [id number] | | [phone] | | Medica | | | RE | | 001-Pr | 5 | | re | | | PART A | | esent | | | | | | AND B | | | | | | + +--------+ +--------+ +---------+--------+ | [employer] | MUTUAL | [id number] | 08/21/19 | [phone] | | Indemn | | | AND | | 16-Pre | 0 | | ity | | | [place] | | sent | | | | | | [employer] | | | | | | | | MDCR | | | | | | | | SUPPL | | | | | | + +--------+ +--------+ +---------+--------+ | [employer] | MUTUAL | [id number] | 01/20/20 | [phone] | | Indemn | | | AND | | 20-Pre | 0 | | ity | | | [place] | | sent | | | | | | [employer] | | | | | | | | MDCR | | | | | | | | SUPPL | | | | | | + +--------+ +--------+ +---------+--------+ + +--------+ +--------+ + + | Guarantor Name | Accoun | Relation to | Date | Phone | Billing Address | | | t Type | Patient | of | | | | | | | | | | + +--------+ +--------+ + + | Marychuy Patterson | Person | Self [birth year] | 1 4 | | | al/Fam | | 1935 | [phone] | [place] | | | [place] | | | 5 (Home) | [address] | + +--------+ +--------+ + + | Marychuy Patterson | Person | Self | [birth year] | 1 4 | | | al/Fam | | 1935 | [phone] | [place] | | | [place] | | | 5 ([place]) | [address] | + +--------+ +--------+ + + Advance Directives + + + + + | Type | Date Recorded | Patient | Explanation | | | | Ict Trainer | | + + + + + | Power of | | | | | Director Of Events | | | | + + + + + | Advance | 03/06/2017 7:31 | | | | Directive | AM | | | + + + + + | Advance | 08/06/2012 | | | | Directive | 8:29 PM | | | + + + + + | Advance | 08/06/2012 | | | | Directive | 5:17 PM | | | + + + + +
--- OUTSIDE RECORDS SUMMARY | ~2020-05-24 | XMS | Encounter Summary ---
Demographics + + + | Address | [address] | | | [place] [address] | + + + | Home Phone | | + + + | Preferred Language | Unknown | + + + | Marital Status | | + + + | Adventism Affiliation | 1041 | + + + | Race | White | + + + | Ethnic Group | Not or | + + + Author + + + | Author | [facility] | | | and [place] | + + + | Organization | [facility] [...] Team Providers + +------+ + | Care Lap Winder Name | Role | Phone | + [...] Description | +--------+--------+ + + + | 06/02/ | Refill | [facility] | Rasheeda Patel, | Medication Refill | | 2017 | | CARDIOLOGY [address] | DIRECTOR OF SPECIAL SERVICES [address] | | | | | [place], | [facility] [place] | | | | | [place] [address] | [address] | | | | | [phone] | | | +--------+--------+ + + + [...] Esparza | | | | | | [id number] | | | | | | | | +--------+ + + + + | 06/18/ | Office | Cardiology | Sandra Lua | | | 2019 | Visit | | JOHNNY Bernal [address] | | | | | | [place] [address] | | | | | | [place] [address] | | | | | | [phone] | | | | | | | | +--------+ + + + + documented as of this encounter Visit Diagnoses Not on filedocumented in this encounter"
--- OUTSIDE RECORDS SUMMARY | ~2020-05-24 | XMS | Encounter Summary ---
Demographics + + + | Address | [address] | | | [place] [address] | + + + | Home Phone | | + + + | Preferred Language | Unknown | + + + | Marital Status | | + + + | Hindu Affiliation | 1041 | + + + | Race | White | + + + | Ethnic Group | Not or | + + + Author + + + | Author | [facility] | | | and [place] | + + + | Organization | [facility] | | | and [place] | + + + | Address | Unknown | + + + | Phone | Unavailable | + + + Support + + +---------+ + | Name | Relationship | Address | Phone | + + +---------+ + | Mariselincole Orellana | ECON | Unknown | | + + +---------+ + | Faviola Lara | ECON | Unknown | | + + +---------+ + Care Team Providers + +------+ + | Care Visual Specialist Name | Role | Phone | [...] | | | | | | Rasheeda, CRM DEVELOPER | [address] | | | | | Nonrheumatic | [address] | [place], | | | | | aortic | [place] | [place] | | | | | valve | [place], [place] | [address] | | | | | stenosis | [phone] | Phone: | | | | | Essential | Phone: | [phone] | | | | | hypertension | [phone] | Fax: | | | | | | Fax: | [phone] | | | | | Palpitations | [phone] | | | | | | S/P [...] | | | | | | | kalispel | | | | | | | coronary | | | | | | | artery of | | | | | | | kalispel heart | | | | | | [...] | | | | | | Complete OR | | | | | | | ECHO HEART | | | | | | | XTHORACIC,CO | | | | | | | MPLETE W | | | | | | | DOPPLER OR | | | | | | | [...] Aortic Stenosis | | + + + Encounter Details +--------+---------+ + + + | Date | Type | Department | Care Team | Description | +--------+---------+ + + + | 04/27/ | Office | [facility] | Rasheeda Patel, | Nonrheumatic aortic | | 2017 | Visit | CARDIOLOGY [address] | CRM DEVELOPER [address] | valve stenosis | | | | [place], | [place] | (Primary Dx); | | | | [place] [address] | [address] | Essential | | | | [phone] | | hypertension; | | | | | | Palpitations; S/P | | | | | | TAVR (transcatheter | | | | | | aortic valve | | | | | | replacement); | | | | | | Coronary artery | | | | | | disease involving | | | | | | kalispel coronary | | | | | | artery of kalispel | | | | | | heart without angina | | | | | | pectoris; PAD | | | | | | (peripheral artery | | | | | | disease) ([facility]); | | | | | | Tachycardia | +--------+---------+ + + + Social History [...] + | Blood Pressure | 124/70 | 04/27/2017 10:27 AM | | | | | PDT | | + + + + + | Pulse | 100 | 04/27/2017 10:27 AM | regular | | | | PDT | | + + + + + | Temperature | - | - | | + + + + + | Respiratory Rate | 18 | 04/27/2017 10:27 AM | | | | | PDT | | + + + + + | Oxygen Saturation | - | - | | + + + + + | Inhaled Oxygen | - | - | | | Concentration | | | | + + + + + | Weight | 64.9 kg (143 lb) | 04/27/2017 10:27 AM | | | | | PDT | | + + + + + | Height | 157.5 cm (5' 2") | 04/27/2017 10:27 AM | | | | | PDT | | + + + + + | Body Mass Index | 26.16 | 04/27/2017 10:27 AM | | | | | PDT | | + + + + + documented in this encounter Patient Instructions Patient Instructions Rasheeda Patel ARNP - 04/27/2017 10:30 AM PDT1. Restart taking metopr olol succinate 50 mg daily and I recommend you start taking this evening / or at bedtime . This will help prevent the racing heart and the skipped beat feelings. It also hel ps to keep the blood pressure down. 2. If your fast heart rate and irregularity doesn't resolve by about 5 days after restartin g the metoprolol, please call us and we will have you wear a heart monitor. 3. Please take your blood pressure monitor in to your PCP office to have it checked for acc uracy. Then please check blood pressure and pulse twice daily for two weeks and return the log to our office. You can check this first thing in the morning and last thing at night, o r before breakfast and before dinner, but we don't recommend you check it right after eating . 4. We are putting in the referral to [facility] for the cardiac rehab, an d you should be hearing from them next week about scheduling your first visit. 5. I recommend that you start taking a probiotic with prebiotic for 2 weeks, or until your symptoms fully resolve. 6. Return in 6 to 8 weeks, or sooner with concerns. We will schedule your echocardiogram ( ultrasound of your heart) prior to your visit and will check your ECG the day of your visit. documented in this encounter Progress Notes Rasheeda Patel ARNP - 04/27/2017 10:30 AM PDTFormatting of this note might be different fr om the original. PATIENT NAME: Marychuy Patterson : 1935: AGE: 81 y.o. PRIMARY CARE: Terrence Aquino DO CC: OUTPATIENT FOLLOW UP VISIT Date of Service: 04/27/2017 HISTORY OF PRESENT ILLNESS: Marychuy Patterson is a 81 y.o. 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 She is b eing seen today for follow up coronary artery disease, aortic valve stenosis and PAD. She was last seen 02/24/17 at which time she was scheduled for left heart catheterization a nd referred to [facility] for consideration of TAVR.. Since that time, she un derwent TAVR, left SFA stent, and mid RCA stent all on 04/19/17 at [facility]. Her post operative course was uncomplicated and the patient was up and ambulating at her [facility] without difficulty. She did not have any significant bradycardia on telemetry, andreina strickland it was planned to hold her metoprolol for 1 week regardless due to the risk for bradycardi a post procedure. She was discharged home in stable condition on 04/20/17. Today she notes that the morning after she returned home she started to have heart racing f eelings that would happen off and on throughout the day but was most noticeable first thing in the morning. She would check her pulse and it would be in the 95 to 100 beats per minute range. She did not have any associated symptoms, but it was very concerning to her. By e day or so she began to notice "skipped beat" feelings, which she had many years ago an d resolved after starting atenolol, which was later changed to metoprolol. She also has had some loose stools for which she took imodium, but she dislikes doing that as she has histor y of Crohn's and previously had obstruction. She has had a fair energy level. She tries to stay active. She enjoys volunteering at the [employer] in her spare time, and is looking forward to doing that after she can drive again 2 weeks post operative. She has not had any chest pain or discomfort at rest or with exert ion. She has not noticed shortness of breath. She has not had any lightheadedness or dizz iness. She has not had leg swelling. She sleeps on 2 pillows at night, which is her norm, and does not wake up at night feeling short of breath. MEDICAL, SURGICAL, AND PERSONAL HISTORY Past Medical, Surgical, Family, and Social History are reviewed in EPIC. CURRENT PROBLEMS Patient Active Problem List Diagnosis Essential hypertension Hypokalemia Aortic valve stenosis, critical Hypertensive arteriosclerotic cardiovascular disease Nonrheumatic aortic valve stenosis Arthritis Arthritis of hip CURRENT MEDICATIONS Current Outpatient Prescriptions Medication Sig Dispense Refill acetaminophen (TYLENOL) 500 mg tablet Take 500 mg by mouth Daily. 3-4 tablets daily ascorbic acid (VITAMIN C) 500 mg tablet Take 500 mg by mouth Daily. B Complex Vitamins (VITAMIN-B COMPLEX) TABS Take 1 tablet by mouth Daily. cholecalciferol (VITAMIN D-3) 1,000 units capsule Take 1,000 Units by mouth Daily. Kbgefanelef-Hdlrmfsfl-Iwx C-Mn (GLUCOSAMINE-CHONDROITIN) TABS Take by mouth 2 [...] Respiratory: Negative for shortness of breath. Cardiovascular: Positive for palpitations. Negative for chest pain, orthopnea, leg swelling and PND. Gastrointestinal: Positive for diarrhea. Neurological: Negative for dizziness and loss of consciousness. OBJECTIVE: PHYSICAL EXAM BP 124/70 | Pulse 100 Comment: regular | Resp 18 | Ht 1.575 m (5' 2") | Wt 64.9 kg (143 lb) | BMI 26.16 kg/m Physical Exam Constitutional: She is oriented [...] orders placed or performed in visit on 02/24/17 ECG 12 lead Result Value Ref Range INTERPRETATION TEXT Sinus rhythm with 1st degree AV block Otherwise normal ECG When compared with ECG of 24-FEB-2016 11:15, No significant change was found Confirmed by LAUREL SEPULVEDA, JURGEN ([id number]) on 02/27/2017 6:09:29 AM Which is compared to today's ECG 04/27/2017: Sinus rhythm with rate of 75 bpm, LBBB LAB RESULTS reviewed during visit today primarily from [facility]: LIPID No results found for: CHOL, TRIG, HDL, LDL, CHOLHDL, LDLEX, HDLEX, TRIGEX, CHOLEX CHEMISTRY Lab Results Component Value Date GLU 120 (H) 02/24/2017 GLUEX 90 12/14/2016 NA 138 02/24/2017 NAEX 139 12/14/2016 K 3.6 02/24/2017 KEX 3.8 12/14/2016 CL 102 02/24/2017 CLEX 102 12/14/2016 CO2 28 02/24/2017 CO2EX 27 12/14/2016 CALCIUM 8.7 02/24/2017 ASTEX 18 12/14/2016 ALTEX 16 12/14/2016 CREA 0.63 02/24/2017 BUN 28 (H) 02/24/2017 EGFREX 98 12/14/2016 CREEX 0.59 (A) 12/14/2016 HEMATOLOGY Lab Results Component Value Date WBCEX 4.8 12/14/2016 HGBEX 12.7 12/14/2016 HCTEX 38.4 12/14/2016 PLTEX 179 12/14/[address] records [address] [facility] for hospitalization,including H&P, Discharge Summary and lab reports on 04/19/17-04/20/17 which is summarized in the HPI. I reviewed reports from [facility]: 1. Transcatheter aortic valve replacement per femoral route with a 23mm Larios Sung [address] Sanchez on 04/19/17 without significant paravalvular leak or central AI, EF remain s preserved. See full procedure note for details. 2. LE angiography per Dr. Jacobs. 04/19/17. SYSTEMS SPECIALIST and stenting of left common femoral artery i nto the SFA with a 6.5 Supera x 40mm stent 3. Cardiac cath per Dr. Sanchez on 04/19/17 with treatment of mid RCA stenosis with a 3.5 x 15 mm Xience Alpine FALGUNI Above data and testing is reviewed this [...] valve replacement per femoral route with a 23mm Edwa rds Sung [address] Sanchez on 04/19/17 without significant paravalvular leak or centra l AI, EF remains preserved. E. Today, she is doing very well. There is no signs and symptoms of overt congestive hea rt failure. She is in a class II of [place] [employer] functional class. There is no fluid retention on physical examination. She would like to do her post op echocardiogram and follow up here rather than travel back to [place] as that is very difficult for her. Her beta-mariluz had been held post TAVR for 1 week to minimize risk of bradycardia, and c an be restarted at this time, which will help treat her sinus tachycardia. 2. Coronary artery disease: A. Cardiac cath per Dr. Sanchez on 04/19/17 with treatment of mid RCA stenosis with a 3.5 x 15mm Xience Alpine FALGUNI. B. She is intended to stay on clopidogrel for 6 months post PCI. She otherwise denies an y chest pain. She is on a good medical regimen, other than it is time for her metoprolol to be restarted, and the holding of this for the past week is the likely culprit for her faste r heart rates. Will restart her back on her same dose. 3. Peripheral arterial disease: A. LE angiography per Dr. Jacobs. 04/19/17. SYSTEMS SPECIALIST and stenting of left common femoral artery into the SFA with a 6.5 Supera x 40mm stent. B. Today, she denies any claudication. 4. Hypertension, essential: A. Today's blood pressure is controlled. She has been concerned her home blood pressure r eadings seemed higher than normal for her. She will check her blood pressure monitor for ac curacy and then check blood pressure log after restarting the metoprolol. 5. Chronic back pain. Not otherwise addressed today. A. She is seeing a back specialist and planned to have a back surgery done as well. 6. Severe osteoarthritis: Not otherwise addressed today. A. Post right hip replacement in the past. 7. Iron deficiency anemia. Not otherwise addressed today. 8. Migraine. Not otherwise addressed today. 9. Peptic ulcer disease. Not otherwise addressed today. 10. History of Crohn disease. Not otherwise addressed today. PLAN: 1. She is restarted back on metoprolol succinate 50 mg as it has been a week post TAVR now, and this will help treat her sinus tachycardia. 2. She will have her blood pressure monitor checked at PCPs office for accuracy and then wi ll check blood pressure and pulse twice daily for two weeks and return the log to our office . 3. She was advised she could try taking probiotic. 4. We will refer her to cardiac rehab at [place]. 5. She will follow up in 6 to 8 weeks for office visit, or sooner with concerns. She will have an ECG at her follow up visit, She will have echocardiogram done prior to visit to [facility] ow up her aortic valve replacement. and She will have fasting labs prior to visit for lipid profile and CMP. I spent 45 minutes face to face with the patient, with over 50% spent in counseling and/or coordination of care regarding post op care, coronary artery disease and peripheral arterial disease. Portions of this chart may have been created with [employer] voice recognition software. Occasi onal wrong-word or [...] | | | | | | [place] | | | | | | [id number] | | | | | | | | +--------+ + + + + | 06/18/ | Office | Cardiology | Sandra Lua | | | 2019 | Visit | | JOHNNY Bernal [address] | | | | | | [address] | | | | | | [place] [address] | | | | | | [phone] | | | | | | | | +--------+ + + + + documented as of this encounter Procedures + +--------+ + + + | Procedure Name | Priori | Date/Time | Associated Diagnosis | Comments | | | ty | | | | + +--------+ + + + | ECG 12 LEAD | Routin | 04/27/2017 | Tachycardia | Results for this | | | e | 10:45 AM | | procedure are in the [...] Number [place] Patient Number | | | [id number] Date of Study 06/08/2017 Visit | | | Number [id number] | | | Referring Physician ADELIA MCCORMACK Number Date of | | | 1935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, [facility] [[email or web address]] | | | Age 81 year(s) Interpreting | | | JURGEN BARRAGAN, | | | Print Shop Helper Gender Female | | | Nurse Stress | | | Wirer Helper Procedure Type of Study TTE procedure: [...] Index: 22 mL/m^2 | | | EF Ujhmrlptq12% Left Ventricle Diastolic Dimension: 4 cm | [...] | | |Evidence of a TAVR #23mm Lraios Sung with slight increase of the pressure [...] | LA Vol/BSA Index: 22 mL/m^2 EF Nyeaasnlo45% | | | | | | Left [...] Room Number [facility] | | Patient Number [id number] Date of Study 06/08/2017 Visit Number | | [id number] Referring Physician ADELIA MCCORMACK Number | | Date of 1935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 [facility] [[email or web address]] Age | | 81 year(s) Interpreting JURGEN BARRAGAN, | | Print Shop Helper Gender Female Nurse | | Stress TechnicianProcedureType [...] ml LA Vol/BSA Index: 22 mL/m^2 EF Ttvoonjve15% Left Ventricle | | Diastolic Dimension: 4 [...] | LA Vol/BSA Index: 22 mL/m^2 EF Tolrnmwhc86% | | | | Left Ventricle | [...] + +---------+ + + ECG 12 lead (04/27/2017 10:45 AM PDT) + + + + + + | Component | Value | Ref Range | Performed | Pathologist | | | | | At | Signature | + + + + + + | VENTRICULAR | 75 | BPM | [facility] | | | RATE EKG | | | | | + + + + + + | ATRIAL RATE | 75 | BPM | [facility] | | + + + + + + | P-R | 270 | ms | [facility] | | | INTERVAL | | | | | + + + + + + | QRS | 132 | ms | [facility] | | | DURATION | | | | | + + + + + + | Q-T | 426 | ms | [facility] | | | INTERVAL | | | | | + + + + + + | Q-T | 475 | ms | [facility] | | | INTERVAL | | | | | | (CORRECTED) | | | | | + + + + + + | P WAVE AXIS | 44 | degrees | [facility] | | + + + + + + | QRS AXIS | -55 | degrees | [facility] | | + + + + + + | T AXIS | 91 | degrees | [facility] | | + + + + + + | INTERPRETAT | Sinus rhythm with 1st | | [facility] | | | ION TEXT | degree AV blockLeft axis | | | | | | deviationLeft bundle | | | | | | branch blockLeft atrial | | | | | | enlargementAbnormal | | | | | | ECGWhen compared with | | | | | | ECG of 24-FEB-2017 | | | | | | 10:39,Left bundle branch | | | | | | block is now | | | | | | presentConfirmed by | | | | | | SIERRA FORBES MD | | | | | | ([id number]) on 04/28/2017 | | | | | | 3:04:03 PM | | | | + + [...] + + | Coronary artery disease involving kalispel coronary artery of kalispel heart without | | angina pectoris | + + | PAD (peripheral artery disease) (HCC) Unspecified disorders of arteries and | | arterioles | + + | Tachycardia Tachycardia, unspecified | + + documented in this encounter
--- OUTSIDE RECORDS SUMMARY | ~2020-05-24 | XMS | Encounter Summary ---
Demographics + + + | Address | [address] | | | [place] [address] | + + + | Home Phone | | + + + | Preferred Language | Unknown | + + + | Marital Status | | + + + | Rastafarian Affiliation | 1041 | + + + [...] Team Providers + +------+ + | Care Milk Tanker Driver Name | Role | Phone | + +------+ + | Terrence Aquino DO | PCP | | + +------+ + Reason for Visit + +--------+ + | Reason | Onset | Comments | | | Date | | + +--------+ + | Assessment | 03/06/ | | | | 2017 | | + +--------+ + Encounter Details +--------+ + + + + | Date | Type | Department | Care Team | Description | +--------+ + + + + | 03/06/ | Telephone | [facility] | Martina Hoskins, | Assessment | | 2016 | | CARDIOLOGY [address] | MD [address] | | | | | [place], | [place], | | | | | [place] [address] | [place] [address] | | | | | [phone] | [phone] | | | | | | | [...] this encounter Miscellaneous Notes Telephone Encounter - Mis Esparza - 03/07/2017 12:27 PM PDTCompleted referral to Dr. Flynn at [facility] per staff message. elephone Encounter - Rosa Hope RN - 03/06/2017 10:[address]. Dean patient needs to be referred to Dr. West at [facility] for valve surgery, associated diagnoses are aortic valve stenosis and coronary artery d isease. Will route to the front end ui developer to initiate process. .................................. .........ROSA HOPE RN on 03/06/17 at 10:08 documented in this e ncounter Plan of Treatment +--------+ + + + + | Date | Type | Specialty | Care Team | Description | +--------+ + + + + | 06/18/ | Appointment | Cardiology | Rasheeda Patel, | | 2019 | | | [place] | | | | | | [place], [place] | | | | | | [id number] | | | | | | | | +--------+ + + + + | 06/18/ | Office | Cardiology | Sandra Lua | | | 2020 | Visit | | JOHNNY Bernal [address] | | | | | | [address] | | | | | | [place] [address] | | | | | | [phone] | | | | | | | | +--------+ + + + + documented as of this encounter Visit Diagnoses Not on filedocumented in this encounter"
--- OUTSIDE RECORDS SUMMARY | ~2020-05-24 | XMS | Encounter Summary ---
Demographics + + + | Address | [address] | | | [place] [address] | + + + | Home Phone | | + + + | Preferred Language | Unknown | + + + | Marital Status | | + + + | Adventism Affiliation | 1041 | + + + | Race | White | + + + | Ethnic Group | Not or | + + + Author + + + | Author | [facility] | | | and [place] | + + + | Organization | [facility] | | [...] Team Providers + +------+ + | Care Senior Office Support Assistant Sosa Name | Role | Phone | + +------+ + | Terrence Aquino DO | PCP | | + +------+ + Encounter Details +--------+ + + + + | Date | Type | Department | Care Team | Description | +--------+ + + + + | 05/24/ | Hospital | [facility] | Conversion | Degeneration of | | 2016 | Encounter | [facility] | Transaction, | cervicothoracic | | | | [address] | Provider Unknown | intervertebral disc | | | | [address] [place], [place] | | | | | | [address] | | | | | | [phone] | | | +--------+ + + + [...] [place] | | | | | | [address] | | | | | | | | +--------+ + + + + | 06/18/ | Office | Cardiology | Sandra Lua | | | 2019 | Visit | | JOHNNY Bernal [address] | | | | | | [address] | | | | | | [place] [address] | | | | | | [phone] | | | | | | | | +--------+ + + + + documented as of this encounter Procedures + +--------+ + + + | Procedure Name | Priori | Date/Time | Associated Diagnosis | Comments | | | ty | | | | + +--------+ + + + | XR LUMBAR SPINE | Routin | 05/24/2016 | | Results for this | | COMPLETE INCLUDING | e | 4:29 PM | | procedure are in the | | BENDING 6 + VW | | PDT | | results section. | + +--------+ + + + documented in this encounter Results XR Lumbar Spine Complete With Bending 6+ (05/24/2016 4:29 PM PDT) + + | Specimen | + + | | + + + + + | Impressions | Performed At | + + + | 1. Severe multilevel degenerative changes of the lumbar spine as | | | described above. 2. Grade 1 anterolisthesis at the L4-L5 and L5/S1 | | | level without interval change between flexion and extension maneuvers. | | | | | | 5:48 PM | | + + + + + + | Narrative | Performed At | + + + | [facility] XR LUMBAR SPINE 6 OR MORE VIEWS 05/24/2016 4:29 PM | | | HISTORY: 80 years. Female. Low back pain and lumbar | | | spondylosis. TECHNIQUE: XR LUMBAR SPINE 6 OR MORE VIEWS. Frontal, | | | lateral, left and right oblique and flexion and extension views with | | | coned-down of the lumbosacral junction.. Total of 9 images | | | presented for interpretation. COMPARISON: None. FINDINGS: 5 | | | nonrib-bearing lumbar type vertebral bodies. There is severe | | | multilevel degenerative changes at nearly all levels of the lumbar | | | spine. There is disc height loss and vacuum disc changes from L2/L3 | | | through the L5/S1 level. There is complete disc height loss and bony | | | fusion of the L1/L2 disc space. No obvious spondylolysis however | | | could be obscured by the marked facet arthropathy at multiple levels. | | | 6 mm anterolisthesis at L4-L5 is unchanged between flexion and | | | extension maneuvers. Similarly the 8 mm of anterolisthesis at L5/S1 | | | is also unchanged between flexion and extension maneuvers. The foramen | | | appear patent. Patient is incidentally noted have a right total hip | | | arthroplasty. | | + + + + + | Procedure Note | + + | Domo, Rad Conversion - 04/04/2019 12:16 PM PDT [facility] LUMBAR SPINE 6 OR MORE | | VIEWS05/24/2016 4:29 PM HISTORY:80 years. Female. Low back pain and lumbar | | spondylosis. TECHNIQUE:XR LUMBAR SPINE 6 OR MORE VIEWS. Frontal, lateral, left and right | | oblique and flexion and extension views with coned-down of the lumbosacral junction.. | | Total of 9 images presented for interpretation. COMPARISON:None. FINDINGS:5 | | nonrib-bearing lumbar type vertebral bodies. There is severe multilevel degenerative | | changes at nearly all levels of the lumbar spine. There is disc height loss and vacuum | | disc changes from L2/L3 through the L5/S1 level. There is complete disc height loss and | | bony fusion of the L1/L2 disc space. No obvious spondylolysis however could be obscured | | by the marked facet arthropathy at multiple levels. 6 mm anterolisthesis at L4-L5 is | | unchanged between flexion and extension maneuvers. Similarly the 8 mm of anterolisthesis | | at L5/S1 is also unchanged between flexion and extension maneuvers. The foramen appear | | patent. Patient is incidentally noted have a right total hip arthroplasty.IMPRESSION: 1. | | Severe multilevel degenerative changes of the lumbar spine as described above.2. | | Grade 1 anterolisthesis at the L4-L5 and L5/S1 level without interval change between | | flexion and extension maneuvers. Electronically signed by Juan Daniel Arteaga MD on | | 05/24/2016 5:48 PM | |extension maneuvers. Similarly the 8 mm of | | anterolisthesis at L5/S1 is also unchanged between flexion and extension maneuvers. The fo ramen appear patent. Patient is incidentally noted have a right total hip arthroplasty. | |IMPRESSION: | |1. Severe multilevel degenerative changes of the lumbar spine as described above. | |2. Grade 1 anterolisthesis at the L4-L5 and L5/S1 level without interval change between fl exion and extension maneuvers. | | | | | | | | | + + documented in this encounter Visit Diagnoses + + | Diagnosis | + + | Degeneration of cervicothoracic intervertebral disc Degeneration of cervical | | intervertebral disc | + + documented in this encounter"
--- OUTSIDE RECORDS SUMMARY | ~2020-05-24 | XMS | Encounter Summary ---
Demographics + + + | Address | [address] | | | [place] [address] | + + + | Home Phone | | + + + | Preferred Language | Unknown | + + + | Marital Status | | + + + | Anabaptism Affiliation | 1041 | + + + | Race | White | + + + | Ethnic Group | Not or | + + + Author + + + | Author | [facility] | | | and [place] | + + + | Organization | [facility] | | [...] Team Providers + +------+ + | Care Forest Supervisor Name | Role | Phone | + +------+ + | Terrence Aquino DO | PCP | | + +------+ + Reason for Visit + +--------+ + | Reason | Onset | Comments | | | Date | | + +--------+ + | Medication Related | 06/23/ | needs premed for dental cleaning | | | 2016 | | + +--------+ + Encounter Details +--------+ + + + + | Date | Type | Department | Care Team | Description | +--------+ + + + + | 06/23/ | Telephone | [facility] | Rasheeda Patel, | Medication Related | | 2016 | | CARDIOLOGY [address] [place] | (needs premed for | | | | [place], | [place] | dental cleaning) | | | | [place] [address] | [address] | | | | | [phone] | | | +--------+ + + + [...] Telephone Encounter - Lyssa Arora RN - 06/23/2017 9:37 AM PDTPatient called, requ esting premed for dental cleaning in the middle of June. Patient states that dentist in [place] are unable to prescribe premeds. ...........................................LYSSA ARORA RN on 06/23/17 at 9:39 Clindamycin ordered per [facility] protocol. Prescription sent to [facility] ............. ..............................LYSSA ARORA RN on 06/23/17 at 9:44 Patient notified that prescription was done ...........................................LYSSA BURRELL RN on 06/23/17 at 9:46 documented in thi s encounter Plan of [...] [place] | | | | | | [id number] | | | | | | | | +--------+ + + + + | 06/18/ | Office | Cardiology | Sandra Lua | | | 2019 | Visit | | [address] | | | | | | [address] | | | | | | [place] [address] | | | | | | [phone] | | | | | | | | +--------+ + + + + documented as of this encounter Visit Diagnoses Not on filedocumented in this encounter"
--- OUTSIDE RECORDS SUMMARY | ~2020-05-24 | XMS | Encounter Summary ---
Demographics + + + | Address | [address] | | | [place] [address] | + + + | Home Phone | | + + + | Preferred Language | Unknown | + + + | Marital Status | | + + + | Restorationist Affiliation | 1041 | + + + | Race | White | + + + | Ethnic Group | Not or | + + + Author + + + | Author | [facility] | | | and [place] | + + + | Organization | [facility] | | | [...] Team Providers + +------+ + | Care Quality Head Name | Role | Phone | + +------+ + PCP | Unavailable | + +------+ + Encounter Details +--------+ + + + + | Date | Type | Department | Care Team | Description | +--------+ + + + + | 03/26/ | Hospital | [facility] | Brijesh, | | | 2007 - | Encounter | [facility] | Wes White MD [address] | | | | [address] | [address] | | | 11/18/ | | [place], [place] | [address], [place] | | | 2007 | | [address] | [address] | | | | | [phone] | | | +--------+ + + + [...] | | | | | [place] [address] | | | | | | [phone] | | | | | | | | +--------+ + + + + documented as of this encounter Visit Diagnoses Not on filedocumented in this encounter"
--- OUTSIDE RECORDS SUMMARY | ~2020-05-24 | XMS ---
Demographics + + + | Address | [address] | | | [address] | | | [place] [address] | + + + | Preferred Language | Unknown | + + + | Marital Status | Unknown | + + + | Buddhism Affiliation | Unknown | + + + | Race | Unknown | + + + | Ethnic Group | Unknown | + + + Author + + + | Author | [facility] | + + + | Organization | [facility] | + + + | Address | [address] | | | [place] [address] | + + + | Phone | | + + + Care Team Providers + + + + | Care Surgical Assistant Certified Name | Role | Phone | + + + + Unavailable | Unavailable | + + + + PROBLEMS +---------+ + + +--------+ + + | Type | Condition | ICD9-CM | OCC22-NC | Onset | Condition | SNOMED | | | | Code | Code | Dates | Status | Code | +---------+ + + +--------+ + + | Problem | Elevated | R03.0 | | | Active | [id number] | | | blood | | | | | | | | pressure | | | | | | | | reading | | | | | | +---------+ + + +--------+ + + | 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 | | | Active | [id number] | | | hageal | | | [...] | I35.0 | | | Active | [id number] | | | stenosis | | | | | | +---------+ + + +--------+ + + | Problem | Hypertensi | I11.9 | | | Active | [id number] | | | ve | | | [...] | | E87.6 | | Active | [id number] | | | a | | | [...] smoking Hx information available PLAN OF CARE + +---------+ | Activity | Details | + +---------+ +---+ | | +---+ + + + | Follow Up | prn Reason:null | + + + VITAL SIGNS + + + + | Height | 64 in | 2017-05-02 | + + + + | Weight | 144.2 lbs | 2017-05-02 | + + + + | BMI | 24.75 kg/m2 | 2017-05-02 | + + + + | Heart Rate | 72 /min | 2017-05-02 | + + + + | Blood pressure systolic | 140 mm Hg | 2017-05-02 | + + + + | Blood pressure diastolic | 63 mm Hg | 2017-05-02 | + + + + MEDICATIONS + [...] + + | Office Visit, Est | May 02, 2017 | | | | Pt., Level 3 | | | | + + + + + IMMUNIZATIONS No Known Immunizations"
[~2020-05-24 19:16] MED LIST: ATENOLOL25 MG PO; B COMPLEX # 11 EACH PO; IRBESARTAN300 MG PO; LIALDA1.2 GM PO; POTASSIUM CHLO20 ME1 PO; PREDNISONE10 MG PO; PRILOSEC20 MG PO; PROBIOTIC1 EAC1 PO; TURMERIC500 MG PO; TYLENOL EXTRA500 MG PO; VITAMIN C500 M1 PO; VITAMIN D1000 UNI1 PO
[2020-05-24] MEDS ORDERED: METOPROLOL SUCC50 MG PO (19:31)
[2020-05-24] MEDS ORDERED: MACROBID 100 M100 MG PO (19:44)
[2020-05-24] MEDS ORDERED: LO-DOSE ASPIRIN81 MG PO (19:45)
--- NOTE | 2020-05-24 21:19 | EKG ---
[facility] [address] [facility] [place], [place] [address] Signed Sinus rhythm with 1st degree AV block Minimal voltage criteria for LVH, may be normal variant Anterior infarct , age undetermined Abnormal ECG No previous ECGs available Confirmed by ANNEL TERAN MD ([id number]) on 05/24/2020 9:18:50 PM Electronically Signed By: ANNEL TERAN MD 05/24/20 2119 PATIENT NAME: HANY DURAN Electrocardiogram DATE OF : 37 PHYSICIAN: ANNEL TERAN MD REPORT #: [id number] REPORT IS CONFIDENTIAL AND NOT TO BE RELEASED WITHOUT AUTHORIZATION
== END 2020-05-24 21:25 | disposition home or self-care (01) ==
LOC: ED 19:16
DX: I10 Essential (primary) hypertension (principal); E87.6 Hypokalemia; Z88.2 Allergy status to sulfonamides; Z88.8 Allergy status to other drugs, medicaments and biological substances; Z79.899 Other long term (current) drug therapy; Z79.82 Long term (current) use of aspirin
CPT/HCPCS: 71045; 80053; 83735; 84484; 85025; 93005; 93010; 99285-25

== ENCOUNTER 2020-11-02 12:27 | Emergency (ER) | payer MEDICARE, OTHER ==
[~2020-11-02] VITALS: Ht 160 cm; Wt 63.5 kg
[~2020-11-02 12:27] MED LIST changes: +LO-DOSE ASPIRIN81 MG PO; +MACROBID 100 M100 MG PO; +METOPROLOL SUCC50 MG PO
[2020-11-02] MEDS ORDERED: KLOR-CON M2020 MEQ PO (14:23)
[2020-11-02] MEDS ORDERED: CALCIUM 600 +1 EA14 PO (14:23)
[2020-11-02] MEDS ORDERED: PREDNISONE20 MG PO (14:25)
[2020-11-02] MEDS ORDERED: ALENDRONATE SOD70 MG PO (14:26)
== END 2020-11-02 18:24 | disposition home or self-care (01) ==
LOC: ED 12:27
DX: K52.9 Noninfective gastroenteritis and colitis, unspecified (principal); Z88.2 Allergy status to sulfonamides; Z88.8 Allergy status to other drugs, medicaments and biological substances; Z79.899 Other long term (current) drug therapy; Z79.82 Long term (current) use of aspirin; Z79.52 Long term (current) use of systemic steroids
CPT/HCPCS: 74177; 80053; 81001; 83690; 85025; 87493; 99285-25; Q9967

== ENCOUNTER 2024-09-08 08:36 | Emergency (ER) | payer MEDICARE, OTHER ==
[~2024-09-08] VITALS: Ht 160 cm; Wt 63.0 kg
[~2024-09-08 08:36] MED LIST changes: +ALENDRONATE SOD70 MG PO; +CALCIUM 600 +1 EA14 PO; +KLOR-CON M2020 MEQ PO; +PREDNISONE20 MG PO
[2024-09-08] MEDS ORDERED: ondansetron HCL 4 MG/2 ML VIAL IV ONE (09:00)
[2024-09-08] MEDS ORDERED: SODIUM CHLORIDE 0.9% 1,000 ML IV ONE (09:00)
[2024-09-08 09:09] LABS: BASOPHILS 0.1 % (0-2); EOSINOPHILS 0.2 % (0-6); HEMATOCRIT 25.7 % (35.0-50.0); HEMOGLOBIN 7.6 g/dL (12.0-18.0); LYMPHOCYTES 2.5 % (24-44); MCH 20.5 (27-36); MCHC 29.7 g/dl (30-36); MONOCYTES 4.5 % (0-12); NEUTROPHILS 92.7 % (39-80); PLATELET COUNT 226 K/uL (140-440); RBC 3.73 M/ul (4.3-5.7); RDW 18.7 (10.5-15.0)
[2024-09-08 09:29] LABS: ALBUMIN/GLOBULIN RATIO 0.75 (1.1-2.4); ANION GAP 15.9 (7-21); BILIRUBIN, TOTAL 0.6 ng/dL (0.2-1.0); BUN/CREATININE RATIO 45.05 (6.0-28.6); CALCIUM 8.7 mg/dL (8.5-10.1); CREATININE, SERUM 0.91 mg/dL (0.55-1.02); MAGNESIUM 1.6 mg/dL (1.8-2.4); POTASSIUM 3.9 mmol/L (3.5-5.1)
[2024-09-08] MEDS ORDERED: MAGNESIUM SULFATE 2 GM/50 ML BAG IV ONE (09:45)
[2024-09-08] MEDS ORDERED: ACETAMINOPHEN 325 MG TAB PO ONE (10:00)
[2024-09-08] MEDS ORDERED: ONDANSETRON ODT8 MG PO (10:26)
[2024-09-08] MEDS ORDERED: FEOSOL325 MG PO (10:30)
[2024-09-08 11:44] VITALS: BP 109/65
== END 2024-09-08 11:44 | disposition home or self-care (01) ==
LOC: ED 08:36
PROVIDERS: Emergency Medicine
DX: K29.00 Acute gastritis without bleeding (principal); D64.9 Anemia, unspecified; Z79.52 Long term (current) use of systemic steroids; Z79.899 Other long term (current) drug therapy; Z79.82 Long term (current) use of aspirin; Z88.2 Allergy status to sulfonamides; Z88.8 Allergy status to other drugs, medicaments and biological substances
CPT/HCPCS: 36415; 80053; 83735; 85025; 85060; 96365; 96375; 99284-25; A9270; J2405; J3475; J7030

== ENCOUNTER 2024-09-12 11:55 | Emergency (ER) | payer MEDICARE, OTHER ==
[~2024-09-12] VITALS: Ht 160 cm; Wt 66.2 kg
[~2024-09-12 11:55] MED LIST changes: +FEOSOL325 MG PO; +ONDANSETRON ODT8 MG PO
--- OUTSIDE RECORDS SUMMARY | 2024-09-12 12:02 | XMS ---
PreManage Notification: HANY DURAN Security Aperture Mask Etcher Events No recent Security Events currently on file CRITERIA MET - [facility] - 2 Visits in 30 Days CARE PROVIDERS There are no care providers on record at this time. [facility] has no Care Guidelines for this patient. [facility] MO.) [facility] NOTE: Visits indicate total known visits. ED/C VISIT TRACKING (12 MO.) 09/12/2024 11:[address] [facility] [place] TYPE: Emergency COMPLAINT: - ABDOMINAL PAIN 09/08/2024 08:[address] 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
[2024-09-12] MEDS ORDERED: ondansetron HCL 4 MG/2 ML VIAL IV ONE (13:00)
[2024-09-12] MEDS ORDERED: SODIUM CHLORIDE 0.9% 500 ML IV PRN (13:00)
[2024-09-12 13:01] LABS: BASOPHILS 0.7 % (0-2); EOSINOPHILS 0.9 % (0-6); HEMATOCRIT 27.5 % (35.0-50.0); HEMOGLOBIN 8.3 g/dL (12.0-18.0); LYMPHOCYTES 5.3 % (24-44); MCH 20.8 (27-36); MCHC 30.1 g/dl (30-36); MONOCYTES 7.7 % (0-12); NEUTROPHILS 85.4 % (39-80); PLATELET COUNT 227 K/uL (140-440); RBC 3.99 M/ul (4.3-5.7); RDW 18.6 (10.5-15.0)
[2024-09-12 13:10] LABS: ALBUMIN/GLOBULIN RATIO 0.75 (1.1-2.4); ANION GAP 10.9 (7-21); BILIRUBIN, TOTAL 0.4 ng/dL (0.2-1.0); BUN/CREATININE RATIO 37.33 (6.0-28.6); CALCIUM 9.3 mg/dL (8.5-10.1); CREATININE, SERUM 0.75 mg/dL (0.55-1.02); POTASSIUM 3.9 mmol/L (3.5-5.1)
[2024-09-12 13:16] LABS: BILIRUBIN, URINE NEGATIVE (negative); BLOOD/HGB, URINE NEGATIVE (Negative); KETONE, URINE NEGATIVE (Negative); LEUK ESTERASE, URINE TRACE (negative); NITRITE, URINE POSITIVE (negative)
[2024-09-12] MEDS ORDERED: HYDROmorphone HCL 1 MG/ML SYR IV ONE (13:30)
[2024-09-12 13:39] LABS: BACTERIA, URINE 3+ /hpf (negative); CASTS, URINE NONE SEEN \\lpf; CRYSTALS, URINE NONE SEEN (0-1+); EPITHELIAL CELLS, URINE 0 /lpf (0-1+); RED BLOOD CELLS, URINE 0-1 /hpf (0-5); WHITE BLOOD CELLS, URINE 21-40 /HPF (0-5)
[2024-09-12 13:40] LABS: COLLECTION TYPE, URINE CLEAN CATCH; REFLEX CULTURE, URINE Yes (No)
[2024-09-12] MEDS ORDERED: CEFTRIAXONE/SODIUM CHLORIDE 2 GM/100 ML PIGGYBACK IV ONE (14:30)
[2024-09-12] MEDS ORDERED: MAGNESIUM SULFATE 2 GM/50 ML BAG IV ONE (14:30)
[2024-09-12] MEDS ORDERED: ACETAMINOPHEN 500 MG TAB PO ONE (15:00)
[2024-09-12] MEDS ORDERED: ONDANSETRON ODT8 MG PO (17:07)
[2024-09-12] MEDS ORDERED: CEPHALEXIN500 M1 PO (17:07)
[2024-09-12 17:14] VITALS: BP 150/80
== END 2024-09-12 17:14 | disposition home or self-care (01) ==
LOC: ED 11:55
PROVIDERS: Emergency Medicine
DX: N39.0 Urinary tract infection, site not specified (principal); D50.9 Iron deficiency anemia, unspecified; E83.42 Hypomagnesemia; K43.9 Ventral hernia without obstruction or gangrene; K50.90 Crohn's disease, unspecified, without complications; Z95.2 Presence of prosthetic heart valve; Z88.2 Allergy status to sulfonamides; Z88.8 Allergy status to other drugs, medicaments and biological substances; Z79.82 Long term (current) use of aspirin; Z79.52 Long term (current) use of systemic steroids; Z79.83 Long term (current) use of bisphosphonates; Z79.899 Other long term (current) drug therapy
CPT/HCPCS: 36415; 80053; 81001; 83690; 83735; 85025; 85060; 87077; 87088; 87186; 96361; 96365; 96368; 96375; 99284-25; A9270; J0696; J1171; J2405; J3475; J7040